=== PATIENT | male | born 1950 | race African-American/Black ===

== ENCOUNTER 2016-03-23 10:03 | Outpatient (RCR) | payer MEDICARE, MEDICAID ==
[~2016-03-23 10:03] MED LIST: /HYDR10T PO; /IPRAINH INH; /SENOSTA PO; /WARF5TA PO; ACET50TA PO; ACET65TA PO; ANTISOL30 AU; ASPI1TAB PO; ASPI325T PO; ATARAX; ATROVENT; BENA25CA PO; CALC1CAP PO; CALC667C2 PO; CART180C PO; COLA100C PO; COMBAER6 INH; COMBIN INH; COUM10TA PO; COUM1TAB14 PO; COUM1TAB17 PO; COUM6TAB PO; COUM7.5T PO; COUMADIN PO; DARB300VL IV; DARB30SYRN IV; DARB60SYR; DILT180C PO; DIPH25CA PO; DOCU100C PO; DOCU10CA PO; DOCU10ELUD PO; DOXY-197 PO; DOXY-278 PO; DOXY100C PO; DOXY75CA3 PO; DRIS50002 PO; ELIQ5TAB PO; EUCECRE3 TOP; FLUT0.003 TOP; FOLI1TAB2 PO; FOLITAB11 PO; FOSR1000 PO; GABA-279 PO; GEOD40CA; HYDR-3363 PO; HYDR-3713 PO; HYDR-3716 PO; HYDR25TA8; HYDR5TAB23 PO; IBUP80TA PO; IMMODIUM PO; IMOD2TAB16 PO; IPRA1SOL47 NEB; IPRASOL4 INH; KAYEPOW PO; LAC-12LO3 TOP; LEVA12INH INH; LEVA31IN; LOPE2CA PO; LOPE2TAB PO; LOPR100T; LOPR1TAB6 PO; LOPR1TAB7 PO; LOPR50TA PO; METO-209 PO; METO100T PO; METO12TA PO; METO50TA2 PO; MIRA3350 PO; NEPH1CAP4 PO; NEPHTAB PO; NEUR300C PO; NICO14DI3 TD; NICO7PA TD; NIFE30TA; NORCOBULK PO; OMEP20CA3 PO; OXYCODONE PO; PANT40TA2 PO; PARO30TA PO; PARO5TAB PO; PAXI10TA2 PO; PERC5TAB8; PERCOCET PO; PHOSLO667 MG; PRIL20CA PO; PROCRIT3000 MG/ML; PROT1TAB2 PO; PROTPAK PO; RENA800T; RENV2TAB PO; SENE8.6T3 PO; SENO8.6T11 PO; SENO8.6T2 PO; SENO8.6T5 PO; SENS60TA PO; SENS90TA PO; SEVE80TAB PO; SIMV10TA2 PO; SODI200S PO; TAMO20TA4 PO; TYLE325T5 PO; TYLENOL #3; VALA500T PO; VANC125C2 PO; VANC1CAP6 PO; VANC25CA; VICODIN PO; WARF-22 PO; WARF-58 PO; WARF5VL PO; XANA0.25 PO; XARELTO PO; ZOCO10TA PO; [UNRECOGNIZED DRUG - CODE] IV; immodium PO; zemplar
--- NOTE | 2016-04-20 09:20 | RADONC ---
RADIATION ONCOLOGY PROGRESS NOTE DATE: 04/19/2016 Mr. Valadez is presently at a dose of 2520 cGy to his left chest wall and is tolerating treatments quite well at this point with no complaints related to his radiation therapy. He is having no skin discomfort. REVIEW OF SYSTEMS: The patient's review of systems is positive for his difficulties secondary to his dialysis, but is otherwise largely noncontributory. He denies nausea, vomiting, fevers, chills, night sweats, diplopia, headaches, anxiety or depression, anorexia, weight loss, visual disturbances, chest pain, urinary or bowel difficulties, bone pain or neurological problems. PHYSICAL EXAMINATION: The patient's skin is in good condition with just some radiation tanning present. There is no evidence of moist or dry desquamation. The remainder of his physical exam remains unchanged. Mr. Valadez is tolerating treatments quite well and radiation will continue as scheduled.
== END 2016-04-20 ==
LOC: M ONCR 10:03
PROVIDERS: ATTEND Radiology Radiation Oncology
DX: C50.422 Malignant neoplasm of upper-outer quadrant of left male breast (principal)

== ENCOUNTER → 2016-04-13 | Outpatient (CLI) | payer MEDICARE, MEDICAID ==
[2016-04-13 13:50] LABS: CREATININE FOR GFR 7.19 MG/DL (0.70-1.30); GLOMERULAR FILTRATION RATE 9.9 (>49)
== END | disposition home or self-care (01) ==
LOC: M LAB 12:25
PROVIDERS: ATTEND Physician Assistant
DX: M19.072 Primary osteoarthritis, left ankle and foot (principal)

== ENCOUNTER 2016-04-19 11:58 | Outpatient (RCR) | payer MEDICARE, MEDICAID | END 2016-04-20 | LOC: M PT 11:58 | PROVIDERS: ATTEND Orthopaedic Surgery | DX: Z51.89 Encounter for other specified aftercare (principal); M17.0 Bilateral primary osteoarthritis of knee | CPT/HCPCS: 97110; 97162; G8978; G8979 ==

== ENCOUNTER 2016-04-21 10:19 | Outpatient (RCR) | payer MEDICARE, MEDICAID ==
--- NOTE | 2016-04-27 13:25 | RADONC ---
RADIATION ONCOLOGY PROGRESS NOTE DATE: 04/26/2016 CHART NUMBER: [id number] Mr. Valadez is presently at a dose of 3420 cGy to his left chest wall and is tolerating treatments quite well at this point with no complaints related to his radiation therapy. He is having no skin pain or other problems. The patient's review of systems is unchanged. He continues to have physical limitations and is in a wheelchair. He also continues to be on dialysis for kidney failure. He denies nausea, vomiting, fevers, chills, night sweats, diplopia, headaches, anxiety or depression, anorexia, weight loss, visual disturbances, chest pain. PHYSICAL EXAMINATION: The patient's skin is in good condition with no evidence of moist or dry desquamation. He remains in a wheelchair. The remainder of his physical exam also remains unchanged. Mr. Valadez is tolerating treatments quite well, and radiation will continue as scheduled.
--- NOTE | 2016-05-04 11:42 | RADONC ---
RADIATION ONCOLOGY PROGRESS NOTE DATE: 05/03/2016 CHART NUMBER: [id number] Mr. Valadez is presently at a dose of 4320 centigrade to his left chest wall and is tolerating treatments quite well at this point with no significant difficulties related to his radiation therapy. He is having no chest wall discomfort or other problems. The patient's review of systems is noncontributory for anything regarding radiation. He is on dialysis and has physical limitations present. He is presenting in a wheelchair. He denies nausea, vomiting, fevers, chills, night sweats, diplopia, headaches, anxiety or depression, anorexia, weight loss, visual disturbances, chest pain, or bowel difficulties. PHYSICAL EXAMINATION: The patient is presenting in a wheelchair. The patient's skin has tanning present but overall is in good condition with no evidence of moist or dry desquamation. The remainder of his physical exam remains unchanged. Mr. Valadez he is tolerating treatments quite well and radiation will continue as scheduled. Edited: 05/05/2016 diann
--- NOTE | 2016-05-05 13:06 | RADONC ---
RADIATION ONCOLOGY SIMULATION NOTE: DATE: 05/04/2016 CHART NUMBER: Mr. Valadez was taken to the linear accelerator today for clinical setup of his electron beam left chest wall scar boost field. Setup was accomplished without difficulty or discomfort. Radiation treatment planning is underway and radiation treatments will begin subsequently. An immobilization device was created and will be used throughout the course of this treatment. I was physically present throughout the course of simulation.
--- NOTE | 2016-05-13 08:00 | RADONC ---
RADIATION ONCOLOGY PROGRESS NOTE DATE: 05/10/2016 CHART NUMBER: [id number] Mr. Valadez is presently at a dose of 5040 cGy to his left chest wall boost and was last treated on 05/07/2016. He did not come in today secondary to conflicting appointments. When seen on Tuesday his skin was in excellent condition with no evidence of moist or dry desquamation and just some radiation tanning present. He had no complaints related to his radiation therapy. The patient is scheduled to resume radiation tomorrow. He had been tolerating treatments quite well and we are approaching completion of treatment.
--- NOTE | 2016-05-14 13:03 | RADONC ---
RADIATION ONCOLOGY TREATMENT SUMMARY DATE: 05/14/2016 CHART NUMBER: [id number] DIAGNOSIS: Left breast cancer. STAGE: IIIA, [id number] ECOG PERFORMANCE STATUS: 4 TREATMENT SUMMARY: Mr. 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 We treated the patient to his left chest wall for a total dose of 4680 cGy delivered in 26 fractions of 180 cGy each over 35 elapsed days from 03/31/2016 through 05/05/2016. The patient's left chest wall was treated on the linear accelerator utilizing and 18 mV photon beam via 3-D conformal therapy with medial and lateral tangential mcgill. 2 cm of tissue equivalent bolus was placed over the chest wall. Following completion of 4680 cGy of the entire left chest wall, the primary scar site was boosted for an additional 1080 cGy delivered in six fractions of 180 cGy each from to 05/06/2016 through 05/14/2016. The scar boost was delivered in a linear accelerator utilizing a 12 MeV electron beam prescribed to the 90% isodose line via non-phos technique. This brought the scar to a total dose of 5760 cGy. The supraclavicular region was also treated via an anterior oblique field utilizing a 15 degree angle and an 18 mV photon beam. Overall the mid axilla dose reached 5040 cGy. Mr. Valadez tolerated his treatments quite well with no significant difficulties related to his radiation therapy other than some skin reaction with some moist and dry desquamation. The patient overall tolerated his treatments and was able to complete therapy as prescribed without interruption. I have scheduled the patient to see him again in 1 month for further followup. He will also continue to be followed by his other physicians as well. cc: MD Gustavo Sims MD Khalid Sindhu, MD
== END 2016-05-18 ==
LOC: M ONCR 10:19
PROVIDERS: ATTEND Radiology Radiation Oncology
DX: C50.422 Malignant neoplasm of upper-outer quadrant of left male breast (principal)

== ENCOUNTER 2016-05-12 12:15 | Outpatient (RCR) | payer MEDICARE, MEDICAID | END 2016-05-18 | LOC: M PT 12:15 | PROVIDERS: ATTEND Orthopaedic Surgery | DX: Z51.89 Encounter for other specified aftercare (principal); M17.0 Bilateral primary osteoarthritis of knee ==

== ENCOUNTER 2016-05-16 18:31 | Emergency (ER) | payer MEDICARE, MEDICAID ==
[2016-05-16] MEDS ORDERED: SILVER SULFADIAZINE 1% CR 50 GM JAR As Ordered ONE (19:55)
[2016-05-16] MEDS ORDERED: NORCO, ANEXSIA 5/325MG TABLET (HYDROcodone/ACETAMINOPHEN) As Ordered ONE (19:55)
[2016-05-16 20:03] LABS: BASO % 0.7 % (0.0-1.0); EOS # 0.8 K/mm3 (0.0-0.50); EOS % 15.9 % (0.0-3.0); LARGE UNSTAINED CELL # 0.2 K/mm3 (0.0-0.4); LARGE UNSTAINED CELL % 3.2 % (0.0-4.0); LYMPH % 15.9 % (24.0-44.0); MEAN CORPUSCULAR HEMOGLOBIN 28.8 pg (27.0-33.0); MEAN CORPUSCULAR HGB CONC 32.5 g/dl (32.0-36.5); MEAN CORPUSCULAR VOLUME 88.6 fl (80.0-96.0); MONO # 0.5 K/mm3 (0.0-0.8); MONO % 8.9 % (0.0-5.0); NEUTROPHILS # 2.8 K/mm3 (1.8-7.7); NEUTROPHILS % 55.4 % (36.0-66.0); PLATELET COUNT, AUTOMATED 127 k/mm3 (150-450); RED CELL DISTRIBUTION WIDTH 16.2 % (11.5-14.5)
--- NOTE | 2016-05-16 21:00 | EDDOCDS ---
Nurse's Notes [facility] Name: Izaiah Valadez Age: 65 yrs Sex: Male : 1950 Arrival Date: 05/16/2016 Time: 18:31 Bed 15 Private MD: Diagnosis: Disorder of the skin and subcutaneous tissue related to radiation, unspecified Presentation: 05/16 18:35 Presenting complaint: EMS states: Patient presents with chest pain, patient reports jmb that chest pain is a result of radiation austin to chest. Last treatment on Tuesday. Burning on left side of chest. Known by provider. Patient had mupirocin at home and tried on area. Adult Sepsis Screening: The patient does not have new or worsening altered mentation. Patient's respiratory rate is less than 22. Systolic blood pressure is greater than 100. Patient has a qSOFA score of 0- Negative Sepsis Screen. Suicide/Homicide risk assessment- the patient denies having any suicidal and/or homicidal ideations and does not present with any other emotional, behavioral or mental health complaints. 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 Transition of care: patient was not received from another setting of care. 18:35 Acuity: CATHI Level 3 b 18:35 Method Of Arrival: Ambulance [facility] Triage Assessment: 18:40 General: Appears in no apparent distress, Behavior is appropriate for age, cooperative. jmb Pain: Location: chest Pain currently is 10 out of 10 on a pain scale. Neurological: Level of Consciousness is awake, alert, obeys commands, Oriented to person, place, time, Speech is normal, Facial symmetry appears normal, Facial symmetry: tongue is midline. Cardiovascular: Capillary refill < 3 seconds Heart tones present Pulses are all present. Rhythm is regular. Respiratory: Airway is patent Respiratory effort is even, unlabored, Respiratory pattern is regular, Breath sounds are diminished bilaterally. GI: Abdomen is obese, Bowel sounds present X 4 quads. Abd is soft and non tender X 4 quads. Derm: Skin is normal, Patient has third degree austin to left upper chest. Musculoskeletal: Range of motion intact in all extremities. Injury Description: No known injury. Historical: - Allergies: Bactrim DS (Rash); IODINEIODINE CONTAINING; IV Dye (Swelling); PENICILLINS (Rash); - Home Meds: 1. aspirin 81 mg Oral grps 1 tab once daily 2. Benadryl 25 mg Oral cap 2 caps before HD 3. calcium acetate 667 mg oral tab 5 cap 3 times per day 4. Colace 100 mg oral cap 1 cap 2 times per day 5. Combivent 18-103 mcg/actuation Inhl aero 2 puffs tid 6. Combivent Respimat 20-100 mcg/actuation inhalation mist 1 puff 4 times per day 7. diltiazem HCl 180 mg Oral cpER 1 cap once daily 8. Drisdol 50,000 unit Oral cap every 2 weeks 9. Eliquis 5 mg oral tab 1 tab 2 times per day 10. folic acid 1 mg Oral tab 1 tab once daily 11. gabapentin 100 mg Oral cap 3 times per day 12. ipratropium-albuterol 0.5 mg-3 mg(2.5 mg base)/3 mL Inhl nebu 3 mL 4 times per day 13. loperamide 2 mg Oral tab every 6 hours 14. metoprolol tartrate 100 mg Oral tab 1 tab once daily 15. Miralax 17 gram Oral pwpk 1 packet once daily 16. nephrovite 0.8 mg daily 17. nicotine 7 mg/24 hr TD pt24 1 patch once daily 18. omeprazole 20 mg Oral cpDR 1 cap once daily 19. Paxil 20 mg Oral tab 1.5 tab once daily 20. renvela 4800mg 3 times per day 800 mg 1 tabs three times a day 21. senna 8.6mg daily 1 cap twice a day 22. Sensipar 60 mg oral tab once daily 23. simvastatin 10 mg Oral tab 1 tab nightly 24. SPS 15 gram/60 mL Oral susp 3 grams DIRECTED 25. Valtrex 500 mg Oral tab 1 tab once daily 26. Vicodin 5/325 Oral tab 1 tab every 6 hours 27. Xanax 0.25 mg Oral tab Q6H - PMHx: Anemia; Bronchitis; Cancer, Breast - Left; CHF; Diabetes - NIDDM: controlled; DVT; hyperlipidemia; Hypertension; pulmonary edema; Renal Failure with Dialysis; - PSHx: fistula in arms and legs for dialysis; - Social history: Smoking status: Patient uses tobacco products, heavy tobacco smoker. No barriers to communication noted, The patient speaks fluent Hungarian, Speaks appropriately for age. - Family history: Not pertinent. - : The pt / caregiver states he / she is on anticoagulants: Eliquis Home medication list is obtained from the patient. - Exposure Risk Screening:: None identified. Screenin:49 Screening information is obtained from the patient. Fall risk: At risk due to jmb immobility. Assistance ADL's: requires no assistance with activities of daily living. Abuse/DV Screen: The patient / caregiver reports he/she is: not in a situation that causes fear, pain or injury. Nutritional screening: No deficits noted. home support is adequate. 20:47 Advance Directives: Currently, there is no health care proxy. There is no active DNR jmb order. There is no living will. There is no Power of Senior Private Client Advisor. Assessment: 19:49 General: Appears uncomfortable, Behavior is appropriate for age, cooperative. Pain: jmb Location: chest Pain currently is 10 out of 10 on a pain scale. Neurological: Level of Consciousness is awake, alert, obeys commands, Oriented to person, place, time, Speech is normal, Facial symmetry appears normal, Facial symmetry: tongue is midline. Respiratory: Airway is patent Respiratory effort is even, unlabored, Breath sounds are diminished bilaterally. GI: Abdomen is obese, Bowel sounds present X 4 quads. Abd is soft X 4 quads. Derm: Skin is normal, radiation austin to left anterior chest. Musculoskeletal: Range of motion intact in all extremities. 20:01 General: Appears in no apparent distress, Behavior is appropriate for age, cooperative, jmb Patient sitting on side of bed, appears comfortable. NO voiced complaints. Silvadene applied per Dr. Oneil's orders. . Neurological: Level of Consciousness is awake, alert, obeys commands, Oriented to person, place, time. Respiratory: Airway is patent Respiratory effort is even, unlabored, Respiratory pattern is regular, symmetrical. 20:47 General: Patient instructed on discharge instructions. Patient asked if there were any [facility] questions regarding discharge, patient stated no. Patient signed discharge instructions. Med necessity and face sheet faxed to [facility] for transportation home and approval obtained by medicaid. [facility] arrival. . Vital Signs: 18:38 BP 150 / 64; Pulse 69; Resp 20; Temp 99.1(O); Pulse Ox 96% on R/A; Weight 145 kg (R); justin Height 6 ft. 0 in. (182.88 cm) (R); Pain 10/10; 20:47 BP 148 / 60; Pulse 78; Resp 20; Temp 98.8(O); Pulse Ox 97% on R/A; Pain 3/10; jmb 18:38 Body Mass Index 43.35 (145.00 kg, 182.88 cm) justin Vitals: 18:40 Log In Time N/A - ambulance arrival. [facility] ED Course: 18:32 Patient visited by Janis Cortes, Superintendent Custodian Janitor. deg 18:32 Patient moved to Waiting deg 18:35 Patient moved to 15 jmb 18:36 Triage Initiated jmb 18:39 Patient visited by Richa Garrett PCA. justin 18:39 Pt greeted and oriented to ED. Patient advised of names of staff involved in care, justin location of call hale, wait times and NPO status. Patient has correct armband on for positive identification. Placed in gown. Bed in low position. Call light in reach. Side rails up X2. Pulse ox on. NIBP on. 18:50 Patient visited by Richa Garrett PCA. justin 18:50 EKG done. (by ED staff). Reviewed by Jerad Balbuena MD. justin 19:09 Hang Oneil DO is Attending Physician. cs11 19:09 Patient visited by Hang Oneil DO. cs11 19:20 CBC with Diff Sent. jmb 19:20 -Blood Culture Sent. jmb 19:49 The patient / caregiver is instructed regarding the plan of care and ED course. jmb 19:49 No IV's were initiated during this patient's visit. No procedures done that require jmb assistance. 19:51 Patient visited by Gallito Murphy RN. jmb 20:02 Patient visited by Gallito Murphy RN. jmb 20:12 [facility] Payment Agreement was scanned into [employer] and attached to record. zo 20:14 Shivam Nielson MD is Referral Physician. cs11 Administered Medications: 20:00 Drug: HYDROcodone-acetaminophen 1 tabs [hydrocodone 5 mg-acetaminophen 325 mg tablet (1 jmb tabs)] Route: PO; 20:01 Drug: Silver sulfADIAZINE 1 applic [silver sulfadiazine 1 % topical cream (1 applic)] [facility] Route: Topical; Site: anterior chest wall; Order Results: Lab Order: CBC with Diff; SPEC'M 05/16/16 19:02 Test: WHITE BLOOD COUNT; Value: 5.0; Range: 4.0-10.0; Units: K/mm3; Status: F Test: RED BLOOD COUNT; Value: 3.90; Range: 4.30-6.10; Abnormal: Below low normal; Units: M/mm3; Status: F Test: HEMOGLOBIN; Value: 11.2; Range: 14.0-18.0; Abnormal: Below low normal; Units: g/dl; Status: F Test: HEMATOCRIT; Value: 34.5; Range: 42.0-52.0; Abnormal: Below low normal; Units: %; Status: F Test: MEAN CORPUSCULAR VOLUME; Value: 88.6; Range: 80.0-96.0; Units: fl; Status: F Test: MEAN CORPUSCULAR HEMOGLOBIN; Value: 28.8; Range: 27.0-33.0; Units: pg; Status: F Test: MEAN CORPUSCULAR HGB CONC; Value: 32.5; Range: 32.0-36.5; Units: g/dl; Status: F Test: RED CELL DISTRIBUTION WIDTH; Value: 16.2; Range: 11.5-14.5; Abnormal: Above high normal; Units: %; Status: F Test: PLATELET COUNT, AUTOMATED; Value: 127; Range: 150-450; Abnormal: Below low normal; Units: k/mm3; Status: F Test: NEUTROPHILS %; Value: 55.4; Range: 36.0-66.0; Units: %; Status: F Test: LYMPH %; Value: 15.9; Range: 24.0-44.0; Abnormal: Below low normal; Units: %; Status: F Test: MONO %; Value: 8.9; Range: 0.0-5.0; Abnormal: Above high normal; Units: %; Status: F Test: EOS %; Value: 15.9; Range: 0.0-3.0; Abnormal: Above high normal; Units: %; Status: F Test: BASO %; Value: 0.7; Range: 0.0-1.0; Units: %; Status: F Test: LARGE UNSTAINED CELL %; Value: 3.2; Range: 0.0-4.0; Units: %; Status: F Test: NEUTROPHILS #; Value: 2.8; Range: 1.8-7.7; Units: K/mm3; Status: F Test: LYMPH #; Value: 1.0; Range: 1.5-4.5; Abnormal: Below low normal; Units: K/mm3; Status: F Test: MONO #; Value: 0.5; Range: 0.0-0.8; Units: K/mm3; Status: F Test: EOS #; Value: 0.8; Range: 0.0-0.50; Abnormal: Above high normal; Units: K/mm3; Status: F Test: BASO #; Value: 0.0; Range: 0.0-0.2; Units: K/mm3; Status: F Test: LARGE UNSTAINED CELL #; Value: 0.2; Range: 0.0-0.4; Units: K/mm3; Status: F Outcome: 20:14 Discharge ordered by Provider. cs11 20:47 Discharge Assessment: Patient awake, alert and oriented x 3. No cognitive and/or jmb functional deficits noted. Patient verbalized understanding of disposition instructions. Patient awake and alert. obeys commands, Oriented to person, place and time. Patient verbalized understanding of disposition instructions. Patient has no functional deficits. patient administered narcotics - yes. Pt provided with safe discharge. The following High Risk Discharge criteria are identified: None. Discharged to home via ambulance. Condition: stable Condition: improved. Discharge instructions given to patient, Instructed on discharge instructions, follow up and referral plans. Demonstrated understanding of instructions, Pt was receptive of discharge instructions/ teaching. No special radiology studies were completed. Property sent home with patient. 20:59 Patient left the ED. cosme Signatures: Janis Cortes, Superintendent Custodian Janitor Unit deg Lily Gaspar Destiny, RON HIGHWAY TRUCK DRIVER Hang Braxton DO DO cs11 Gallito Murphy,RN RN cosme MTDD
--- NOTE | 2016-05-16 21:00 | EDDOCDS ---
Physician Documentation [facility] Name: Izaiah Valadez Age: 65 yrs Sex: Male : 1950 Arrival Date: 05/16/2016 Time: 18:31 Bed 15 Private MD: Disposition: 05/16/16 20:14 Discharged to Home/Self Care. 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 - Condition is Stable. - Medication Reconciliation, Local Pharmacy Hours form. - Follow up: Shivam Nielson MD; When: Call to arrange an appointment; Reason: Recheck today's complaints, To establish care. - Problem is an ongoing problem. - Symptoms have improved. Historical: - Allergies: Bactrim DS (Rash); IODINEIODINE CONTAINING; IV Dye (Swelling); PENICILLINS (Rash); - Home Meds: 1. aspirin 81 mg Oral grps 1 tab once daily 2. Benadryl 25 mg Oral cap 2 caps before HD 3. calcium acetate 667 mg oral tab 5 cap 3 times per day 4. Colace 100 mg oral cap 1 cap 2 times per day 5. Combivent 18-103 mcg/actuation Inhl aero 2 puffs tid 6. Combivent Respimat 20-100 mcg/actuation inhalation mist 1 puff 4 times per day 7. diltiazem HCl 180 mg Oral cpER 1 cap once daily 8. Drisdol 50,000 unit Oral cap every 2 weeks 9. Eliquis 5 mg oral tab 1 tab 2 times per day 10. folic acid 1 mg Oral tab 1 tab once daily 11. gabapentin 100 mg Oral cap 3 times per day 12. ipratropium-albuterol 0.5 mg-3 mg(2.5 mg base)/3 mL Inhl nebu 3 mL 4 times per day 13. loperamide 2 mg Oral tab every 6 hours 14. metoprolol tartrate 100 mg Oral tab 1 tab once daily 15. Miralax 17 gram Oral pwpk 1 packet once daily 16. nephrovite 0.8 mg daily 17. nicotine 7 mg/24 hr TD pt24 1 patch once daily 18. omeprazole 20 mg Oral cpDR 1 cap once daily 19. Paxil 20 mg Oral tab 1.5 tab once daily 20. renvela 4800mg 3 times per day 800 mg 1 tabs three times a day 21. senna 8.6mg daily 1 cap twice a day 22. Sensipar 60 mg oral tab once daily 23. simvastatin 10 mg Oral tab 1 tab nightly 24. SPS 15 gram/60 mL Oral susp 3 grams DIRECTED 25. Valtrex 500 mg Oral tab 1 tab once daily 26. Vicodin 5/325 Oral tab 1 tab every 6 hours 27. Xanax 0.25 mg Oral tab Q6H - PMHx: Anemia; Bronchitis; Cancer, Breast - Left; CHF; Diabetes - NIDDM: controlled; DVT; hyperlipidemia; Hypertension; pulmonary edema; Renal Failure with Dialysis; - PSHx: fistula in arms and legs for dialysis; - Social history: Smoking status: Patient uses tobacco products, heavy tobacco smoker. No barriers to communication noted, The patient speaks fluent Croatian, Speaks appropriately for age. - Family history: Not pertinent. - : The pt / caregiver states he / she is on anticoagulants: [facility] Home medication list is obtained from the patient. - Exposure Risk Screening:: None identified. Vital Signs: 05/16 18:38 BP 150 / 64; Pulse 69; Resp 20; Temp 99.1(O); Pulse Ox 96% on R/A; Weight 145 kg / justin 319.67 lbs (R); Height 6 ft. 0 in. (182.88 cm) (R); Pain 10/10; 20:47 BP 148 / 60; Pulse 78; Resp 20; Temp 98.8(O); Pulse Ox 97% on R/A; Pain 3/10; jmb 18:38 Body Mass Index 43.35 (145.00 kg, 182.88 cm) justin MDM: 18:43 ECG WITH READING ER PHYS+CARDIAG ordered. EDMS 19:18 -Blood Culture Ordered. EDMS 19:18 CBC with Diff Ordered. EDMS 19:25 Financial registration complete. zo 19:25 HYDROcodone-acetaminophen 5 mg-325 mg 1 tabs PO once ordered. cs11 19:25 [facility]. Nursing Order ordered. cs11 20:01 Silver sulfADIAZINE Cream 1 % 1 applic Topical once; apply a thin layer to burn area. jmb ordered. 20:09 CBC with Diff Reviewed. cs11 20:12 [facility] Payment Agreement was scanned into [employer] and attached to record. zo Administered Medications: 20:00 Drug: HYDROcodone-acetaminophen 1 tabs [hydrocodone 5 mg-acetaminophen 325 mg tablet (1 jmb tabs)] Route: PO; 20:01 Drug: Silver sulfADIAZINE 1 applic [silver sulfadiazine 1 % topical cream (1 applic)] cosme Route: Topical; Site: anterior chest wall; Signatures: Dispatcher [employer] Lily Juarez Craig, DO DO cs11 Gallito MurphyRN RN delgadob The chart was reviewed and I authenticate all verbal orders and agree with the evaluation and treatment provided.Attachments: 20:12 [facility] Payment Agreement zo MTDD
--- NOTE | 2016-05-17 07:51 | ECGEPIP ---
Stationary ECG Study [facility] - ED Test Date: 2016-05-16 Pat Name: LASHONDA ROSS Department: Room: - Gender: M Supervisor Warping Department: ArnoldB: 1950 Requested By: AURELIA Shepard Order Number: [id number] Reading MD: Maren Damon Measurements Intervals [place] Rate: 66 P: 38 DC: 169 QRS: -68 QRSD: 162 T: 30 QT: 456 QTc: 481 Interpretive Statements SINUS RHYTHM MARKED LEFT AXIS DEVIATION RIGHT BUNDLE BRANCH BLOCK POSSIBLE SEPTAL MYOCARDIAL INFARCTION, OF INDETERMINATE AGE SIMILAR 02/20/16 Electronically Signed On 05-17-2016 7:51:27 EST by Maren Damon
--- NOTE | 2016-05-18 22:01 | EDDOCDS ---
Physician Documentation [facility] Name: Izaiah Valadez Age: 65 yrs Sex: Male : 1950 Arrival Date: 05/16/2016 Time: 18:31 Bed 15 Private MD: Disposition: 05/16/16 20:14 Discharged to Home/Self Care. 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 - Condition is Stable. - Medication Reconciliation, Local Pharmacy Hours form. - Follow up: Shivam Nielson MD; When: Call to arrange an appointment; Reason: Recheck today's complaints, To establish care. - Problem is an ongoing problem. - Symptoms have improved. Historical: - Allergies: Bactrim DS (Rash); IODINEIODINE CONTAINING; IV Dye (Swelling); PENICILLINS (Rash); - Home Meds: 1. aspirin 81 mg Oral grps 1 tab once daily 2. Benadryl 25 mg Oral cap 2 caps before HD 3. calcium acetate 667 mg oral tab 5 cap 3 times per day 4. Colace 100 mg oral cap 1 cap 2 times per day 5. Combivent 18-103 mcg/actuation Inhl aero 2 puffs tid 6. Combivent Respimat 20-100 mcg/actuation inhalation mist 1 puff 4 times per day 7. diltiazem HCl 180 mg Oral cpER 1 cap once daily 8. Drisdol 50,000 unit Oral cap every 2 weeks 9. Eliquis 5 mg oral tab 1 tab 2 times per day 10. folic acid 1 mg Oral tab 1 tab once daily 11. gabapentin 100 mg Oral cap 3 times per day 12. ipratropium-albuterol 0.5 mg-3 mg(2.5 mg base)/3 mL Inhl nebu 3 mL 4 times per day 13. loperamide 2 mg Oral tab every 6 hours 14. metoprolol tartrate 100 mg Oral tab 1 tab once daily 15. Miralax 17 gram Oral pwpk 1 packet once daily 16. nephrovite 0.8 mg daily 17. nicotine 7 mg/24 hr TD pt24 1 patch once daily 18. omeprazole 20 mg Oral cpDR 1 cap once daily 19. Paxil 20 mg Oral tab 1.5 tab once daily 20. renvela 4800mg 3 times per day 800 mg 1 tabs three times a day 21. senna 8.6mg daily 1 cap twice a day 22. Sensipar 60 mg oral tab once daily 23. simvastatin 10 mg Oral tab 1 tab nightly 24. SPS 15 gram/60 mL Oral susp 3 grams DIRECTED 25. Valtrex 500 mg Oral tab 1 tab once daily 26. Vicodin 5/325 Oral tab 1 tab every 6 hours 27. Xanax 0.25 mg Oral tab Q6H - PMHx: Anemia; Bronchitis; Cancer, Breast - Left; CHF; Diabetes - NIDDM: controlled; DVT; hyperlipidemia; Hypertension; pulmonary edema; Renal Failure with Dialysis; - PSHx: fistula in arms and legs for dialysis; - Social history: Smoking status: Patient uses tobacco products, heavy tobacco smoker. No barriers to communication noted, The patient speaks fluent Romanian, Speaks appropriately for age. - Family history: Not pertinent. - : The pt / caregiver states he / she is on anticoagulants: [facility] medication list is obtained from the patient. - Exposure Risk Screening:: None identified. Vital Signs: 05/16 18:38 BP 150 / 64; Pulse 69; Resp 20; Temp 99.1(O); Pulse Ox 96% on R/A; Weight 145 kg / justin 319.67 lbs (R); Height 6 ft. 0 in. (182.88 cm) (R); Pain 10/10; 20:47 BP 148 / 60; Pulse 78; Resp 20; Temp 98.8(O); Pulse Ox 97% on R/A; Pain 3/10; jmb 18:38 Body Mass Index 43.35 (145.00 kg, 182.88 cm) justin MDM: 18:43 ECG WITH READING ER PHYS+CARDIAG ordered. EDMS 19:18 -Blood Culture Ordered. EDMS 19:18 CBC with Diff Ordered. EDMS 19:25 Financial registration complete. zo 19:25 HYDROcodone-acetaminophen 5 mg-325 mg 1 tabs PO once ordered. cs11 19:25 [facility] [place]. Nursing Order ordered. cs11 20:01 Silver sulfADIAZINE Cream 1 % 1 applic Topical once; apply a thin layer to burn area. jmb ordered. 20:09 CBC with Diff Reviewed. cs11 20:12 [facility] [place] Payment Agreement was scanned into [email or web address] and attached to record. zo 05/17 09:19 T-Sheet-- Draft Copy was scanned into [email or web address] and attached to record. gb Administered Medications: 05/16 20:00 Drug: HYDROcodone-acetaminophen 1 tabs [hydrocodone 5 mg-acetaminophen 325 mg tablet (1 jmb tabs)] Route: PO; 20:01 Drug: Silver sulfADIAZINE 1 applic [silver sulfadiazine 1 % topical cream (1 applic)] jmkeisha Route: Topical; Site: anterior chest wall; Signatures: Dispatcher [employer] EDMS Génesis Wild, Reg Reg gb Hubert, Hang Mccauley DO DO cs11 Glalito Murphy,RN RN delgadob The chart was reviewed and I authenticate all verbal orders and agree with the evaluation and treatment provided.Attachments: 20:12 [facility] [place] Payment Agreement zo 05/17 09:19 T-Sheet-- Draft Copy gb Chart Complete MTDD
--- NOTE | 2016-05-18 22:01 | EDDOCDS ---
Physician Documentation [facility] Name: Izaiah Valadez Age: 65 yrs Sex: Male : 1950 Arrival Date: 05/16/2016 Time: 18:31 Bed 15 Private MD: Disposition: 05/16/16 20:14 Discharged to Home/Self Care. 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 - Condition is Stable. - Medication Reconciliation, Local Pharmacy Hours form. - Follow up: Shivam Nielson MD; When: Call to arrange an appointment; Reason: Recheck today's complaints, To establish care. - Problem is an ongoing problem. - Symptoms have improved. Historical: - Allergies: Bactrim DS (Rash); IODINEIODINE CONTAINING; IV Dye (Swelling); PENICILLINS (Rash); - Home Meds: 1. aspirin 81 mg Oral grps 1 tab once daily 2. Benadryl 25 mg Oral cap 2 caps before HD 3. calcium acetate 667 mg oral tab 5 cap 3 times per day 4. Colace 100 mg oral cap 1 cap 2 times per day 5. Combivent 18-103 mcg/actuation Inhl aero 2 puffs tid 6. Combivent Respimat 20-100 mcg/actuation inhalation mist 1 puff 4 times per day 7. diltiazem HCl 180 mg Oral cpER 1 cap once daily 8. Drisdol 50,000 unit Oral cap every 2 weeks 9. Eliquis 5 mg oral tab 1 tab 2 times per day 10. folic acid 1 mg Oral tab 1 tab once daily 11. gabapentin 100 mg Oral cap 3 times per day 12. ipratropium-albuterol 0.5 mg-3 mg(2.5 mg base)/3 mL Inhl nebu 3 mL 4 times per day 13. loperamide 2 mg Oral tab every 6 hours 14. metoprolol tartrate 100 mg Oral tab 1 tab once daily 15. Miralax 17 gram Oral pwpk 1 packet once daily 16. nephrovite 0.8 mg daily 17. nicotine 7 mg/24 hr TD pt24 1 patch once daily 18. omeprazole 20 mg Oral cpDR 1 cap once daily 19. Paxil 20 mg Oral tab 1.5 tab once daily 20. renvela 4800mg 3 times per day 800 mg 1 tabs three times a day 21. senna 8.6mg daily 1 cap twice a day 22. Sensipar 60 mg oral tab once daily 23. simvastatin 10 mg Oral tab 1 tab nightly 24. SPS 15 gram/60 mL Oral susp 3 grams DIRECTED 25. Valtrex 500 mg Oral tab 1 tab once daily 26. Vicodin 5/325 Oral tab 1 tab every 6 hours 27. Xanax 0.25 mg Oral tab Q6H - PMHx: Anemia; Bronchitis; Cancer, Breast - Left; CHF; Diabetes - NIDDM: controlled; DVT; hyperlipidemia; Hypertension; pulmonary edema; Renal Failure with Dialysis; - PSHx: fistula in arms and legs for dialysis; - Social history: Smoking status: Patient uses tobacco products, heavy tobacco smoker. No barriers to communication noted, The patient speaks fluent Icelandic, Speaks appropriately for age. - Family history: Not pertinent. - : The pt / caregiver states he / she is on anticoagulants: [facility] medication list is obtained from the patient. - Exposure Risk Screening:: None identified. Vital Signs: 05/16 18:38 BP 150 / 64; Pulse 69; Resp 20; Temp 99.1(O); Pulse Ox 96% on R/A; Weight 145 kg / justin 319.67 lbs (R); Height 6 ft. 0 in. (182.88 cm) (R); Pain 10/10; 20:47 BP 148 / 60; Pulse 78; Resp 20; Temp 98.8(O); Pulse Ox 97% on R/A; Pain 3/10; jmb 18:38 Body Mass Index 43.35 (145.00 kg, 182.88 cm) justin MDM: 18:43 ECG WITH READING ER PHYS+CARDIAG ordered. EDMS 19:18 -Blood Culture Ordered. EDMS 19:18 CBC with Diff Ordered. EDMS 19:25 Financial registration complete. zo 19:25 HYDROcodone-acetaminophen 5 mg-325 mg 1 tabs PO once ordered. cs11 19:25 [facility] [place]. Nursing Order ordered. cs11 20:01 Silver sulfADIAZINE Cream 1 % 1 applic Topical once; apply a thin layer to burn area. jmb ordered. 20:09 CBC with Diff Reviewed. cs11 20:12 [facility] [place] Payment Agreement was scanned into [employer] and attached to record. zo 05/17 09:19 T-Sheet-- Draft Copy was scanned into [employer] and attached to record. gb Administered Medications: 05/16 20:00 Drug: HYDROcodone-acetaminophen 1 tabs [hydrocodone 5 mg-acetaminophen 325 mg tablet (1 jmb tabs)] Route: PO; 20:01 Drug: Silver sulfADIAZINE 1 applic [silver sulfadiazine 1 % topical cream (1 applic)] jmkeisha Route: Topical; Site: anterior chest wall; Signatures: Dispatcher [employer] EDMS Génesis Wild, Reg Reg gb Hubert, Hang Mccauley DO DO cs11 Gallito Murphy,RN RN delgadob The chart was reviewed and I authenticate all verbal orders and agree with the evaluation and treatment provided.Attachments: 20:12 [facility] [place] Payment Agreement zo 05/17 09:19 T-Sheet-- Draft Copy gb Chart Complete MTDD
--- NOTE | 2016-05-18 22:02 | EDDOCDS ---
Nurse's Notes 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 Last treatment on Tuesday. Burning on left side of chest. Known by provider. Patient had mupirocin at home and tried on area. Adult Sepsis Screening: The patient does not have new or worsening altered mentation. Patient's respiratory rate is less than 22. Systolic blood pressure is greater than 100. Patient has a qSOFA score of 0- Negative Sepsis Screen. Suicide/Homicide risk assessment- the patient denies having any suicidal and/or homicidal ideations and does not present with any other emotional, behavioral or mental health complaints. Status: Patient is not a student services vice president or dependent. Transition of care: patient was not received from another setting of care. 18:35 Acuity: CATHI Level 3 b 18:35 Method Of Arrival: Ambulance [facility] Triage Assessment: 18:40 General: Appears in no apparent distress, Behavior is appropriate for age, cooperative. jmb Pain: Location: chest Pain currently is 10 out of 10 on a pain scale. Neurological: Level of Consciousness is awake, alert, obeys commands, Oriented to person, place, time, Speech is normal, Facial symmetry appears normal, Facial symmetry: tongue is midline. Cardiovascular: Capillary refill < 3 seconds Heart tones present Pulses are all present. Rhythm is regular. Respiratory: Airway is patent Respiratory effort is even, unlabored, Respiratory pattern is regular, Breath sounds are diminished bilaterally. GI: Abdomen is obese, Bowel sounds present X 4 quads. Abd is soft and non tender X 4 quads. Derm: Skin is normal, Patient has third degree austin to left upper chest. Musculoskeletal: Range of motion intact in all extremities. Injury Description: No known injury. Historical: - Allergies: Bactrim DS (Rash); IODINEIODINE CONTAINING; IV Dye (Swelling); PENICILLINS (Rash); - Home Meds: 1. aspirin 81 mg Oral grps 1 tab once daily 2. Benadryl 25 mg Oral cap 2 caps before HD 3. calcium acetate 667 mg oral tab 5 cap 3 times per day 4. Colace 100 mg oral cap 1 cap 2 times per day 5. Combivent 18-103 mcg/actuation Inhl aero 2 puffs tid 6. Combivent Respimat 20-100 mcg/actuation inhalation mist 1 puff 4 times per day 7. diltiazem HCl 180 mg Oral cpER 1 cap once daily 8. Drisdol 50,000 unit Oral cap every 2 weeks 9. Eliquis 5 mg oral tab 1 tab 2 times per day 10. folic acid 1 mg Oral tab 1 tab once daily 11. gabapentin 100 mg Oral cap 3 times per day 12. ipratropium-albuterol 0.5 mg-3 mg(2.5 mg base)/3 mL Inhl nebu 3 mL 4 times per day 13. loperamide 2 mg Oral tab every 6 hours 14. metoprolol tartrate 100 mg Oral tab 1 tab once daily 15. Miralax 17 gram Oral pwpk 1 packet once daily 16. nephrovite 0.8 mg daily 17. nicotine 7 mg/24 hr TD pt24 1 patch once daily 18. omeprazole 20 mg Oral cpDR 1 cap once daily 19. Paxil 20 mg Oral tab 1.5 tab once daily 20. renvela 4800mg 3 times per day 800 mg 1 tabs three times a day 21. senna 8.6mg daily 1 cap twice a day 22. Sensipar 60 mg oral tab once daily 23. simvastatin 10 mg Oral tab 1 tab nightly 24. SPS 15 gram/60 mL Oral susp 3 grams DIRECTED 25. Valtrex 500 mg Oral tab 1 tab once daily 26. Vicodin 5/325 Oral tab 1 tab every 6 hours 27. Xanax 0.25 mg Oral tab Q6H - PMHx: Anemia; Bronchitis; Cancer, Breast - Left; CHF; Diabetes - NIDDM: controlled; DVT; hyperlipidemia; Hypertension; pulmonary edema; Renal Failure with Dialysis; - PSHx: fistula in arms and legs for dialysis; - Social history: Smoking status: Patient uses tobacco products, heavy tobacco smoker. No barriers to communication noted, The patient speaks fluent Yi, Speaks appropriately for age. - Family history: Not pertinent. - : The pt / caregiver states he / she is on anticoagulants: Eliquis Home medication list is obtained from the patient. - Exposure Risk Screening:: None identified. Screenin:49 Screening information is obtained from the patient. Fall risk: At risk due to jmb immobility. Assistance ADL's: requires no assistance with activities of daily living. Abuse/DV Screen: The patient / caregiver reports he/she is: not in a situation that causes fear, pain or injury. Nutritional screening: No deficits noted. home support is adequate. 20:47 Advance Directives: Currently, there is no health care proxy. There is no active DNR jmb order. There is no living will. There is no Power of Meter Mechanic. Assessment: 19:49 General: Appears uncomfortable, Behavior is appropriate for age, cooperative. Pain: jmb Location: chest Pain currently is 10 out of 10 on a pain scale. Neurological: Level of Consciousness is awake, alert, obeys commands, Oriented to person, place, time, Speech is normal, Facial symmetry appears normal, Facial symmetry: tongue is midline. Respiratory: Airway is patent Respiratory effort is even, unlabored, Breath sounds are diminished bilaterally. GI: Abdomen is obese, Bowel sounds present X 4 quads. Abd is soft X 4 quads. Derm: Skin is normal, radiation austin to left anterior chest. Musculoskeletal: Range of motion intact in all extremities. 20:01 General: Appears in no apparent distress, Behavior is appropriate for age, cooperative, jmb Patient sitting on side of bed, appears comfortable. NO voiced complaints. Silvadene applied per Dr. Oneil's orders. . Neurological: Level of Consciousness is awake, alert, obeys commands, Oriented to person, place, time. Respiratory: Airway is patent Respiratory effort is even, unlabored, Respiratory pattern is regular, symmetrical. 20:47 General: Patient instructed on discharge instructions. Patient asked if there were any [facility] questions regarding discharge, patient stated no. Patient signed discharge instructions. Med necessity and face sheet faxed to [facility] for transportation home and approval obtained by medicaid. Awaiting [facility] arrival. . Vital Signs: 18:38 BP 150 / 64; Pulse 69; Resp 20; Temp 99.1(O); Pulse Ox 96% on R/A; Weight 145 kg (R); justin Height 6 ft. 0 in. (182.88 cm) (R); Pain 10/10; 20:47 BP 148 / 60; Pulse 78; Resp 20; Temp 98.8(O); Pulse Ox 97% on R/A; Pain 3/10; jmb 18:38 Body Mass Index 43.35 (145.00 kg, 182.88 cm) justin Vitals: 18:40 Log In Time N/A - ambulance arrival. b ED Course: 18:32 Patient visited by Janis Cortes, Sustainability Officer. deg 18:32 Patient moved to Waiting deg 18:35 Patient moved to 15 jmb 18:36 Triage Initiated jmb 18:39 Patient visited by Richa Garrett PCA. justin 18:39 Pt greeted and oriented to ED. Patient advised of names of staff involved in care, justin location of call hale, wait times and NPO status. Patient has correct armband on for positive identification. Placed in gown. Bed in low position. Call light in reach. Side rails up X2. Pulse ox on. NIBP on. 18:50 Patient visited by Richa Garrett PCA. justin 18:50 EKG done. (by ED staff). Reviewed by Aurelia Balbuena MD. justin 19:09 Hang Oneil DO is Attending Physician. cs11 19:09 Patient visited by Hang Oneil DO. cs11 19:20 CBC with Diff Sent. jmb 19:20 -Blood Culture Sent. jmb 19:49 The patient / caregiver is instructed regarding the plan of care and ED course. jmb 19:49 No IV's were initiated during this patient's visit. No procedures done that require jmb assistance. 19:51 Patient visited by Gallito Murphy RN. jmb 20:02 Patient visited by Gallito Murphy RN. jmb 20:12 [facility] Payment Agreement was scanned into [employer] and attached to record. zo 20:14 Shivam Nielson MD is Referral Physician. cs11 05/17 08:11 EKG-ADULT Returned. EDMS 09:19 T-Sheet-- Draft Copy was scanned into [employer] and attached to record. gb Administered Medications: 05/16 20:00 Drug: HYDROcodone-acetaminophen 1 tabs [hydrocodone 5 mg-acetaminophen 325 mg tablet (1 jmb tabs)] Route: PO; 20:01 Drug: Silver sulfADIAZINE 1 applic [silver sulfadiazine 1 % topical cream (1 applic)] jmb Route: Topical; Site: anterior chest wall; Order Results: Lab Order: -Blood Culture; SPEC'M 05/16/16 19:02 Test: BLOOD CULTURE; Value: No growth after 24 hours . All specimens observed; Status: F Test: BLOOD CULTURE; Value: for 5 days. Results final at that time.; Status: F Test: BLOOD CULTURE; Value: No Growth after 48 hours. All Specimens observed; Status: F Test: BLOOD CULTURE; Value: for 7 days. Results final at that time.; Status: F Lab Order: CBC with Diff; SPEC'M 05/16/16 19:02 Test: WHITE BLOOD COUNT; Value: 5.0; Range: 4.0-10.0; Units: K/mm3; Status: F Test: RED BLOOD COUNT; Value: 3.90; Range: 4.30-6.10; Abnormal: Below low normal; Units: M/mm3; Status: F Test: HEMOGLOBIN; Value: 11.2; Range: 14.0-18.0; Abnormal: Below low normal; Units: g/dl; Status: F Test: HEMATOCRIT; Value: 34.5; Range: 42.0-52.0; Abnormal: Below low normal; Units: %; Status: F Test: MEAN CORPUSCULAR VOLUME; Value: 88.6; Range: 80.0-96.0; Units: fl; Status: F Test: MEAN CORPUSCULAR HEMOGLOBIN; Value: 28.8; Range: 27.0-33.0; Units: pg; Status: F Test: MEAN CORPUSCULAR HGB CONC; Value: 32.5; Range: 32.0-36.5; Units: g/dl; Status: F Test: RED CELL DISTRIBUTION WIDTH; Value: 16.2; Range: 11.5-14.5; Abnormal: Above high normal; Units: %; Status: F Test: PLATELET COUNT, AUTOMATED; Value: 127; Range: 150-450; Abnormal: Below low normal; Units: k/mm3; Status: F Test: NEUTROPHILS %; Value: 55.4; Range: 36.0-66.0; Units: %; Status: F Test: LYMPH %; Value: 15.9; Range: 24.0-44.0; Abnormal: Below low normal; Units: %; Status: F Test: MONO %; Value: 8.9; Range: 0.0-5.0; Abnormal: Above high normal; Units: %; Status: F Test: EOS %; Value: 15.9; Range: 0.0-3.0; Abnormal: Above high normal; Units: %; Status: F Test: BASO %; Value: 0.7; Range: 0.0-1.0; Units: %; Status: F Test: LARGE UNSTAINED CELL %; Value: 3.2; Range: 0.0-4.0; Units: %; Status: F Test: NEUTROPHILS #; Value: 2.8; Range: 1.8-7.7; Units: K/mm3; Status: F Test: LYMPH #; Value: 1.0; Range: 1.5-4.5; Abnormal: Below low normal; Units: K/mm3; Status: F Test: MONO #; Value: 0.5; Range: 0.0-0.8; Units: K/mm3; Status: F Test: EOS #; Value: 0.8; Range: 0.0-0.50; Abnormal: Above high normal; Units: K/mm3; Status: F Test: BASO #; Value: 0.0; Range: 0.0-0.2; Units: K/mm3; Status: F Test: LARGE UNSTAINED CELL #; Value: 0.2; Range: 0.0-0.4; Units: K/mm3; Status: F Radiology Order: EKG-ADULT Test: EKG-ADULT REASON FOR EXAMINATION: Chest Pain; Stationary ECG Study; [facility] - ED; ; Test Date: 2016-05-16; Pat Name: IZAIAH VALADEZ Department:; Room: -; Gender: M Retail Reset Merchandiser: juan; : 1950 Requested By: AURELIA Shepard; Order Number: [id number] Reading MD: Maren Damon; Measurements; Intervals [place]; Rate: 66 P: 38; NM: 169 QRS: -68; QRSD: 162 T: 30; QT: 456; QTc: 481; Interpretive Statements; SINUS RHYTHM; MARKED LEFT AXIS DEVIATION; RIGHT BUNDLE BRANCH BLOCK; POSSIBLE SEPTAL MYOCARDIAL INFARCTION, OF INDETERMINATE AGE; SIMILAR 02/20/16; Electronically Signed On 05-17-2016 7:51:27 EST by Maren Damon; Outcome: 20:14 Discharge ordered by Provider. cs11 20:47 Discharge Assessment: Patient awake, alert and oriented x 3. No cognitive and/or jmb functional deficits noted. Patient verbalized understanding of disposition instructions. Patient awake and alert. obeys commands, Oriented to person, place and time. Patient verbalized understanding of disposition instructions. Patient has no functional deficits. patient administered narcotics - yes. Pt provided with safe discharge. The following High Risk Discharge criteria are identified: None. Discharged to home via ambulance. Condition: stable Condition: improved. Discharge instructions given to patient, Instructed on discharge instructions, follow up and referral plans. Demonstrated understanding of instructions, Pt was receptive of discharge instructions/ teaching. No special radiology studies were completed. Property sent home with patient. 20:59 Patient left the ED. cosme Signatures: Dispatcher [employer] EDMS Janis Cortes, Sustainability Officer Unit deg Génesis Wild, Reg Reg gb Lily Gaspar zo Richa Garrett, SOLAR SALES REP SOLAR SALES REP Hang Braxton, DO cs11 Gallito Murphy,RN RN cosme Chart Complete MTDD
== END 2016-05-16 20:59 | disposition home or self-care (01) ==
LOC: M ED 18:31
DX: L59.8 Other specified disorders of the skin and subcutaneous tissue related to radiation (principal); C50.922 Malignant neoplasm of unspecified site of left male breast; D64.9 Anemia, unspecified; I50.9 Heart failure, unspecified; E11.22 Type 2 diabetes mellitus with diabetic chronic kidney disease; E78.5 Hyperlipidemia, unspecified; I12.9 Hypertensive chronic kidney disease with stage 1 through stage 4 chronic kidney disease, or unspecified chronic kidney disease; J81.0 Acute pulmonary edema; F17.200 Nicotine dependence, unspecified, uncomplicated; Z99.2 Dependence on renal dialysis; Z86.718 Personal history of other venous thrombosis and embolism; Z79.01 Long term (current) use of anticoagulants; Z79.51 Long term (current) use of inhaled steroids; Z79.82 Long term (current) use of aspirin; Z79.899 Other long term (current) drug therapy; Z88.0 Allergy status to penicillin; Z88.1 Allergy status to other antibiotic agents; Z91.041 Radiographic dye allergy status; Z91.09 Other allergy status, other than to drugs and biological substances

== ENCOUNTER → 2016-07-15 | Outpatient (CLI) | payer MEDICARE, MEDICAID ==
[~2016-07-15] MED LIST changes: -COLA100C PO; +COLA100C3 PO
--- NOTE | 2016-07-20 13:47 | RADONC ---
RADIATION ONCOLOGY FOLLOWUP NOTE: DATE OF SERVICE: 07/15/2016 CHART NO: [id number] - [id number] DIAGNOSIS: Left breast cancer. STAGE: Stage III A, [id number] ECOG PERFORMANCE STATUS: 4 Mr. 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 The patient presents today reporting that he is doing much better at this time. His skin is totally healed up. He still has a feeling of tightness over the left chest wall. The patient's review of systems is positive for his multiple issues including physical limitations. He is in an electronic wheelchair. He also receives dialysis, and as noted above has some tightness in his left chest wall. His review of systems is negative for nausea, vomiting, fevers, chills, night sweats, diplopia, headaches, anxiety or depression, anorexia, chest pain, rectal bleeding, urinary or bowel difficulties or bone pain. PHYSICAL EXAMINATION: The patient is a heavy black male who is presenting in an electronic wheelchair. HEENT: Exam is normocephalic, atraumatic. Extraocular movements are intact. There is no palpable cervical, supraclavicular, infraclavicular or axillary lymphadenopathy present. His lungs are clear to auscultation and percussion. His left chest wall shows radiation tanning present but overall the skin is in good condition with no evidence of moist or dry desquamation. His right chest reveals no masses. Mr. Valadez is clinically doing well at this time. Since he is being followed so closely by Dr. Phelan, I have discharged him from our followup except on a as needed basis. cc: MD Gustavo Sims MD Khalid Sindhu, MD
== END ==
LOC: M ONCR 11:15
PROVIDERS: ATTEND Radiology Radiation Oncology
DX: C50.422 Malignant neoplasm of upper-outer quadrant of left male breast (principal)

== ENCOUNTER 2016-09-09 20:44 | Emergency (ER) | payer MEDICARE, MEDICAID ==
[~2016-09-09] VITALS: Ht 182.9 cm; Wt 149.9 kg
[~2016-09-09 20:44] MED LIST changes: -CART180C PO; +CART180C3 PO; -COLA100C3 PO; +COLA100C5 PO; -FOLI1TAB2 PO; +FOLI1TAB4 PO; +LOPE2CAP PO; -LOPE2TAB PO; -METO-209 PO; +METO100T5 PO; +METO1TAB33 PO; -METO50TA2 PO; +METO50TA7 PO; +PAXI10TA12 PO; -PAXI10TA2 PO; -SENO8.6T2 PO; -VALA500T PO; +VALA500T2 PO
[2016-09-09] MEDS ORDERED: MORPHINE 10 MG/ML 1ML VIAL IM ONE (21:30)
[2016-09-09] MEDS ORDERED: methylPREDNISolone INJ 40 MG/1 ML VIAL (J2920) IM ONE (21:30)
--- NOTE | 2016-09-09 22:40 | REPUSA ---
Clinical history: Pain, swelling. Findings: The study is somewhat limited because of the patient's body habitus. The common femoral, quinn perficial femoral, popliteal, and other deep venous structures compress normally and demonstrate norm al color Doppler flow. Normal venous waveforms with augmentation are seen. Impression: No evidence of deep vein thrombosis in the femoral popliteal venous system.
[2016-09-09] MEDS ORDERED: PRED20TA PO (23:59)
[2016-09-09] MEDS ORDERED: PERC5TAB12 PO (23:59)
[2016-09-10] MEDS ORDERED: OXYCODONE/APAP 5MG/325MG(BULK FOR ED) 1 TABLET PO ONE
[2016-09-10 00:44] VITALS: BP 143/65
--- NOTE | 2016-09-10 00:47 | REP ---
Clinical: Pain. Technique: AP and lateral views of the right knee. Note: Examination is limited by underpenetration and technique. Findings: Age-related osteopenia and age-related degenerative changes are appreciated. No definite effusion. Impression: Limited examination. Age-related changes are suggested. If the patient remains symptomatic consider repeat evaluation. Signed by Kj Dan MD 09/10/2016 12:38 A
--- NOTE | 2016-09-10 00:49 | REP ---
Clinical: Pain. Technique: Frontal view of the pelvis with neutral and frog lateral views of the right hip. Findings: Advanced arthritic degenerative changes include subchondral sclerosis/heterogeneity, marginal osteophytes, joint space obliteration and flattening to the normal contour of the acetabulum and underlying femoral head. No acute fracture dislocation. Impression: Advanced arthritic degenerative changes of the right hip. Moderate to early advanced degenerative changes to the left hip. Signed by Kj Dan MD 09/10/2016 12:40 A
== END 2016-09-10 01:32 | disposition home or self-care (01) ==
LOC: EDBD 20:44 → M ED 22:47
DX: M79.604 Pain in right leg (principal); M79.605 Pain in left leg; M16.0 Bilateral primary osteoarthritis of hip; G89.29 Other chronic pain; N18.9 Chronic kidney disease, unspecified; E11.22 Type 2 diabetes mellitus with diabetic chronic kidney disease; F17.200 Nicotine dependence, unspecified, uncomplicated; Z99.2 Dependence on renal dialysis; Z85.3 Personal history of malignant neoplasm of breast; Z79.01 Long term (current) use of anticoagulants; Z79.899 Other long term (current) drug therapy; Z88.0 Allergy status to penicillin; Z88.2 Allergy status to sulfonamides; Z91.041 Radiographic dye allergy status; Z91.09 Other allergy status, other than to drugs and biological substances
CPT/HCPCS: 73502; 73560; 93970; 96372; 99284; J2920

== ENCOUNTER → 2016-11-29 | Outpatient (CLI) | payer MEDICARE, MEDICAID ==
[~2016-11-29] MED LIST changes: +PERC5TAB12 PO; +PRED20TA PO
--- NOTE | 2016-11-29 14:05 | REP ---
Clinical: Cough. Technique: PA and lateral. Comparison: Mediastinum and cardiac silhouette are stable. Lung mcgill demonstrate chronic changes with superimposed scattered infiltrates. No effusion. No pneumothorax. Impression: Scattered bilateral infiltrates are suggested. Signed by Kj Dan MD 11/29/2016 01:56 P
== END ==
LOC: M RAD 13:03
PROVIDERS: ATTEND Internal Medicine Nephrology
DX: R06.02 Shortness of breath (principal); R05 Cough; J98.4 Other disorders of lung

== ENCOUNTER → 2017-02-09 | Outpatient (CLI) | payer MEDICARE, MEDICAID ==
--- NOTE | 2017-02-09 09:20 | REP ---
Clinical: Cough. Comparison: 10/16/2015. Findings: Prominent pulmonary vasculature and increased interstitial markings are compatible with pulmonary vascular congestion including trace basilar atelectasis and small triangular lingular consolidation measuring 2 cm. No effusion or pneumothorax. Mediastinum demonstrates atherosclerotic changes to the thoracic aorta and coronary arteries without aortic aneurysm or cardiomegaly. Adenopathy cannot be excluded including a precarinal lymph nodes measuring up to 2.1 cm short axis diameter. The osseous structures appear intact although diffuse increased sclerosis to the osseous structures are concerning for osseous metastatic disease and correlation is recommended. The patient appears to be status post left breast surgery with increased, asymmetric subcutaneous edema and infiltration along the left chest wall. Impression: 1. Findings suggesting pulmonary vascular congestion/interstitial edema with trace basilar atelectasis and small lingular consolidation measuring 2 cm and mild possibly reactive mediastinal adenopathy. 3-6 months follow up for reevaluation of the lingular consolidation may be warranted. 2. Diffusely sclerotic appearance to the osseous structures concerning for metastatic disease. 3. Evidence of prior left breast surgery with increased subcutaneous edema and infiltration involving the left chest wall. Signed by Kj Dan MD 02/09/2017 09:11 A
== END ==
LOC: M RAD 06:47
PROVIDERS: ATTEND Internal Medicine Nephrology
DX: J18.9 Pneumonia, unspecified organism (principal)

== ENCOUNTER 2017-04-09 18:33 | Emergency (ER) | payer MEDICARE, MEDICAID ==
[2017-04-09] MEDS: MORPHINE 2 MG/ML 1ML SYRINGE IV ×2 (19:20)
== END 2017-04-09 20:48 | disposition home or self-care (01) ==
LOC: M ED 18:33
DX: G44.309 Post-traumatic headache, unspecified, not intractable (principal); E66.09 Other obesity due to excess calories; R60.0 Localized edema; E11.9 Type 2 diabetes mellitus without complications; N18.9 Chronic kidney disease, unspecified; F17.210 Nicotine dependence, cigarettes, uncomplicated; Z79.52 Long term (current) use of systemic steroids; Z79.82 Long term (current) use of aspirin; Z79.899 Other long term (current) drug therapy; Z91.041 Radiographic dye allergy status; Z88.8 Allergy status to other drugs, medicaments and biological substances; Z88.1 Allergy status to other antibiotic agents; Z88.2 Allergy status to sulfonamides; Z88.0 Allergy status to penicillin; Z99.2 Dependence on renal dialysis; Z86.718 Personal history of other venous thrombosis and embolism; Z98.890 Other specified postprocedural states
CPT/HCPCS: 70450

== ENCOUNTER 2017-04-18 11:55 | Emergency (ER) | payer MEDICARE, MEDICAID | END 2017-04-18 15:31 | disposition left against medical advice (07) | LOC: M ED 11:55 | DX: Z53.21 Procedure and treatment not carried out due to patient leaving prior to being seen by health care provider (principal) ==

== ENCOUNTER 2017-04-18 12:39 | Outpatient (CLI) | payer MEDICARE, MEDICAID ==
[2017-04-18 18:34] LABS: IMMEDIATE SPIN CROSSMATCH 1 3
== END 2017-04-19 01:38 | disposition home or self-care (01) ==
LOC: M OPCLI4PR 04-19 01:38 → M MS4PR 12:41
DX: D50.0 Iron deficiency anemia secondary to blood loss (chronic) (principal); Z79.82 Long term (current) use of aspirin; Z79.899 Other long term (current) drug therapy
CPT/HCPCS: 36430

== ENCOUNTER 2017-04-27 16:20 | Inpatient (IN) | payer MEDICARE, MEDICAID ==
[2017-04-27 17:44] LABS: BASO % 0.3 % (0.0-1.0); EOS % 0.3 % (0.0-3.0); HEMATOCRIT 23.2 % (42.0-52.0); HEMOGLOBIN 7.1 g/dl (14.0-18.0); IMMATURE GRANULOCYTE % 0.5 % (0-3.0); LYMPH % 12.7 % (24.0-44.0); MEAN CORPUSCULAR HEMOGLOBIN 28.5 pg (27.0-33.0); MEAN CORPUSCULAR HGB CONC 30.6 g/dl (32.0-36.5); MEAN CORPUSCULAR VOLUME 93.2 fl (80.0-96.0); MONO # 0.6 10^3/uL (0.0-0.8); MONO % 8.4 % (0.0-5.0); NEUTROPHILS # 5.9 10^3/uL (1.8-7.7); NEUTROPHILS % 77.8 % (36.0-66.0); RED BLOOD COUNT 2.49 10^6/uL (4.30-6.10); RED CELL DISTRIBUTION WIDTH 18.6 % (11.5-14.5); WHITE BLOOD COUNT 7.6 10^3/uL (4.0-10.0)
[2017-04-27 18:03] LABS: IMMATURE PLATELET FRACTION % 13.9 % (0.0-10.9); PLATELET COUNT, AUTOMATED 15 10^3/uL (150-450); POS COUNT POS FLAG
[2017-04-27 18:04] LABS: ANION GAP 7 MEQ/L (8-16); BLOOD UREA NITROGEN 18 MG/DL (7-18); CALCIUM LEVEL 7.3 MG/DL (8.8-10.2); CARBON DIOXIDE LEVEL 34 MEQ/L (21-32); CHLORIDE LEVEL 104 MEQ/L (98-107); CREATININE FOR GFR 4.36 MG/DL (0.70-1.30); GLOMERULAR FILTRATION RATE 17.6 (>49); GLUCOSE, FASTING 98 MG/DL (70-100); POTASSIUM SERUM 3.5 MEQ/L (3.5-5.1); SODIUM LEVEL 145 MEQ/L (136-145)
[2017-04-28] MEDS: PANTOPRAZOLE 40MG TAB (PROTONIX) PO ×3 (02:57→19:55)
[2017-04-28] MEDS: CINACALCET 30 MG TAB (SENSIPAR) PO ×2 (02:57→19:55)
[2017-04-28] MEDS: METOPROLOL SUCC (TopROL XL) 100MG *XL* TAB PO ×2 (02:59→20:03)
[2017-04-28] MEDS: TAMOXIFEN CITRATE 10 MG TAB PO ×2 (03:00→19:56)
[2017-04-28] MEDS: valACYclovir HCL 500 MG TAB PO ×2 (03:00→19:57)
[2017-04-28] MEDS: ACETAMINOPHEN TAB 650MG DOSE (2X325MG) PO (03:02)
[2017-04-28 07:10] LABS: HEMATOCRIT 21.2 % (42.0-52.0); MEAN CORPUSCULAR HEMOGLOBIN 28.5 pg (27.0-33.0); MEAN CORPUSCULAR HGB CONC 30.7 g/dl (32.0-36.5); RED BLOOD COUNT 2.28 10^6/uL (4.30-6.10); RED CELL DISTRIBUTION WIDTH 18.7 % (11.5-14.5)
[2017-04-28 07:24] LABS: HEMOGLOBIN 6.5 g/dl (14.0-18.0); PLATELET COUNT, AUTOMATED 10 10^3/uL (150-450); POS COUNT POS FLAG; POSITIVE MORPH POS FLAG; SUSPECT SAMPLE POS FLAG
[2017-04-28 07:30] LABS: ALBUMIN 2.3 GM/DL (3.2-5.2); ANION GAP 6 MEQ/L (8-16); BLOOD UREA NITROGEN 32 MG/DL (7-18); CALCIUM LEVEL 7.3 MG/DL (8.8-10.2); CARBON DIOXIDE LEVEL 34 MEQ/L (21-32); CHLORIDE LEVEL 105 MEQ/L (98-107); GLOMERULAR FILTRATION RATE 14.1 (>49); GLUCOSE, FASTING 79 MG/DL (70-100); PHOSPHORUS LEVEL 2.8 MG/DL (2.5-4.9); POTASSIUM SERUM 3.2 MEQ/L (3.5-5.1); SODIUM LEVEL 145 MEQ/L (136-145)
[2017-04-28] MEDS: (RENVELA) SEVELAMER **CARBONate** 800 MG TAB PO ×3 (09:19→17:47)
[2017-04-28] MEDS: diltiaZEM **CD** 180 MG CAP PO (09:20)
[2017-04-28] MEDS: PERCOCET 5MG/325MG TAB PO ×2 (09:54→19:56)
[2017-04-28 11:15] LABS: IMMEDIATE SPIN CROSSMATCH 1 1
[2017-04-28 23:08] LABS: IMMEDIATE SPIN CROSSMATCH 1
[2017-04-29] MEDS: PERCOCET 5MG/325MG TAB PO ×3 (01:56→21:04)
[2017-04-29 06:04] LABS: HEMATOCRIT 24.7 % (42.0-52.0); HEMOGLOBIN 7.5 g/dl (14.0-18.0); MEAN CORPUSCULAR HEMOGLOBIN 28.1 pg (27.0-33.0); MEAN CORPUSCULAR HGB CONC 30.4 g/dl (32.0-36.5); MEAN CORPUSCULAR VOLUME 92.5 fl (80.0-96.0); RED BLOOD COUNT 2.67 10^6/uL (4.30-6.10); RED CELL DISTRIBUTION WIDTH 18.6 % (11.5-14.5); WHITE BLOOD COUNT 6.6 10^3/uL (4.0-10.0)
[2017-04-29 06:10] LABS: PLATELET COUNT, AUTOMATED 28 10^3/uL (150-450); POS COUNT POS FLAG
[2017-04-29 06:11] LABS: IMMATURE PLATELET FRACTION % 7.1 % (0.0-10.9)
[2017-04-29 06:19] LABS: ALBUMIN 2.6 GM/DL (3.2-5.2); ANION GAP 6 MEQ/L (8-16); BLOOD UREA NITROGEN 42 MG/DL (7-18); CALCIUM LEVEL 7.5 MG/DL (8.8-10.2); CARBON DIOXIDE LEVEL 32 MEQ/L (21-32); CHLORIDE LEVEL 103 MEQ/L (98-107); CREATININE FOR GFR 6.76 MG/DL (0.70-1.30); GLOMERULAR FILTRATION RATE 10.6 (>49); GLUCOSE, FASTING 81 MG/DL (70-100); PHOSPHORUS LEVEL 3.2 MG/DL (2.5-4.9); POTASSIUM SERUM 3.7 MEQ/L (3.5-5.1); SODIUM LEVEL 141 MEQ/L (136-145)
[2017-04-29] MEDS ORDERED: CALCIUM ACETATE 667 MG GELCAP PO (08:00)
[2017-04-29 08:37] LABS: REASON FOR REVIEW OTHER; SLIDE REVIEW Report; SOURCE PERIPHERAL SMEAR
[2017-04-29] MEDS: PANTOPRAZOLE 40MG TAB (PROTONIX) PO ×2 (08:46→21:04)
[2017-04-29] MEDS: (RENVELA) SEVELAMER **CARBONate** 800 MG TAB PO ×3 (08:46→17:40)
[2017-04-29] MEDS: diltiaZEM **CD** 180 MG CAP PO (08:47)
[2017-04-29] MEDS: CALCIUM ACETATE 667 MG GELCAP PO ×2 (11:16→17:40)
[2017-04-29] MEDS ORDERED: diphenhydrAMINE INJ 50MG/ML VIAL (J1200) IV (12:00)
[2017-04-29 13:36] LABS: INR 1.11; PROTHROMBIN TIME 14.5 SECONDS (12.4-14.5)
[2017-04-29 13:37] LABS: PARTIAL THROMBOPLASTIN TIME 26.7 SECONDS (26.8-37.9)
[2017-04-29 13:54] LABS: IMMEDIATE SPIN CROSSMATCH 1 1
[2017-04-29] MEDS: CHECK TO SEE IF PATIENT IS RECEIVING DIALYSIS TODAY AND REFER TO THE VANCOMYCIN ORDER XX (16:00)
[2017-04-29] MEDS ORDERED: VANCOMYCIN HCL 500 MG in D5W MINI-BAG PLUS 100 ML IV (16:00)
[2017-04-29] MEDS: predniSONE 50 MG TAB PO (17:40)
[2017-04-29] MEDS: VANCOMYCIN HCL 1,000 MG, VIAL MATE ADAPTER 1 EACH in D5W 250 ML IV (17:41)
[2017-04-29] MEDS: VANCOMYCIN HCL 500 MG in D5W MINI-BAG PLUS 100 ML IV (18:55)
[2017-04-29] MEDS: CINACALCET 30 MG TAB (SENSIPAR) PO (21:03)
[2017-04-29] MEDS: TAMOXIFEN CITRATE 10 MG TAB PO (21:04)
[2017-04-29] MEDS: valACYclovir HCL 500 MG TAB PO (21:04)
[2017-04-29] MEDS: METOPROLOL SUCC (TopROL XL) 100MG *XL* TAB PO (21:08)
[2017-04-30 06:20] LABS: PLTBLUE- EDTA FREE CALC 24 K/mm3 (172-450)
[2017-04-30 06:45] LABS: HEMATOCRIT 26.2 % (42.0-52.0); HEMOGLOBIN 8.4 g/dl (14.0-18.0); MEAN CORPUSCULAR HEMOGLOBIN 29.6 pg (27.0-33.0); MEAN CORPUSCULAR HGB CONC 32.1 g/dl (32.0-36.5); MEAN CORPUSCULAR VOLUME 92.3 fl (80.0-96.0); PLATELET COUNT, AUTOMATED 34 10^3/uL (150-450); RED BLOOD COUNT 2.84 10^6/uL (4.30-6.10); RED CELL DISTRIBUTION WIDTH 17.5 % (11.5-14.5); RETIC HEMOGLOBIN EQUIVALENT 28.7 pg (24-36); RETICULOCYTE # 39.8 10^9/L (17-77); RETICULOCYTE % 1.4 % (0.5-1.5)
[2017-04-30 06:46] LABS: IMMATURE PLATELET FRACTION % 14.1 % (0.0-10.9)
[2017-04-30 06:48] LABS: ALBUMIN 2.7 GM/DL (3.2-5.2); ALBUMIN/GLOBULIN RATIO 0.66 (1.00-1.93); ALKALINE PHOSPHATASE 119 U/L (45-117); ALT/SGPT 10 U/L (12-78); ANION GAP 6 MEQ/L (8-16); AST/SGOT 8 U/L (7-37); BILIRUBIN,TOTAL 0.8 MG/DL (0.2-1.0); BLOOD UREA NITROGEN 24 MG/DL (7-18); C REACTIVE PROTEIN QUANTITATIV 4.24 MG/DL (0.00-0.30); CALCIUM LEVEL 7.8 MG/DL (8.8-10.2); CARBON DIOXIDE LEVEL 30 MEQ/L (21-32); CHLORIDE LEVEL 102 MEQ/L (98-107); CREATININE FOR GFR 4.67 MG/DL (0.70-1.30); FERRITIN 705 NG/ML (26-388); FREE T4 1.24 NG/DL (0.76-1.46); GLOMERULAR FILTRATION RATE 16.3 (>49); GLUCOSE, FASTING 134 MG/DL (70-100); IRON (FE) 20 UG/DL (65-175); LDH LACTATE DEHYDROGENASE 151 U/L (87-241); PERCENT SATURATION 12.2 % (19.7-50.0); PHOSPHORUS LEVEL 3.3 MG/DL (2.5-4.9); POTASSIUM SERUM 4.5 MEQ/L (3.5-5.1); SODIUM LEVEL 138 MEQ/L (136-145); TOTAL IRON BINDING CAPACITY 164 UG/DL (250-450); TOTAL PROTEIN 6.8 GM/DL (6.4-8.2)
[2017-04-30 07:11] LABS: PLTBLUE- EDTA FREE MACHINE 22 10^3/uL (172-450)
[2017-04-30] MEDS: CALCIUM ACETATE 667 MG GELCAP PO ×3 (08:00→17:55)
[2017-04-30] MEDS: (RENVELA) SEVELAMER **CARBONate** 800 MG TAB PO ×3 (08:00→17:55)
[2017-04-30] MEDS: PERCOCET 5MG/325MG TAB PO ×3 (09:28→23:27)
[2017-04-30] MEDS: PANTOPRAZOLE 40MG TAB (PROTONIX) PO ×2 (09:55→20:18)
[2017-04-30] MEDS: FERROUS SULFATE 325MG TAB PO ×3 (09:55→20:16)
[2017-04-30] MEDS: predniSONE 50 MG TAB PO (09:56)
[2017-04-30 11:59] LABS: ERYTHROCYTE SEDIMENTATION RATE 67 mm/hr (0-20)
[2017-04-30 12:09] LABS: ALBUMIN 2.6 GM/DL (3.2-5.2); ALBUMIN/GLOBULIN RATIO 0.63 (1.00-1.93); ALKALINE PHOSPHATASE 121 U/L (45-117); ALT/SGPT 9 U/L (12-78); AST/SGOT 5 U/L (7-37); BILIRUBIN,DIRECT 0.2 MG/DL (0.0-0.2); BILIRUBIN,TOTAL 0.7 MG/DL (0.2-1.0); IMMUNOGLOBULIN G 1270 MG/DL (681-1648); IMMUNOGLOBULIN M 117 MG/DL (40-230); TOTAL PROTEIN 6.7 GM/DL (6.4-8.2)
[2017-04-30] MEDS: CHECK TO SEE IF PATIENT IS RECEIVING DIALYSIS TODAY AND REFER TO THE VANCOMYCIN ORDER XX (16:00)
[2017-04-30] MEDS ORDERED: predniSONE 50 MG TAB PO (18:00)
[2017-04-30] MEDS: valACYclovir HCL 500 MG TAB PO (20:17)
[2017-04-30] MEDS: METOPROLOL SUCC (TopROL XL) 100MG *XL* TAB PO (20:18)
[2017-04-30] MEDS: TAMOXIFEN CITRATE 10 MG TAB PO (20:18)
[2017-04-30] MEDS: CINACALCET 30 MG TAB (SENSIPAR) PO (20:18)
[2017-05-01] MEDS ORDERED: predniSONE 50 MG TAB PO ×2 (06:00)
[2017-05-01 08:06] LABS: HAPTOGLOBIN 78 mg/dL (34-200)
[2017-05-01 08:37] LABS: PLTBLUE- EDTA FREE CALC 23 K/mm3 (172-450)
[2017-05-01 08:39] LABS: EOS % 0.2 % (0.0-3.0); HEMATOCRIT 27.6 % (42.0-52.0); HEMOGLOBIN 8.7 g/dl (14.0-18.0); IMMATURE GRANULOCYTE % 0.5 % (0-3.0); LYMPH # 0.6 10^3/uL (1.5-4.5); LYMPH % 9.4 % (24.0-44.0); MEAN CORPUSCULAR HEMOGLOBIN 28.4 pg (27.0-33.0); MEAN CORPUSCULAR HGB CONC 31.5 g/dl (32.0-36.5); MEAN CORPUSCULAR VOLUME 90.2 fl (80.0-96.0); MONO # 0.2 10^3/uL (0.0-0.8); MONO % 3.4 % (0.0-5.0); NEUTROPHILS % 86.5 % (36.0-66.0); RED BLOOD COUNT 3.06 10^6/uL (4.30-6.10); RED CELL DISTRIBUTION WIDTH 17.5 % (11.5-14.5); WHITE BLOOD COUNT 5.8 10^3/uL (4.0-10.0)
[2017-05-01] MEDS: PANTOPRAZOLE 40MG TAB (PROTONIX) PO ×3 (08:46→22:45)
[2017-05-01] MEDS: FERROUS SULFATE 325MG TAB PO ×4 (08:46→22:44)
[2017-05-01] MEDS: (RENVELA) SEVELAMER **CARBONate** 800 MG TAB PO ×3 (08:46→18:00)
[2017-05-01] MEDS: diltiaZEM **CD** 180 MG CAP PO (08:46)
[2017-05-01] MEDS: predniSONE 50 MG TAB PO (08:47)
[2017-05-01] MEDS: CALCIUM ACETATE 667 MG GELCAP PO ×3 (08:47→18:00)
[2017-05-01 08:53] LABS: PLATELET COUNT, AUTOMATED 22 10^3/uL (150-450); POS COUNT POS FLAG
[2017-05-01 08:54] LABS: ADD MANUAL DIFFER NO; DIFF SLIDE NUMBER 86
[2017-05-01 08:55] LABS: IMMATURE PLATELET FRACTION % 12.9 % (0.0-10.9)
[2017-05-01] MEDS: diphenhydrAMINE INJ 50MG/ML VIAL (J1200) IV (09:00)
[2017-05-01 09:04] LABS: ALBUMIN/GLOBULIN RATIO 0.71 (1.00-1.93); ALKALINE PHOSPHATASE 113 U/L (45-117); ALT/SGPT 10 U/L (12-78); ANION GAP 12 MEQ/L (8-16); AST/SGOT 11 U/L (7-37); BILIRUBIN,TOTAL 0.6 MG/DL (0.2-1.0); BLOOD UREA NITROGEN 40 MG/DL (7-18); C REACTIVE PROTEIN QUANTITATIV 2.38 MG/DL (0.00-0.30); CALCIUM LEVEL 7.5 MG/DL (8.8-10.2); CARBON DIOXIDE LEVEL 26 MEQ/L (21-32); CHLORIDE LEVEL 100 MEQ/L (98-107); CREATININE FOR GFR 6.41 MG/DL (0.70-1.30); GLOMERULAR FILTRATION RATE 11.3 (>49); GLUCOSE, FASTING 124 MG/DL (70-100); PHOSPHORUS LEVEL 3.4 MG/DL (2.5-4.9); POTASSIUM SERUM 4.7 MEQ/L (3.5-5.1); SODIUM LEVEL 138 MEQ/L (136-145); TOTAL PROTEIN 7.2 GM/DL (6.4-8.2)
[2017-05-01 10:01] LABS: PLTBLUE- EDTA FREE MACHINE 21 10^3/uL (172-450)
[2017-05-01] MEDS: ACETAMINOPHEN TAB 650MG DOSE (2X325MG) PO (14:03)
[2017-05-01] MEDS: CHECK TO SEE IF PATIENT IS RECEIVING DIALYSIS TODAY AND REFER TO THE VANCOMYCIN ORDER XX (16:00)
[2017-05-01] MEDS: TAMOXIFEN CITRATE 10 MG TAB PO ×2 (19:42→22:44)
[2017-05-01] MEDS: CINACALCET 30 MG TAB (SENSIPAR) PO ×2 (19:44→22:44)
[2017-05-01] MEDS: valACYclovir HCL 500 MG TAB PO ×2 (19:44→22:44)
[2017-05-01] MEDS ORDERED: LORazepam 2 MG/ML VIAL (J2060) As Ordered (20:28)
[2017-05-01] MEDS: LORazepam 2 MG/ML VIAL (J2060) IV (20:43)
[2017-05-01] MEDS: METOPROLOL SUCC (TopROL XL) 100MG *XL* TAB PO (22:45)
[2017-05-02] MEDS: LORazepam 2 MG/ML VIAL (J2060) IV (04:01)
[2017-05-02] MEDS ORDERED: SLF 3 ML SYR IV (04:15)
[2017-05-02] MEDS: SLF 3 ML SYR IV ×3 (05:24→20:53)
[2017-05-02 05:40] LABS: HEMOGLOBIN 8.4 g/dl (14.0-18.0); MEAN CORPUSCULAR HEMOGLOBIN 29.4 pg (27.0-33.0); MEAN CORPUSCULAR HGB CONC 32.3 g/dl (32.0-36.5); MEAN CORPUSCULAR VOLUME 90.9 fl (80.0-96.0); RED BLOOD COUNT 2.86 10^6/uL (4.30-6.10); RED CELL DISTRIBUTION WIDTH 17.3 % (11.5-14.5); WHITE BLOOD COUNT 5.7 10^3/uL (4.0-10.0)
[2017-05-02 05:41] LABS: PLATELET COUNT, AUTOMATED 24 10^3/uL (150-450); POS COUNT POS FLAG
[2017-05-02 06:24] LABS: ALBUMIN 2.9 GM/DL (3.2-5.2); ANION GAP 6 MEQ/L (8-16); BLOOD UREA NITROGEN 55 MG/DL (7-18); C REACTIVE PROTEIN QUANTITATIV 1.48 MG/DL (0.00-0.30); CALCIUM LEVEL 7.5 MG/DL (8.8-10.2); CARBON DIOXIDE LEVEL 27 MEQ/L (21-32); CHLORIDE LEVEL 99 MEQ/L (98-107); CREATININE FOR GFR 7.68 MG/DL (0.70-1.30); GLOMERULAR FILTRATION RATE 9.2 (>49); GLUCOSE, FASTING 111 MG/DL (70-100); SODIUM LEVEL 132 MEQ/L (136-145); VANCOMYCIN RANDOM 10.9 UG/ML
[2017-05-02 06:28] LABS: POTASSIUM SERUM 5.9 MEQ/L (3.5-5.1)
[2017-05-02] MEDS: CALCIUM ACETATE 667 MG GELCAP PO ×3 (08:00→19:08)
[2017-05-02] MEDS: (RENVELA) SEVELAMER **CARBONate** 800 MG TAB PO ×3 (08:00→19:08)
[2017-05-02] MEDS: diphenhydrAMINE INJ 50MG/ML VIAL (J1200) IM (09:00)
[2017-05-02 09:07] LABS: ABG BASE EXCESS 4.6 (-2.0-2.0); ABG HCO3 28.8 MEQ/L (22.0-26.0); ABG O2 SATURATION 96.1 % (95.0-99.0); ABG PARTIAL PRESSURE O2 81.7 mmHg (75.0-100.0); ABG STANDARD HCO3 28.6 MEQ/L (22.0-26.0); ABG pH (ARTERIAL) 7.464 UNITS (7.350-7.450)
[2017-05-02] MEDS ORDERED: DARBEPOETIN 100 MCG/0.5 ML *DIALYSIS* SYRINGE (J0882) IV (09:15)
[2017-05-02 10:39] LABS: VITAMIN B12 LEVEL 765 PG/ML (247-911)
[2017-05-02] MEDS: PERCOCET 5MG/325MG TAB PO (11:19)
[2017-05-02] MEDS: PANTOPRAZOLE 40MG TAB (PROTONIX) PO ×2 (11:19→20:52)
[2017-05-02] MEDS: FERROUS SULFATE 325MG TAB PO ×3 (11:20→20:52)
[2017-05-02] MEDS: diltiaZEM **CD** 180 MG CAP PO (11:20)
[2017-05-02] MEDS: ALPRAZolam 0.25 MG TAB PO ×2 (15:37→23:02)
[2017-05-02] MEDS: VANCOMYCIN HCL 1,000 MG, VIAL MATE ADAPTER 1 EACH in D5W 250 ML IV (19:06)
[2017-05-02] MEDS: VANCOMYCIN HCL 500 MG in D5W MINI-BAG PLUS 100 ML IV (20:29)
[2017-05-02] MEDS: CHECK TO SEE IF PATIENT IS RECEIVING DIALYSIS TODAY AND REFER TO THE VANCOMYCIN ORDER XX (20:45)
[2017-05-02] MEDS: TAMOXIFEN CITRATE 10 MG TAB PO (20:52)
[2017-05-02] MEDS: CINACALCET 30 MG TAB (SENSIPAR) PO (20:52)
[2017-05-02] MEDS: valACYclovir HCL 500 MG TAB PO (20:52)
[2017-05-02] MEDS: METOPROLOL SUCC (TopROL XL) 100MG *XL* TAB PO (20:53)
[2017-05-03] MEDS: SLF 3 ML SYR IV ×3 (04:58→20:49)
[2017-05-03 06:04] LABS: MEAN CORPUSCULAR HEMOGLOBIN 29.2 pg (27.0-33.0); MEAN CORPUSCULAR VOLUME 91.2 fl (80.0-96.0); RED BLOOD COUNT 2.74 10^6/uL (4.30-6.10); RED CELL DISTRIBUTION WIDTH 17.5 % (11.5-14.5)
[2017-05-03 06:09] LABS: PLATELET COUNT, AUTOMATED 22 10^3/uL (150-450); POS COUNT POS FLAG
[2017-05-03 06:15] LABS: IMMATURE PLATELET FRACTION % 14.9 % (0.0-10.9); PLATELET F 22
[2017-05-03 06:23] LABS: ALBUMIN 2.9 GM/DL (3.2-5.2); ANION GAP 7 MEQ/L (8-16); BLOOD UREA NITROGEN 32 MG/DL (7-18); C REACTIVE PROTEIN QUANTITATIV 1.19 MG/DL (0.00-0.30); CALCIUM LEVEL 7.6 MG/DL (8.8-10.2); CARBON DIOXIDE LEVEL 31 MEQ/L (21-32); CHLORIDE LEVEL 99 MEQ/L (98-107); CREATININE FOR GFR 5.22 MG/DL (0.70-1.30); GLOMERULAR FILTRATION RATE 14.3 (>49); GLUCOSE, FASTING 90 MG/DL (70-100); PHOSPHORUS LEVEL 2.6 MG/DL (2.5-4.9); POTASSIUM SERUM 3.6 MEQ/L (3.5-5.1); SODIUM LEVEL 137 MEQ/L (136-145)
[2017-05-03] MEDS: (RENVELA) SEVELAMER **CARBONate** 800 MG TAB PO ×3 (08:36→17:58)
[2017-05-03] MEDS: CALCIUM ACETATE 667 MG GELCAP PO ×3 (08:36→17:58)
[2017-05-03] MEDS: PANTOPRAZOLE 40MG TAB (PROTONIX) PO ×2 (08:36→20:49)
[2017-05-03] MEDS: diltiaZEM **CD** 180 MG CAP PO (08:37)
[2017-05-03] MEDS: FERROUS SULFATE 325MG TAB PO ×3 (08:37→20:49)
[2017-05-03] MEDS: predniSONE 50 MG TAB PO (08:37)
[2017-05-03 10:35] LABS: CA15-3 ANTIGEN 19.3 U/ML (<32.4)
[2017-05-03 11:25] LABS: ALBUMIN % 44.7 % (55.8-66.1); ALPHA-1-GLOBULIN % 7.9 % (2.9-4.9); ALPHA-2-GLOBULINS % 11.4 % (7.1-11.8); BETA-1-GLOBULINS % 5.8 % (4.7-7.2); BETA-2-GLOBULINS % 8.9 % (3.2-6.5); GAMMA GLOBULIN % 21.3 % (11.1-18.8)
[2017-05-03 11:26] LABS: ALBUMIN 2.99 GM/DL (3.29-5.55); ALPHA-1-GLOBULINS 0.53 GM/DL (0.17-0.41); ALPHA-2-GLOBULINS 0.76 GM/DL (0.42-0.99); BETA-1-GLOBULINS 0.39 GM/DL (0.28-0.60); GAMMA GLOBULINS 1.43 GM/DL (0.65-1.58)
[2017-05-03] MEDS: CHECK TO SEE IF PATIENT IS RECEIVING DIALYSIS TODAY AND REFER TO THE VANCOMYCIN ORDER XX (15:49)
[2017-05-03] MEDS: LETROZOLE 2.5 MG TAB PO (17:58)
[2017-05-03] MEDS: PERCOCET 5MG/325MG TAB PO (18:11)
[2017-05-03] MEDS: CINACALCET 30 MG TAB (SENSIPAR) PO (20:48)
[2017-05-03] MEDS: METOPROLOL SUCC (TopROL XL) 100MG *XL* TAB PO (20:49)
[2017-05-04 00:06] LABS: CA 27.29 27.4 U/mL (0.0-38.6); FREE KAPPA LIGHT CHAINS SERUM 228.3 mg/L (3.3-19.4); FREE LAMBDA LIGHT CHAINS SERUM 275.4 mg/L (5.7-26.3); HAPTOGLOBIN 75 mg/dL (34-200); KAPPA/LAMBDA RATIO SERUM 0.83 (0.26-1.65)
[2017-05-04 00:06] LABS: HEPARIN INDUCED PLATELET ABY 0.295 OD (0.000-0.400)
[2017-05-04] MEDS: SLF 3 ML SYR IV ×3 (04:40→20:38)
[2017-05-04] MEDS: predniSONE 50 MG TAB PO (05:22)
[2017-05-04] MEDS: FERROUS SULFATE 325MG TAB PO ×3 (05:22→20:37)
[2017-05-04] MEDS: CALCIUM ACETATE 667 MG GELCAP PO ×3 (05:22→17:38)
[2017-05-04] MEDS: (RENVELA) SEVELAMER **CARBONate** 800 MG TAB PO ×3 (05:22→17:37)
[2017-05-04] MEDS: LETROZOLE 2.5 MG TAB PO (05:22)
[2017-05-04] MEDS: PANTOPRAZOLE 40MG TAB (PROTONIX) PO ×2 (05:23→20:37)
[2017-05-04] MEDS: diltiaZEM **CD** 180 MG CAP PO (05:23)
[2017-05-04 06:10] LABS: HEMATOCRIT 22.8 % (42.0-52.0); HEMOGLOBIN 7.3 g/dl (14.0-18.0); MEAN CORPUSCULAR HEMOGLOBIN 28.7 pg (27.0-33.0); MEAN CORPUSCULAR VOLUME 89.8 fl (80.0-96.0); RED BLOOD COUNT 2.54 10^6/uL (4.30-6.10); RED CELL DISTRIBUTION WIDTH 17.3 % (11.5-14.5); WHITE BLOOD COUNT 5.4 10^3/uL (4.0-10.0)
[2017-05-04 06:13] LABS: PLATELET COUNT, AUTOMATED 24 10^3/uL (150-450); POS COUNT POS FLAG; SUSPECT SAMPLE POS FLAG
[2017-05-04 06:15] LABS: IMMATURE PLATELET FRACTION % 15.9 % (0.0-10.9)
[2017-05-04 06:28] LABS: ALBUMIN 2.8 GM/DL (3.2-5.2); ANION GAP 7 MEQ/L (8-16); BLOOD UREA NITROGEN 57 MG/DL (7-18); C REACTIVE PROTEIN QUANTITATIV 2.26 MG/DL (0.00-0.30); CARBON DIOXIDE LEVEL 29 MEQ/L (21-32); CHLORIDE LEVEL 101 MEQ/L (98-107); CREATININE FOR GFR 6.98 MG/DL (0.70-1.30); GLOMERULAR FILTRATION RATE 10.2 (>49); GLUCOSE, FASTING 120 MG/DL (70-100); PHOSPHORUS LEVEL 2.4 MG/DL (2.5-4.9); POTASSIUM SERUM 4.2 MEQ/L (3.5-5.1); SODIUM LEVEL 137 MEQ/L (136-145); VANCOMYCIN RANDOM 21.5 UG/ML
[2017-05-04 09:37] LABS: IMMEDIATE SPIN CROSSMATCH 1 1
[2017-05-04 11:08] LABS: IMMEDIATE SPIN CROSSMATCH 1 1
[2017-05-04] MEDS: ACETAMINOPHEN TAB 650MG DOSE (2X325MG) PO (15:32)
[2017-05-04] MEDS: diphenhydrAMINE INJ 50MG/ML VIAL (J1200) IV (15:32)
[2017-05-04] MEDS: IMMUNE GLOBULIN 10% 10GM 100ML 10 GM in APPROPRIATE DILUENT 1 EA IV (16:15)
[2017-05-04] MEDS: IMMUNE GLOBULIN IV (17:04)
[2017-05-04] MEDS: DILUENT IV (17:04)
[2017-05-04] MEDS: ONDANSETRON 4MG/2ML VIAL (J2405) IV (18:33)
[2017-05-04] MEDS: METOPROLOL SUCC (TopROL XL) 100MG *XL* TAB PO (20:37)
[2017-05-04] MEDS: CINACALCET 30 MG TAB (SENSIPAR) PO (20:38)
[2017-05-05] MEDS: SLF 3 ML SYR IV ×3 (05:32→20:56)
[2017-05-05 05:41] LABS: HEMATOCRIT 25.4 % (42.0-52.0); HEMOGLOBIN 8.2 g/dl (14.0-18.0); MEAN CORPUSCULAR HEMOGLOBIN 29.2 pg (27.0-33.0); MEAN CORPUSCULAR HGB CONC 32.3 g/dl (32.0-36.5); MEAN CORPUSCULAR VOLUME 90.4 fl (80.0-96.0); RED BLOOD COUNT 2.81 10^6/uL (4.30-6.10); WHITE BLOOD COUNT 4.4 10^3/uL (4.0-10.0)
[2017-05-05 05:43] LABS: PLATELET COUNT, AUTOMATED 56 10^3/uL (150-450)
[2017-05-05 05:54] LABS: ALBUMIN 2.4 GM/DL (3.2-5.2); ANION GAP 3 MEQ/L (8-16); BLOOD UREA NITROGEN 36 MG/DL (7-18); CALCIUM LEVEL 7.2 MG/DL (8.8-10.2); CARBON DIOXIDE LEVEL 31 MEQ/L (21-32); CHLORIDE LEVEL 100 MEQ/L (98-107); CREATININE FOR GFR 4.48 MG/DL (0.70-1.30); GLOMERULAR FILTRATION RATE 17.1 (>49); GLUCOSE, FASTING 101 MG/DL (70-100); POTASSIUM SERUM 4.1 MEQ/L (3.5-5.1); SODIUM LEVEL 134 MEQ/L (136-145)
[2017-05-05] MEDS: (RENVELA) SEVELAMER **CARBONate** 800 MG TAB PO ×3 (10:20→17:23)
[2017-05-05] MEDS: FERROUS SULFATE 325MG TAB PO ×3 (10:20→20:55)
[2017-05-05] MEDS: PANTOPRAZOLE 40MG TAB (PROTONIX) PO ×2 (10:21→20:56)
[2017-05-05] MEDS: diltiaZEM **CD** 180 MG CAP PO (10:21)
[2017-05-05] MEDS: CALCIUM ACETATE 667 MG GELCAP PO ×3 (10:22→17:23)
[2017-05-05] MEDS: predniSONE 50 MG TAB PO (10:23)
[2017-05-05] MEDS: LETROZOLE 2.5 MG TAB PO (10:25)
[2017-05-05] MEDS: CINACALCET 30 MG TAB (SENSIPAR) PO (20:55)
[2017-05-05] MEDS: METOPROLOL SUCC (TopROL XL) 50MG **XL** TAB PO (20:56)
[2017-05-06] MEDS: SLF 3 ML SYR IV ×3 (05:22→20:19)
[2017-05-06 05:56] LABS: HEMATOCRIT 27.7 % (42.0-52.0); HEMOGLOBIN 8.8 g/dl (14.0-18.0); MEAN CORPUSCULAR HEMOGLOBIN 28.6 pg (27.0-33.0); MEAN CORPUSCULAR HGB CONC 31.8 g/dl (32.0-36.5); MEAN CORPUSCULAR VOLUME 89.9 fl (80.0-96.0); RED BLOOD COUNT 3.08 10^6/uL (4.30-6.10); WHITE BLOOD COUNT 6.2 10^3/uL (4.0-10.0)
[2017-05-06 05:59] LABS: PLATELET COUNT, AUTOMATED 96 10^3/uL (150-450)
[2017-05-06 06:00] LABS: IMMATURE PLATELET FRACTION % 11.9 % (0.0-10.9)
[2017-05-06 06:16] LABS: ALBUMIN 2.3 GM/DL (3.2-5.2); ANION GAP 8 MEQ/L (8-16); BLOOD UREA NITROGEN 48 MG/DL (7-18); CARBON DIOXIDE LEVEL 25 MEQ/L (21-32); CHLORIDE LEVEL 99 MEQ/L (98-107); CREATININE FOR GFR 6.21 MG/DL (0.70-1.30); GLOMERULAR FILTRATION RATE 11.7 (>49); GLUCOSE, FASTING 132 MG/DL (70-100); PHOSPHORUS LEVEL 2.4 MG/DL (2.5-4.9); POTASSIUM SERUM 4.7 MEQ/L (3.5-5.1); SODIUM LEVEL 132 MEQ/L (136-145)
[2017-05-06] MEDS: FERROUS SULFATE 325MG TAB PO ×3 (08:17→20:19)
[2017-05-06] MEDS: CALCIUM ACETATE 667 MG GELCAP PO ×3 (08:17→18:35)
[2017-05-06] MEDS: predniSONE 50 MG TAB PO (08:17)
[2017-05-06] MEDS: diltiaZEM **CD** 180 MG CAP PO (08:18)
[2017-05-06] MEDS: LETROZOLE 2.5 MG TAB PO (08:18)
[2017-05-06] MEDS: PANTOPRAZOLE 40MG TAB (PROTONIX) PO ×2 (08:18→20:19)
[2017-05-06] MEDS: CINACALCET 30 MG TAB (SENSIPAR) PO (20:19)
[2017-05-06] MEDS: METOPROLOL SUCC (TopROL XL) 50MG **XL** TAB PO (21:06)
[2017-05-07] MEDS: SLF 3 ML SYR IV ×3 (04:49→20:34)
[2017-05-07 05:40] LABS: HEMATOCRIT 27.1 % (42.0-52.0); HEMOGLOBIN 8.7 g/dl (14.0-18.0); MEAN CORPUSCULAR HEMOGLOBIN 29.1 pg (27.0-33.0); MEAN CORPUSCULAR HGB CONC 32.1 g/dl (32.0-36.5); MEAN CORPUSCULAR VOLUME 90.6 fl (80.0-96.0); RED BLOOD COUNT 2.99 10^6/uL (4.30-6.10); RED CELL DISTRIBUTION WIDTH 17.2 % (11.5-14.5); WHITE BLOOD COUNT 9.5 10^3/uL (4.0-10.0)
[2017-05-07 05:48] LABS: PLATELET COUNT, AUTOMATED 36 10^3/uL (150-450)
[2017-05-07 06:24] LABS: ALBUMIN 2.6 GM/DL (3.2-5.2); ANION GAP 8 MEQ/L (8-16); BLOOD UREA NITROGEN 32 MG/DL (7-18); CARBON DIOXIDE LEVEL 31 MEQ/L (21-32); CHLORIDE LEVEL 99 MEQ/L (98-107); CREATININE FOR GFR 4.87 MG/DL (0.70-1.30); GLOMERULAR FILTRATION RATE 15.5 (>49); GLUCOSE, FASTING 113 MG/DL (70-100); PHOSPHORUS LEVEL 1.8 MG/DL (2.5-4.9); SODIUM LEVEL 138 MEQ/L (136-145)
[2017-05-07] MEDS: predniSONE 50 MG TAB PO (09:22)
[2017-05-07] MEDS: LETROZOLE 2.5 MG TAB PO (09:22)
[2017-05-07] MEDS: PANTOPRAZOLE 40MG TAB (PROTONIX) PO ×2 (09:23→20:34)
[2017-05-07] MEDS: FERROUS SULFATE 325MG TAB PO ×3 (09:23→20:34)
[2017-05-07] MEDS: diltiaZEM **CD** 180 MG CAP PO (09:23)
[2017-05-07] MEDS ORDERED: IMMUNE GLOBULIN IV (11:30)
[2017-05-07] MEDS ORDERED: DILUENT IV (11:30)
[2017-05-07] MEDS: diphenhydrAMINE INJ 50MG/ML VIAL (J1200) IV (13:03)
[2017-05-07] MEDS: MIRALAX *UNIT DOSE* 17GM PACKET PO (13:04)
[2017-05-07] MEDS: ACETAMINOPHEN TAB 650MG DOSE (2X325MG) PO (13:04)
[2017-05-07] MEDS: IMMUNE GLOBULIN 10% 10GM 100ML 10 GM in APPROPRIATE DILUENT 1 EA IV (13:34)
[2017-05-07] MEDS: DILUENT IV (15:26)
[2017-05-07] MEDS: IMMUNE GLOBULIN IV (15:26)
[2017-05-07] MEDS: CINACALCET 30 MG TAB (SENSIPAR) PO (20:34)
[2017-05-08] MEDS: SLF 3 ML SYR IV ×3 (04:23→21:38)
[2017-05-08 05:49] LABS: HEMATOCRIT 24.7 % (42.0-52.0); MEAN CORPUSCULAR HEMOGLOBIN 29.9 pg (27.0-33.0); MEAN CORPUSCULAR HGB CONC 32.4 g/dl (32.0-36.5); MEAN CORPUSCULAR VOLUME 92.2 fl (80.0-96.0); RED BLOOD COUNT 2.68 10^6/uL (4.30-6.10); RED CELL DISTRIBUTION WIDTH 17.4 % (11.5-14.5); WHITE BLOOD COUNT 6.5 10^3/uL (4.0-10.0)
[2017-05-08 05:53] LABS: PLATELET COUNT, AUTOMATED 54 10^3/uL (150-450)
[2017-05-08 05:54] LABS: IMMATURE PLATELET FRACTION % 10.5 % (0.0-10.9)
[2017-05-08 06:06] LABS: ALBUMIN 2.4 GM/DL (3.2-5.2); ANION GAP 9 MEQ/L (8-16); BLOOD UREA NITROGEN 50 MG/DL (7-18); CALCIUM LEVEL 6.9 MG/DL (8.8-10.2); CARBON DIOXIDE LEVEL 27 MEQ/L (21-32); CHLORIDE LEVEL 96 MEQ/L (98-107); CREATININE FOR GFR 6.16 MG/DL (0.70-1.30); GLOMERULAR FILTRATION RATE 11.8 (>49); GLUCOSE, FASTING 103 MG/DL (70-100); PHOSPHORUS LEVEL 2.6 MG/DL (2.5-4.9); POTASSIUM SERUM 4.3 MEQ/L (3.5-5.1); SODIUM LEVEL 132 MEQ/L (136-145)
[2017-05-08] MEDS: PANTOPRAZOLE 40MG TAB (PROTONIX) PO ×2 (10:26→20:34)
[2017-05-08] MEDS: FERROUS SULFATE 325MG TAB PO ×3 (10:26→20:34)
[2017-05-08] MEDS: MIRALAX *UNIT DOSE* 17GM PACKET PO (10:26)
[2017-05-08] MEDS: LETROZOLE 2.5 MG TAB PO (12:21)
[2017-05-08] MEDS: predniSONE 50 MG TAB PO (12:21)
[2017-05-08] MEDS: PERCOCET 5MG/325MG TAB PO (16:40)
[2017-05-08] MEDS: CINACALCET 30 MG TAB (SENSIPAR) PO (20:34)
[2017-05-08] MEDS: METOPROLOL SUCC (TopROL XL) 50MG **XL** TAB PO (21:18)
[2017-05-08] MEDS: hydrALAZINE INJ 20 MG/ML VIAL IV (21:38)
[2017-05-09 04:15] LABS: HEMATOCRIT 26.7 % (42.0-52.0); HEMOGLOBIN 8.6 g/dl (14.0-18.0); MEAN CORPUSCULAR HEMOGLOBIN 29.5 pg (27.0-33.0); MEAN CORPUSCULAR HGB CONC 32.2 g/dl (32.0-36.5); MEAN CORPUSCULAR VOLUME 91.4 fl (80.0-96.0); RED BLOOD COUNT 2.92 10^6/uL (4.30-6.10); RED CELL DISTRIBUTION WIDTH 17.9 % (11.5-14.5); WHITE BLOOD COUNT 8.1 10^3/uL (4.0-10.0)
[2017-05-09 04:17] LABS: PLATELET COUNT, AUTOMATED 95 10^3/uL (150-450)
[2017-05-09 04:36] LABS: ALBUMIN 2.7 GM/DL (3.2-5.2); ANION GAP 7 MEQ/L (8-16); BLOOD UREA NITROGEN 65 MG/DL (7-18); CALCIUM LEVEL 6.8 MG/DL (8.8-10.2); CARBON DIOXIDE LEVEL 29 MEQ/L (21-32); CHLORIDE LEVEL 96 MEQ/L (98-107); CREATININE FOR GFR 7.56 MG/DL (0.70-1.30); GLOMERULAR FILTRATION RATE 9.3 (>49); GLUCOSE, FASTING 133 MG/DL (70-100); PHOSPHORUS LEVEL 2.6 MG/DL (2.5-4.9); POTASSIUM SERUM 4.5 MEQ/L (3.5-5.1); SODIUM LEVEL 132 MEQ/L (136-145)
[2017-05-09] MEDS: SLF 3 ML SYR IV ×3 (06:08→20:29)
[2017-05-09] MEDS: **hydrALAZINE** 10 MG TAB PO (06:22)
[2017-05-09] MEDS: PANTOPRAZOLE 40MG TAB (PROTONIX) PO ×2 (07:51→20:29)
[2017-05-09] MEDS: LETROZOLE 2.5 MG TAB PO (07:52)
[2017-05-09] MEDS: predniSONE 50 MG TAB PO (07:52)
[2017-05-09] MEDS: FERROUS SULFATE 325MG TAB PO ×3 (07:52→20:28)
[2017-05-09] MEDS: ONDANSETRON 4MG/2ML VIAL (J2405) IV (08:15)
[2017-05-09] MEDS: CINACALCET 30 MG TAB (SENSIPAR) PO (20:28)
[2017-05-09] MEDS: METOPROLOL SUCC (TopROL XL) 50MG **XL** TAB PO (20:28)
[2017-05-10] MEDS: SLF 3 ML SYR IV ×2 (05:22→14:00)
[2017-05-10 05:59] LABS: HEMATOCRIT 26.3 % (42.0-52.0); HEMOGLOBIN 8.5 g/dl (14.0-18.0); MEAN CORPUSCULAR HGB CONC 32.3 g/dl (32.0-36.5); MEAN CORPUSCULAR VOLUME 92.9 fl (80.0-96.0); RED BLOOD COUNT 2.83 10^6/uL (4.30-6.10); RED CELL DISTRIBUTION WIDTH 18.3 % (11.5-14.5); WHITE BLOOD COUNT 10.2 10^3/uL (4.0-10.0)
[2017-05-10 06:01] LABS: PLATELET COUNT, AUTOMATED 52 10^3/uL (150-450)
[2017-05-10 06:02] LABS: IMMATURE PLATELET FRACTION % 8.1 % (0.0-10.9)
[2017-05-10 06:20] LABS: ALBUMIN 2.6 GM/DL (3.2-5.2); ANION GAP 6 MEQ/L (8-16); BLOOD UREA NITROGEN 44 MG/DL (7-18); CALCIUM LEVEL 7.1 MG/DL (8.8-10.2); CARBON DIOXIDE LEVEL 30 MEQ/L (21-32); CHLORIDE LEVEL 98 MEQ/L (98-107); CREATININE FOR GFR 5.63 MG/DL (0.70-1.30); GLOMERULAR FILTRATION RATE 13.1 (>49); GLUCOSE, FASTING 104 MG/DL (70-100); PHOSPHORUS LEVEL 2.2 MG/DL (2.5-4.9); POTASSIUM SERUM 4.2 MEQ/L (3.5-5.1); SODIUM LEVEL 134 MEQ/L (136-145)
[2017-05-10] MEDS: LETROZOLE 2.5 MG TAB PO (08:30)
[2017-05-10] MEDS: predniSONE 50 MG TAB PO (08:30)
[2017-05-10] MEDS: FERROUS SULFATE 325MG TAB PO (08:30)
[2017-05-10] MEDS: PANTOPRAZOLE 40MG TAB (PROTONIX) PO (08:30)
== END 2017-05-10 15:21 | disposition home or self-care (01) | DRG 813 ==
LOC: M MS4PR 05-08 21:06 → M MSPAV 05-09 13:02 → M PCU 04-28 15:14 → M ED 16:20 → M PCU 05-08 21:12 → M ED INP 20:10 → M ICU 22:54
PROC: 30253N1 (ICD-10-PCS; 2017-04-28)
PROC: 30253R1 (ICD-10-PCS; 2017-04-28)
PROC: 5A1D70Z Performance of Urinary Filtration, Intermittent, Less than 6 Hours Per Day (ICD-10-PCS; principal; 2017-04-29)
DX: D69.3 Immune thrombocytopenic purpura (principal); N18.6 End stage renal disease; G93.41 Metabolic encephalopathy; I13.2 Hypertensive heart and chronic kidney disease with heart failure and with stage 5 chronic kidney disease, or end stage renal disease; I50.32 Chronic diastolic (congestive) heart failure; N25.81 Secondary hyperparathyroidism of renal origin; Z68.41 Body mass index [BMI] 40.0-44.9, adult; C79.51 Secondary malignant neoplasm of bone; L03.115 Cellulitis of right lower limb; D75.81 Myelofibrosis; D62 Acute posthemorrhagic anemia; E78.5 Hyperlipidemia, unspecified; E66.01 Morbid (severe) obesity due to excess calories; J98.4 Other disorders of lung; N25.0 Renal osteodystrophy; R00.1 Bradycardia, unspecified; D63.1 Anemia in chronic kidney disease; M79.89 Other specified soft tissue disorders; F17.210 Nicotine dependence, cigarettes, uncomplicated; K14.8 Other diseases of tongue; K59.00 Constipation, unspecified; M79.661 Pain in right lower leg; G47.33 Obstructive sleep apnea (adult) (pediatric); Z86.718 Personal history of other venous thrombosis and embolism; Z79.01 Long term (current) use of anticoagulants; Z85.3 Personal history of malignant neoplasm of breast; Z92.21 Personal history of antineoplastic chemotherapy; Z99.2 Dependence on renal dialysis; Z79.82 Long term (current) use of aspirin; Z79.899 Other long term (current) drug therapy; Z91.041 Radiographic dye allergy status; Z88.0 Allergy status to penicillin; Z88.2 Allergy status to sulfonamides; Z88.8 Allergy status to other drugs, medicaments and biological substances; Z90.12 Acquired absence of left breast and nipple; Z92.3 Personal history of irradiation

== ENCOUNTER 2017-05-12 01:02 | Inpatient (IN) | payer MEDICARE, MEDICAID ==
[2017-05-12 02:13] LABS: BASO % 0.1 % (0.0-1.0); EOS % 0.2 % (0.0-3.0); HEMATOCRIT 24.7 % (42.0-52.0); IMMATURE GRANULOCYTE % 1.8 % (0-3.0); LYMPH # 0.6 10^3/uL (1.5-4.5); LYMPH % 3.4 % (24.0-44.0); MEAN CORPUSCULAR HEMOGLOBIN 29.7 pg (27.0-33.0); MEAN CORPUSCULAR HGB CONC 32.4 g/dl (32.0-36.5); MEAN CORPUSCULAR VOLUME 91.8 fl (80.0-96.0); MONO # 1.7 10^3/uL (0.0-0.8); MONO % 9.2 % (0.0-5.0); NEUTROPHILS # 15.6 10^3/uL (1.8-7.7); NEUTROPHILS % 85.3 % (36.0-66.0); RED BLOOD COUNT 2.69 10^6/uL (4.30-6.10); WHITE BLOOD COUNT 18.3 10^3/uL (4.0-10.0)
[2017-05-12] MEDS: HYDROmorphone HCL 1 MG/ML SYRINGE (J1170) IV ×2 (02:15→03:13)
[2017-05-12] MEDS: ONDANSETRON 4MG/2ML VIAL (J2405) IV (02:15)
[2017-05-12 02:33] LABS: ADD MORPHOLOGY? YES; PLATELET COUNT, AUTOMATED 33 10^3/uL (150-450); POS COUNT POS FLAG
[2017-05-12 02:34] LABS: ANISOCYTOSIS 2+; OVALOCYTES 1+; PLATELET ESTIMATE MARKED DECREASE (NORMAL)
[2017-05-12 02:35] LABS: ALBUMIN 2.4 GM/DL (3.2-5.2); ALBUMIN/GLOBULIN RATIO 0.51 (1.00-1.93); ALKALINE PHOSPHATASE 75 U/L (45-117); ALT/SGPT 14 U/L (12-78); ANION GAP 7 MEQ/L (8-16); AST/SGOT 12 U/L (7-37); BILIRUBIN,DIRECT 0.2 MG/DL (0.0-0.2); BILIRUBIN,TOTAL 0.7 MG/DL (0.2-1.0); BLOOD UREA NITROGEN 30 MG/DL (7-18); CALCIUM LEVEL 7.5 MG/DL (8.8-10.2); CARBON DIOXIDE LEVEL 30 MEQ/L (21-32); CHLORIDE LEVEL 101 MEQ/L (98-107); CREATININE FOR GFR 4.71 MG/DL (0.70-1.30); GLOMERULAR FILTRATION RATE 16.1 (>49); GLUCOSE, FASTING 91 MG/DL (70-100); HYPOCHROMASIA 2+; POTASSIUM SERUM 3.5 MEQ/L (3.5-5.1); SODIUM LEVEL 138 MEQ/L (136-145); TOTAL PROTEIN 7.1 GM/DL (6.4-8.2)
[2017-05-12 02:36] LABS: IMMATURE PLATELET FRACTION % 1.8 % (0.0-10.9)
[2017-05-12] MEDS ORDERED: MIRALAX *UNIT DOSE* 17GM PACKET PO (05:15)
[2017-05-12] MEDS ORDERED: PERCOCET 5MG/325MG TAB PO (05:15)
[2017-05-12] MEDS ORDERED: VANCOMYCIN HCL 750 MG, VIAL MATE ADAPTER 1 EACH in D5W 250 ML IV (05:30)
[2017-05-12] MEDS ORDERED: VANCOMYCIN INTERMITTENT/PULSE DOSING BY CLINICAL PHARMACIST PER DOSING PROTOCOL XX (05:30)
[2017-05-12] MEDS: VANCOMYCIN HCL 1,000 MG, VIAL MATE ADAPTER 1 EACH in D5W 250 ML IV (05:40)
[2017-05-12 07:48] LABS: URIC ACID 2.6 MG/DL (3.5-7.2)
[2017-05-12 08:12] LABS: ERYTHROCYTE SEDIMENTATION RATE 50 mm/hr (0-20)
[2017-05-12] MEDS: DOCUSATE SODIUM 100 MG CAP PO ×2 (08:35→20:42)
[2017-05-12] MEDS: CALCIUM ACETATE 667 MG GELCAP PO ×3 (08:35→17:47)
[2017-05-12] MEDS: (RENVELA) SEVELAMER **CARBONate** 800 MG TAB PO ×3 (08:35→17:47)
[2017-05-12] MEDS: LACTIC ACID 12% LOTION 225 GM BTL TOP ×2 (08:36→22:43)
[2017-05-12] MEDS: GABAPENTIN 100 MG CAP PO ×3 (08:36→20:43)
[2017-05-12] MEDS: predniSONE 10 MG TAB PO (08:36)
[2017-05-12] MEDS: PANTOPRAZOLE 40MG TAB (PROTONIX) PO ×2 (08:36→20:42)
[2017-05-12] MEDS: ANEXSIA, NORCO 7.5MG/325MG TABLET(HYDROCODONE/APAP) PO ×2 (09:49→20:44)
[2017-05-12 13:44] LABS: INR 1.24; PROTHROMBIN TIME 15.8 SECONDS (12.4-14.5)
[2017-05-12 13:54] LABS: RETIC HEMOGLOBIN EQUIVALENT 27.1 pg (24-36); RETICULOCYTE # 91.8 10^9/L (17-77); RETICULOCYTE % 3.6 % (0.5-1.5)
[2017-05-12 13:58] LABS: PLTBLUE- EDTA FREE CALC 31 K/mm3 (172-450)
[2017-05-12 14:10] LABS: PLTBLUE- EDTA FREE MACHINE 28 10^3/uL (172-450)
[2017-05-12 14:11] LABS: LDH LACTATE DEHYDROGENASE 159 U/L (87-241)
[2017-05-12] MEDS: MORPHINE 4 MG/ML 1ML VIAL (J2270) IV (18:31)
[2017-05-12] MEDS: HEPARIN SOD (PORCINE) 5000 UNITS/ML VIAL SQ (20:42)
[2017-05-12] MEDS: SIMVASTATIN 10 MG TAB PO (20:42)
[2017-05-12] MEDS: NEPHRO-VIT TAB (NEPHROCAPS) PO (20:43)
[2017-05-12] MEDS: METOPROLOL SUCC (TopROL XL) 50MG **XL** TAB PO (20:43)
[2017-05-12] MEDS: PARoxetine 10MG TABLET PO (20:43)
[2017-05-12] MEDS: FOLIC ACID 1 MG TAB PO (20:43)
[2017-05-12] MEDS: CINACALCET 30 MG TAB (SENSIPAR) PO (20:43)
[2017-05-13] MEDS: DOCUSATE SODIUM 100 MG CAP PO ×2 (05:49→20:08)
[2017-05-13] MEDS: predniSONE 10 MG TAB PO (05:49)
[2017-05-13] MEDS: SENOKOT S TAB PO (05:49)
[2017-05-13] MEDS: PANTOPRAZOLE 40MG TAB (PROTONIX) PO ×2 (05:49→20:08)
[2017-05-13] MEDS: GABAPENTIN 100 MG CAP PO ×3 (05:50→20:08)
[2017-05-13] MEDS ORDERED: IMMUNE GLOBULIN 10% 10GM 100ML 0 GM in APPROPRIATE DILUENT 1 EA IV (06:30)
[2017-05-13 06:54] LABS: EOS # 0.1 10^3/uL (0.0-0.50); HEMATOCRIT 25.4 % (42.0-52.0); IMMATURE GRANULOCYTE % 0.6 % (0-3.0); LYMPH # 0.6 10^3/uL (1.5-4.5); LYMPH % 6.5 % (24.0-44.0); MEAN CORPUSCULAR HEMOGLOBIN 29.3 pg (27.0-33.0); MEAN CORPUSCULAR HGB CONC 31.5 g/dl (32.0-36.5); MONO # 0.9 10^3/uL (0.0-0.8); MONO % 10.9 % (0.0-5.0); RED BLOOD COUNT 2.73 10^6/uL (4.30-6.10); RED CELL DISTRIBUTION WIDTH 19.8 % (11.5-14.5); WHITE BLOOD COUNT 8.7 10^3/uL (4.0-10.0)
[2017-05-13 07:08] LABS: PLATELET COUNT, AUTOMATED 39 10^3/uL (150-450)
[2017-05-13 07:22] LABS: ANION GAP 7 MEQ/L (8-16); BLOOD UREA NITROGEN 43 MG/DL (7-18); CALCIUM LEVEL 7.7 MG/DL (8.8-10.2); CARBON DIOXIDE LEVEL 33 MEQ/L (21-32); CHLORIDE LEVEL 97 MEQ/L (98-107); CREATININE FOR GFR 6.61 MG/DL (0.70-1.30); GLOMERULAR FILTRATION RATE 10.9 (>49); GLUCOSE, FASTING 81 MG/DL (70-100); MAGNESIUM LEVEL 2.3 MG/DL (1.8-2.4); SODIUM LEVEL 137 MEQ/L (136-145); VANCOMYCIN RANDOM 13.2 UG/ML
[2017-05-13 07:26] LABS: IMMATURE PLATELET FRACTION % 8.8 % (0.0-10.9)
[2017-05-13] MEDS: (RENVELA) SEVELAMER **CARBONate** 800 MG TAB PO ×3 (08:00→18:43)
[2017-05-13] MEDS: CALCIUM ACETATE 667 MG GELCAP PO ×3 (08:00→18:43)
[2017-05-13 08:08] LABS: HAPTOGLOBIN 47 mg/dL (34-200)
[2017-05-13] MEDS: ANEXSIA, NORCO 7.5MG/325MG TABLET(HYDROCODONE/APAP) PO ×2 (11:04→18:51)
[2017-05-13] MEDS ORDERED: IMMUNE GLOBULIN IV (12:00)
[2017-05-13] MEDS ORDERED: IMMUNE GLOBULIN 10% 10GM 100ML 10 GM in APPROPRIATE DILUENT 1 EA IV (12:00)
[2017-05-13] MEDS ORDERED: DILUENT IV (12:00)
[2017-05-13] MEDS: LACTIC ACID 12% LOTION 225 GM BTL TOP ×2 (13:40→20:09)
[2017-05-13] MEDS: predniSONE 50 MG TAB PO (13:40)
[2017-05-13] MEDS: VANCOMYCIN HCL 1,000 MG, VIAL MATE ADAPTER 1 EACH in D5W 250 ML IV (15:55)
[2017-05-13] MEDS: CHECK TO SEE IF PATIENT IS RECEIVING DIALYSIS TODAY AND REFER TO THE VANCOMYCIN ORDER XX (16:00)
[2017-05-13] MEDS: LETROZOLE 2.5 MG TAB PO (16:06)
[2017-05-13] MEDS: PARoxetine 10MG TABLET PO (20:08)
[2017-05-13] MEDS: NEPHRO-VIT TAB (NEPHROCAPS) PO (20:08)
[2017-05-13] MEDS: FOLIC ACID 1 MG TAB PO (20:08)
[2017-05-13] MEDS: METOPROLOL SUCC (TopROL XL) 50MG **XL** TAB PO (20:08)
[2017-05-13] MEDS: SIMVASTATIN 10 MG TAB PO (20:09)
[2017-05-13] MEDS: CINACALCET 30 MG TAB (SENSIPAR) PO (20:09)
[2017-05-14 06:23] LABS: BASO % 0.1 % (0.0-1.0); HEMATOCRIT 25.7 % (42.0-52.0); HEMOGLOBIN 8.1 g/dl (14.0-18.0); IMMATURE GRANULOCYTE % 0.6 % (0-3.0); LYMPH # 0.5 10^3/uL (1.5-4.5); LYMPH % 6.5 % (24.0-44.0); MEAN CORPUSCULAR HEMOGLOBIN 29.3 pg (27.0-33.0); MEAN CORPUSCULAR HGB CONC 31.5 g/dl (32.0-36.5); MEAN CORPUSCULAR VOLUME 93.1 fl (80.0-96.0); MONO # 0.5 10^3/uL (0.0-0.8); MONO % 7.5 % (0.0-5.0); NEUTROPHILS # 6.1 10^3/uL (1.8-7.7); NEUTROPHILS % 85.3 % (36.0-66.0); RED BLOOD COUNT 2.76 10^6/uL (4.30-6.10); RED CELL DISTRIBUTION WIDTH 19.4 % (11.5-14.5); WHITE BLOOD COUNT 7.1 10^3/uL (4.0-10.0)
[2017-05-14 06:26] LABS: PLATELET COUNT, AUTOMATED 30 10^3/uL (150-450); POSITIVE MORPH POS FLAG
[2017-05-14 06:49] LABS: ANION GAP 7 MEQ/L (8-16); BLOOD UREA NITROGEN 27 MG/DL (7-18); C REACTIVE PROTEIN QUANTITATIV 8.22 MG/DL (0.00-0.30); CALCIUM LEVEL 7.8 MG/DL (8.8-10.2); CARBON DIOXIDE LEVEL 30 MEQ/L (21-32); CHLORIDE LEVEL 99 MEQ/L (98-107); CREATININE FOR GFR 4.62 MG/DL (0.70-1.30); GLOMERULAR FILTRATION RATE 16.5 (>49); GLUCOSE, FASTING 123 MG/DL (70-100); MAGNESIUM LEVEL 2.3 MG/DL (1.8-2.4); POTASSIUM SERUM 4.6 MEQ/L (3.5-5.1); SODIUM LEVEL 136 MEQ/L (136-145)
[2017-05-14] MEDS: CALCIUM ACETATE 667 MG GELCAP PO ×3 (08:55→17:21)
[2017-05-14] MEDS: (RENVELA) SEVELAMER **CARBONate** 800 MG TAB PO ×3 (09:01→17:21)
[2017-05-14] MEDS: PANTOPRAZOLE 40MG TAB (PROTONIX) PO ×2 (09:01→21:50)
[2017-05-14] MEDS: DOCUSATE SODIUM 100 MG CAP PO (09:03)
[2017-05-14] MEDS: GABAPENTIN 100 MG CAP PO ×3 (09:03→21:49)
[2017-05-14] MEDS: predniSONE 50 MG TAB PO (09:04)
[2017-05-14] MEDS: LACTIC ACID 12% LOTION 225 GM BTL TOP ×2 (09:05→21:50)
[2017-05-14] MEDS: ANEXSIA, NORCO 7.5MG/325MG TABLET(HYDROCODONE/APAP) PO ×2 (09:10→17:24)
[2017-05-14] MEDS: LETROZOLE 2.5 MG TAB PO (10:30)
[2017-05-14] MEDS: SENOKOT S TAB PO ×2 (13:26→21:50)
[2017-05-14] MEDS: CHECK TO SEE IF PATIENT IS RECEIVING DIALYSIS TODAY AND REFER TO THE VANCOMYCIN ORDER XX (16:00)
[2017-05-14] MEDS: VANCOMYCIN HCL 1,000 MG, VIAL MATE ADAPTER 1 EACH in D5W 250 ML IV (16:50)
[2017-05-14] MEDS: CINACALCET 30 MG TAB (SENSIPAR) PO (21:48)
[2017-05-14] MEDS: NEPHRO-VIT TAB (NEPHROCAPS) PO (21:48)
[2017-05-14] MEDS: FOLIC ACID 1 MG TAB PO (21:49)
[2017-05-14] MEDS: METOPROLOL SUCC (TopROL XL) 50MG **XL** TAB PO (21:49)
[2017-05-14] MEDS: SIMVASTATIN 10 MG TAB PO (21:49)
[2017-05-14] MEDS: PARoxetine 10MG TABLET PO (21:50)
[2017-05-15] MEDS: ANEXSIA, NORCO 7.5MG/325MG TABLET(HYDROCODONE/APAP) PO ×2 (00:43→08:55)
[2017-05-15 05:56] LABS: ANION GAP 7 MEQ/L (8-16); BLOOD UREA NITROGEN 43 MG/DL (7-18); CALCIUM LEVEL 7.6 MG/DL (8.8-10.2); CARBON DIOXIDE LEVEL 30 MEQ/L (21-32); CHLORIDE LEVEL 98 MEQ/L (98-107); CREATININE FOR GFR 6.17 MG/DL (0.70-1.30); GLOMERULAR FILTRATION RATE 11.8 (>49); GLUCOSE, FASTING 105 MG/DL (70-100); MAGNESIUM LEVEL 2.5 MG/DL (1.8-2.4); POTASSIUM SERUM 4.7 MEQ/L (3.5-5.1); SODIUM LEVEL 135 MEQ/L (136-145)
[2017-05-15 05:57] LABS: HEMATOCRIT 26.5 % (42.0-52.0); HEMOGLOBIN 8.3 g/dl (14.0-18.0); IMMATURE GRANULOCYTE % 0.5 % (0-3.0); LYMPH # 0.7 10^3/uL (1.5-4.5); LYMPH % 11.8 % (24.0-44.0); MEAN CORPUSCULAR HEMOGLOBIN 29.7 pg (27.0-33.0); MEAN CORPUSCULAR HGB CONC 31.3 g/dl (32.0-36.5); MONO # 0.5 10^3/uL (0.0-0.8); MONO % 9.1 % (0.0-5.0); NEUTROPHILS # 4.3 10^3/uL (1.8-7.7); NEUTROPHILS % 78.6 % (36.0-66.0); RED BLOOD COUNT 2.79 10^6/uL (4.30-6.10); RED CELL DISTRIBUTION WIDTH 19.2 % (11.5-14.5); WHITE BLOOD COUNT 5.5 10^3/uL (4.0-10.0)
[2017-05-15 06:01] LABS: PLATELET COUNT, AUTOMATED 32 10^3/uL (150-450)
[2017-05-15 06:52] LABS: ERYTHROCYTE SEDIMENTATION RATE 56 mm/hr (0-20)
[2017-05-15] MEDS: LETROZOLE 2.5 MG TAB PO (08:55)
[2017-05-15] MEDS: SENOKOT S TAB PO ×2 (08:55→21:04)
[2017-05-15] MEDS: CALCIUM ACETATE 667 MG GELCAP PO ×3 (08:55→17:07)
[2017-05-15] MEDS: (RENVELA) SEVELAMER **CARBONate** 800 MG TAB PO ×3 (08:55→17:07)
[2017-05-15] MEDS: predniSONE 50 MG TAB PO (08:56)
[2017-05-15] MEDS: GABAPENTIN 100 MG CAP PO ×3 (08:56→21:05)
[2017-05-15] MEDS: LACTIC ACID 12% LOTION 225 GM BTL TOP ×2 (08:56→21:06)
[2017-05-15] MEDS: PANTOPRAZOLE 40MG TAB (PROTONIX) PO ×2 (08:56→21:05)
[2017-05-15] MEDS ORDERED: HEPARIN SOD (PORCINE) 5000 UNITS/ML VIAL SQ (09:00)
[2017-05-15] MEDS: MORPHINE 15 MG SA TAB PO ×2 (09:59→21:05)
[2017-05-15] MEDS ORDERED: DARBEPOETIN 100 MCG/0.5 ML *DIALYSIS* SYRINGE (J0882) IV (14:45)
[2017-05-15] MEDS: CHECK TO SEE IF PATIENT IS RECEIVING DIALYSIS TODAY AND REFER TO THE VANCOMYCIN ORDER XX (16:00)
[2017-05-15] MEDS: oxyCODONE 5MG TAB PO (16:28)
[2017-05-15] MEDS: PARoxetine 10MG TABLET PO (21:04)
[2017-05-15] MEDS: METOPROLOL SUCC (TopROL XL) 50MG **XL** TAB PO (21:04)
[2017-05-15] MEDS: FOLIC ACID 1 MG TAB PO (21:05)
[2017-05-15] MEDS: SIMVASTATIN 10 MG TAB PO (21:05)
[2017-05-15] MEDS: CINACALCET 30 MG TAB (SENSIPAR) PO (21:06)
[2017-05-15] MEDS: NEPHRO-VIT TAB (NEPHROCAPS) PO (21:12)
[2017-05-16] MEDS: CALCIUM ACETATE 667 MG GELCAP PO ×3 (05:48→17:32)
[2017-05-16] MEDS: (RENVELA) SEVELAMER **CARBONate** 800 MG TAB PO ×3 (05:48→17:32)
[2017-05-16] MEDS: PANTOPRAZOLE 40MG TAB (PROTONIX) PO ×2 (05:49→22:14)
[2017-05-16] MEDS: GABAPENTIN 100 MG CAP PO ×3 (05:49→22:12)
[2017-05-16] MEDS: LETROZOLE 2.5 MG TAB PO (05:49)
[2017-05-16] MEDS: SENOKOT S TAB PO ×2 (05:49→22:12)
[2017-05-16] MEDS: predniSONE 50 MG TAB PO (05:49)
[2017-05-16] MEDS: MORPHINE 15 MG SA TAB PO ×2 (05:50→22:14)
[2017-05-16 05:59] LABS: BASO % 0.2 % (0.0-1.0); HEMATOCRIT 27.8 % (42.0-52.0); HEMOGLOBIN 8.8 g/dl (14.0-18.0); IMMATURE GRANULOCYTE % 0.8 % (0-3.0); LYMPH # 0.6 10^3/uL (1.5-4.5); LYMPH % 8.8 % (24.0-44.0); MEAN CORPUSCULAR HEMOGLOBIN 29.5 pg (27.0-33.0); MEAN CORPUSCULAR HGB CONC 31.7 g/dl (32.0-36.5); MEAN CORPUSCULAR VOLUME 93.3 fl (80.0-96.0); MONO # 0.6 10^3/uL (0.0-0.8); MONO % 8.3 % (0.0-5.0); NEUTROPHILS # 5.4 10^3/uL (1.8-7.7); NEUTROPHILS % 81.9 % (36.0-66.0); RED BLOOD COUNT 2.98 10^6/uL (4.30-6.10); RED CELL DISTRIBUTION WIDTH 18.6 % (11.5-14.5); WHITE BLOOD COUNT 6.6 10^3/uL (4.0-10.0)
[2017-05-16 06:09] LABS: PLATELET COUNT, AUTOMATED 47 10^3/uL (150-450)
[2017-05-16 06:10] LABS: IMMATURE PLATELET FRACTION % 8.1 % (0.0-10.9); PLATELET F 42
[2017-05-16 06:25] LABS: ANION GAP 6 MEQ/L (8-16); BLOOD UREA NITROGEN 59 MG/DL (7-18); CALCIUM LEVEL 7.7 MG/DL (8.8-10.2); CARBON DIOXIDE LEVEL 29 MEQ/L (21-32); CHLORIDE LEVEL 97 MEQ/L (98-107); CREATININE FOR GFR 7.42 MG/DL (0.70-1.30); GLOMERULAR FILTRATION RATE 9.5 (>49); GLUCOSE, FASTING 84 MG/DL (70-100); MAGNESIUM LEVEL 2.4 MG/DL (1.8-2.4); SODIUM LEVEL 132 MEQ/L (136-145); VANCOMYCIN RANDOM 17.5 UG/ML
[2017-05-16 06:26] LABS: POTASSIUM SERUM 5.2 MEQ/L (3.5-5.1)
[2017-05-16] MEDS: LACTIC ACID 12% LOTION 225 GM BTL TOP ×2 (14:22→22:15)
[2017-05-16] MEDS: VANCOMYCIN HCL 1,000 MG, VIAL MATE ADAPTER 1 EACH in D5W 250 ML IV (14:32)
[2017-05-16] MEDS: CHECK TO SEE IF PATIENT IS RECEIVING DIALYSIS TODAY AND REFER TO THE VANCOMYCIN ORDER XX ×2 (16:00→17:32)
[2017-05-16] MEDS: METOPROLOL SUCC (TopROL XL) 50MG **XL** TAB PO (21:00)
[2017-05-16] MEDS: CINACALCET 30 MG TAB (SENSIPAR) PO (22:11)
[2017-05-16] MEDS: PARoxetine 10MG TABLET PO (22:11)
[2017-05-16] MEDS: DOXYCYCLINE HYCLATE 100 MG TAB PO (22:11)
[2017-05-16] MEDS: FOLIC ACID 1 MG TAB PO (22:12)
[2017-05-16] MEDS: SIMVASTATIN 10 MG TAB PO (22:12)
[2017-05-16] MEDS: NEPHRO-VIT TAB (NEPHROCAPS) PO (22:12)
[2017-05-17 06:46] LABS: BASO % 0.1 % (0.0-1.0); EOS % 0.4 % (0.0-3.0); HEMATOCRIT 25.9 % (42.0-52.0); HEMOGLOBIN 8.1 g/dl (14.0-18.0); IMMATURE GRANULOCYTE % 0.8 % (0-3.0); LYMPH # 0.8 10^3/uL (1.5-4.5); LYMPH % 10.6 % (24.0-44.0); MEAN CORPUSCULAR HEMOGLOBIN 29.1 pg (27.0-33.0); MEAN CORPUSCULAR HGB CONC 31.3 g/dl (32.0-36.5); MEAN CORPUSCULAR VOLUME 93.2 fl (80.0-96.0); MONO # 0.9 10^3/uL (0.0-0.8); MONO % 11.8 % (0.0-5.0); NEUTROPHILS # 5.5 10^3/uL (1.8-7.7); NEUTROPHILS % 76.3 % (36.0-66.0); RED BLOOD COUNT 2.78 10^6/uL (4.30-6.10); RED CELL DISTRIBUTION WIDTH 18.7 % (11.5-14.5); WHITE BLOOD COUNT 7.3 10^3/uL (4.0-10.0)
[2017-05-17 06:49] LABS: PLATELET COUNT, AUTOMATED 30 10^3/uL (150-450)
[2017-05-17 06:50] LABS: IMMATURE PLATELET FRACTION % 8.3 % (0.0-10.9)
[2017-05-17 07:10] LABS: ANION GAP 7 MEQ/L (8-16); BLOOD UREA NITROGEN 38 MG/DL (7-18); C REACTIVE PROTEIN QUANTITATIV 1.33 MG/DL (0.00-0.30); CALCIUM LEVEL 7.5 MG/DL (8.8-10.2); CARBON DIOXIDE LEVEL 30 MEQ/L (21-32); CHLORIDE LEVEL 99 MEQ/L (98-107); CREATININE FOR GFR 5.41 MG/DL (0.70-1.30); GLOMERULAR FILTRATION RATE 13.7 (>49); GLUCOSE, FASTING 92 MG/DL (70-100); MAGNESIUM LEVEL 2.3 MG/DL (1.8-2.4); POTASSIUM SERUM 4.4 MEQ/L (3.5-5.1); SODIUM LEVEL 136 MEQ/L (136-145)
[2017-05-17] MEDS: SENOKOT S TAB PO ×2 (08:40→21:00)
[2017-05-17] MEDS: CALCIUM ACETATE 667 MG GELCAP PO ×3 (08:40→21:11)
[2017-05-17] MEDS: PANTOPRAZOLE 40MG TAB (PROTONIX) PO ×2 (08:41→21:12)
[2017-05-17] MEDS: DOXYCYCLINE HYCLATE 100 MG TAB PO ×2 (08:41→21:13)
[2017-05-17] MEDS: predniSONE 50 MG TAB PO (08:41)
[2017-05-17] MEDS: GABAPENTIN 100 MG CAP PO ×3 (08:41→21:11)
[2017-05-17] MEDS: (RENVELA) SEVELAMER **CARBONate** 800 MG TAB PO ×3 (08:42→18:47)
[2017-05-17] MEDS: LACTIC ACID 12% LOTION 225 GM BTL TOP ×2 (08:42→21:14)
[2017-05-17] MEDS: LETROZOLE 2.5 MG TAB PO (08:42)
[2017-05-17] MEDS: MORPHINE 15 MG SA TAB PO ×2 (08:42→21:13)
[2017-05-17] MEDS: CINACALCET 30 MG TAB (SENSIPAR) PO (21:11)
[2017-05-17] MEDS: FOLIC ACID 1 MG TAB PO (21:11)
[2017-05-17] MEDS: PARoxetine 10MG TABLET PO (21:11)
[2017-05-17] MEDS: NEPHRO-VIT TAB (NEPHROCAPS) PO (21:11)
[2017-05-17] MEDS: METOPROLOL SUCC (TopROL XL) 50MG **XL** TAB PO (21:11)
[2017-05-17] MEDS: SIMVASTATIN 10 MG TAB PO (21:11)
[2017-05-18 08:00] LABS: BASO % 0.1 % (0.0-1.0); EOS % 0.2 % (0.0-3.0); HEMATOCRIT 28.1 % (42.0-52.0); HEMOGLOBIN 8.8 g/dl (14.0-18.0); IMMATURE GRANULOCYTE % 0.7 % (0-3.0); LYMPH # 0.7 10^3/uL (1.5-4.5); LYMPH % 9.1 % (24.0-44.0); MEAN CORPUSCULAR HEMOGLOBIN 29.7 pg (27.0-33.0); MEAN CORPUSCULAR HGB CONC 31.3 g/dl (32.0-36.5); MEAN CORPUSCULAR VOLUME 94.9 fl (80.0-96.0); MONO # 0.9 10^3/uL (0.0-0.8); MONO % 11.2 % (0.0-5.0); NEUTROPHILS # 6.3 10^3/uL (1.8-7.7); NEUTROPHILS % 78.7 % (36.0-66.0); RED BLOOD COUNT 2.96 10^6/uL (4.30-6.10); RED CELL DISTRIBUTION WIDTH 18.8 % (11.5-14.5); WHITE BLOOD COUNT 8.1 10^3/uL (4.0-10.0)
[2017-05-18 08:01] LABS: PLATELET COUNT, AUTOMATED 45 10^3/uL (150-450)
[2017-05-18 08:02] LABS: IMMATURE PLATELET FRACTION % 8.4 % (0.0-10.9)
[2017-05-18 08:15] LABS: ANION GAP 6 MEQ/L (8-16); BLOOD UREA NITROGEN 58 MG/DL (7-18); C REACTIVE PROTEIN QUANTITATIV 0.96 MG/DL (0.00-0.30); CALCIUM LEVEL 7.5 MG/DL (8.8-10.2); CARBON DIOXIDE LEVEL 30 MEQ/L (21-32); CHLORIDE LEVEL 97 MEQ/L (98-107); CREATININE FOR GFR 7.19 MG/DL (0.70-1.30); GLOMERULAR FILTRATION RATE 9.9 (>49); GLUCOSE, FASTING 92 MG/DL (70-100); MAGNESIUM LEVEL 2.4 MG/DL (1.8-2.4); SODIUM LEVEL 133 MEQ/L (136-145)
[2017-05-18] MEDS: CALCIUM ACETATE 667 MG GELCAP PO ×3 (08:17→17:46)
[2017-05-18] MEDS: PANTOPRAZOLE 40MG TAB (PROTONIX) PO ×2 (08:17→21:00)
[2017-05-18] MEDS: (RENVELA) SEVELAMER **CARBONate** 800 MG TAB PO ×3 (08:17→17:46)
[2017-05-18] MEDS: predniSONE 50 MG TAB PO (08:17)
[2017-05-18] MEDS: GABAPENTIN 100 MG CAP PO ×3 (08:17→21:00)
[2017-05-18] MEDS: LETROZOLE 2.5 MG TAB PO (08:17)
[2017-05-18] MEDS: SENOKOT S TAB PO ×2 (08:18→21:00)
[2017-05-18] MEDS: DOXYCYCLINE HYCLATE 100 MG TAB PO ×2 (08:18→21:01)
[2017-05-18] MEDS: MORPHINE 15 MG SA TAB PO ×2 (08:19→21:01)
[2017-05-18] MEDS: LACTIC ACID 12% LOTION 225 GM BTL TOP ×2 (08:20→20:59)
[2017-05-18] MEDS ORDERED: GABAPENTIN 100 MG CAP PO (16:00)
[2017-05-18] MEDS: CINACALCET 30 MG TAB (SENSIPAR) PO (20:59)
[2017-05-18] MEDS: NEPHRO-VIT TAB (NEPHROCAPS) PO (20:59)
[2017-05-18] MEDS: METOPROLOL SUCC (TopROL XL) 50MG **XL** TAB PO (21:00)
[2017-05-18] MEDS: FOLIC ACID 1 MG TAB PO (21:00)
[2017-05-18] MEDS: PARoxetine 10MG TABLET PO (21:00)
[2017-05-18] MEDS: SIMVASTATIN 10 MG TAB PO (21:01)
[2017-05-19 06:56] LABS: BASO % 0.1 % (0.0-1.0); HEMATOCRIT 27.5 % (42.0-52.0); HEMOGLOBIN 8.6 g/dl (14.0-18.0); IMMATURE GRANULOCYTE % 0.7 % (0-3.0); LYMPH # 0.7 10^3/uL (1.5-4.5); MEAN CORPUSCULAR HEMOGLOBIN 29.8 pg (27.0-33.0); MEAN CORPUSCULAR HGB CONC 31.3 g/dl (32.0-36.5); MEAN CORPUSCULAR VOLUME 95.2 fl (80.0-96.0); MONO # 0.5 10^3/uL (0.0-0.8); MONO % 6.3 % (0.0-5.0); NEUTROPHILS # 7.1 10^3/uL (1.8-7.7); NEUTROPHILS % 84.9 % (36.0-66.0); RED BLOOD COUNT 2.89 10^6/uL (4.30-6.10); RED CELL DISTRIBUTION WIDTH 18.7 % (11.5-14.5); WHITE BLOOD COUNT 8.3 10^3/uL (4.0-10.0)
[2017-05-19 07:02] LABS: PLATELET COUNT, AUTOMATED 54 10^3/uL (150-450)
[2017-05-19 07:17] LABS: ANION GAP 6 MEQ/L (8-16); BLOOD UREA NITROGEN 71 MG/DL (7-18); C REACTIVE PROTEIN QUANTITATIV 0.69 MG/DL (0.00-0.30); CALCIUM LEVEL 7.3 MG/DL (8.8-10.2); CARBON DIOXIDE LEVEL 28 MEQ/L (21-32); CHLORIDE LEVEL 98 MEQ/L (98-107); GLOMERULAR FILTRATION RATE 8.5 (>49); GLUCOSE, FASTING 119 MG/DL (70-100); MAGNESIUM LEVEL 2.4 MG/DL (1.8-2.4); SODIUM LEVEL 132 MEQ/L (136-145)
[2017-05-19 07:26] LABS: CREATININE FOR GFR 8.17 MG/DL (0.70-1.30)
[2017-05-19 07:27] LABS: POTASSIUM SERUM 5.8 MEQ/L (3.5-5.1)
[2017-05-19] MEDS: (RENVELA) SEVELAMER **CARBONate** 800 MG TAB PO ×3 (08:43→20:23)
[2017-05-19] MEDS: APIXABAN 5 MG TAB (ELIQUIS) PO ×2 (08:44→20:21)
[2017-05-19] MEDS: PANTOPRAZOLE 40MG TAB (PROTONIX) PO ×2 (08:44→20:21)
[2017-05-19] MEDS: LETROZOLE 2.5 MG TAB PO (08:44)
[2017-05-19] MEDS: MORPHINE 15 MG SA TAB PO ×2 (08:44→20:22)
[2017-05-19] MEDS: SENOKOT S TAB PO ×2 (08:44→20:24)
[2017-05-19] MEDS: LACTIC ACID 12% LOTION 225 GM BTL TOP ×2 (08:45→20:25)
[2017-05-19] MEDS: CALCIUM ACETATE 667 MG GELCAP PO ×3 (08:45→20:21)
[2017-05-19] MEDS: DOXYCYCLINE HYCLATE 100 MG TAB PO ×2 (08:45→20:22)
[2017-05-19] MEDS: GABAPENTIN 100 MG CAP PO ×3 (08:45→20:24)
[2017-05-19] MEDS: predniSONE 50 MG TAB PO (08:45)
[2017-05-19 09:12] LABS: ANION GAP 6 MEQ/L (8-16); BLOOD UREA NITROGEN 75 MG/DL (7-18); CALCIUM LEVEL 7.2 MG/DL (8.8-10.2); CARBON DIOXIDE LEVEL 27 MEQ/L (21-32); CHLORIDE LEVEL 98 MEQ/L (98-107); GLOMERULAR FILTRATION RATE 8.5 (>49); GLUCOSE, FASTING 100 MG/DL (70-100); SODIUM LEVEL 131 MEQ/L (136-145)
[2017-05-19 09:17] LABS: CREATININE FOR GFR 8.21 MG/DL (0.70-1.30)
[2017-05-19 09:18] LABS: POTASSIUM SERUM 6.7 MEQ/L (3.5-5.1)
[2017-05-19] MEDS: DEXTROSE 50% 50 ML SYRINGE IV ×2 (10:34→12:36)
[2017-05-19] MEDS: HumuLIN R (REGULAR) INSULIN (NovoLIN R) **100U/ML** PER UNIT IV (10:38)
[2017-05-19] MEDS: CALCIUM GLUCONATE 1,000 MG in D5W MINI-BAG PLUS 100 ML IV (10:39)
[2017-05-19] MEDS: HYDROCORTISONE 100 MG/2 ML VIAL (J1720) IV (10:42)
[2017-05-19] MEDS: SOD POLYSTYRENE SULFONATE SUSP 15 GM/60 ML UD PO ×2 (10:44→13:00)
[2017-05-19 11:18] LABS: BEDSIDE GLUCOSE 146 MG/DL (80-115)
[2017-05-19] MEDS ORDERED: HEPARIN 1,000 UNITS/ML 10ML VIAL (FOR RADIOLOGY& DIALYSIS ONLY) As Ordered (12:08)
[2017-05-19] MEDS ORDERED: LIDOCAINE 2% MDV 20 ML VIAL As Ordered (12:09)
[2017-05-19 12:23] LABS: BEDSIDE GLUCOSE 83 MG/DL (80-115)
[2017-05-19] MEDS ORDERED: HYDROCORTISONE 100 MG/2 ML VIAL (J1720) IV ×2 (15:00→18:30)
[2017-05-19] MEDS ORDERED: diphenhydrAMINE INJ 50MG/ML VIAL (J1200) IV ×2 (15:00→18:30)
[2017-05-19] MEDS: PARoxetine 10MG TABLET PO (20:21)
[2017-05-19] MEDS: NEPHRO-VIT TAB (NEPHROCAPS) PO (20:22)
[2017-05-19] MEDS: CINACALCET 30 MG TAB (SENSIPAR) PO (20:22)
[2017-05-19] MEDS: FOLIC ACID 1 MG TAB PO (20:23)
[2017-05-19] MEDS: METOPROLOL SUCC (TopROL XL) 50MG **XL** TAB PO (20:23)
[2017-05-19] MEDS: SIMVASTATIN 10 MG TAB PO (20:24)
[2017-05-20 07:37] LABS: HEMATOCRIT 26.7 % (42.0-52.0); HEMOGLOBIN 8.2 g/dl (14.0-18.0); MEAN CORPUSCULAR HEMOGLOBIN 29.1 pg (27.0-33.0); MEAN CORPUSCULAR HGB CONC 30.7 g/dl (32.0-36.5); MEAN CORPUSCULAR VOLUME 94.7 fl (80.0-96.0); RED BLOOD COUNT 2.82 10^6/uL (4.30-6.10); RED CELL DISTRIBUTION WIDTH 18.6 % (11.5-14.5); WHITE BLOOD COUNT 6.9 10^3/uL (4.0-10.0)
[2017-05-20 07:41] LABS: IMMATURE PLATELET FRACTION % 7.1 % (0.0-10.9); PLATELET COUNT, AUTOMATED 38 10^3/uL (150-450)
[2017-05-20 07:45] LABS: IONIZED CALCIUM 3.9 MG/DL (4.5-5.3)
[2017-05-20 07:57] LABS: ALBUMIN 2.9 GM/DL (3.2-5.2); ALBUMIN/GLOBULIN RATIO 0.67 (1.00-1.93); ALKALINE PHOSPHATASE 75 U/L (45-117); ALT/SGPT 14 U/L (12-78); ANION GAP 7 MEQ/L (8-16); AST/SGOT 11 U/L (7-37); BILIRUBIN,TOTAL 0.3 MG/DL (0.2-1.0); BLOOD UREA NITROGEN 52 MG/DL (7-18); CALCIUM LEVEL 7.4 MG/DL (8.8-10.2); CARBON DIOXIDE LEVEL 29 MEQ/L (21-32); CHLORIDE LEVEL 97 MEQ/L (98-107); CREATININE FOR GFR 6.38 MG/DL (0.70-1.30); GLOMERULAR FILTRATION RATE 11.4 (>49); GLUCOSE, FASTING 134 MG/DL (70-100); POTASSIUM SERUM 4.8 MEQ/L (3.5-5.1); SODIUM LEVEL 133 MEQ/L (136-145); TOTAL PROTEIN 7.2 GM/DL (6.4-8.2)
[2017-05-20 08:52] LABS: PHOSPHORUS LEVEL 3.1 MG/DL (2.5-4.9)
[2017-05-20] MEDS: LACTIC ACID 12% LOTION 225 GM BTL TOP ×2 (09:00→20:54)
[2017-05-20] MEDS: SENOKOT S TAB PO ×2 (09:00→20:33)
[2017-05-20] MEDS: LETROZOLE 2.5 MG TAB PO (09:31)
[2017-05-20] MEDS: PANTOPRAZOLE 40MG TAB (PROTONIX) PO ×2 (09:32→20:50)
[2017-05-20] MEDS: predniSONE 50 MG TAB PO (09:32)
[2017-05-20] MEDS: (RENVELA) SEVELAMER **CARBONate** 800 MG TAB PO ×3 (09:32→17:29)
[2017-05-20] MEDS: APIXABAN 5 MG TAB (ELIQUIS) PO ×2 (09:32→20:50)
[2017-05-20] MEDS: GABAPENTIN 100 MG CAP PO ×3 (09:32→20:50)
[2017-05-20] MEDS: CALCIUM ACETATE 667 MG GELCAP PO ×3 (09:32→17:29)
[2017-05-20] MEDS: MORPHINE 15 MG SA TAB PO ×2 (09:33→20:52)
[2017-05-20] MEDS: DOXYCYCLINE HYCLATE 100 MG TAB PO ×2 (09:36→20:50)
[2017-05-20] MEDS: HEPARIN 1,000 UNITS/ML 10ML VIAL (FOR RADIOLOGY& DIALYSIS ONLY) XX (11:00)
[2017-05-20] MEDS: SIMVASTATIN 10 MG TAB PO (20:50)
[2017-05-20] MEDS: NEPHRO-VIT TAB (NEPHROCAPS) PO (20:50)
[2017-05-20] MEDS: METOPROLOL SUCC (TopROL XL) 50MG **XL** TAB PO (20:50)
[2017-05-20] MEDS: FOLIC ACID 1 MG TAB PO (20:50)
[2017-05-20] MEDS: PARoxetine 10MG TABLET PO (20:50)
[2017-05-21 07:12] LABS: HEMATOCRIT 27.4 % (42.0-52.0); HEMOGLOBIN 8.5 g/dl (14.0-18.0); MEAN CORPUSCULAR HEMOGLOBIN 29.4 pg (27.0-33.0); MEAN CORPUSCULAR VOLUME 94.8 fl (80.0-96.0); RED BLOOD COUNT 2.89 10^6/uL (4.30-6.10); RED CELL DISTRIBUTION WIDTH 18.9 % (11.5-14.5); WHITE BLOOD COUNT 6.6 10^3/uL (4.0-10.0)
[2017-05-21 07:15] LABS: PLATELET COUNT, AUTOMATED 31 10^3/uL (150-450); POSITIVE MORPH POS FLAG; SUSPECT SAMPLE POS FLAG
[2017-05-21 07:34] LABS: ALBUMIN/GLOBULIN RATIO 0.68 (1.00-1.93); ALKALINE PHOSPHATASE 85 U/L (45-117); ALT/SGPT 14 U/L (12-78); ANION GAP 5 MEQ/L (8-16); AST/SGOT 9 U/L (7-37); BILIRUBIN,TOTAL 0.3 MG/DL (0.2-1.0); BLOOD UREA NITROGEN 38 MG/DL (7-18); CALCIUM LEVEL 7.7 MG/DL (8.8-10.2); CARBON DIOXIDE LEVEL 30 MEQ/L (21-32); CHLORIDE LEVEL 100 MEQ/L (98-107); CREATININE FOR GFR 5.06 MG/DL (0.70-1.30); GLOMERULAR FILTRATION RATE 14.9 (>49); GLUCOSE, FASTING 125 MG/DL (70-100); POTASSIUM SERUM 4.3 MEQ/L (3.5-5.1); SODIUM LEVEL 135 MEQ/L (136-145); TOTAL PROTEIN 7.4 GM/DL (6.4-8.2)
[2017-05-21] MEDS: CALCIUM ACETATE 667 MG GELCAP PO ×3 (08:56→17:51)
[2017-05-21] MEDS: (RENVELA) SEVELAMER **CARBONate** 800 MG TAB PO ×3 (08:57→17:51)
[2017-05-21] MEDS: GABAPENTIN 100 MG CAP PO ×3 (08:57→20:53)
[2017-05-21] MEDS: APIXABAN 5 MG TAB (ELIQUIS) PO ×2 (08:57→20:52)
[2017-05-21] MEDS: PANTOPRAZOLE 40MG TAB (PROTONIX) PO ×2 (08:57→20:52)
[2017-05-21] MEDS: LETROZOLE 2.5 MG TAB PO (08:59)
[2017-05-21] MEDS: predniSONE 50 MG TAB PO (08:59)
[2017-05-21] MEDS: SENOKOT S TAB PO ×2 (08:59→20:52)
[2017-05-21] MEDS: DOXYCYCLINE HYCLATE 100 MG TAB PO ×2 (08:59→20:53)
[2017-05-21] MEDS: MORPHINE 15 MG SA TAB PO ×2 (08:59→20:52)
[2017-05-21] MEDS: LACTIC ACID 12% LOTION 225 GM BTL TOP ×3 (10:45→20:56)
[2017-05-21] MEDS: NEPHRO-VIT TAB (NEPHROCAPS) PO (20:50)
[2017-05-21] MEDS: SIMVASTATIN 10 MG TAB PO (20:52)
[2017-05-21] MEDS: PARoxetine 10MG TABLET PO (20:52)
[2017-05-21] MEDS: FOLIC ACID 1 MG TAB PO (20:52)
[2017-05-21] MEDS: METOPROLOL SUCC (TopROL XL) 50MG **XL** TAB PO (20:53)
[2017-05-22 08:06] LABS: HEMATOCRIT 28.7 % (42.0-52.0); HEMOGLOBIN 8.9 g/dl (14.0-18.0); IMMATURE PLATELET FRACTION % 9.2 % (0.0-10.9); MEAN CORPUSCULAR HEMOGLOBIN 29.1 pg (27.0-33.0); MEAN CORPUSCULAR VOLUME 93.8 fl (80.0-96.0); RED BLOOD COUNT 3.06 10^6/uL (4.30-6.10); RED CELL DISTRIBUTION WIDTH 18.9 % (11.5-14.5); WHITE BLOOD COUNT 7.7 10^3/uL (4.0-10.0)
[2017-05-22 08:07] LABS: PLATELET COUNT, AUTOMATED 36 10^3/uL (150-450)
[2017-05-22] MEDS: (RENVELA) SEVELAMER **CARBONate** 800 MG TAB PO ×3 (08:50→18:40)
[2017-05-22] MEDS: DOXYCYCLINE HYCLATE 100 MG TAB PO ×2 (08:50→20:08)
[2017-05-22] MEDS: GABAPENTIN 100 MG CAP PO ×3 (08:50→20:07)
[2017-05-22] MEDS: SENOKOT S TAB PO ×2 (08:50→20:07)
[2017-05-22] MEDS: CALCIUM ACETATE 667 MG GELCAP PO ×3 (08:50→18:40)
[2017-05-22] MEDS: APIXABAN 5 MG TAB (ELIQUIS) PO ×2 (08:51→20:08)
[2017-05-22] MEDS: MORPHINE 15 MG SA TAB PO ×2 (08:51→20:09)
[2017-05-22] MEDS: PANTOPRAZOLE 40MG TAB (PROTONIX) PO ×2 (08:51→20:07)
[2017-05-22] MEDS: LETROZOLE 2.5 MG TAB PO (08:51)
[2017-05-22] MEDS: predniSONE 50 MG TAB PO (08:51)
[2017-05-22 08:54] LABS: ALBUMIN 3.1 GM/DL (3.2-5.2); ANION GAP 11 MEQ/L (8-16); BLOOD UREA NITROGEN 59 MG/DL (7-18); C REACTIVE PROTEIN QUANTITATIV < 0.30 MG/DL (0.00-0.30); CALCIUM LEVEL 7.8 MG/DL (8.8-10.2); CARBON DIOXIDE LEVEL 25 MEQ/L (21-32); CHLORIDE LEVEL 98 MEQ/L (98-107); CREATININE FOR GFR 6.51 MG/DL (0.70-1.30); GLOMERULAR FILTRATION RATE 11.1 (>49); GLUCOSE, FASTING 109 MG/DL (70-100); PHOSPHORUS LEVEL 3.9 MG/DL (2.5-4.9); POTASSIUM SERUM 4.7 MEQ/L (3.5-5.1); SODIUM LEVEL 134 MEQ/L (136-145)
[2017-05-22] MEDS: LACTIC ACID 12% LOTION 225 GM BTL TOP ×2 (09:00→20:12)
[2017-05-22] MEDS: FOLIC ACID 1 MG TAB PO (20:07)
[2017-05-22] MEDS: NEPHRO-VIT TAB (NEPHROCAPS) PO (20:07)
[2017-05-22] MEDS: SIMVASTATIN 10 MG TAB PO (20:08)
[2017-05-22] MEDS: METOPROLOL SUCC (TopROL XL) 50MG **XL** TAB PO (20:08)
[2017-05-22] MEDS: PARoxetine 10MG TABLET PO (20:08)
[2017-05-23 06:57] LABS: HEMATOCRIT 28.9 % (42.0-52.0); MEAN CORPUSCULAR HEMOGLOBIN 29.7 pg (27.0-33.0); MEAN CORPUSCULAR HGB CONC 31.1 g/dl (32.0-36.5); MEAN CORPUSCULAR VOLUME 95.4 fl (80.0-96.0); RED BLOOD COUNT 3.03 10^6/uL (4.30-6.10); RED CELL DISTRIBUTION WIDTH 19.3 % (11.5-14.5); WHITE BLOOD COUNT 9.2 10^3/uL (4.0-10.0)
[2017-05-23 06:58] LABS: PLATELET COUNT, AUTOMATED 53 10^3/uL (150-450); POSITIVE MORPH POS FLAG; SUSPECT SAMPLE POS FLAG
[2017-05-23 07:26] LABS: ANION GAP 9 MEQ/L (8-16); BLOOD UREA NITROGEN 74 MG/DL (7-18); CALCIUM LEVEL 7.7 MG/DL (8.8-10.2); CARBON DIOXIDE LEVEL 26 MEQ/L (21-32); CHLORIDE LEVEL 99 MEQ/L (98-107); GLOMERULAR FILTRATION RATE 8.7 (>49); GLUCOSE, FASTING 121 MG/DL (70-100); PHOSPHORUS LEVEL 3.7 MG/DL (2.5-4.9); POTASSIUM SERUM 4.8 MEQ/L (3.5-5.1); SODIUM LEVEL 134 MEQ/L (136-145)
[2017-05-23 07:28] LABS: CREATININE FOR GFR 8.02 MG/DL (0.70-1.30)
[2017-05-23] MEDS: predniSONE 50 MG TAB PO (07:46)
[2017-05-23] MEDS: SENOKOT S TAB PO ×2 (07:46→21:00)
[2017-05-23] MEDS: LETROZOLE 2.5 MG TAB PO (07:46)
[2017-05-23] MEDS: DOXYCYCLINE HYCLATE 100 MG TAB PO ×2 (07:46→21:01)
[2017-05-23] MEDS: PANTOPRAZOLE 40MG TAB (PROTONIX) PO ×2 (07:46→21:00)
[2017-05-23] MEDS: CALCIUM ACETATE 667 MG GELCAP PO ×3 (07:46→17:56)
[2017-05-23] MEDS: LACTIC ACID 12% LOTION 225 GM BTL TOP ×2 (07:47→21:00)
[2017-05-23] MEDS: GABAPENTIN 100 MG CAP PO ×3 (07:47→21:01)
[2017-05-23] MEDS: (RENVELA) SEVELAMER **CARBONate** 800 MG TAB PO ×3 (07:47→17:56)
[2017-05-23] MEDS: APIXABAN 5 MG TAB (ELIQUIS) PO ×2 (07:47→21:01)
[2017-05-23] MEDS: MORPHINE 15 MG SA TAB PO ×2 (07:49→21:00)
[2017-05-23] MEDS: FOLIC ACID 1 MG TAB PO (21:00)
[2017-05-23] MEDS: SIMVASTATIN 10 MG TAB PO (21:00)
[2017-05-23] MEDS: NEPHRO-VIT TAB (NEPHROCAPS) PO (21:00)
[2017-05-23] MEDS: PARoxetine 10MG TABLET PO (21:01)
[2017-05-23] MEDS: METOPROLOL SUCC (TopROL XL) 50MG **XL** TAB PO (21:08)
[2017-05-23] MEDS: CINACALCET 30 MG TAB (SENSIPAR) PO (21:16)
[2017-05-24 06:55] LABS: IMMATURE PLATELET FRACTION % 9.6 % (0.0-10.9); MEAN CORPUSCULAR HEMOGLOBIN 29.5 pg (27.0-33.0); MEAN CORPUSCULAR HGB CONC 30.8 g/dl (32.0-36.5); MEAN CORPUSCULAR VOLUME 95.9 fl (80.0-96.0); RED BLOOD COUNT 2.71 10^6/uL (4.30-6.10); RED CELL DISTRIBUTION WIDTH 19.5 % (11.5-14.5)
[2017-05-24 07:08] LABS: PLATELET COUNT, AUTOMATED 34 10^3/uL (150-450)
[2017-05-24 07:15] LABS: ALBUMIN 2.8 GM/DL (3.2-5.2); ANION GAP 8 MEQ/L (8-16); BLOOD UREA NITROGEN 63 MG/DL (7-18); C REACTIVE PROTEIN QUANTITATIV < 0.30 MG/DL (0.00-0.30); CALCIUM LEVEL 7.9 MG/DL (8.8-10.2); CARBON DIOXIDE LEVEL 28 MEQ/L (21-32); CHLORIDE LEVEL 98 MEQ/L (98-107); CREATININE FOR GFR 6.95 MG/DL (0.70-1.30); GLOMERULAR FILTRATION RATE 10.3 (>49); GLUCOSE, FASTING 112 MG/DL (70-100); SODIUM LEVEL 134 MEQ/L (136-145)
[2017-05-24] MEDS: LETROZOLE 2.5 MG TAB PO (09:28)
[2017-05-24] MEDS: predniSONE 10 MG TAB PO (09:28)
[2017-05-24] MEDS: CALCIUM ACETATE 667 MG GELCAP PO ×3 (09:29→17:10)
[2017-05-24] MEDS: PANTOPRAZOLE 40MG TAB (PROTONIX) PO ×2 (09:29→20:57)
[2017-05-24] MEDS: SENOKOT S TAB PO ×2 (09:29→20:57)
[2017-05-24] MEDS: (RENVELA) SEVELAMER **CARBONate** 800 MG TAB PO ×3 (09:29→17:10)
[2017-05-24] MEDS: GABAPENTIN 100 MG CAP PO ×3 (09:29→20:55)
[2017-05-24] MEDS: MORPHINE 15 MG SA TAB PO ×2 (09:29→20:57)
[2017-05-24] MEDS: DOXYCYCLINE HYCLATE 100 MG TAB PO (09:30)
[2017-05-24] MEDS: LACTIC ACID 12% LOTION 225 GM BTL TOP ×2 (09:31→20:55)
[2017-05-24] MEDS: APIXABAN 2.5 MG TAB (ELIQUIS) PO ×2 (09:36→20:57)
[2017-05-24] MEDS: FOLIC ACID 1 MG TAB PO (20:56)
[2017-05-24] MEDS: SIMVASTATIN 10 MG TAB PO (20:56)
[2017-05-24] MEDS: METOPROLOL SUCC (TopROL XL) 50MG **XL** TAB PO (20:56)
[2017-05-24] MEDS: PARoxetine 10MG TABLET PO (20:57)
[2017-05-24] MEDS: NEPHRO-VIT TAB (NEPHROCAPS) PO (20:57)
[2017-05-24] MEDS: CINACALCET 30 MG TAB (SENSIPAR) PO (20:57)
[2017-05-25 06:35] LABS: HEMATOCRIT 25.4 % (42.0-52.0); HEMOGLOBIN 7.9 g/dl (14.0-18.0); MEAN CORPUSCULAR HEMOGLOBIN 30.3 pg (27.0-33.0); MEAN CORPUSCULAR HGB CONC 31.1 g/dl (32.0-36.5); MEAN CORPUSCULAR VOLUME 97.3 fl (80.0-96.0); RED BLOOD COUNT 2.61 10^6/uL (4.30-6.10); RED CELL DISTRIBUTION WIDTH 20.2 % (11.5-14.5); WHITE BLOOD COUNT 7.5 10^3/uL (4.0-10.0)
[2017-05-25 06:39] LABS: PLATELET COUNT, AUTOMATED 46 10^3/uL (150-450)
[2017-05-25 06:51] LABS: ALBUMIN 2.7 GM/DL (3.2-5.2); ANION GAP 7 MEQ/L (8-16); BLOOD UREA NITROGEN 86 MG/DL (7-18); CALCIUM LEVEL 7.6 MG/DL (8.8-10.2); CARBON DIOXIDE LEVEL 30 MEQ/L (21-32); CHLORIDE LEVEL 98 MEQ/L (98-107); GLOMERULAR FILTRATION RATE 8.7 (>49); GLUCOSE, FASTING 97 MG/DL (70-100); PHOSPHORUS LEVEL 2.9 MG/DL (2.5-4.9); POTASSIUM SERUM 4.6 MEQ/L (3.5-5.1); SODIUM LEVEL 135 MEQ/L (136-145)
[2017-05-25] MEDS: PANTOPRAZOLE 40MG TAB (PROTONIX) PO ×2 (06:55→21:59)
[2017-05-25] MEDS: (RENVELA) SEVELAMER **CARBONate** 800 MG TAB PO ×3 (06:55→18:00)
[2017-05-25] MEDS: predniSONE 10 MG TAB PO (06:55)
[2017-05-25] MEDS: LETROZOLE 2.5 MG TAB PO (06:55)
[2017-05-25] MEDS: GABAPENTIN 100 MG CAP PO ×3 (06:55→21:59)
[2017-05-25] MEDS: SENOKOT S TAB PO ×2 (06:55→21:59)
[2017-05-25] MEDS: CALCIUM ACETATE 667 MG GELCAP PO ×3 (06:55→18:00)
[2017-05-25] MEDS: LACTIC ACID 12% LOTION 225 GM BTL TOP ×2 (06:56→21:59)
[2017-05-25 07:03] LABS: CREATININE FOR GFR 8.03 MG/DL (0.70-1.30)
[2017-05-25] MEDS: APIXABAN 2.5 MG TAB (ELIQUIS) PO ×2 (09:14→21:59)
[2017-05-25] MEDS: MORPHINE 15 MG SA TAB PO ×2 (09:15→21:00)
[2017-05-25] MEDS: ONDANSETRON 4MG/2ML VIAL (J2405) IV (09:15)
[2017-05-25 16:06] LABS: IMMEDIATE SPIN CROSSMATCH 1 1
[2017-05-25] MEDS: METOPROLOL SUCC (TopROL XL) 50MG **XL** TAB PO (21:00)
[2017-05-25] MEDS: NEPHRO-VIT TAB (NEPHROCAPS) PO (21:59)
[2017-05-25] MEDS: PARoxetine 10MG TABLET PO (21:59)
[2017-05-25] MEDS: SIMVASTATIN 10 MG TAB PO (21:59)
[2017-05-25] MEDS: FOLIC ACID 1 MG TAB PO (21:59)
[2017-05-25] MEDS: CINACALCET 30 MG TAB (SENSIPAR) PO (21:59)
[2017-05-25] MEDS: NS 500 ML IV (22:00)
[2017-05-25 22:31] LABS: HEMOGLOBIN 8.7 g/dl (14.0-18.0); POS COUNT POS FLAG
[2017-05-26 06:15] LABS: HEMATOCRIT 26.6 % (42.0-52.0); HEMOGLOBIN 8.4 g/dl (14.0-18.0); IMMATURE PLATELET FRACTION % 8.4 % (0.0-10.9); MEAN CORPUSCULAR HEMOGLOBIN 30.2 pg (27.0-33.0); MEAN CORPUSCULAR HGB CONC 31.6 g/dl (32.0-36.5); MEAN CORPUSCULAR VOLUME 95.7 fl (80.0-96.0); RED BLOOD COUNT 2.78 10^6/uL (4.30-6.10); RED CELL DISTRIBUTION WIDTH 20.6 % (11.5-14.5); WHITE BLOOD COUNT 6.3 10^3/uL (4.0-10.0)
[2017-05-26 06:42] LABS: ALBUMIN 2.5 GM/DL (3.2-5.2); ANION GAP 5 MEQ/L (8-16); BLOOD UREA NITROGEN 71 MG/DL (7-18); C REACTIVE PROTEIN QUANTITATIV 0.65 MG/DL (0.00-0.30); CALCIUM LEVEL 7.3 MG/DL (8.8-10.2); CARBON DIOXIDE LEVEL 29 MEQ/L (21-32); CHLORIDE LEVEL 100 MEQ/L (98-107); CREATININE FOR GFR 5.96 MG/DL (0.70-1.30); GLOMERULAR FILTRATION RATE 12.3 (>49); GLUCOSE, FASTING 91 MG/DL (70-100); PHOSPHORUS LEVEL 2.8 MG/DL (2.5-4.9); POTASSIUM SERUM 4.4 MEQ/L (3.5-5.1); SODIUM LEVEL 134 MEQ/L (136-145)
[2017-05-26 06:46] LABS: PLATELET COUNT, AUTOMATED 18 10^3/uL (150-450); POS COUNT POS FLAG
[2017-05-26] MEDS: LETROZOLE 2.5 MG TAB PO (08:50)
[2017-05-26] MEDS: SENOKOT S TAB PO ×2 (08:51→22:33)
[2017-05-26] MEDS: predniSONE 10 MG TAB PO (08:51)
[2017-05-26] MEDS: CALCIUM ACETATE 667 MG GELCAP PO ×3 (08:51→18:19)
[2017-05-26] MEDS: (RENVELA) SEVELAMER **CARBONate** 800 MG TAB PO ×3 (08:52→18:19)
[2017-05-26] MEDS: PANTOPRAZOLE 40MG TAB (PROTONIX) PO ×2 (08:53→22:32)
[2017-05-26] MEDS: MORPHINE 15 MG SA TAB PO ×2 (08:53→22:30)
[2017-05-26] MEDS: GABAPENTIN 100 MG CAP PO ×3 (08:53→22:30)
[2017-05-26] MEDS: LACTIC ACID 12% LOTION 225 GM BTL TOP ×2 (08:54→21:00)
[2017-05-26] MEDS ORDERED: fentaNYL 100 MCG/2 ML INJECTION (J3010) As Ordered ×2 (08:59→15:23)
[2017-05-26] MEDS ORDERED: MIDAZOLAM INJ 2 MG/2 ML VIAL (J2250) As Ordered ×2 (08:59→15:23)
[2017-05-26] MEDS: HYDROCORTISONE 100 MG/2 ML VIAL (J1720) IV (09:19)
[2017-05-26] MEDS: diphenhydrAMINE INJ 50MG/ML VIAL (J1200) IV ×2 (09:19→13:31)
[2017-05-26 12:03] LABS: IMMEDIATE SPIN CROSSMATCH 1
[2017-05-26] MEDS: HYDROCORTISONE INJection 500 MG in NS 50 ML IV (13:31)
[2017-05-26] MEDS ORDERED: PROPOFOL 200 MG/20 ML VIAL As Ordered ×2 (15:20→15:25)
[2017-05-26] MEDS ORDERED: ONDANSETRON 4MG/2ML VIAL (J2405) As Ordered (15:20)
[2017-05-26] MEDS ORDERED: LIDOCAINE 2% INJ 100 MG/5 ML SDV (FOR ANES.) As Ordered (15:20)
[2017-05-26] MEDS ORDERED: dexameTHASONE 4 MG/ML 1ML VIAL (J1100) As Ordered (15:20)
[2017-05-26] MEDS: ISOVUE-300 61% 50ML VIAL (Q9967) As Ordered (16:46)
[2017-05-26] MEDS: HEPARIN SOD (PORCINE) 5000 UNITS/ML VIAL As Ordered (16:46)
[2017-05-26] MEDS: BUPIVACAINE HCL 0.5% 30 ML VIAL As Ordered (16:46)
[2017-05-26] MEDS: LIDOCAINE W/EPINEPHRINE 1% 20ML VIAL As Ordered (16:46)
[2017-05-26] MEDS: METOPROLOL SUCC (TopROL XL) 50MG **XL** TAB PO (21:00)
[2017-05-26] MEDS: NEPHRO-VIT TAB (NEPHROCAPS) PO (22:30)
[2017-05-26] MEDS: CINACALCET 30 MG TAB (SENSIPAR) PO (22:31)
[2017-05-26] MEDS: FOLIC ACID 1 MG TAB PO (22:31)
[2017-05-26] MEDS: PARoxetine 10MG TABLET PO (22:32)
[2017-05-26] MEDS: SIMVASTATIN 10 MG TAB PO (22:33)
[2017-05-27 07:03] LABS: HEMATOCRIT 26.5 % (42.0-52.0); HEMOGLOBIN 8.3 g/dl (14.0-18.0); MEAN CORPUSCULAR HEMOGLOBIN 29.9 pg (27.0-33.0); MEAN CORPUSCULAR HGB CONC 31.3 g/dl (32.0-36.5); MEAN CORPUSCULAR VOLUME 95.3 fl (80.0-96.0); RED BLOOD COUNT 2.78 10^6/uL (4.30-6.10); RED CELL DISTRIBUTION WIDTH 20.5 % (11.5-14.5); WHITE BLOOD COUNT 8.1 10^3/uL (4.0-10.0)
[2017-05-27 07:07] LABS: PLATELET COUNT, AUTOMATED 45 10^3/uL (150-450)
[2017-05-27 07:08] LABS: IMMATURE PLATELET FRACTION % 6.3 % (0.0-10.9)
[2017-05-27 07:19] LABS: ANION GAP 8 MEQ/L (8-16); BLOOD UREA NITROGEN 98 MG/DL (7-18); CARBON DIOXIDE LEVEL 28 MEQ/L (21-32); CHLORIDE LEVEL 97 MEQ/L (98-107); GLOMERULAR FILTRATION RATE 9.6 (>49); GLUCOSE, FASTING 106 MG/DL (70-100); PHOSPHORUS LEVEL 4.1 MG/DL (2.5-4.9); POTASSIUM SERUM 5.1 MEQ/L (3.5-5.1); SODIUM LEVEL 133 MEQ/L (136-145)
[2017-05-27] MEDS: PANTOPRAZOLE 40MG TAB (PROTONIX) PO ×2 (07:27→23:11)
[2017-05-27] MEDS: LETROZOLE 2.5 MG TAB PO (07:27)
[2017-05-27] MEDS: predniSONE 10 MG TAB PO (07:27)
[2017-05-27] MEDS: (RENVELA) SEVELAMER **CARBONate** 800 MG TAB PO ×3 (07:27→17:19)
[2017-05-27] MEDS: CALCIUM ACETATE 667 MG GELCAP PO ×3 (07:27→17:19)
[2017-05-27] MEDS: GABAPENTIN 100 MG CAP PO ×3 (07:28→23:03)
[2017-05-27] MEDS: LACTIC ACID 12% LOTION 225 GM BTL TOP ×2 (07:28→23:11)
[2017-05-27] MEDS: MORPHINE 15 MG SA TAB PO ×2 (07:28→23:04)
[2017-05-27] MEDS: SENOKOT S TAB PO ×2 (07:54→23:04)
[2017-05-27 12:13] LABS: BEDSIDE GLUCOSE 110 MG/DL (80-115)
[2017-05-27] MEDS ORDERED: DARBEPOETIN 300 MCG/0.6 ML *DIALYSIS* SYRINGE (J0882) IV (13:00)
[2017-05-27] MEDS: FOLIC ACID 1 MG TAB PO (23:04)
[2017-05-27] MEDS: PARoxetine 10MG TABLET PO (23:04)
[2017-05-27] MEDS: CINACALCET 30 MG TAB (SENSIPAR) PO (23:04)
[2017-05-27] MEDS: SIMVASTATIN 10 MG TAB PO (23:04)
[2017-05-27] MEDS: NEPHRO-VIT TAB (NEPHROCAPS) PO (23:04)
[2017-05-27] MEDS: METOPROLOL SUCC (TopROL XL) 50MG **XL** TAB PO (23:11)
[2017-05-28 06:17] LABS: HEMATOCRIT 26.5 % (42.0-52.0); HEMOGLOBIN 7.9 g/dl (14.0-18.0); IMMATURE PLATELET FRACTION % 8.5 % (0.0-10.9); MEAN CORPUSCULAR HEMOGLOBIN 29.8 pg (27.0-33.0); MEAN CORPUSCULAR HGB CONC 29.8 g/dl (32.0-36.5); RED BLOOD COUNT 2.65 10^6/uL (4.30-6.10); RED CELL DISTRIBUTION WIDTH 20.9 % (11.5-14.5); WHITE BLOOD COUNT 5.2 10^3/uL (4.0-10.0)
[2017-05-28 06:23] LABS: PLATELET COUNT, AUTOMATED 40 10^3/uL (150-450)
[2017-05-28 06:43] LABS: ALBUMIN 2.6 GM/DL (3.2-5.2); ANION GAP 9 MEQ/L (8-16); BLOOD UREA NITROGEN 53 MG/DL (7-18); C REACTIVE PROTEIN QUANTITATIV 1.12 MG/DL (0.00-0.30); CALCIUM LEVEL 7.7 MG/DL (8.8-10.2); CARBON DIOXIDE LEVEL 31 MEQ/L (21-32); CHLORIDE LEVEL 102 MEQ/L (98-107); CREATININE FOR GFR 5.26 MG/DL (0.70-1.30); GLOMERULAR FILTRATION RATE 14.2 (>49); GLUCOSE, FASTING 108 MG/DL (70-100); PHOSPHORUS LEVEL 3.8 MG/DL (2.5-4.9); POTASSIUM SERUM 4.7 MEQ/L (3.5-5.1); SODIUM LEVEL 142 MEQ/L (136-145)
[2017-05-28] MEDS: (RENVELA) SEVELAMER **CARBONate** 800 MG TAB PO ×3 (08:31→17:00)
[2017-05-28] MEDS: CALCIUM ACETATE 667 MG GELCAP PO ×3 (08:32→17:00)
[2017-05-28] MEDS: LACTIC ACID 12% LOTION 225 GM BTL TOP ×2 (09:00→21:44)
[2017-05-28] MEDS: MORPHINE 15 MG SA TAB PO ×2 (09:06→21:42)
[2017-05-28] MEDS: GABAPENTIN 100 MG CAP PO ×3 (10:54→21:42)
[2017-05-28] MEDS: SENOKOT S TAB PO ×2 (10:55→21:41)
[2017-05-28] MEDS: predniSONE 10 MG TAB PO (10:55)
[2017-05-28] MEDS: PANTOPRAZOLE 40MG TAB (PROTONIX) PO ×2 (10:55→21:41)
[2017-05-28] MEDS: LETROZOLE 2.5 MG TAB PO (11:07)
[2017-05-28] MEDS ORDERED: IPRATROPIUM 0.5MG/ALBUTEROL 2.5MG INH SOL UD 3ML (DUONEB)(J7620) NEB (12:45)
[2017-05-28] MEDS: CINACALCET 30 MG TAB (SENSIPAR) PO (21:41)
[2017-05-28] MEDS: NEPHRO-VIT TAB (NEPHROCAPS) PO (21:41)
[2017-05-28] MEDS: PARoxetine 10MG TABLET PO (21:43)
[2017-05-28] MEDS: FOLIC ACID 1 MG TAB PO (21:43)
[2017-05-28] MEDS: SIMVASTATIN 10 MG TAB PO (21:43)
[2017-05-28] MEDS: METOPROLOL SUCC (TopROL XL) 50MG **XL** TAB PO (22:45)
[2017-05-29 06:32] LABS: HEMATOCRIT 25.1 % (42.0-52.0); HEMOGLOBIN 7.8 g/dl (14.0-18.0); MEAN CORPUSCULAR HEMOGLOBIN 30.2 pg (27.0-33.0); MEAN CORPUSCULAR HGB CONC 31.1 g/dl (32.0-36.5); MEAN CORPUSCULAR VOLUME 97.3 fl (80.0-96.0); RED BLOOD COUNT 2.58 10^6/uL (4.30-6.10); RED CELL DISTRIBUTION WIDTH 20.6 % (11.5-14.5); WHITE BLOOD COUNT 5.3 10^3/uL (4.0-10.0)
[2017-05-29 06:36] LABS: PLATELET COUNT, AUTOMATED 50 10^3/uL (150-450)
[2017-05-29 06:38] LABS: IMMATURE PLATELET FRACTION % 6.5 % (0.0-10.9)
[2017-05-29 07:02] LABS: ALBUMIN 2.7 GM/DL (3.2-5.2); ANION GAP 7 MEQ/L (8-16); BLOOD UREA NITROGEN 70 MG/DL (7-18); CALCIUM LEVEL 7.5 MG/DL (8.8-10.2); CARBON DIOXIDE LEVEL 27 MEQ/L (21-32); CHLORIDE LEVEL 100 MEQ/L (98-107); CREATININE FOR GFR 6.62 MG/DL (0.70-1.30); GLOMERULAR FILTRATION RATE 10.9 (>49); GLUCOSE, FASTING 112 MG/DL (70-100); PHOSPHORUS LEVEL 3.3 MG/DL (2.5-4.9); POTASSIUM SERUM 4.6 MEQ/L (3.5-5.1); SODIUM LEVEL 134 MEQ/L (136-145)
[2017-05-29] MEDS: (RENVELA) SEVELAMER **CARBONate** 800 MG TAB PO ×3 (09:06→17:36)
[2017-05-29] MEDS: predniSONE 10 MG TAB PO (09:06)
[2017-05-29] MEDS: MORPHINE 15 MG SA TAB PO (09:07)
[2017-05-29] MEDS: SENOKOT S TAB PO ×2 (09:07→21:33)
[2017-05-29] MEDS: GABAPENTIN 100 MG CAP PO ×3 (09:07→21:34)
[2017-05-29] MEDS: PANTOPRAZOLE 40MG TAB (PROTONIX) PO ×2 (09:08→21:34)
[2017-05-29] MEDS: LACTIC ACID 12% LOTION 225 GM BTL TOP ×2 (09:08→21:34)
[2017-05-29] MEDS: CALCIUM ACETATE 667 MG GELCAP PO ×3 (09:08→17:36)
[2017-05-29] MEDS: LETROZOLE 2.5 MG TAB PO (09:08)
[2017-05-29 11:27] LABS: AMMONIA 45 uMOL/L (<32)
[2017-05-29 11:53] LABS: ABG BASE EXCESS -4.9 (-2.0-2.0); ABG PARTIAL PRESSURE O2 135.2 mmHg (75.0-100.0); ABG STANDARD HCO3 20.4 MEQ/L (22.0-26.0); ABG TOTAL CO2 23.5 MEQ/L (23.0-31.0); ABG pH (ARTERIAL) 7.261 UNITS (7.350-7.450)
[2017-05-29] MEDS: oxyCODONE 5MG TAB PO (13:05)
[2017-05-29 18:11] LABS: ABG BASE EXCESS -2.8 (-2.0-2.0); ABG HCO3 24.2 MEQ/L (22.0-26.0); ABG PARTIAL PRESSURE CO2 53.6 mmHg (35.0-45.0); ABG PARTIAL PRESSURE O2 143.8 mmHg (75.0-100.0); ABG STANDARD HCO3 22.2 MEQ/L (22.0-26.0); ABG TOTAL CO2 25.9 MEQ/L (23.0-31.0); ABG pH (ARTERIAL) 7.273 UNITS (7.350-7.450)
[2017-05-29] MEDS: METOPROLOL SUCC (TopROL XL) 50MG **XL** TAB PO (21:33)
[2017-05-29] MEDS: CINACALCET 30 MG TAB (SENSIPAR) PO (21:33)
[2017-05-29] MEDS: NEPHRO-VIT TAB (NEPHROCAPS) PO (21:33)
[2017-05-29] MEDS: SIMVASTATIN 10 MG TAB PO (21:33)
[2017-05-29] MEDS: PARoxetine 10MG TABLET PO (21:33)
[2017-05-29] MEDS: FOLIC ACID 1 MG TAB PO (21:34)
[2017-05-30] MEDS: PANTOPRAZOLE 40MG TAB (PROTONIX) PO ×2 (06:12→21:09)
[2017-05-30] MEDS: GABAPENTIN 100 MG CAP PO ×4 (06:13→21:07)
[2017-05-30] MEDS: SENOKOT S TAB PO ×2 (06:13→21:09)
[2017-05-30] MEDS: predniSONE 10 MG TAB PO (06:13)
[2017-05-30] MEDS: LACTIC ACID 12% LOTION 225 GM BTL TOP ×2 (06:14→21:10)
[2017-05-30] MEDS: oxyCODONE 5MG TAB PO ×2 (06:28→14:57)
[2017-05-30 07:03] LABS: MEAN CORPUSCULAR HEMOGLOBIN 29.9 pg (27.0-33.0); MEAN CORPUSCULAR HGB CONC 30.8 g/dl (32.0-36.5); PLATELET COUNT, AUTOMATED 59 10^3/uL (150-450); RED BLOOD COUNT 2.68 10^6/uL (4.30-6.10); RED CELL DISTRIBUTION WIDTH 20.7 % (11.5-14.5); WHITE BLOOD COUNT 4.8 10^3/uL (4.0-10.0)
[2017-05-30 07:25] LABS: ANION GAP 9 MEQ/L (8-16); BLOOD UREA NITROGEN 83 MG/DL (7-18); CALCIUM LEVEL 7.7 MG/DL (8.8-10.2); CARBON DIOXIDE LEVEL 25 MEQ/L (21-32); CHLORIDE LEVEL 99 MEQ/L (98-107); GLUCOSE, FASTING 118 MG/DL (70-100); PHOSPHORUS LEVEL 3.8 MG/DL (2.5-4.9); SODIUM LEVEL 133 MEQ/L (136-145)
[2017-05-30 07:26] LABS: POTASSIUM SERUM 5.2 MEQ/L (3.5-5.1)
[2017-05-30] MEDS: (RENVELA) SEVELAMER **CARBONate** 800 MG TAB PO ×3 (08:33→18:22)
[2017-05-30] MEDS: CALCIUM ACETATE 667 MG GELCAP PO ×3 (08:33→18:21)
[2017-05-30] MEDS: MORPHINE 15 MG SA TAB PO ×2 (08:34→21:08)
[2017-05-30] MEDS: ALTEPLASE 2 MG/2 ML VIAL (J2997 PER 1MG) XX (10:45)
[2017-05-30] MEDS: LETROZOLE 2.5 MG TAB PO (14:56)
[2017-05-30] MEDS: HEPARIN 1,000 UNITS/ML 10ML VIAL (FOR RADIOLOGY& DIALYSIS ONLY) XX (14:58)
[2017-05-30] MEDS: METOPROLOL SUCC (TopROL XL) 50MG **XL** TAB PO (21:00)
[2017-05-30] MEDS: NEPHRO-VIT TAB (NEPHROCAPS) PO (21:07)
[2017-05-30] MEDS: FOLIC ACID 1 MG TAB PO (21:07)
[2017-05-30] MEDS: SIMVASTATIN 10 MG TAB PO (21:07)
[2017-05-30] MEDS: PARoxetine 10MG TABLET PO (21:08)
[2017-05-30] MEDS: CINACALCET 30 MG TAB (SENSIPAR) PO (21:09)
[2017-05-31 06:10] LABS: HEMATOCRIT 24.1 % (42.0-52.0); HEMOGLOBIN 7.4 g/dl (14.0-18.0); MEAN CORPUSCULAR HEMOGLOBIN 30.3 pg (27.0-33.0); MEAN CORPUSCULAR HGB CONC 30.7 g/dl (32.0-36.5); MEAN CORPUSCULAR VOLUME 98.8 fl (80.0-96.0); RED BLOOD COUNT 2.44 10^6/uL (4.30-6.10); WHITE BLOOD COUNT 5.1 10^3/uL (4.0-10.0)
[2017-05-31 06:12] LABS: PLATELET COUNT, AUTOMATED 45 10^3/uL (150-450)
[2017-05-31 06:25] LABS: ALBUMIN 2.7 GM/DL (3.2-5.2); ANION GAP 7 MEQ/L (8-16); BLOOD UREA NITROGEN 61 MG/DL (7-18); CALCIUM LEVEL 7.8 MG/DL (8.8-10.2); CARBON DIOXIDE LEVEL 29 MEQ/L (21-32); CHLORIDE LEVEL 98 MEQ/L (98-107); CREATININE FOR GFR 6.19 MG/DL (0.70-1.30); GLOMERULAR FILTRATION RATE 11.8 (>49); GLUCOSE, FASTING 106 MG/DL (70-100); PHOSPHORUS LEVEL 2.2 MG/DL (2.5-4.9); POTASSIUM SERUM 4.2 MEQ/L (3.5-5.1); SODIUM LEVEL 134 MEQ/L (136-145)
[2017-05-31] MEDS: HYDROCORTISONE 100 MG/2 ML VIAL (J1720) IV ×2 (08:35→12:34)
[2017-05-31] MEDS: CALCIUM ACETATE 667 MG GELCAP PO ×3 (08:36→17:51)
[2017-05-31] MEDS: PANTOPRAZOLE 40MG TAB (PROTONIX) PO ×2 (08:37→21:44)
[2017-05-31] MEDS: predniSONE 20 MG TAB PO (08:38)
[2017-05-31] MEDS: MORPHINE 15 MG SA TAB PO ×2 (08:38→21:46)
[2017-05-31] MEDS: GABAPENTIN 100 MG CAP PO ×3 (08:38→21:45)
[2017-05-31] MEDS: LETROZOLE 2.5 MG TAB PO (08:38)
[2017-05-31] MEDS: SENOKOT S TAB PO ×2 (08:38→21:45)
[2017-05-31] MEDS: diphenhydrAMINE INJ 50MG/ML VIAL (J1200) IV ×2 (08:39→12:34)
[2017-05-31] MEDS: (RENVELA) SEVELAMER **CARBONate** 800 MG TAB PO ×2 (08:39→12:12)
[2017-05-31] MEDS: LACTIC ACID 12% LOTION 225 GM BTL TOP ×2 (08:40→21:47)
[2017-05-31] MEDS: BUPIVACAINE HCL 0.5% 30 ML VIAL As Ordered (13:40)
[2017-05-31] MEDS: HEPARIN SOD (PORCINE) 5000 UNITS/ML VIAL As Ordered (13:40)
[2017-05-31] MEDS: LIDOCAINE 1% SDV INJ 30 ML VIAL As Ordered (13:40)
[2017-05-31] MEDS: ISOVUE-300 61% 50ML VIAL (Q9967) As Ordered ×2 (13:42→14:40)
[2017-05-31] MEDS ORDERED: PROPOFOL 200 MG/20 ML VIAL As Ordered (13:44)
[2017-05-31] MEDS ORDERED: MIDAZOLAM INJ 2 MG/2 ML VIAL (J2250) As Ordered (13:46)
[2017-05-31] MEDS ORDERED: fentaNYL 100 MCG/2 ML INJECTION (J3010) As Ordered (13:46)
[2017-05-31] MEDS: PARoxetine 10MG TABLET PO (21:44)
[2017-05-31] MEDS: CINACALCET 30 MG TAB (SENSIPAR) PO (21:45)
[2017-05-31] MEDS: NEPHRO-VIT TAB (NEPHROCAPS) PO (21:45)
[2017-05-31] MEDS: FOLIC ACID 1 MG TAB PO (21:45)
[2017-05-31] MEDS: SIMVASTATIN 10 MG TAB PO (21:45)
[2017-05-31] MEDS: METOPROLOL SUCC (TopROL XL) 50MG **XL** TAB PO (21:47)
[2017-06-01] MEDS: PANTOPRAZOLE 40MG TAB (PROTONIX) PO ×2 (05:55→21:11)
[2017-06-01] MEDS: CALCIUM ACETATE 667 MG GELCAP PO ×3 (05:55→17:20)
[2017-06-01] MEDS: GABAPENTIN 100 MG CAP PO ×3 (05:56→21:12)
[2017-06-01] MEDS: predniSONE 20 MG TAB PO (05:56)
[2017-06-01] MEDS: SENOKOT S TAB PO ×2 (05:56→21:12)
[2017-06-01] MEDS: LACTIC ACID 12% LOTION 225 GM BTL TOP ×2 (05:57→21:13)
[2017-06-01 06:56] LABS: HEMOGLOBIN 7.7 g/dl (14.0-18.0); MEAN CORPUSCULAR HEMOGLOBIN 30.4 pg (27.0-33.0); MEAN CORPUSCULAR HGB CONC 30.8 g/dl (32.0-36.5); MEAN CORPUSCULAR VOLUME 98.8 fl (80.0-96.0); RED BLOOD COUNT 2.53 10^6/uL (4.30-6.10); RED CELL DISTRIBUTION WIDTH 21.2 % (11.5-14.5); WHITE BLOOD COUNT 5.8 10^3/uL (4.0-10.0)
[2017-06-01 06:58] LABS: PLATELET COUNT, AUTOMATED 73 10^3/uL (150-450)
[2017-06-01 07:00] LABS: IMMATURE PLATELET FRACTION % 5.6 % (0.0-10.9)
[2017-06-01 07:11] LABS: ALBUMIN 2.9 GM/DL (3.2-5.2); ANION GAP 8 MEQ/L (8-16); BLOOD UREA NITROGEN 77 MG/DL (7-18); CARBON DIOXIDE LEVEL 26 MEQ/L (21-32); CHLORIDE LEVEL 99 MEQ/L (98-107); CREATININE FOR GFR 7.69 MG/DL (0.70-1.30); GLOMERULAR FILTRATION RATE 9.2 (>49); GLUCOSE, FASTING 99 MG/DL (70-100); PHOSPHORUS LEVEL 3.1 MG/DL (2.5-4.9); SODIUM LEVEL 133 MEQ/L (136-145)
[2017-06-01] MEDS: MORPHINE 15 MG SA TAB PO ×2 (08:12→21:13)
[2017-06-01] MEDS ORDERED: ALTEPLASE 2 MG/2 ML VIAL (J2997 PER 1MG) IV (11:30)
[2017-06-01 11:59] LABS: IMMEDIATE SPIN CROSSMATCH 1 2
[2017-06-01] MEDS: oxyCODONE 5MG TAB PO (13:51)
[2017-06-01] MEDS: LETROZOLE 2.5 MG TAB PO (13:54)
[2017-06-01] MEDS: CINACALCET 30 MG TAB (SENSIPAR) PO (21:12)
[2017-06-01] MEDS: FOLIC ACID 1 MG TAB PO (21:12)
[2017-06-01] MEDS: SIMVASTATIN 10 MG TAB PO (21:12)
[2017-06-01] MEDS: METOPROLOL SUCC (TopROL XL) 50MG **XL** TAB PO (21:12)
[2017-06-01] MEDS: NEPHRO-VIT TAB (NEPHROCAPS) PO (21:13)
[2017-06-01] MEDS: PARoxetine 10MG TABLET PO (21:13)
[2017-06-02 01:48] LABS: BEDSIDE GLUCOSE 119 MG/DL (80-115)
[2017-06-02] MEDS: CALCIUM ACETATE 667 MG GELCAP PO (10:15)
[2017-06-02] MEDS: GABAPENTIN 100 MG CAP PO (10:15)
[2017-06-02] MEDS: LETROZOLE 2.5 MG TAB PO (10:15)
[2017-06-02] MEDS: MORPHINE 15 MG SA TAB PO (10:15)
[2017-06-02] MEDS: PANTOPRAZOLE 40MG TAB (PROTONIX) PO (10:15)
[2017-06-02] MEDS: predniSONE 20 MG TAB PO (10:15)
[2017-06-02] MEDS: SENOKOT S TAB PO (10:15)
[2017-06-02] MEDS: LACTIC ACID 12% LOTION 225 GM BTL TOP (10:16)
== END 2017-06-02 12:40 | DRG 981 ==
LOC: M MS5PR 05-24 05:03 → M MS4PR 05-17 11:59 → M MS5PR 05-24 15:05 → M ED 01:02 → M ED INP 05:08 → M MSPAV 12:45
PROC: 05783ZZ Dilation of Left Axillary Vein, Percutaneous Approach (ICD-10-PCS; 2017-05-31 13:00)
PROC: B51WYZZ Fluoroscopy of Dialysis Shunt/Fistula using Other Contrast (ICD-10-PCS; 2017-05-31 13:00)
PROC: 06H033Z Insertion of Infusion Device into Inferior Vena Cava, Percutaneous Approach (ICD-10-PCS; principal; 2017-05-31 14:08)
PROC: B549ZZA Ultrasonography of Inferior Vena Cava, Guidance (ICD-10-PCS; 2017-05-31 14:08)
PROC: B519YZA Fluoroscopy of Inferior Vena Cava using Other Contrast, Guidance (ICD-10-PCS; 2017-05-31 14:08)
PROC: 30233N1 Transfusion of Nonautologous Red Blood Cells into Peripheral Vein, Percutaneous Approach (ICD-10-PCS; 2017-05-31 14:08)
PROC: 30233R1 Transfusion of Nonautologous Platelets into Peripheral Vein, Percutaneous Approach (ICD-10-PCS; 2017-05-31 14:08)
DX: L03.115 Cellulitis of right lower limb (principal); N18.6 End stage renal disease; G93.41 Metabolic encephalopathy; Z68.42 Body mass index [BMI] 45.0-49.9, adult; D69.3 Immune thrombocytopenic purpura; M87.051 Idiopathic aseptic necrosis of right femur; M87.052 Idiopathic aseptic necrosis of left femur; T82.868A Thrombosis due to vascular prosthetic devices, implants and grafts, initial encounter; C79.51 Secondary malignant neoplasm of bone; N25.81 Secondary hyperparathyroidism of renal origin; I12.0 Hypertensive chronic kidney disease with stage 5 chronic kidney disease or end stage renal disease; E66.01 Morbid (severe) obesity due to excess calories; K59.00 Constipation, unspecified; E11.40 Type 2 diabetes mellitus with diabetic neuropathy, unspecified; E78.5 Hyperlipidemia, unspecified; D63.1 Anemia in chronic kidney disease; G47.33 Obstructive sleep apnea (adult) (pediatric); Z99.2 Dependence on renal dialysis; Z95.828 Presence of other vascular implants and grafts; Z99.89 Dependence on other enabling machines and devices; Z86.718 Personal history of other venous thrombosis and embolism; Z90.12 Acquired absence of left breast and nipple; Z79.82 Long term (current) use of aspirin; Z85.3 Personal history of malignant neoplasm of breast; Z79.01 Long term (current) use of anticoagulants; Z79.899 Other long term (current) drug therapy; Z88.0 Allergy status to penicillin; Z91.048 Other nonmedicinal substance allergy status; Z91.041 Radiographic dye allergy status; Z92.21 Personal history of antineoplastic chemotherapy; Z92.3 Personal history of irradiation; Z79.4 Long term (current) use of insulin

== ENCOUNTER → 2017-06-06 | Outpatient (REF) ==
[2017-06-06 15:18] LABS: HEMATOCRIT 29.1 % (42.0-52.0); MEAN CORPUSCULAR HEMOGLOBIN 30.5 pg (27.0-33.0); MEAN CORPUSCULAR HGB CONC 30.9 g/dl (32.0-36.5); MEAN CORPUSCULAR VOLUME 98.6 fl (80.0-96.0); RED BLOOD COUNT 2.95 10^6/uL (4.30-6.10); RED CELL DISTRIBUTION WIDTH 20.4 % (11.5-14.5); WHITE BLOOD COUNT 6.1 10^3/uL (4.0-10.0)
[2017-06-06 15:19] LABS: IMMATURE PLATELET FRACTION % 5.8 % (0.0-10.9); PLATELET COUNT, AUTOMATED 44 10^3/uL (150-450); PLATELET F 2.6
== END ==
LOC: SKLAB4 09:24
DX: D64.9 Anemia, unspecified (principal)

== ENCOUNTER → 2017-06-10 | Outpatient (REF) | payer MEDICAID, MEDICARE ==
[2017-06-10 15:42] LABS: HEMATOCRIT 28.8 % (42.0-52.0); HEMOGLOBIN 8.8 g/dl (14.0-18.0); MEAN CORPUSCULAR HEMOGLOBIN 30.6 pg (27.0-33.0); MEAN CORPUSCULAR HGB CONC 30.6 g/dl (32.0-36.5); RED BLOOD COUNT 2.88 10^6/uL (4.30-6.10); RED CELL DISTRIBUTION WIDTH 19.6 % (11.5-14.5); WHITE BLOOD COUNT 6.5 10^3/uL (4.0-10.0)
[2017-06-10 15:55] LABS: PLATELET COUNT, AUTOMATED 77 10^3/uL (150-450)
[2017-06-10 15:56] LABS: IMMATURE PLATELET FRACTION % 6.7 % (0.0-10.9)
[2017-06-10 21:57] LABS: FERRITIN 841 NG/ML (26-388); IRON (FE) 103 UG/DL (65-175); TOTAL IRON BINDING CAPACITY 166 UG/DL (250-450)
== END ==
LOC: SKLAB4 09:50
DX: K62.5 Hemorrhage of anus and rectum (principal)

== ENCOUNTER → 2017-06-11 | Outpatient (CLI) | payer MEDICARE, MEDICAID | LOC: SKLAB4 10:21 | DX: D64.9 Anemia, unspecified (principal) ==

== ENCOUNTER → 2017-06-13 | Outpatient (REF) ==
[2017-06-13 13:15] LABS: HEMATOCRIT 28.9 % (42.0-52.0); HEMOGLOBIN 8.6 g/dl (14.0-18.0); MEAN CORPUSCULAR HEMOGLOBIN 30.1 pg (27.0-33.0); MEAN CORPUSCULAR HGB CONC 29.8 g/dl (32.0-36.5); RED BLOOD COUNT 2.86 10^6/uL (4.30-6.10); RED CELL DISTRIBUTION WIDTH 20.1 % (11.5-14.5); WHITE BLOOD COUNT 9.2 10^3/uL (4.0-10.0)
[2017-06-13 13:18] LABS: IMMATURE PLATELET FRACTION % 5.2 % (0.0-10.9); PLATELET COUNT, AUTOMATED 70 10^3/uL (150-450); PLATELET F 72
== END ==
LOC: SKLAB4 09:53
DX: D64.9 Anemia, unspecified (principal)

== ENCOUNTER → 2017-06-14 | Outpatient (REF) | payer MEDICARE, MEDICAID | LOC: SKLAB4 11:09 | DX: K62.5 Hemorrhage of anus and rectum (principal) | CPT/HCPCS: 82270 ==

== ENCOUNTER → 2017-06-17 | Outpatient (REF) | LOC: SKLAB4 09:48 | DX: K62.5 Hemorrhage of anus and rectum (principal) ==

== ENCOUNTER → 2017-06-20 | Outpatient (REF) ==
[2017-06-20 13:56] LABS: HEMATOCRIT 30.5 % (42.0-52.0); HEMOGLOBIN 9.1 g/dl (13.5-17.5); MEAN CORPUSCULAR HEMOGLOBIN 31.2 pg (27.0-33.0); MEAN CORPUSCULAR HGB CONC 29.8 g/dl (32.0-36.5); MEAN CORPUSCULAR VOLUME 104.5 fl (80.0-96.0); RED BLOOD COUNT 2.92 10^6/uL (4.30-6.10); RED CELL DISTRIBUTION WIDTH 20.2 % (11.5-14.5); WHITE BLOOD COUNT 6.6 10^3/uL (4.0-10.0)
[2017-06-20 13:58] LABS: PLATELET COUNT, AUTOMATED 96 10^3/uL (150-450)
[2017-06-20 13:59] LABS: IMMATURE PLATELET FRACTION % 5.8 % (0.0-10.9); PLATELET F 6.4
== END ==
LOC: SKLAB4 10:10
DX: D64.9 Anemia, unspecified (principal)

== ENCOUNTER → 2017-06-23 | Outpatient (CLI) | payer MEDICARE, MEDICAID ==
[~2017-06-23] MED LIST changes: -/HYDR10T PO; -/IPRAINH INH; -/SENOSTA PO; -/WARF5TA PO; -ACET50TA PO; -ACET65TA PO; -ANTISOL30 AU; -ASPI1TAB PO; -ASPI325T PO; -ATARAX; -ATROVENT; -BENA25CA PO; -CALC1CAP PO; -CALC667C2 PO; -CART180C3 PO; -COLA100C5 PO; -COMBAER6 INH; -COMBIN INH; -COUM10TA PO; -COUM1TAB14 PO; -COUM1TAB17 PO; -COUM6TAB PO; -COUM7.5T PO; -COUMADIN PO; -DARB300VL IV; -DARB30SYRN IV; -DARB60SYR; -DILT180C PO; -DIPH25CA PO; -DOCU100C PO; -DOCU10CA PO; -DOCU10ELUD PO; -DOXY-197 PO; -DOXY-278 PO; -DOXY100C PO; -DOXY75CA3 PO; -DRIS50002 PO; -ELIQ5TAB PO; -EUCECRE3 TOP; -FLUT0.003 TOP; -FOLI1TAB4 PO; -FOLITAB11 PO; -FOSR1000 PO; -GABA-279 PO; -GEOD40CA; -HYDR-3363 PO; -HYDR-3713 PO; -HYDR-3716 PO; -HYDR25TA8; -HYDR5TAB23 PO; -IBUP80TA PO; -IMMODIUM PO; -IMOD2TAB16 PO; -IPRA1SOL47 NEB; -IPRASOL4 INH; +ISOVUE-300 61% 50ML VIAL (Q9967) As Ordered; -KAYEPOW PO; -LAC-12LO3 TOP; -LEVA12INH INH; -LEVA31IN; -LOPE2CA PO; -LOPE2CAP PO; -LOPR100T; -LOPR1TAB6 PO; -LOPR1TAB7 PO; -LOPR50TA PO; -METO100T PO; -METO100T5 PO; -METO12TA PO; -METO1TAB33 PO; -METO50TA7 PO; -MIRA3350 PO; -NEPH1CAP4 PO; -NEPHTAB PO; -NEUR300C PO; -NICO14DI3 TD; -NICO7PA TD; -NIFE30TA; -NORCOBULK PO; -OMEP20CA3 PO; -OXYCODONE PO; -PANT40TA2 PO; -PARO30TA PO; -PARO5TAB PO; -PAXI10TA12 PO; -PERC5TAB12 PO; -PERC5TAB8; -PERCOCET PO; -PHOSLO667 MG; -PRED20TA PO; -PRIL20CA PO; -PROCRIT3000 MG/ML; -PROT1TAB2 PO; -PROTPAK PO; -RENA800T; -RENV2TAB PO; -SENE8.6T3 PO; -SENO8.6T11 PO; -SENO8.6T5 PO; -SENS60TA PO; -SENS90TA PO; -SEVE80TAB PO; -SIMV10TA2 PO; -SODI200S PO; -TAMO20TA4 PO; -TYLE325T5 PO; -TYLENOL #3; -VALA500T2 PO; -VANC125C2 PO; -VANC1CAP6 PO; -VANC25CA; -VICODIN PO; -WARF-22 PO; -WARF-58 PO; -WARF5VL PO; -XANA0.25 PO; -XARELTO PO; -ZOCO10TA PO; -[UNRECOGNIZED DRUG - CODE] IV; -immodium PO; -zemplar
== END | disposition home or self-care (01) ==
LOC: M IRPRO 09:22
DX: T82.858A Stenosis of other vascular prosthetic devices, implants and grafts, initial encounter (principal); N18.6 End stage renal disease
CPT/HCPCS: 36902

== ENCOUNTER → 2017-06-27 | Outpatient (REF) | LOC: SKLAB4 10:44 | DX: D64.9 Anemia, unspecified (principal) ==

== ENCOUNTER → 2017-07-05 | Outpatient (REF) ==
[2017-07-05 08:39] LABS: HEMATOCRIT 25.9 % (42.0-52.0); HEMOGLOBIN 7.7 g/dl (13.5-17.5); MEAN CORPUSCULAR HGB CONC 29.7 g/dl (32.0-36.5); MEAN CORPUSCULAR VOLUME 104.4 fl (80.0-96.0); RED BLOOD COUNT 2.48 10^6/uL (4.30-6.10); RED CELL DISTRIBUTION WIDTH 18.7 % (11.5-14.5); WHITE BLOOD COUNT 5.8 10^3/uL (4.0-10.0)
[2017-07-05 08:41] LABS: IMMATURE PLATELET FRACTION % 6.8 % (0.0-10.9); PLATELET COUNT, AUTOMATED 77 10^3/uL (150-450)
[2017-07-05 08:42] LABS: PLATELET F 69
== END ==
LOC: SKLAB4 07:43
DX: D64.9 Anemia, unspecified (principal)

== ENCOUNTER 2017-07-11 02:04 | Inpatient (IN) | payer MEDICARE, MEDICAID ==
[2017-07-11 02:48] LABS: BASO % 0.2 % (0.0-1.0); EOS # 0.1 10^3/uL (0.0-0.50); HEMATOCRIT 23.9 % (42.0-52.0); HEMOGLOBIN 7.1 g/dl (13.5-17.5); IMMATURE GRANULOCYTE % 0.2 % (0-3.0); LYMPH # 1.3 10^3/uL (1.5-4.5); LYMPH % 15.5 % (24.0-44.0); MEAN CORPUSCULAR HEMOGLOBIN 31.6 pg (27.0-33.0); MEAN CORPUSCULAR HGB CONC 29.7 g/dl (32.0-36.5); MEAN CORPUSCULAR VOLUME 106.2 fl (80.0-96.0); MONO # 0.9 10^3/uL (0.0-0.8); MONO % 11.3 % (0.0-5.0); NEUTROPHILS % 71.8 % (36.0-66.0); PLATELET COUNT, AUTOMATED 131 10^3/uL (150-450); RED BLOOD COUNT 2.25 10^6/uL (4.30-6.10); RED CELL DISTRIBUTION WIDTH 18.7 % (11.5-14.5); WHITE BLOOD COUNT 8.3 10^3/uL (4.0-10.0)
[2017-07-11] MEDS: PANTOPRAZOLE 40MG INJ (PROTONIX) (C9113) IV (03:01)
[2017-07-11 03:06] LABS: INR 1.06
[2017-07-11 03:13] LABS: ALBUMIN 2.6 GM/DL (3.2-5.2); ALBUMIN/GLOBULIN RATIO 1.04 (1.00-1.93); ALKALINE PHOSPHATASE 55 U/L (45-117); ALT/SGPT 15 U/L (12-78); ANION GAP 7 MEQ/L (8-16); AST/SGOT 11 U/L (7-37); BILIRUBIN,DIRECT < 0.1 MG/DL (0.0-0.2); BILIRUBIN,TOTAL 0.3 MG/DL (0.2-1.0); BLOOD UREA NITROGEN 47 MG/DL (7-18); CALCIUM LEVEL 9.3 MG/DL (8.8-10.2); CARBON DIOXIDE LEVEL 31 MEQ/L (21-32); CHLORIDE LEVEL 106 MEQ/L (98-107); CREATININE FOR GFR 6.61 MG/DL (0.70-1.30); GLOMERULAR FILTRATION RATE 10.9 (>49); GLUCOSE, FASTING 88 MG/DL (70-100); LIPASE 141 U/L (73-393); POTASSIUM SERUM 4.4 MEQ/L (3.5-5.1); SODIUM LEVEL 144 MEQ/L (136-145); TOTAL PROTEIN 5.1 GM/DL (6.4-8.2)
[2017-07-11] MEDS: PANTOPRAZOLE SODIUM 40 MG in D5W 50 ML IV ×5 (04:06→18:30)
[2017-07-11] MEDS: NS 1,000 ML IV (05:43)
[2017-07-11] MEDS ORDERED: FLEET ENEMA PR (05:45)
[2017-07-11] MEDS ORDERED: ANEXSIA, NORCO 7.5MG/325MG TABLET(HYDROCODONE/APAP) PO (05:45)
[2017-07-11] MEDS ORDERED: BISACODYL 10 MG SUPP PR (05:45)
[2017-07-11] MEDS ORDERED: ACETAMINOPHEN 325 MG TAB PO (05:45)
[2017-07-11 06:20] LABS: BASO % 0.4 % (0.0-1.0); EOS # 0.1 10^3/uL (0.0-0.50); EOS % 1.6 % (0.0-3.0); HEMATOCRIT 22.7 % (42.0-52.0); IMMATURE GRANULOCYTE % 0.6 % (0-3.0); LYMPH # 1.5 10^3/uL (1.5-4.5); LYMPH % 17.3 % (24.0-44.0); MEAN CORPUSCULAR HEMOGLOBIN 31.2 pg (27.0-33.0); MEAN CORPUSCULAR VOLUME 104.1 fl (80.0-96.0); MONO # 0.9 10^3/uL (0.0-0.8); MONO % 10.8 % (0.0-5.0); NEUTROPHILS # 5.9 10^3/uL (1.8-7.7); NEUTROPHILS % 69.3 % (36.0-66.0); PLATELET COUNT, AUTOMATED 146 10^3/uL (150-450); RED BLOOD COUNT 2.18 10^6/uL (4.30-6.10); RED CELL DISTRIBUTION WIDTH 18.8 % (11.5-14.5); WHITE BLOOD COUNT 8.5 10^3/uL (4.0-10.0)
[2017-07-11 06:22] LABS: HEMOGLOBIN 6.8 g/dl (13.5-17.5)
[2017-07-11 06:43] LABS: ANION GAP 7 MEQ/L (8-16); BLOOD UREA NITROGEN 51 MG/DL (7-18); CALCIUM LEVEL 9.2 MG/DL (8.8-10.2); CARBON DIOXIDE LEVEL 32 MEQ/L (21-32); CHLORIDE LEVEL 105 MEQ/L (98-107); CPK CREATINE PHOSPHOKINASE 9 U/L (39-308); CREATININE FOR GFR 6.83 MG/DL (0.70-1.30); GLOMERULAR FILTRATION RATE 10.5 (>49); GLUCOSE, FASTING 80 MG/DL (70-100); POTASSIUM SERUM 4.2 MEQ/L (3.5-5.1); SODIUM LEVEL 144 MEQ/L (136-145); TROPONIN I < 0.02 NG/ML (< 0.10)
[2017-07-11 06:44] LABS: CK-MB VALUE MASS 1.2 NG/ML (<3.6); MB/CK RELATIVE INDEX 13.33 (< OR =4)
[2017-07-11] MEDS: LACTIC ACID 12% LOTION 225 GM BTL TOP ×2 (09:00→20:25)
[2017-07-11] MEDS ORDERED: ANUSOL HC 25MG SUPP PR (09:00)
[2017-07-11 09:32] LABS: IMMEDIATE SPIN CROSSMATCH 1 1
[2017-07-11] MEDS: MORPHINE 15 MG SA TAB PO ×2 (09:37→20:25)
[2017-07-11] MEDS: predniSONE 20 MG TAB PO (09:37)
[2017-07-11] MEDS: GABAPENTIN 100 MG CAP PO ×3 (09:37→20:24)
[2017-07-11] MEDS: CALCIUM ACETATE 667 MG GELCAP PO ×3 (09:38→18:00)
[2017-07-11 11:25] LABS: IMMEDIATE SPIN CROSSMATCH 1 1
[2017-07-11 14:24] LABS: HEMATOCRIT 25.9 % (42.0-52.0); HEMOGLOBIN 7.9 g/dl (13.5-17.5); MEAN CORPUSCULAR HEMOGLOBIN 30.5 pg (27.0-33.0); MEAN CORPUSCULAR HGB CONC 30.5 g/dl (32.0-36.5); PLATELET COUNT, AUTOMATED 121 10^3/uL (150-450); RED BLOOD COUNT 2.59 10^6/uL (4.30-6.10); RED CELL DISTRIBUTION WIDTH 19.7 % (11.5-14.5); WHITE BLOOD COUNT 7.3 10^3/uL (4.0-10.0)
[2017-07-11 14:54] LABS: CK-MB VALUE MASS 1.2 NG/ML (<3.6); CPK CREATINE PHOSPHOKINASE 12 U/L (39-308); TROPONIN I < 0.02 NG/ML (< 0.10)
[2017-07-11 19:11] LABS: HEMATOCRIT 31.1 % (42.0-52.0); HEMOGLOBIN 9.6 g/dl (13.5-17.5); POS COUNT POS FLAG
[2017-07-11 19:51] LABS: BEDSIDE GLUCOSE 74 MG/DL (80-115)
[2017-07-11] MEDS: CINACALCET 30 MG TAB (SENSIPAR) PO (20:24)
[2017-07-11] MEDS: PARoxetine 10MG TABLET PO (20:24)
[2017-07-11] MEDS: DOCUSATE SODIUM 100 MG CAP PO (20:25)
[2017-07-11] MEDS: FOLIC ACID 1 MG TAB PO (20:25)
[2017-07-11 20:53] LABS: BEDSIDE GLUCOSE 80 MG/DL (80-115)
[2017-07-11] MEDS ORDERED: METOPROLOL SUCC (TopROL XL) 50MG **XL** TAB PO (21:00)
[2017-07-11 22:37] LABS: CPK CREATINE PHOSPHOKINASE 16 U/L (39-308); MB/CK RELATIVE INDEX 6.25 (< OR =4); TROPONIN I < 0.02 NG/ML (< 0.10)
[2017-07-11 22:59] LABS: BEDSIDE GLUCOSE 95 MG/DL (80-115)
[2017-07-11 23:46] LABS: HEMATOCRIT 27.6 % (42.0-52.0); HEMOGLOBIN 8.6 g/dl (13.5-17.5)
[2017-07-12] MEDS: PANTOPRAZOLE SODIUM 40 MG in D5W 50 ML IV ×5 (00:07→20:31)
[2017-07-12 06:46] LABS: BASO % 0.2 % (0.0-1.0); EOS # 0.1 10^3/uL (0.0-0.50); EOS % 0.8 % (0.0-3.0); HEMATOCRIT 24.7 % (42.0-52.0); HEMOGLOBIN 7.7 g/dl (13.5-17.5); IMMATURE GRANULOCYTE % 0.3 % (0-3.0); LYMPH # 1.2 10^3/uL (1.5-4.5); LYMPH % 18.5 % (24.0-44.0); MEAN CORPUSCULAR HEMOGLOBIN 30.8 pg (27.0-33.0); MEAN CORPUSCULAR HGB CONC 31.2 g/dl (32.0-36.5); MEAN CORPUSCULAR VOLUME 98.8 fl (80.0-96.0); MONO # 0.5 10^3/uL (0.0-0.8); MONO % 7.7 % (0.0-5.0); NEUTROPHILS # 4.6 10^3/uL (1.8-7.7); NEUTROPHILS % 72.5 % (36.0-66.0); PLATELET COUNT, AUTOMATED 128 10^3/uL (150-450); RED CELL DISTRIBUTION WIDTH 19.7 % (11.5-14.5); WHITE BLOOD COUNT 6.4 10^3/uL (4.0-10.0)
[2017-07-12] MEDS: CALCIUM ACETATE 667 MG GELCAP PO ×3 (06:47→18:00)
[2017-07-12] MEDS: GABAPENTIN 100 MG CAP PO ×3 (07:01→20:32)
[2017-07-12] MEDS: predniSONE 20 MG TAB PO (07:01)
[2017-07-12] MEDS: MORPHINE 15 MG SA TAB PO ×2 (07:02→20:32)
[2017-07-12 07:03] LABS: ANION GAP 5 MEQ/L (8-16); BLOOD UREA NITROGEN 64 MG/DL (7-18); CALCIUM LEVEL 8.7 MG/DL (8.8-10.2); CARBON DIOXIDE LEVEL 31 MEQ/L (21-32); CHLORIDE LEVEL 105 MEQ/L (98-107); CREATININE FOR GFR 7.81 MG/DL (0.70-1.30); GLUCOSE, FASTING 81 MG/DL (70-100); POTASSIUM SERUM 5.1 MEQ/L (3.5-5.1); SODIUM LEVEL 141 MEQ/L (136-145)
[2017-07-12] MEDS: LACTIC ACID 12% LOTION 225 GM BTL TOP ×2 (09:00→20:32)
[2017-07-12 10:21] LABS: IMMEDIATE SPIN CROSSMATCH 1 2
[2017-07-12] MEDS: (RENVELA) SEVELAMER **CARBONate** 800 MG TAB PO ×2 (15:21→20:31)
[2017-07-12] MEDS: FOLIC ACID 1 MG TAB PO (20:31)
[2017-07-12] MEDS: CINACALCET 30 MG TAB (SENSIPAR) PO (20:31)
[2017-07-12] MEDS: SENOKOT S TAB PO (20:31)
[2017-07-12] MEDS: PARoxetine 10MG TABLET PO (20:32)
[2017-07-12] MEDS: DOCUSATE SODIUM 100 MG CAP PO (20:32)
[2017-07-12] MEDS: SIMVASTATIN 10 MG TAB PO (20:32)
[2017-07-12] MEDS: NEPHRO-VIT TAB (NEPHROCAPS) PO (20:32)
[2017-07-13] MEDS: PANTOPRAZOLE SODIUM 40 MG in D5W 50 ML IV ×2 (01:43→07:01)
[2017-07-13 07:32] LABS: BASO % 0.5 % (0.0-1.0); EOS # 0.1 10^3/uL (0.0-0.50); EOS % 2.2 % (0.0-3.0); HEMATOCRIT 29.2 % (42.0-52.0); HEMOGLOBIN 9.1 g/dl (13.5-17.5); IMMATURE GRANULOCYTE % 0.5 % (0-3.0); LYMPH # 1.3 10^3/uL (1.5-4.5); LYMPH % 22.1 % (24.0-44.0); MEAN CORPUSCULAR HEMOGLOBIN 30.7 pg (27.0-33.0); MEAN CORPUSCULAR HGB CONC 31.2 g/dl (32.0-36.5); MEAN CORPUSCULAR VOLUME 98.6 fl (80.0-96.0); MONO # 0.8 10^3/uL (0.0-0.8); MONO % 13.5 % (0.0-5.0); NEUTROPHILS # 3.6 10^3/uL (1.8-7.7); NEUTROPHILS % 61.2 % (36.0-66.0); RED BLOOD COUNT 2.96 10^6/uL (4.30-6.10); RED CELL DISTRIBUTION WIDTH 19.8 % (11.5-14.5); WHITE BLOOD COUNT 5.9 10^3/uL (4.0-10.0)
[2017-07-13 07:49] LABS: PLATELET COUNT, AUTOMATED 83 10^3/uL (150-450)
[2017-07-13 07:54] LABS: IMMATURE PLATELET FRACTION % 4.2 % (0.0-10.9)
[2017-07-13 08:02] LABS: ANION GAP 6 MEQ/L (8-16); BLOOD UREA NITROGEN 28 MG/DL (7-18); CALCIUM LEVEL 8.2 MG/DL (8.8-10.2); CARBON DIOXIDE LEVEL 30 MEQ/L (21-32); CHLORIDE LEVEL 103 MEQ/L (98-107); GLOMERULAR FILTRATION RATE 14.4 (>49); GLUCOSE, FASTING 78 MG/DL (70-100); POTASSIUM SERUM 3.6 MEQ/L (3.5-5.1); SODIUM LEVEL 139 MEQ/L (136-145)
[2017-07-13] MEDS: LACTIC ACID 12% LOTION 225 GM BTL TOP ×2 (08:43→22:51)
[2017-07-13] MEDS: GABAPENTIN 100 MG CAP PO ×3 (08:43→22:49)
[2017-07-13] MEDS: CALCIUM ACETATE 667 MG GELCAP PO ×3 (08:43→18:30)
[2017-07-13] MEDS: predniSONE 20 MG TAB PO (08:43)
[2017-07-13] MEDS: (RENVELA) SEVELAMER **CARBONate** 800 MG TAB PO ×3 (08:43→22:51)
[2017-07-13] MEDS: MORPHINE 15 MG SA TAB PO ×2 (08:44→22:49)
[2017-07-13] MEDS: PANTOPRAZOLE 40MG TAB (PROTONIX) PO ×2 (12:10→22:50)
[2017-07-13] MEDS: GOLYTELY SOLN 4000 ML BTL PO (18:30)
[2017-07-13] MEDS: BISACODYL 5 MG TAB PO (18:30)
[2017-07-13] MEDS: PARoxetine 10MG TABLET PO (22:49)
[2017-07-13] MEDS: SENOKOT S TAB PO (22:49)
[2017-07-13] MEDS: NEPHRO-VIT TAB (NEPHROCAPS) PO (22:50)
[2017-07-13] MEDS: FOLIC ACID 1 MG TAB PO (22:50)
[2017-07-13] MEDS: CINACALCET 30 MG TAB (SENSIPAR) PO (22:50)
[2017-07-13] MEDS: DOCUSATE SODIUM 100 MG CAP PO (22:50)
[2017-07-13] MEDS: SIMVASTATIN 10 MG TAB PO (22:50)
[2017-07-14 06:45] LABS: ANION GAP 9 MEQ/L (8-16); BLOOD UREA NITROGEN 13 MG/DL (7-18); CALCIUM LEVEL 8.3 MG/DL (8.8-10.2); CARBON DIOXIDE LEVEL 25 MEQ/L (21-32); CHLORIDE LEVEL 105 MEQ/L (98-107); CREATININE FOR GFR 3.85 MG/DL (0.70-1.30); GLOMERULAR FILTRATION RATE 20.4 (>49); GLUCOSE, FASTING 88 MG/DL (70-100); POTASSIUM SERUM 4.5 MEQ/L (3.5-5.1); SODIUM LEVEL 139 MEQ/L (136-145)
[2017-07-14 07:04] LABS: BASO % 0.3 % (0.0-1.0); EOS # 0.1 10^3/uL (0.0-0.50); EOS % 1.5 % (0.0-3.0); HEMOGLOBIN 10.4 g/dl (13.5-17.5); IMMATURE GRANULOCYTE % 0.3 % (0-3.0); LYMPH # 0.9 10^3/uL (1.5-4.5); LYMPH % 14.9 % (24.0-44.0); MEAN CORPUSCULAR HEMOGLOBIN 31.3 pg (27.0-33.0); MEAN CORPUSCULAR HGB CONC 31.5 g/dl (32.0-36.5); MEAN CORPUSCULAR VOLUME 99.4 fl (80.0-96.0); MONO # 0.8 10^3/uL (0.0-0.8); MONO % 14.1 % (0.0-5.0); NEUTROPHILS # 4.1 10^3/uL (1.8-7.7); NEUTROPHILS % 68.9 % (36.0-66.0); RED BLOOD COUNT 3.32 10^6/uL (4.30-6.10); RED CELL DISTRIBUTION WIDTH 19.1 % (11.5-14.5); WHITE BLOOD COUNT 5.9 10^3/uL (4.0-10.0)
[2017-07-14 07:05] LABS: PLATELET COUNT, AUTOMATED 68 10^3/uL (150-450)
[2017-07-14] MEDS: predniSONE 20 MG TAB PO (08:19)
[2017-07-14] MEDS: CALCIUM ACETATE 667 MG GELCAP PO ×3 (08:19→16:59)
[2017-07-14] MEDS: GABAPENTIN 100 MG CAP PO ×3 (08:19→21:59)
[2017-07-14] MEDS: (RENVELA) SEVELAMER **CARBONate** 800 MG TAB PO ×3 (08:20→21:58)
[2017-07-14] MEDS: PANTOPRAZOLE 40MG TAB (PROTONIX) PO ×2 (08:21→22:00)
[2017-07-14] MEDS: LACTIC ACID 12% LOTION 225 GM BTL TOP ×2 (08:22→21:00)
[2017-07-14] MEDS: MORPHINE 15 MG SA TAB PO ×2 (08:25→22:04)
[2017-07-14] MEDS: SENOKOT S TAB PO ×2 (21:00→21:59)
[2017-07-14] MEDS: DOCUSATE SODIUM 100 MG CAP PO (21:00)
[2017-07-14] MEDS: CINACALCET 30 MG TAB (SENSIPAR) PO ×2 (21:00→21:58)
[2017-07-14] MEDS: PARoxetine 10MG TABLET PO (21:58)
[2017-07-14] MEDS: SIMVASTATIN 10 MG TAB PO (21:59)
[2017-07-14] MEDS: NEPHRO-VIT TAB (NEPHROCAPS) PO (22:00)
[2017-07-14] MEDS: FOLIC ACID 1 MG TAB PO (22:00)
[2017-07-15 06:16] LABS: BASO % 0.2 % (0.0-1.0); EOS # 0.1 10^3/uL (0.0-0.50); EOS % 2.2 % (0.0-3.0); HEMATOCRIT 30.7 % (42.0-52.0); HEMOGLOBIN 9.7 g/dl (13.5-17.5); IMMATURE GRANULOCYTE % 0.5 % (0-3.0); LYMPH # 0.9 10^3/uL (1.5-4.5); LYMPH % 15.6 % (24.0-44.0); MEAN CORPUSCULAR HGB CONC 31.6 g/dl (32.0-36.5); MEAN CORPUSCULAR VOLUME 98.1 fl (80.0-96.0); MONO # 0.7 10^3/uL (0.0-0.8); MONO % 11.4 % (0.0-5.0); NEUTROPHILS # 4.2 10^3/uL (1.8-7.7); NEUTROPHILS % 70.1 % (36.0-66.0); RED BLOOD COUNT 3.13 10^6/uL (4.30-6.10); RED CELL DISTRIBUTION WIDTH 18.6 % (11.5-14.5)
[2017-07-15 06:17] LABS: PLATELET COUNT, AUTOMATED 77 10^3/uL (150-450); POS COUNT POS FLAG
[2017-07-15] MEDS: GABAPENTIN 100 MG CAP PO ×3 (06:17→22:10)
[2017-07-15] MEDS: (RENVELA) SEVELAMER **CARBONate** 800 MG TAB PO ×3 (06:17→22:11)
[2017-07-15] MEDS: predniSONE 20 MG TAB PO (06:17)
[2017-07-15] MEDS: PANTOPRAZOLE 40MG TAB (PROTONIX) PO ×2 (06:17→22:10)
[2017-07-15] MEDS: MORPHINE 15 MG SA TAB PO ×2 (06:18→22:11)
[2017-07-15 06:19] LABS: IMMATURE PLATELET FRACTION % 4.2 % (0.0-10.9); PLATELET F 70
[2017-07-15] MEDS: LACTIC ACID 12% LOTION 225 GM BTL TOP ×2 (06:20→22:12)
[2017-07-15 06:31] LABS: ANION GAP 7 MEQ/L (8-16); BLOOD UREA NITROGEN 21 MG/DL (7-18); CALCIUM LEVEL 8.1 MG/DL (8.8-10.2); CARBON DIOXIDE LEVEL 30 MEQ/L (21-32); CHLORIDE LEVEL 105 MEQ/L (98-107); CREATININE FOR GFR 5.36 MG/DL (0.70-1.30); GLOMERULAR FILTRATION RATE 13.9 (>49); GLUCOSE, FASTING 94 MG/DL (70-100); POTASSIUM SERUM 4.3 MEQ/L (3.5-5.1); SODIUM LEVEL 142 MEQ/L (136-145)
[2017-07-15] MEDS: CALCIUM ACETATE 667 MG GELCAP PO ×3 (06:33→18:00)
[2017-07-15] MEDS ORDERED: E-Z-PAQUE 96% w/w SUSP 176GM BTL As Ordered (13:56)
[2017-07-15] MEDS ORDERED: E-Z-HD 98% w/w 340GM SUSP BTL As Ordered (13:56)
[2017-07-15] MEDS ORDERED: E-Z-GAS II EFFERVESCENT PACKET (SODIUM BICARB./CITRIC ACID/SIMETHICONE) As Ordered (13:56)
[2017-07-15] MEDS: PARoxetine 10MG TABLET PO (22:10)
[2017-07-15] MEDS: FOLIC ACID 1 MG TAB PO (22:10)
[2017-07-15] MEDS: DOCUSATE SODIUM 100 MG CAP PO (22:10)
[2017-07-15] MEDS: CINACALCET 30 MG TAB (SENSIPAR) PO (22:10)
[2017-07-15] MEDS: SIMVASTATIN 10 MG TAB PO (22:11)
[2017-07-15] MEDS: NEPHRO-VIT TAB (NEPHROCAPS) PO (22:11)
[2017-07-15] MEDS: SENOKOT S TAB PO (22:11)
[2017-07-16 05:54] LABS: BASO % 0.3 % (0.0-1.0); EOS # 0.1 10^3/uL (0.0-0.50); EOS % 1.9 % (0.0-3.0); HEMATOCRIT 32.7 % (42.0-52.0); IMMATURE GRANULOCYTE % 0.5 % (0-3.0); LYMPH # 0.9 10^3/uL (1.5-4.5); LYMPH % 14.7 % (24.0-44.0); MEAN CORPUSCULAR HEMOGLOBIN 30.6 pg (27.0-33.0); MEAN CORPUSCULAR HGB CONC 30.6 g/dl (32.0-36.5); MONO # 0.7 10^3/uL (0.0-0.8); NEUTROPHILS # 4.6 10^3/uL (1.8-7.7); NEUTROPHILS % 71.6 % (36.0-66.0); RED BLOOD COUNT 3.27 10^6/uL (4.30-6.10); RED CELL DISTRIBUTION WIDTH 18.3 % (11.5-14.5); WHITE BLOOD COUNT 6.4 10^3/uL (4.0-10.0)
[2017-07-16 05:55] LABS: PLATELET COUNT, AUTOMATED 45 10^3/uL (150-450)
[2017-07-16 06:13] LABS: ANION GAP 5 MEQ/L (8-16); BLOOD UREA NITROGEN 12 MG/DL (7-18); CALCIUM LEVEL 7.9 MG/DL (8.8-10.2); CARBON DIOXIDE LEVEL 30 MEQ/L (21-32); CHLORIDE LEVEL 110 MEQ/L (98-107); CREATININE FOR GFR 4.31 MG/DL (0.70-1.30); GLOMERULAR FILTRATION RATE 17.9 (>49); GLUCOSE, FASTING 78 MG/DL (70-100); POTASSIUM SERUM 3.5 MEQ/L (3.5-5.1); SODIUM LEVEL 145 MEQ/L (136-145)
[2017-07-16] MEDS: GABAPENTIN 100 MG CAP PO ×3 (09:16→20:34)
[2017-07-16] MEDS: CALCIUM ACETATE 667 MG GELCAP PO ×3 (09:17→17:19)
[2017-07-16] MEDS: (RENVELA) SEVELAMER **CARBONate** 800 MG TAB PO ×3 (09:17→17:19)
[2017-07-16] MEDS: MORPHINE 15 MG SA TAB PO ×2 (09:17→20:36)
[2017-07-16] MEDS: predniSONE 20 MG TAB PO (09:18)
[2017-07-16] MEDS: PANTOPRAZOLE 40MG TAB (PROTONIX) PO ×2 (09:18→20:34)
[2017-07-16] MEDS: LACTIC ACID 12% LOTION 225 GM BTL TOP ×2 (09:18→20:37)
[2017-07-16] MEDS: oxyCODONE 5MG TAB PO (17:20)
[2017-07-16] MEDS: SIMVASTATIN 10 MG TAB PO (20:34)
[2017-07-16] MEDS: CINACALCET 30 MG TAB (SENSIPAR) PO (20:34)
[2017-07-16] MEDS: FOLIC ACID 1 MG TAB PO (20:34)
[2017-07-16] MEDS: NEPHRO-VIT TAB (NEPHROCAPS) PO (20:34)
[2017-07-16] MEDS: PARoxetine 10MG TABLET PO (20:34)
[2017-07-16] MEDS: DOCUSATE SODIUM 100 MG CAP PO (20:34)
[2017-07-16] MEDS: SENOKOT S TAB PO (20:34)
[2017-07-17] MEDS: GABAPENTIN 100 MG CAP PO ×3 (08:09→20:41)
[2017-07-17] MEDS: PANTOPRAZOLE 40MG TAB (PROTONIX) PO ×2 (08:09→20:41)
[2017-07-17] MEDS: predniSONE 20 MG TAB PO (08:09)
[2017-07-17] MEDS: CALCIUM ACETATE 667 MG GELCAP PO ×3 (08:09→17:13)
[2017-07-17] MEDS: MORPHINE 15 MG SA TAB PO ×2 (08:09→20:43)
[2017-07-17] MEDS: (RENVELA) SEVELAMER **CARBONate** 800 MG TAB PO ×3 (08:09→17:13)
[2017-07-17] MEDS: LACTIC ACID 12% LOTION 225 GM BTL TOP ×2 (08:10→20:42)
[2017-07-17] MEDS: PARoxetine 10MG TABLET PO (20:41)
[2017-07-17] MEDS: SENOKOT S TAB PO (20:41)
[2017-07-17] MEDS: SIMVASTATIN 10 MG TAB PO (20:41)
[2017-07-17] MEDS: CINACALCET 30 MG TAB (SENSIPAR) PO (20:41)
[2017-07-17] MEDS: FOLIC ACID 1 MG TAB PO (20:41)
[2017-07-17] MEDS: DOCUSATE SODIUM 100 MG CAP PO (20:41)
[2017-07-17] MEDS: NEPHRO-VIT TAB (NEPHROCAPS) PO (20:41)
[2017-07-18] MEDS: GABAPENTIN 100 MG CAP PO ×3 (05:56→20:49)
[2017-07-18] MEDS: (RENVELA) SEVELAMER **CARBONate** 800 MG TAB PO ×3 (05:56→18:14)
[2017-07-18] MEDS: PANTOPRAZOLE 40MG TAB (PROTONIX) PO ×2 (05:56→20:49)
[2017-07-18] MEDS: predniSONE 20 MG TAB PO (05:56)
[2017-07-18] MEDS: MORPHINE 15 MG SA TAB PO ×2 (05:57→20:51)
[2017-07-18] MEDS: CALCIUM ACETATE 667 MG GELCAP PO ×3 (05:57→18:14)
[2017-07-18] MEDS: LACTIC ACID 12% LOTION 225 GM BTL TOP ×2 (05:58→20:52)
[2017-07-18 08:50] LABS: BASO % 0.3 % (0.0-1.0); EOS # 0.2 10^3/uL (0.0-0.50); EOS % 2.1 % (0.0-3.0); HEMATOCRIT 31.5 % (42.0-52.0); HEMOGLOBIN 9.8 g/dl (13.5-17.5); IMMATURE GRANULOCYTE % 0.4 % (0-3.0); LYMPH # 1.1 10^3/uL (1.5-4.5); LYMPH % 14.1 % (24.0-44.0); MEAN CORPUSCULAR HEMOGLOBIN 31.3 pg (27.0-33.0); MEAN CORPUSCULAR HGB CONC 31.1 g/dl (32.0-36.5); MEAN CORPUSCULAR VOLUME 100.6 fl (80.0-96.0); MONO # 0.8 10^3/uL (0.0-0.8); MONO % 10.5 % (0.0-5.0); NEUTROPHILS # 5.5 10^3/uL (1.8-7.7); NEUTROPHILS % 72.6 % (36.0-66.0); PLATELET COUNT, AUTOMATED 73 10^3/uL (150-450); RED BLOOD COUNT 3.13 10^6/uL (4.30-6.10); RED CELL DISTRIBUTION WIDTH 17.7 % (11.5-14.5); WHITE BLOOD COUNT 7.5 10^3/uL (4.0-10.0)
[2017-07-18 08:53] LABS: IMMATURE PLATELET FRACTION % 3.8 % (0.0-10.9)
[2017-07-18 09:08] LABS: ANION GAP 7 MEQ/L (8-16); BLOOD UREA NITROGEN 37 MG/DL (7-18); CALCIUM LEVEL 7.6 MG/DL (8.8-10.2); CARBON DIOXIDE LEVEL 28 MEQ/L (21-32); CHLORIDE LEVEL 109 MEQ/L (98-107); GLOMERULAR FILTRATION RATE 9.3 (>49); GLUCOSE, FASTING 96 MG/DL (70-100); POTASSIUM SERUM 4.3 MEQ/L (3.5-5.1); SODIUM LEVEL 144 MEQ/L (136-145)
[2017-07-18] MEDS: SENOKOT S TAB PO (20:49)
[2017-07-18] MEDS: FOLIC ACID 1 MG TAB PO (20:49)
[2017-07-18] MEDS: DOCUSATE SODIUM 100 MG CAP PO (20:49)
[2017-07-18] MEDS: NEPHRO-VIT TAB (NEPHROCAPS) PO (20:50)
[2017-07-18] MEDS: CINACALCET 30 MG TAB (SENSIPAR) PO (20:50)
[2017-07-18] MEDS: PARoxetine 10MG TABLET PO (20:50)
[2017-07-18] MEDS: SIMVASTATIN 10 MG TAB PO (20:50)
[2017-07-18] MEDS: ONDANSETRON 4MG/2ML VIAL (J2405) IV (20:55)
[2017-07-19 06:08] LABS: IONIZED CALCIUM 4.2 MG/DL (4.5-5.3)
[2017-07-19 06:28] LABS: PHOSPHORUS LEVEL 1.1 MG/DL (2.5-4.9)
[2017-07-19 08:18] LABS: HIVSOURCE0 NEGATIVE (NEGATIVE)
[2017-07-19 08:19] LABS: HIV SOURCE PT 1 NEGATIVE (NEGATIVE)
[2017-07-19 08:20] LABS: CONTROL LINE INT CTR LINE PRESENT
[2017-07-19 08:27] LABS: BEDSIDE GLUCOSE 137 MG/DL (80-115)
[2017-07-19] MEDS: CALCIUM ACETATE 667 MG GELCAP PO (08:49)
[2017-07-19] MEDS: predniSONE 20 MG TAB PO (08:50)
[2017-07-19] MEDS: GABAPENTIN 100 MG CAP PO (08:50)
[2017-07-19] MEDS: LACTIC ACID 12% LOTION 225 GM BTL TOP (08:50)
[2017-07-19] MEDS: PANTOPRAZOLE 40MG TAB (PROTONIX) PO (08:50)
[2017-07-19] MEDS: MORPHINE 15 MG SA TAB PO (08:50)
[2017-07-19 09:45] LABS: PTH INTACT 143.4 PG/ML (18.5-88.0)
[2017-07-20 10:08] LABS: HEPATITIS B SURFACE ANTIGEN NEGATIVE (NEGATIVE)
== END 2017-07-19 10:22 | DRG 377 ==
LOC: M ED 02:04 → M ED INP 05:43 → M ICU 08:42 → M MSPAV 22:11
PROC: 30253N1 (ICD-10-PCS; 2017-07-11)
PROC: 5A1D70Z Performance of Urinary Filtration, Intermittent, Less than 6 Hours Per Day (ICD-10-PCS; principal; 2017-07-12)
PROC: 0CJY8ZZ Inspection of Mouth and Throat, Via Natural or Artificial Opening Endoscopic (ICD-10-PCS; 2017-07-19)
DX: K29.51 Unspecified chronic gastritis with bleeding (principal); N18.6 End stage renal disease; I13.2 Hypertensive heart and chronic kidney disease with heart failure and with stage 5 chronic kidney disease, or end stage renal disease; D62 Acute posthemorrhagic anemia; N25.81 Secondary hyperparathyroidism of renal origin; D69.3 Immune thrombocytopenic purpura; I50.32 Chronic diastolic (congestive) heart failure; K27.4 Chronic or unspecified peptic ulcer, site unspecified, with hemorrhage; I25.10 Atherosclerotic heart disease of native coronary artery without angina pectoris; G47.33 Obstructive sleep apnea (adult) (pediatric); J44.9 Chronic obstructive pulmonary disease, unspecified; E66.9 Obesity, unspecified; G62.9 Polyneuropathy, unspecified; D63.1 Anemia in chronic kidney disease; E78.5 Hyperlipidemia, unspecified; E87.6 Hypokalemia; K20.9 Esophagitis, unspecified; R53.1 Weakness; K52.9 Noninfective gastroenteritis and colitis, unspecified; G89.29 Other chronic pain; Z86.718 Personal history of other venous thrombosis and embolism; Z99.2 Dependence on renal dialysis; Z79.01 Long term (current) use of anticoagulants; Z79.82 Long term (current) use of aspirin; Z79.52 Long term (current) use of systemic steroids; Z79.899 Other long term (current) drug therapy; Z91.040 Latex allergy status; Z88.0 Allergy status to penicillin; Z88.2 Allergy status to sulfonamides; Z88.8 Allergy status to other drugs, medicaments and biological substances; Z90.12 Acquired absence of left breast and nipple; Z85.3 Personal history of malignant neoplasm of breast; Z68.35 Body mass index [BMI] 35.0-35.9, adult; Z92.21 Personal history of antineoplastic chemotherapy; Z92.3 Personal history of irradiation; Z99.3 Dependence on wheelchair

== ENCOUNTER 2017-08-03 15:36 | Outpatient (CLI) | payer MEDICARE, MEDICAID ==
[2017-08-03 18:00] LABS: IMMEDIATE SPIN CROSSMATCH 1 2
== END 2017-08-04 03:45 | disposition home or self-care (01) ==
LOC: M OPCLI4PV 15:36 → M MSPAV 15:39
DX: D64.9 Anemia, unspecified (principal); R91.8 Other nonspecific abnormal finding of lung field; Z91.041 Radiographic dye allergy status; Z88.8 Allergy status to other drugs, medicaments and biological substances; Z88.1 Allergy status to other antibiotic agents; Z88.0 Allergy status to penicillin
CPT/HCPCS: 36430

== ENCOUNTER → 2017-08-03 | Outpatient (REF) | payer MEDICARE, MEDICAID | LOC: SKLAB4 14:47 | DX: R91.8 Other nonspecific abnormal finding of lung field (principal) ==

== ENCOUNTER → 2017-08-04 | Outpatient (REF) ==
[2017-08-04 08:41] LABS: HEMATOCRIT 25.9 % (42.0-52.0); HEMOGLOBIN 8.2 g/dl (13.5-17.5); MEAN CORPUSCULAR HEMOGLOBIN 30.3 pg (27.0-33.0); MEAN CORPUSCULAR HGB CONC 31.7 g/dl (32.0-36.5); MEAN CORPUSCULAR VOLUME 95.6 fl (80.0-96.0); PLATELET COUNT, AUTOMATED 165 10^3/uL (150-450); RED BLOOD COUNT 2.71 10^6/uL (4.30-6.10); RED CELL DISTRIBUTION WIDTH 20.2 % (11.5-14.5); WHITE BLOOD COUNT 7.6 10^3/uL (4.0-10.0)
== END ==
LOC: SKLAB4 11:20
DX: D64.9 Anemia, unspecified (principal)

== ENCOUNTER → 2017-08-05 | Outpatient (REF) ==
[2017-08-05 14:44] LABS: HEMATOCRIT 30.2 % (42.0-52.0); HEMOGLOBIN 9.4 g/dl (13.5-17.5); MEAN CORPUSCULAR HGB CONC 31.1 g/dl (32.0-36.5); MEAN CORPUSCULAR VOLUME 99.7 fl (80.0-96.0); PLATELET COUNT, AUTOMATED 179 10^3/uL (150-450); RED BLOOD COUNT 3.03 10^6/uL (4.30-6.10); RED CELL DISTRIBUTION WIDTH 20.4 % (11.5-14.5); WHITE BLOOD COUNT 14.5 10^3/uL (4.0-10.0)
== END ==
LOC: SKLAB4 09:17
DX: D64.9 Anemia, unspecified (principal)

== ENCOUNTER → 2017-08-08 | Outpatient (REF) ==
[2017-08-08 17:04] LABS: HEMATOCRIT 27.9 % (42.0-52.0); HEMOGLOBIN 8.5 g/dl (13.5-17.5); MEAN CORPUSCULAR HEMOGLOBIN 31.1 pg (27.0-33.0); MEAN CORPUSCULAR HGB CONC 30.5 g/dl (32.0-36.5); MEAN CORPUSCULAR VOLUME 102.2 fl (80.0-96.0); PLATELET COUNT, AUTOMATED 177 10^3/uL (150-450); RED BLOOD COUNT 2.73 10^6/uL (4.30-6.10); WHITE BLOOD COUNT 8.5 10^3/uL (4.0-10.0)
[2017-08-08 17:37] LABS: ALBUMIN 2.7 GM/DL (3.2-5.2); ALBUMIN/GLOBULIN RATIO 0.77 (1.00-1.93); ALKALINE PHOSPHATASE 81 U/L (45-117); ALT/SGPT 18 U/L (12-78); ANION GAP 8 MEQ/L (8-16); AST/SGOT 14 U/L (7-37); BILIRUBIN,TOTAL 0.3 MG/DL (0.2-1.0); BLOOD UREA NITROGEN 20 MG/DL (7-18); CARBON DIOXIDE LEVEL 28 MEQ/L (21-32); CHLORIDE LEVEL 104 MEQ/L (98-107); CREATININE FOR GFR 3.68 MG/DL (0.70-1.30); GLOMERULAR FILTRATION RATE 21.4 (>49); GLUCOSE, FASTING 126 MG/DL (70-100); POTASSIUM SERUM 4.6 MEQ/L (3.5-5.1); SODIUM LEVEL 140 MEQ/L (136-145); TOTAL PROTEIN 6.2 GM/DL (6.4-8.2)
== END ==
LOC: SKLAB4 09:15
DX: D64.9 Anemia, unspecified (principal)

== ENCOUNTER → 2017-08-10 | Outpatient (REF) ==
[2017-08-10 13:55] LABS: HEMOGLOBIN 7.6 g/dl (13.5-17.5)
== END ==
LOC: SKLAB4 08:51
DX: D64.9 Anemia, unspecified (principal)

== ENCOUNTER 2017-08-11 10:29 | Inpatient (IN) | payer MEDICARE, MEDICAID ==
[2017-08-11] MEDS: predniSONE 20 MG TAB PO (09:00)
[2017-08-11 13:15] LABS: BASO % 0.1 % (0.0-1.0); EOS % 0.1 % (0.0-3.0); HEMATOCRIT 20.5 % (42.0-52.0); IMMATURE GRANULOCYTE % 0.4 % (0-3.0); LYMPH # 0.5 10^3/uL (1.5-4.5); LYMPH % 5.9 % (24.0-44.0); MEAN CORPUSCULAR HEMOGLOBIN 30.7 pg (27.0-33.0); MEAN CORPUSCULAR HGB CONC 29.8 g/dl (32.0-36.5); MONO # 0.5 10^3/uL (0.0-0.8); MONO % 6.7 % (0.0-5.0); NEUTROPHILS # 6.9 10^3/uL (1.8-7.7); NEUTROPHILS % 86.8 % (36.0-66.0); PLATELET COUNT, AUTOMATED 118 10^3/uL (150-450); RED BLOOD COUNT 1.99 10^6/uL (4.30-6.10); RED CELL DISTRIBUTION WIDTH 19.5 % (11.5-14.5); WHITE BLOOD COUNT 7.9 10^3/uL (4.0-10.0)
[2017-08-11 13:22] LABS: HEMOGLOBIN 6.1 g/dl (13.5-17.5)
[2017-08-11 13:24] LABS: INR 1.07; PROTHROMBIN TIME 14.1 SECONDS (12.4-14.5)
[2017-08-11 13:25] LABS: PARTIAL THROMBOPLASTIN TIME 31.8 SECONDS (26.8-37.9)
[2017-08-11 13:31] LABS: ANION GAP 4 MEQ/L (8-16); BLOOD UREA NITROGEN 30 MG/DL (7-18); CALCIUM LEVEL 7.9 MG/DL (8.8-10.2); CARBON DIOXIDE LEVEL 33 MEQ/L (21-32); CHLORIDE LEVEL 103 MEQ/L (98-107); CREATININE FOR GFR 4.95 MG/DL (0.70-1.30); GLOMERULAR FILTRATION RATE 15.2 (>49); GLUCOSE, FASTING 122 MG/DL (70-100); POTASSIUM SERUM 4.9 MEQ/L (3.5-5.1); SODIUM LEVEL 140 MEQ/L (136-145)
[2017-08-11] MEDS ORDERED: ANUSOL HC 25MG SUPP PR (16:30)
[2017-08-11] MEDS: PANTOPRAZOLE 40MG INJ (PROTONIX) (C9113) IV (16:46)
[2017-08-11] MEDS: PANTOPRAZOLE SODIUM 40 MG in D5W 50 ML IV ×2 (16:47→21:18)
[2017-08-11 19:15] LABS: IMMEDIATE SPIN CROSSMATCH 1 2
[2017-08-11] MEDS: NS 500 ML IV ×2 (19:15→20:00)
[2017-08-11] MEDS: SIMVASTATIN 10 MG TAB PO (21:00)
[2017-08-11] MEDS: PARoxetine 10MG TABLET PO (21:00)
[2017-08-11] MEDS: NOREPINEPHRINE BITARTRATE 8 MG in D5W 500 ML IV ×3 (21:40→23:03)
[2017-08-11] MEDS: GABAPENTIN 100 MG CAP PO (21:42)
[2017-08-11] MEDS: NEPHRO-VIT TAB (NEPHROCAPS) PO (21:42)
[2017-08-11] MEDS: LETROZOLE 2.5 MG TAB PO (21:42)
[2017-08-11] MEDS: CINACALCET 30 MG TAB (SENSIPAR) PO (21:43)
[2017-08-11 22:18] LABS: HEMATOCRIT 31.3 % (42.0-52.0); MEAN CORPUSCULAR HEMOGLOBIN 30.4 pg (27.0-33.0); MEAN CORPUSCULAR HGB CONC 30.4 g/dl (32.0-36.5); MEAN CORPUSCULAR VOLUME 100.3 fl (80.0-96.0); PLATELET COUNT, AUTOMATED 118 10^3/uL (150-450); RED BLOOD COUNT 3.12 10^6/uL (4.30-6.10); RED CELL DISTRIBUTION WIDTH 18.6 % (11.5-14.5); WHITE BLOOD COUNT 9.5 10^3/uL (4.0-10.0)
[2017-08-11 22:27] LABS: HEMOGLOBIN 9.5 g/dl (13.5-17.5)
[2017-08-11] MEDS: IPRATROPIUM 0.5MG/ALBUTEROL 2.5MG INH SOL UD 3ML (DUONEB)(J7620) INH (23:19)
[2017-08-12] MEDS: PANTOPRAZOLE SODIUM 40 MG in D5W 50 ML IV ×6 (00:52→22:15)
[2017-08-12] MEDS: NS 1,000 ML IV ×2 (00:52→07:40)
[2017-08-12] MEDS: LACTIC ACID 12% LOTION 225 GM BTL TOP ×3 (01:22→21:00)
[2017-08-12] MEDS: SODIUM CHLORIDE 0.9% INJ 10 ML SYR IV ×3 (05:04→20:30)
[2017-08-12 05:39] LABS: ANION GAP 5 MEQ/L (8-16); BLOOD UREA NITROGEN 36 MG/DL (7-18); CALCIUM LEVEL 7.8 MG/DL (8.8-10.2); CARBON DIOXIDE LEVEL 31 MEQ/L (21-32); CHLORIDE LEVEL 103 MEQ/L (98-107); CREATININE FOR GFR 5.64 MG/DL (0.70-1.30); GLOMERULAR FILTRATION RATE 13.1 (>49); GLUCOSE, FASTING 123 MG/DL (70-100); POTASSIUM SERUM 4.7 MEQ/L (3.5-5.1); SODIUM LEVEL 139 MEQ/L (136-145)
[2017-08-12 05:40] LABS: HEMATOCRIT 27.9 % (42.0-52.0); HEMOGLOBIN 8.8 g/dl (13.5-17.5); MEAN CORPUSCULAR HGB CONC 31.5 g/dl (32.0-36.5); MEAN CORPUSCULAR VOLUME 98.2 fl (80.0-96.0); PLATELET COUNT, AUTOMATED 152 10^3/uL (150-450); RED BLOOD COUNT 2.84 10^6/uL (4.30-6.10); RED CELL DISTRIBUTION WIDTH 18.2 % (11.5-14.5)
[2017-08-12] MEDS: IPRATROPIUM 0.5MG/ALBUTEROL 2.5MG INH SOL UD 3ML (DUONEB)(J7620) INH ×3 (07:27→20:44)
[2017-08-12] MEDS: (RENVELA) SEVELAMER **CARBONate** 800 MG TAB PO ×5 (07:40→17:52)
[2017-08-12] MEDS: GABAPENTIN 100 MG CAP PO ×3 (08:35→20:29)
[2017-08-12] MEDS: predniSONE 20 MG TAB PO (08:35)
[2017-08-12] MEDS ORDERED: PROPOFOL 200 MG/20 ML VIAL As Ordered (10:19)
[2017-08-12] MEDS: EPINEPHrine 1MG/10ML SYRINGE 1.5IN As Ordered (10:37)
[2017-08-12] MEDS: ONDANSETRON 4MG/2ML VIAL (J2405) IV (12:44)
[2017-08-12] MEDS ORDERED: NOREPINEPHRINE BITARTRATE 8 MG in D5W 500 ML IV (15:00)
[2017-08-12 18:20] LABS: HEMATOCRIT 26.6 % (42.0-52.0); HEMOGLOBIN 8.1 g/dl (13.5-17.5); MEAN CORPUSCULAR HEMOGLOBIN 30.2 pg (27.0-33.0); MEAN CORPUSCULAR HGB CONC 30.5 g/dl (32.0-36.5); MEAN CORPUSCULAR VOLUME 99.3 fl (80.0-96.0); PLATELET COUNT, AUTOMATED 116 10^3/uL (150-450); RED BLOOD COUNT 2.68 10^6/uL (4.30-6.10); RED CELL DISTRIBUTION WIDTH 18.6 % (11.5-14.5); WHITE BLOOD COUNT 5.2 10^3/uL (4.0-10.0)
[2017-08-12] MEDS: NEPHRO-VIT TAB (NEPHROCAPS) PO (20:29)
[2017-08-12] MEDS: LETROZOLE 2.5 MG TAB PO (20:29)
[2017-08-12] MEDS: CINACALCET 30 MG TAB (SENSIPAR) PO (20:29)
[2017-08-12] MEDS: SIMVASTATIN 10 MG TAB PO (20:29)
[2017-08-12] MEDS: PARoxetine 10MG TABLET PO (20:29)
[2017-08-12] MEDS: ACETAMINOPHEN TAB 650MG DOSE (2X325MG) PO (21:44)
[2017-08-13 00:15] LABS: HEMATOCRIT 24.8 % (42.0-52.0); HEMOGLOBIN 7.7 g/dl (13.5-17.5); MEAN CORPUSCULAR HEMOGLOBIN 30.7 pg (27.0-33.0); MEAN CORPUSCULAR VOLUME 98.8 fl (80.0-96.0); PLATELET COUNT, AUTOMATED 106 10^3/uL (150-450); RED BLOOD COUNT 2.51 10^6/uL (4.30-6.10); RED CELL DISTRIBUTION WIDTH 18.2 % (11.5-14.5); WHITE BLOOD COUNT 4.9 10^3/uL (4.0-10.0)
[2017-08-13 02:21] LABS: IMMEDIATE SPIN CROSSMATCH 1 1
[2017-08-13] MEDS: PANTOPRAZOLE SODIUM 40 MG in D5W 50 ML IV ×2 (02:50→09:59)
[2017-08-13] MEDS: ACETAMINOPHEN TAB 650MG DOSE (2X325MG) PO (02:51)
[2017-08-13] MEDS: SODIUM CHLORIDE 0.9% INJ 10 ML SYR IV ×3 (06:00→20:52)
[2017-08-13] MEDS: predniSONE 20 MG TAB PO (06:08)
[2017-08-13] MEDS: (RENVELA) SEVELAMER **CARBONate** 800 MG TAB PO ×3 (06:08→17:03)
[2017-08-13] MEDS: GABAPENTIN 100 MG CAP PO ×3 (06:08→20:51)
[2017-08-13 06:47] LABS: ANION GAP 8 MEQ/L (8-16); BLOOD UREA NITROGEN 42 MG/DL (7-18); CALCIUM LEVEL 7.6 MG/DL (8.8-10.2); CARBON DIOXIDE LEVEL 28 MEQ/L (21-32); CHLORIDE LEVEL 105 MEQ/L (98-107); CREATININE FOR GFR 6.91 MG/DL (0.70-1.30); GLOMERULAR FILTRATION RATE 10.4 (>49); GLUCOSE, FASTING 119 MG/DL (70-100); POTASSIUM SERUM 4.6 MEQ/L (3.5-5.1); SODIUM LEVEL 141 MEQ/L (136-145)
[2017-08-13 07:51] LABS: HEMOGLOBIN 8.2 g/dl (13.5-17.5); MEAN CORPUSCULAR HEMOGLOBIN 29.9 pg (27.0-33.0); MEAN CORPUSCULAR HGB CONC 30.4 g/dl (32.0-36.5); MEAN CORPUSCULAR VOLUME 98.5 fl (80.0-96.0); PLATELET COUNT, AUTOMATED 102 10^3/uL (150-450); RED BLOOD COUNT 2.74 10^6/uL (4.30-6.10); WHITE BLOOD COUNT 4.7 10^3/uL (4.0-10.0)
[2017-08-13] MEDS: IPRATROPIUM 0.5MG/ALBUTEROL 2.5MG INH SOL UD 3ML (DUONEB)(J7620) INH ×3 (08:00→21:08)
[2017-08-13] MEDS: NS 1,000 ML IV (08:42)
[2017-08-13] MEDS ORDERED: PANTOPRAZOLE 40MG INJ (PROTONIX) (C9113) IV (09:00)
[2017-08-13] MEDS: LACTIC ACID 12% LOTION 225 GM BTL TOP ×2 (09:00→20:52)
[2017-08-13] MEDS: PANTOPRAZOLE 40MG TAB (PROTONIX) PO ×2 (09:00→20:51)
[2017-08-13] MEDS ORDERED: DARBEPOETIN 100 MCG/0.5 ML *DIALYSIS* SYRINGE (J0882) IV (14:30)
[2017-08-13 14:53] LABS: HEMOGLOBIN 9.1 g/dl (13.5-17.5); MEAN CORPUSCULAR HEMOGLOBIN 30.5 pg (27.0-33.0); MEAN CORPUSCULAR HGB CONC 31.4 g/dl (32.0-36.5); MEAN CORPUSCULAR VOLUME 97.3 fl (80.0-96.0); RED BLOOD COUNT 2.98 10^6/uL (4.30-6.10); RED CELL DISTRIBUTION WIDTH 19.2 % (11.5-14.5); WHITE BLOOD COUNT 4.7 10^3/uL (4.0-10.0)
[2017-08-13 15:25] LABS: PLATELET COUNT, AUTOMATED 81 10^3/uL (150-450)
[2017-08-13 15:26] LABS: IMMATURE PLATELET FRACTION % 3.5 % (0.0-10.9)
[2017-08-13 16:59] LABS: BEDSIDE GLUCOSE 133 MG/DL (80-115)
[2017-08-13] MEDS: LETROZOLE 2.5 MG TAB PO (20:51)
[2017-08-13] MEDS: NEPHRO-VIT TAB (NEPHROCAPS) PO (20:51)
[2017-08-13] MEDS: PARoxetine 10MG TABLET PO (20:51)
[2017-08-13] MEDS: CINACALCET 30 MG TAB (SENSIPAR) PO (20:51)
[2017-08-13] MEDS: SIMVASTATIN 10 MG TAB PO (20:51)
[2017-08-13 21:15] LABS: HEMATOCRIT 26.8 % (42.0-52.0); HEMOGLOBIN 8.3 g/dl (13.5-17.5); MEAN CORPUSCULAR HEMOGLOBIN 30.5 pg (27.0-33.0); MEAN CORPUSCULAR VOLUME 98.5 fl (80.0-96.0); RED BLOOD COUNT 2.72 10^6/uL (4.30-6.10); RED CELL DISTRIBUTION WIDTH 19.3 % (11.5-14.5); WHITE BLOOD COUNT 3.4 10^3/uL (4.0-10.0)
[2017-08-13 21:38] LABS: PLATELET COUNT, AUTOMATED 77 10^3/uL (150-450)
[2017-08-14 03:59] LABS: HEMATOCRIT 26.7 % (42.0-52.0); HEMOGLOBIN 8.2 g/dl (13.5-17.5); MEAN CORPUSCULAR HEMOGLOBIN 30.3 pg (27.0-33.0); MEAN CORPUSCULAR HGB CONC 30.7 g/dl (32.0-36.5); MEAN CORPUSCULAR VOLUME 98.5 fl (80.0-96.0); RED BLOOD COUNT 2.71 10^6/uL (4.30-6.10); WHITE BLOOD COUNT 3.9 10^3/uL (4.0-10.0)
[2017-08-14 04:01] LABS: PLATELET COUNT, AUTOMATED 85 10^3/uL (150-450)
[2017-08-14 04:03] LABS: ANION GAP 4 MEQ/L (8-16); BLOOD UREA NITROGEN 18 MG/DL (7-18); CALCIUM LEVEL 7.3 MG/DL (8.8-10.2); CARBON DIOXIDE LEVEL 33 MEQ/L (21-32); CHLORIDE LEVEL 107 MEQ/L (98-107); GLOMERULAR FILTRATION RATE 17.5 (>49); GLUCOSE, FASTING 98 MG/DL (70-100); POTASSIUM SERUM 4.3 MEQ/L (3.5-5.1); SODIUM LEVEL 144 MEQ/L (136-145)
[2017-08-14] MEDS: SODIUM CHLORIDE 0.9% INJ 10 ML SYR IV ×4 (05:49→21:01)
[2017-08-14] MEDS: IPRATROPIUM 0.5MG/ALBUTEROL 2.5MG INH SOL UD 3ML (DUONEB)(J7620) INH ×3 (08:58→20:25)
[2017-08-14] MEDS: ASPIRIN 81 MG ENTERIC TAB PO (09:00)
[2017-08-14] MEDS: (RENVELA) SEVELAMER **CARBONate** 800 MG TAB PO ×3 (09:07→16:57)
[2017-08-14] MEDS: PANTOPRAZOLE 40MG TAB (PROTONIX) PO ×2 (09:08→21:00)
[2017-08-14] MEDS: LACTIC ACID 12% LOTION 225 GM BTL TOP ×2 (09:08→21:01)
[2017-08-14] MEDS: GABAPENTIN 100 MG CAP PO ×3 (09:08→21:00)
[2017-08-14] MEDS: predniSONE 20 MG TAB PO (09:08)
[2017-08-14 09:22] LABS: HEMATOCRIT 29.1 % (42.0-52.0); HEMOGLOBIN 8.7 g/dl (13.5-17.5); MEAN CORPUSCULAR HEMOGLOBIN 29.7 pg (27.0-33.0); MEAN CORPUSCULAR HGB CONC 29.9 g/dl (32.0-36.5); MEAN CORPUSCULAR VOLUME 99.3 fl (80.0-96.0); RED BLOOD COUNT 2.93 10^6/uL (4.30-6.10); RED CELL DISTRIBUTION WIDTH 18.9 % (11.5-14.5); WHITE BLOOD COUNT 4.8 10^3/uL (4.0-10.0)
[2017-08-14 09:57] LABS: PLATELET COUNT, AUTOMATED 86 10^3/uL (150-450)
[2017-08-14 18:18] LABS: HEMATOCRIT 29.9 % (42.0-52.0); HEMOGLOBIN 9.1 g/dl (13.5-17.5)
[2017-08-14] MEDS: NEPHRO-VIT TAB (NEPHROCAPS) PO (21:00)
[2017-08-14] MEDS: PARoxetine 10MG TABLET PO (21:00)
[2017-08-14] MEDS: CINACALCET 30 MG TAB (SENSIPAR) PO (21:00)
[2017-08-14] MEDS: SIMVASTATIN 10 MG TAB PO (21:00)
[2017-08-14] MEDS: LETROZOLE 2.5 MG TAB PO (21:00)
[2017-08-15] MEDS: SODIUM CHLORIDE 0.9% INJ 10 ML SYR IV ×3 (05:04→20:26)
[2017-08-15 05:32] LABS: BASO % 0.5 % (0.0-1.0); EOS # 0.1 10^3/uL (0.0-0.50); EOS % 2.5 % (0.0-3.0); HEMATOCRIT 28.8 % (42.0-52.0); HEMOGLOBIN 8.7 g/dl (13.5-17.5); LYMPH # 0.7 10^3/uL (1.5-4.5); LYMPH % 17.7 % (24.0-44.0); MEAN CORPUSCULAR HGB CONC 30.2 g/dl (32.0-36.5); MEAN CORPUSCULAR VOLUME 99.3 fl (80.0-96.0); MONO # 0.5 10^3/uL (0.0-0.8); MONO % 13.7 % (0.0-5.0); NEUTROPHILS # 2.6 10^3/uL (1.8-7.7); NEUTROPHILS % 65.6 % (36.0-66.0); RED CELL DISTRIBUTION WIDTH 18.4 % (11.5-14.5)
[2017-08-15 05:44] LABS: ALBUMIN 2.3 GM/DL (3.2-5.2); ALBUMIN/GLOBULIN RATIO 0.82 (1.00-1.93); ALKALINE PHOSPHATASE 65 U/L (45-117); ALT/SGPT 12 U/L (12-78); ANION GAP 7 MEQ/L (8-16); AST/SGOT 13 U/L (7-37); BILIRUBIN,TOTAL 0.3 MG/DL (0.2-1.0); BLOOD UREA NITROGEN 25 MG/DL (7-18); CALCIUM LEVEL 7.5 MG/DL (8.8-10.2); CARBON DIOXIDE LEVEL 30 MEQ/L (21-32); CHLORIDE LEVEL 107 MEQ/L (98-107); CREATININE FOR GFR 5.97 MG/DL (0.70-1.30); GLOMERULAR FILTRATION RATE 12.3 (>49); GLUCOSE, FASTING 91 MG/DL (70-100); MAGNESIUM LEVEL 2.3 MG/DL (1.8-2.4); POTASSIUM SERUM 5.2 MEQ/L (3.5-5.1); SODIUM LEVEL 144 MEQ/L (136-145); TOTAL PROTEIN 5.1 GM/DL (6.4-8.2)
[2017-08-15 05:45] LABS: IMMATURE PLATELET FRACTION % 3.9 % (0.0-10.9); PLATELET COUNT, AUTOMATED 86 10^3/uL (150-450)
[2017-08-15] MEDS: predniSONE 20 MG TAB PO (06:04)
[2017-08-15] MEDS: ASPIRIN 81 MG ENTERIC TAB PO (06:04)
[2017-08-15] MEDS: PANTOPRAZOLE 40MG TAB (PROTONIX) PO ×2 (06:04→20:25)
[2017-08-15] MEDS: GABAPENTIN 100 MG CAP PO ×3 (06:04→20:25)
[2017-08-15] MEDS: LACTIC ACID 12% LOTION 225 GM BTL TOP ×2 (06:05→20:25)
[2017-08-15] MEDS: (RENVELA) SEVELAMER **CARBONate** 800 MG TAB PO ×3 (06:05→17:42)
[2017-08-15] MEDS: IPRATROPIUM 0.5MG/ALBUTEROL 2.5MG INH SOL UD 3ML (DUONEB)(J7620) INH ×3 (07:04→19:47)
[2017-08-15] MEDS: CINACALCET 30 MG TAB (SENSIPAR) PO (20:24)
[2017-08-15] MEDS: SIMVASTATIN 10 MG TAB PO (20:25)
[2017-08-15] MEDS: NEPHRO-VIT TAB (NEPHROCAPS) PO (20:25)
[2017-08-15] MEDS: LETROZOLE 2.5 MG TAB PO (20:25)
[2017-08-15] MEDS: PARoxetine 10MG TABLET PO (20:25)
[2017-08-16] MEDS: SODIUM CHLORIDE 0.9% INJ 10 ML SYR IV ×3 (05:13→21:34)
[2017-08-16 05:32] LABS: BASO % 0.9 % (0.0-1.0); EOS # 0.1 10^3/uL (0.0-0.50); EOS % 2.4 % (0.0-3.0); HEMATOCRIT 29.4 % (42.0-52.0); HEMOGLOBIN 8.9 g/dl (13.5-17.5); IMMATURE GRANULOCYTE % 0.2 % (0-3.0); LYMPH # 0.9 10^3/uL (1.5-4.5); LYMPH % 18.8 % (24.0-44.0); MEAN CORPUSCULAR HEMOGLOBIN 30.4 pg (27.0-33.0); MEAN CORPUSCULAR HGB CONC 30.3 g/dl (32.0-36.5); MEAN CORPUSCULAR VOLUME 100.3 fl (80.0-96.0); MONO # 0.7 10^3/uL (0.0-0.8); MONO % 15.5 % (0.0-5.0); NEUTROPHILS # 2.8 10^3/uL (1.8-7.7); NEUTROPHILS % 62.2 % (36.0-66.0); RED BLOOD COUNT 2.93 10^6/uL (4.30-6.10); WHITE BLOOD COUNT 4.5 10^3/uL (4.0-10.0)
[2017-08-16 05:35] LABS: PLATELET COUNT, AUTOMATED 85 10^3/uL (150-450)
[2017-08-16 05:36] LABS: IMMATURE PLATELET FRACTION % 3.6 % (0.0-10.9)
[2017-08-16 05:53] LABS: ALBUMIN 2.4 GM/DL (3.2-5.2); ALBUMIN/GLOBULIN RATIO 0.92 (1.00-1.93); ALKALINE PHOSPHATASE 66 U/L (45-117); ALT/SGPT 13 U/L (12-78); ANION GAP 4 MEQ/L (8-16); AST/SGOT 11 U/L (7-37); BILIRUBIN,TOTAL 0.3 MG/DL (0.2-1.0); BLOOD UREA NITROGEN 10 MG/DL (7-18); CALCIUM LEVEL 7.7 MG/DL (8.8-10.2); CARBON DIOXIDE LEVEL 32 MEQ/L (21-32); CHLORIDE LEVEL 109 MEQ/L (98-107); CREATININE FOR GFR 3.93 MG/DL (0.70-1.30); GLOMERULAR FILTRATION RATE 19.9 (>49); GLUCOSE, FASTING 83 MG/DL (70-100); MAGNESIUM LEVEL 2.2 MG/DL (1.8-2.4); POTASSIUM SERUM 4.6 MEQ/L (3.5-5.1); SODIUM LEVEL 145 MEQ/L (136-145)
[2017-08-16] MEDS: IPRATROPIUM 0.5MG/ALBUTEROL 2.5MG INH SOL UD 3ML (DUONEB)(J7620) INH ×3 (07:13→20:31)
[2017-08-16] MEDS: MORPHINE 15 MG SA TAB PO ×2 (09:00→21:33)
[2017-08-16] MEDS: GABAPENTIN 100 MG CAP PO ×3 (09:31→21:33)
[2017-08-16] MEDS: predniSONE 20 MG TAB PO (09:31)
[2017-08-16] MEDS: PANTOPRAZOLE 40MG TAB (PROTONIX) PO ×2 (09:31→21:33)
[2017-08-16] MEDS: (RENVELA) SEVELAMER **CARBONate** 800 MG TAB PO ×3 (09:31→17:15)
[2017-08-16] MEDS: ASPIRIN 81 MG ENTERIC TAB PO (09:31)
[2017-08-16] MEDS: LACTIC ACID 12% LOTION 225 GM BTL TOP ×2 (09:32→21:34)
[2017-08-16] MEDS: SUCRALFATE 1 GM TAB PO ×3 (12:00→21:31)
[2017-08-16] MEDS ORDERED: BISACODYL 10 MG SUPP PR (12:15)
[2017-08-16] MEDS: oxyCODONE 5MG TAB PO (13:07)
[2017-08-16] MEDS: APIXABAN 2.5 MG TAB (ELIQUIS) PO ×2 (14:26→21:33)
[2017-08-16] MEDS: METOPROLOL SUCC (TopROL XL) 50MG **XL** TAB PO (21:31)
[2017-08-16] MEDS: CINACALCET 30 MG TAB (SENSIPAR) PO (21:31)
[2017-08-16] MEDS: NEPHRO-VIT TAB (NEPHROCAPS) PO (21:31)
[2017-08-16] MEDS: LETROZOLE 2.5 MG TAB PO (21:31)
[2017-08-16] MEDS: FOLIC ACID 1 MG TAB PO (21:33)
[2017-08-16] MEDS: SIMVASTATIN 10 MG TAB PO (21:33)
[2017-08-16] MEDS: PARoxetine 10MG TABLET PO (22:03)
[2017-08-17] MEDS: SODIUM CHLORIDE 0.9% INJ 10 ML SYR IV ×3 (05:34→21:56)
[2017-08-17 05:56] LABS: BASO % 0.6 % (0.0-1.0); EOS # 0.1 10^3/uL (0.0-0.50); EOS % 1.7 % (0.0-3.0); HEMATOCRIT 29.4 % (42.0-52.0); HEMOGLOBIN 8.7 g/dl (13.5-17.5); IMMATURE GRANULOCYTE % 0.4 % (0-3.0); LYMPH # 0.9 10^3/uL (1.5-4.5); LYMPH % 16.4 % (24.0-44.0); MEAN CORPUSCULAR HEMOGLOBIN 29.6 pg (27.0-33.0); MEAN CORPUSCULAR HGB CONC 29.6 g/dl (32.0-36.5); MONO # 0.8 10^3/uL (0.0-0.8); MONO % 14.7 % (0.0-5.0); NEUTROPHILS # 3.4 10^3/uL (1.8-7.7); NEUTROPHILS % 66.2 % (36.0-66.0); PLATELET COUNT, AUTOMATED 102 10^3/uL (150-450); RED BLOOD COUNT 2.94 10^6/uL (4.30-6.10); RED CELL DISTRIBUTION WIDTH 17.2 % (11.5-14.5); WHITE BLOOD COUNT 5.2 10^3/uL (4.0-10.0)
[2017-08-17 06:20] LABS: ALBUMIN 2.2 GM/DL (3.2-5.2); ALBUMIN/GLOBULIN RATIO 0.76 (1.00-1.93); ALKALINE PHOSPHATASE 61 U/L (45-117); ALT/SGPT 11 U/L (12-78); ANION GAP 3 MEQ/L (8-16); AST/SGOT 11 U/L (7-37); BILIRUBIN,TOTAL 0.3 MG/DL (0.2-1.0); BLOOD UREA NITROGEN 21 MG/DL (7-18); CALCIUM LEVEL 7.9 MG/DL (8.8-10.2); CARBON DIOXIDE LEVEL 32 MEQ/L (21-32); CHLORIDE LEVEL 107 MEQ/L (98-107); CREATININE FOR GFR 5.71 MG/DL (0.70-1.30); GLOMERULAR FILTRATION RATE 12.9 (>49); GLUCOSE, FASTING 83 MG/DL (70-100); MAGNESIUM LEVEL 2.2 MG/DL (1.8-2.4); POTASSIUM SERUM 4.9 MEQ/L (3.5-5.1); SODIUM LEVEL 142 MEQ/L (136-145); TOTAL PROTEIN 5.1 GM/DL (6.4-8.2)
[2017-08-17] MEDS: SUCRALFATE 1 GM TAB PO ×4 (06:55→21:53)
[2017-08-17] MEDS: GABAPENTIN 100 MG CAP PO ×3 (06:56→21:54)
[2017-08-17] MEDS: PANTOPRAZOLE 40MG TAB (PROTONIX) PO ×2 (06:56→21:54)
[2017-08-17] MEDS: predniSONE 20 MG TAB PO (06:56)
[2017-08-17] MEDS: APIXABAN 2.5 MG TAB (ELIQUIS) PO ×2 (06:56→21:54)
[2017-08-17] MEDS: LACTIC ACID 12% LOTION 225 GM BTL TOP ×2 (06:56→21:56)
[2017-08-17] MEDS: (RENVELA) SEVELAMER **CARBONate** 800 MG TAB PO ×3 (06:57→18:00)
[2017-08-17] MEDS: IPRATROPIUM 0.5MG/ALBUTEROL 2.5MG INH SOL UD 3ML (DUONEB)(J7620) INH ×3 (07:10→20:41)
[2017-08-17] MEDS: MORPHINE 15 MG SA TAB PO ×2 (09:00→21:53)
[2017-08-17] MEDS: CINACALCET 30 MG TAB (SENSIPAR) PO (21:52)
[2017-08-17] MEDS: NEPHRO-VIT TAB (NEPHROCAPS) PO (21:53)
[2017-08-17] MEDS: PARoxetine 10MG TABLET PO (21:53)
[2017-08-17] MEDS: FOLIC ACID 1 MG TAB PO (21:53)
[2017-08-17] MEDS: SIMVASTATIN 10 MG TAB PO (21:54)
[2017-08-17] MEDS: METOPROLOL SUCC (TopROL XL) 50MG **XL** TAB PO (21:55)
[2017-08-17] MEDS: LETROZOLE 2.5 MG TAB PO (22:04)
[2017-08-17 22:23] LABS: ANION GAP 5 MEQ/L (8-16); BLOOD UREA NITROGEN 8 MG/DL (7-18); CALCIUM LEVEL 7.2 MG/DL (8.8-10.2); CARBON DIOXIDE LEVEL 30 MEQ/L (21-32); CHLORIDE LEVEL 110 MEQ/L (98-107); CREATININE FOR GFR 2.87 MG/DL (0.70-1.30); GLOMERULAR FILTRATION RATE 28.6 (>49); GLUCOSE, FASTING 93 MG/DL (70-100); POTASSIUM SERUM 4.1 MEQ/L (3.5-5.1); SODIUM LEVEL 145 MEQ/L (136-145)
[2017-08-18] MEDS: oxyCODONE 5MG TAB PO (00:09)
[2017-08-18] MEDS: SODIUM CHLORIDE 0.9% INJ 10 ML SYR IV ×3 (05:26→21:46)
[2017-08-18 06:09] LABS: ALBUMIN 2.2 GM/DL (3.2-5.2); ALBUMIN/GLOBULIN RATIO 0.76 (1.00-1.93); ALKALINE PHOSPHATASE 61 U/L (45-117); ALT/SGPT 11 U/L (12-78); ANION GAP 3 MEQ/L (8-16); AST/SGOT 11 U/L (7-37); BILIRUBIN,TOTAL 0.3 MG/DL (0.2-1.0); BLOOD UREA NITROGEN 14 MG/DL (7-18); CALCIUM LEVEL 8.1 MG/DL (8.8-10.2); CARBON DIOXIDE LEVEL 33 MEQ/L (21-32); CHLORIDE LEVEL 109 MEQ/L (98-107); CREATININE FOR GFR 4.47 MG/DL (0.70-1.30); GLOMERULAR FILTRATION RATE 17.1 (>49); GLUCOSE, FASTING 85 MG/DL (70-100); MAGNESIUM LEVEL 2.1 MG/DL (1.8-2.4); POTASSIUM SERUM 4.3 MEQ/L (3.5-5.1); SODIUM LEVEL 145 MEQ/L (136-145); TOTAL PROTEIN 5.1 GM/DL (6.4-8.2)
[2017-08-18 06:32] LABS: BASO % 0.6 % (0.0-1.0); EOS # 0.1 10^3/uL (0.0-0.50); EOS % 2.6 % (0.0-3.0); HEMATOCRIT 29.9 % (42.0-52.0); HEMOGLOBIN 8.9 g/dl (13.5-17.5); IMMATURE GRANULOCYTE % 0.4 % (0-3.0); LYMPH # 0.8 10^3/uL (1.5-4.5); LYMPH % 15.5 % (24.0-44.0); MEAN CORPUSCULAR HGB CONC 29.8 g/dl (32.0-36.5); MEAN CORPUSCULAR VOLUME 100.7 fl (80.0-96.0); MONO # 0.7 10^3/uL (0.0-0.8); MONO % 12.5 % (0.0-5.0); NEUTROPHILS # 3.7 10^3/uL (1.8-7.7); NEUTROPHILS % 68.4 % (36.0-66.0); RED BLOOD COUNT 2.97 10^6/uL (4.30-6.10); RED CELL DISTRIBUTION WIDTH 17.3 % (11.5-14.5); WHITE BLOOD COUNT 5.4 10^3/uL (4.0-10.0)
[2017-08-18 06:33] LABS: PLATELET COUNT, AUTOMATED 87 10^3/uL (150-450)
[2017-08-18 06:34] LABS: IMMATURE PLATELET FRACTION % 6.5 % (0.0-10.9)
[2017-08-18] MEDS: SUCRALFATE 1 GM TAB PO ×4 (07:58→21:17)
[2017-08-18] MEDS: IPRATROPIUM 0.5MG/ALBUTEROL 2.5MG INH SOL UD 3ML (DUONEB)(J7620) INH ×3 (08:10→20:40)
[2017-08-18] MEDS: MORPHINE 15 MG SA TAB PO ×2 (08:53→21:17)
[2017-08-18] MEDS: predniSONE 20 MG TAB PO (08:53)
[2017-08-18] MEDS: APIXABAN 2.5 MG TAB (ELIQUIS) PO ×2 (08:53→21:18)
[2017-08-18] MEDS: (RENVELA) SEVELAMER **CARBONate** 800 MG TAB PO ×3 (08:53→17:15)
[2017-08-18] MEDS: GABAPENTIN 100 MG CAP PO ×3 (08:53→21:15)
[2017-08-18] MEDS: PANTOPRAZOLE 40MG TAB (PROTONIX) PO ×2 (08:53→21:18)
[2017-08-18] MEDS: LACTIC ACID 12% LOTION 225 GM BTL TOP ×2 (08:54→21:00)
[2017-08-18] MEDS ORDERED: LIDOCAINE 2% MDV 20 ML VIAL As Ordered (13:09)
[2017-08-18] MEDS ORDERED: HEPARIN 1,000 UNITS/ML 10ML VIAL (FOR RADIOLOGY& DIALYSIS ONLY) As Ordered (13:09)
[2017-08-18 17:04] LABS: CONTROL LINE INT CTR LINE PRESENT
[2017-08-18 17:10] LABS: HIVSOURCE0 NEGATIVE (NEGATIVE)
[2017-08-18 17:12] LABS: HIV SOURCE PT 1 NEGATIVE (NEGATIVE)
[2017-08-18] MEDS: LETROZOLE 2.5 MG TAB PO (21:00)
[2017-08-18] MEDS: METOPROLOL SUCC (TopROL XL) 50MG **XL** TAB PO (21:00)
[2017-08-18] MEDS: CINACALCET 30 MG TAB (SENSIPAR) PO (21:15)
[2017-08-18] MEDS: FOLIC ACID 1 MG TAB PO (21:16)
[2017-08-18] MEDS: SIMVASTATIN 10 MG TAB PO (21:16)
[2017-08-18] MEDS: PARoxetine 10MG TABLET PO (21:16)
[2017-08-18] MEDS: NEPHRO-VIT TAB (NEPHROCAPS) PO (21:17)
[2017-08-19 04:54] LABS: BASO % 0.2 % (0.0-1.0); EOS # 0.1 10^3/uL (0.0-0.50); EOS % 0.9 % (0.0-3.0); HEMATOCRIT 32.3 % (42.0-52.0); HEMOGLOBIN 9.5 g/dl (13.5-17.5); IMMATURE GRANULOCYTE % 0.3 % (0-3.0); LYMPH # 0.8 10^3/uL (1.5-4.5); LYMPH % 11.5 % (24.0-44.0); MEAN CORPUSCULAR HEMOGLOBIN 30.1 pg (27.0-33.0); MEAN CORPUSCULAR HGB CONC 29.4 g/dl (32.0-36.5); MEAN CORPUSCULAR VOLUME 102.2 fl (80.0-96.0); MONO # 0.8 10^3/uL (0.0-0.8); MONO % 12.3 % (0.0-5.0); NEUTROPHILS # 4.9 10^3/uL (1.8-7.7); NEUTROPHILS % 74.8 % (36.0-66.0); PLATELET COUNT, AUTOMATED 130 10^3/uL (150-450); RED BLOOD COUNT 3.16 10^6/uL (4.30-6.10); RED CELL DISTRIBUTION WIDTH 17.3 % (11.5-14.5); WHITE BLOOD COUNT 6.5 10^3/uL (4.0-10.0)
[2017-08-19] MEDS: SODIUM CHLORIDE 0.9% INJ 10 ML SYR IV (05:09)
[2017-08-19 05:30] LABS: ALBUMIN 2.5 GM/DL (3.2-5.2); ALBUMIN/GLOBULIN RATIO 0.83 (1.00-1.93); ALKALINE PHOSPHATASE 74 U/L (45-117); ALT/SGPT 12 U/L (12-78); ANION GAP 4 MEQ/L (8-16); AST/SGOT 9 U/L (7-37); BILIRUBIN,TOTAL 0.3 MG/DL (0.2-1.0); BLOOD UREA NITROGEN 24 MG/DL (7-18); CALCIUM LEVEL 7.8 MG/DL (8.8-10.2); CARBON DIOXIDE LEVEL 32 MEQ/L (21-32); CHLORIDE LEVEL 108 MEQ/L (98-107); CREATININE FOR GFR 5.91 MG/DL (0.70-1.30); GLOMERULAR FILTRATION RATE 12.4 (>49); GLUCOSE, FASTING 88 MG/DL (70-100); MAGNESIUM LEVEL 2.4 MG/DL (1.8-2.4); POTASSIUM SERUM 5.1 MEQ/L (3.5-5.1); SODIUM LEVEL 144 MEQ/L (136-145); TOTAL PROTEIN 5.5 GM/DL (6.4-8.2)
[2017-08-19] MEDS: IPRATROPIUM 0.5MG/ALBUTEROL 2.5MG INH SOL UD 3ML (DUONEB)(J7620) INH (07:13)
[2017-08-19] MEDS: predniSONE 20 MG TAB PO (07:28)
[2017-08-19] MEDS: PANTOPRAZOLE 40MG TAB (PROTONIX) PO (07:28)
[2017-08-19] MEDS: GABAPENTIN 100 MG CAP PO (07:28)
[2017-08-19] MEDS: (RENVELA) SEVELAMER **CARBONate** 800 MG TAB PO (07:28)
[2017-08-19] MEDS: SUCRALFATE 1 GM TAB PO (07:28)
[2017-08-19] MEDS: APIXABAN 2.5 MG TAB (ELIQUIS) PO (07:28)
[2017-08-19] MEDS: MORPHINE 15 MG SA TAB PO (07:32)
[2017-08-19] MEDS: LACTIC ACID 12% LOTION 225 GM BTL TOP (07:33)
[2017-08-19 11:51] LABS: HEPATITIS B SURFACE ANTIGEN NEGATIVE (NEGATIVE)
[2017-08-19 12:20] LABS: HEP C VIRUS AB INDEX SOURCE PT < 0.0 INDEX (0.0-0.8)
== END 2017-08-19 10:00 | DRG 377 ==
LOC: M ICU 08-12 00:17 → M PCU 08-13 01:06 → M ED 10:29 → M ED INP 19:47
PROC: 5A1D70Z Performance of Urinary Filtration, Intermittent, Less than 6 Hours Per Day (ICD-10-PCS; principal; 2017-08-12 10:19)
PROC: 06H033Z Insertion of Infusion Device into Inferior Vena Cava, Percutaneous Approach (ICD-10-PCS; 2017-08-12 10:19)
PROC: 05H733Z Insertion of Infusion Device into Right Axillary Vein, Percutaneous Approach (ICD-10-PCS; 2017-08-12 10:19)
PROC: 0W3P8ZZ Control Bleeding in Gastrointestinal Tract, Via Natural or Artificial Opening Endoscopic (ICD-10-PCS; 2017-08-12 10:19)
PROC: 30233N1 Transfusion of Nonautologous Red Blood Cells into Peripheral Vein, Percutaneous Approach (ICD-10-PCS; 2017-08-12 10:19)
DX: K31.811 Angiodysplasia of stomach and duodenum with bleeding (principal); N18.6 End stage renal disease; I13.2 Hypertensive heart and chronic kidney disease with heart failure and with stage 5 chronic kidney disease, or end stage renal disease; I50.32 Chronic diastolic (congestive) heart failure; D62 Acute posthemorrhagic anemia; D69.3 Immune thrombocytopenic purpura; N25.81 Secondary hyperparathyroidism of renal origin; I82.B12 Acute embolism and thrombosis of left subclavian vein; T82.868A Thrombosis due to vascular prosthetic devices, implants and grafts, initial encounter; Z68.41 Body mass index [BMI] 40.0-44.9, adult; I25.10 Atherosclerotic heart disease of native coronary artery without angina pectoris; E78.5 Hyperlipidemia, unspecified; J44.9 Chronic obstructive pulmonary disease, unspecified; I95.9 Hypotension, unspecified; G62.9 Polyneuropathy, unspecified; D63.1 Anemia in chronic kidney disease; G47.33 Obstructive sleep apnea (adult) (pediatric); E66.01 Morbid (severe) obesity due to excess calories; K59.00 Constipation, unspecified; G89.29 Other chronic pain; Z79.52 Long term (current) use of systemic steroids; Z79.899 Other long term (current) drug therapy; Z91.040 Latex allergy status; Z91.041 Radiographic dye allergy status; Z88.0 Allergy status to penicillin; Z88.2 Allergy status to sulfonamides; Z88.8 Allergy status to other drugs, medicaments and biological substances; Z86.718 Personal history of other venous thrombosis and embolism; Z90.12 Acquired absence of left breast and nipple; Z92.21 Personal history of antineoplastic chemotherapy; Z87.891 Personal history of nicotine dependence; Z79.01 Long term (current) use of anticoagulants; Z99.2 Dependence on renal dialysis; Y83.1 Surgical operation with implant of artificial internal device as the cause of abnormal reaction of the patient, or of later complication, without mention of misadventure at the time of the procedure

== ENCOUNTER → 2017-08-11 | Outpatient (REF) ==
[2017-08-11 09:10] LABS: HEMOGLOBIN 6.3 g/dl (13.5-17.5)
== END ==
LOC: SKLAB4 07:34
DX: D64.9 Anemia, unspecified (principal)

== ENCOUNTER 2017-08-20 22:09 | Emergency (ER) | payer MEDICARE, MEDICAID | END 2017-08-21 00:31 | disposition home or self-care (01) | LOC: M ED 08-21 00:31 | DX: R60.0 Localized edema (principal); N18.6 End stage renal disease; Z99.2 Dependence on renal dialysis; Z79.899 Other long term (current) drug therapy; Z91.041 Radiographic dye allergy status; Z91.89 Other specified personal risk factors, not elsewhere classified; Z91.040 Latex allergy status; Z88.0 Allergy status to penicillin; Z88.1 Allergy status to other antibiotic agents | CPT/HCPCS: 99284 ==

== ENCOUNTER 2017-08-25 04:25 | Emergency (ER) | payer MEDICARE | END 2017-08-25 07:25 | disposition home or self-care (01) | LOC: M ED 04:25 | DX: S92.511A Displaced fracture of proximal phalanx of right lesser toe(s), initial encounter for closed fracture (principal); W18.11XA Fall from or off toilet without subsequent striking against object, initial encounter; Y92.129 Unspecified place in nursing home as the place of occurrence of the external cause; Y93.89 Activity, other specified; Y99.9 Unspecified external cause status; E11.9 Type 2 diabetes mellitus without complications; I10 Essential (primary) hypertension; N18.6 End stage renal disease; Z99.2 Dependence on renal dialysis; D69.3 Immune thrombocytopenic purpura; G47.30 Sleep apnea, unspecified; Z87.19 Personal history of other diseases of the digestive system; Z86.718 Personal history of other venous thrombosis and embolism; Z85.3 Personal history of malignant neoplasm of breast; Z79.01 Long term (current) use of anticoagulants; Z79.84 Long term (current) use of oral hypoglycemic drugs; Z79.899 Other long term (current) drug therapy; Z91.041 Radiographic dye allergy status; Z91.89 Other specified personal risk factors, not elsewhere classified; Z88.0 Allergy status to penicillin; Z88.1 Allergy status to other antibiotic agents | CPT/HCPCS: 73630 ==

== ENCOUNTER → 2017-08-26 | Outpatient (REF) | payer MEDICARE ==
[2017-08-26 13:25] LABS: HEMOGLOBIN 10.4 g/dl (13.5-17.5); MEAN CORPUSCULAR HEMOGLOBIN 30.1 pg (27.0-33.0); MEAN CORPUSCULAR HGB CONC 29.7 g/dl (32.0-36.5); MEAN CORPUSCULAR VOLUME 101.2 fl (80.0-96.0); RED BLOOD COUNT 3.46 10^6/uL (4.30-6.10); RED CELL DISTRIBUTION WIDTH 17.1 % (11.5-14.5); WHITE BLOOD COUNT 8.5 10^3/uL (4.0-10.0)
[2017-08-26 13:27] LABS: PLATELET COUNT, AUTOMATED 93 10^3/uL (150-450); POS COUNT POS FLAG
[2017-08-26 13:28] LABS: IMMATURE PLATELET FRACTION % 4.9 % (0.0-10.9); PLATELET F 93
== END ==
LOC: SKLAB4 08:05
DX: D64.9 Anemia, unspecified (principal)

== ENCOUNTER → 2017-09-01 | Outpatient (REF) ==
[2017-09-01 08:03] LABS: HEMATOCRIT 33.5 % (42.0-52.0); HEMOGLOBIN 9.9 g/dl (13.5-17.5); MEAN CORPUSCULAR HEMOGLOBIN 29.7 pg (27.0-33.0); MEAN CORPUSCULAR HGB CONC 29.6 g/dl (32.0-36.5); MEAN CORPUSCULAR VOLUME 100.6 fl (80.0-96.0); PLATELET COUNT, AUTOMATED 150 10^3/uL (150-450); RED BLOOD COUNT 3.33 10^6/uL (4.30-6.10); RED CELL DISTRIBUTION WIDTH 16.4 % (11.5-14.5); WHITE BLOOD COUNT 7.3 10^3/uL (4.0-10.0)
== END ==
LOC: SKLAB4 10:55
DX: D64.9 Anemia, unspecified (principal)

== ENCOUNTER → 2017-09-06 | Outpatient (CLI) | payer MEDICARE ==
[~2017-09-06] MED LIST changes: +ALTEPLASE 2 MG/2 ML VIAL (J2997 PER 1MG) As Ordered; +HEPARIN 1,000 UNITS/ML 10ML VIAL (FOR RADIOLOGY& DIALYSIS ONLY) As Ordered; +LIDOCAINE 2% MDV 20 ML VIAL As Ordered; +MIDAZOLAM INJ 2 MG/2 ML VIAL (J2250) As Ordered; +fentaNYL 100 MCG/2 ML INJECTION (J3010) As Ordered
== END | disposition home or self-care (01) ==
LOC: M IRPRO 07:54
DX: T82.868A Thrombosis due to vascular prosthetic devices, implants and grafts, initial encounter (principal); T82.7XXA Infection and inflammatory reaction due to other cardiac and vascular devices, implants and grafts, initial encounter; T82.858A Stenosis of other vascular prosthetic devices, implants and grafts, initial encounter; N18.6 End stage renal disease; Z99.2 Dependence on renal dialysis
CPT/HCPCS: 36906

== ENCOUNTER 2017-09-10 16:51 | Inpatient (IN) | payer MEDICARE ==
[2017-09-10] MEDS: ONDANSETRON 4MG/2ML VIAL (J2405) IV (18:19)
[2017-09-10] MEDS: MORPHINE 4 MG/ML 1ML VIAL/SYRINGE (J2270) IV ×2 (18:19→23:29)
[2017-09-10 18:52] LABS: BASO % 0.3 % (0.0-1.0); EOS # 0.4 10^3/uL (0.0-0.50); EOS % 2.8 % (0.0-3.0); HEMATOCRIT 28.9 % (42.0-52.0); IMMATURE GRANULOCYTE % 0.4 % (0-3.0); LYMPH # 0.9 10^3/uL (1.5-4.5); LYMPH % 6.3 % (24.0-44.0); MEAN CORPUSCULAR HEMOGLOBIN 29.6 pg (27.0-33.0); MEAN CORPUSCULAR HGB CONC 31.1 g/dl (32.0-36.5); MEAN CORPUSCULAR VOLUME 95.1 fl (80.0-96.0); MONO % 16.7 % (0.0-5.0); NEUTROPHILS % 73.5 % (36.0-66.0); RED BLOOD COUNT 3.04 10^6/uL (4.30-6.10); WHITE BLOOD COUNT 13.6 10^3/uL (4.0-10.0)
[2017-09-10 19:12] LABS: ANION GAP 9 MEQ/L (8-16); BLOOD UREA NITROGEN 30 MG/DL (7-18); CALCIUM LEVEL 7.9 MG/DL (8.8-10.2); CARBON DIOXIDE LEVEL 31 MEQ/L (21-32); CHLORIDE LEVEL 102 MEQ/L (98-107); CREATININE FOR GFR 5.42 MG/DL (0.70-1.30); GLOMERULAR FILTRATION RATE 13.7 (>49); GLUCOSE, FASTING 80 MG/DL (70-100); POTASSIUM SERUM 4.8 MEQ/L (3.5-5.1); SODIUM LEVEL 142 MEQ/L (136-145)
[2017-09-10 19:13] LABS: MONO # 2.3 10^3/uL (0.0-0.8); PLATELET COUNT, AUTOMATED 87 10^3/uL (150-450)
[2017-09-10 19:14] LABS: IMMATURE PLATELET FRACTION % 3.2 % (0.0-10.9); POSITIVE DIFF POS FLAG
[2017-09-10] MEDS ORDERED: IPRATROPIUM 0.5MG/ALBUTEROL 2.5MG INH SOL UD 3ML (DUONEB)(J7620) NEB (21:15)
[2017-09-10] MEDS ORDERED: ONDANSETRON 4 MG TAB (S0181) PO (21:15)
[2017-09-10] MEDS: CEFEPIME HCL 2 GM in D5W MINI-BAG PLUS 50 ML IV (21:24)
[2017-09-10] MEDS: VANCOMYCIN HCL 1,000 MG, VIAL MATE ADAPTER 1 EACH in D5W 250 ML IV (22:15)
[2017-09-10] MEDS: SENOKOT S TAB PO (23:32)
[2017-09-10] MEDS: SUCRALFATE 1 GM TAB PO (23:32)
[2017-09-10] MEDS: DOCUSATE SODIUM 100 MG CAP PO (23:32)
[2017-09-11] MEDS: VANCOMYCIN HCL 1,000 MG, VIAL MATE ADAPTER 1 EACH in D5W 250 ML IV
[2017-09-11] MEDS: ACETAMINOPHEN TAB 650MG DOSE (2X325MG) PO (00:30)
[2017-09-11] MEDS: MORPHINE 4 MG/ML 1ML VIAL/SYRINGE (J2270) IV ×4 (03:46→20:00)
[2017-09-11 05:31] LABS: HEMATOCRIT 26.2 % (42.0-52.0); HEMOGLOBIN 8.2 g/dl (13.5-17.5); MEAN CORPUSCULAR HEMOGLOBIN 29.6 pg (27.0-33.0); MEAN CORPUSCULAR HGB CONC 31.3 g/dl (32.0-36.5); MEAN CORPUSCULAR VOLUME 94.6 fl (80.0-96.0); RED BLOOD COUNT 2.77 10^6/uL (4.30-6.10); RED CELL DISTRIBUTION WIDTH 17.9 % (11.5-14.5); WHITE BLOOD COUNT 15.6 10^3/uL (4.0-10.0)
[2017-09-11 05:32] LABS: PLATELET COUNT, AUTOMATED 88 10^3/uL (150-450)
[2017-09-11 05:46] LABS: ANION GAP 7 MEQ/L (8-16); BLOOD UREA NITROGEN 39 MG/DL (7-18); CARBON DIOXIDE LEVEL 30 MEQ/L (21-32); CHLORIDE LEVEL 103 MEQ/L (98-107); GLOMERULAR FILTRATION RATE 11.7 (>49); GLUCOSE, FASTING 85 MG/DL (70-100); SODIUM LEVEL 140 MEQ/L (136-145)
[2017-09-11 05:47] LABS: VANCOMYCIN RANDOM 21.5 UG/ML
[2017-09-11 05:51] LABS: POTASSIUM SERUM 5.2 MEQ/L (3.5-5.1)
[2017-09-11] MEDS: SLF 3 ML SYR IV ×3 (06:00→21:03)
[2017-09-11] MEDS: GABAPENTIN 100 MG CAP PO ×3 (08:12→21:01)
[2017-09-11] MEDS: predniSONE 20 MG TAB PO (08:12)
[2017-09-11] MEDS: SIMVASTATIN 10 MG TAB PO (08:12)
[2017-09-11] MEDS: APIXABAN 2.5 MG TAB (ELIQUIS) PO ×2 (08:13→21:01)
[2017-09-11] MEDS: PANTOPRAZOLE 40MG TAB (PROTONIX) PO ×2 (08:13→21:00)
[2017-09-11] MEDS: MORPHINE 15 MG SA TAB PO ×2 (08:14→21:01)
[2017-09-11] MEDS: SUCRALFATE 1 GM TAB PO ×4 (08:15→21:02)
[2017-09-11] MEDS: PATIROMER SORBITEX CALCIUM 8.4 GM POWDER PACKET (VELTASSA) PO (11:59)
[2017-09-11] MEDS: **VANCO AFTER HD** MISC XX (15:34)
[2017-09-11] MEDS: FOLIC ACID 1 MG TAB PO (21:00)
[2017-09-11] MEDS: METOPROLOL SUCC (TopROL XL) 50MG **XL** TAB PO (21:01)
[2017-09-11] MEDS: PARoxetine 10MG TABLET PO (21:02)
[2017-09-11] MEDS: LETROZOLE 2.5 MG TAB PO (21:02)
[2017-09-11] MEDS: SENOKOT S TAB PO (21:02)
[2017-09-11] MEDS: NEPHRO-VIT TAB (NEPHROCAPS) PO (21:02)
[2017-09-11] MEDS: DOCUSATE SODIUM 100 MG CAP PO (21:02)
[2017-09-12] MEDS: MORPHINE 4 MG/ML 1ML VIAL/SYRINGE (J2270) IV ×2 (05:22→09:51)
[2017-09-12] MEDS: SLF 3 ML SYR IV ×3 (05:22→20:56)
[2017-09-12 05:38] LABS: HEMOGLOBIN 8.2 g/dl (13.5-17.5); MEAN CORPUSCULAR HEMOGLOBIN 29.5 pg (27.0-33.0); MEAN CORPUSCULAR HGB CONC 31.5 g/dl (32.0-36.5); MEAN CORPUSCULAR VOLUME 93.5 fl (80.0-96.0); PLATELET COUNT, AUTOMATED 119 10^3/uL (150-450); RED BLOOD COUNT 2.78 10^6/uL (4.30-6.10)
[2017-09-12 06:02] LABS: ALBUMIN 2.1 GM/DL (3.2-5.2); ANION GAP 6 MEQ/L (8-16); BLOOD UREA NITROGEN 55 MG/DL (7-18); CALCIUM LEVEL 8.6 MG/DL (8.8-10.2); CARBON DIOXIDE LEVEL 30 MEQ/L (21-32); CHLORIDE LEVEL 101 MEQ/L (98-107); GLOMERULAR FILTRATION RATE 9.3 (>49); GLUCOSE, FASTING 92 MG/DL (70-100); SODIUM LEVEL 137 MEQ/L (136-145); VANCOMYCIN RANDOM 19.9 UG/ML
[2017-09-12] MEDS: predniSONE 20 MG TAB PO (08:20)
[2017-09-12] MEDS: MORPHINE 15 MG SA TAB PO ×2 (08:20→20:54)
[2017-09-12] MEDS: APIXABAN 2.5 MG TAB (ELIQUIS) PO ×2 (08:20→20:54)
[2017-09-12] MEDS: SUCRALFATE 1 GM TAB PO ×4 (08:20→20:53)
[2017-09-12] MEDS: GABAPENTIN 100 MG CAP PO ×3 (08:30→20:53)
[2017-09-12] MEDS: PANTOPRAZOLE 40MG TAB (PROTONIX) PO ×2 (08:30→20:54)
[2017-09-12] MEDS: SIMVASTATIN 10 MG TAB PO (08:30)
[2017-09-12] MEDS: VANCOMYCIN HCL 1,000 MG, VIAL MATE ADAPTER 1 EACH in D5W 250 ML IV (17:19)
[2017-09-12] MEDS: **VANCO AFTER HD** MISC XX (17:20)
[2017-09-12] MEDS: PARoxetine 10MG TABLET PO (20:53)
[2017-09-12] MEDS: SENOKOT S TAB PO (20:53)
[2017-09-12] MEDS: LETROZOLE 2.5 MG TAB PO (20:53)
[2017-09-12] MEDS: FOLIC ACID 1 MG TAB PO (20:54)
[2017-09-12] MEDS: NEPHRO-VIT TAB (NEPHROCAPS) PO (20:54)
[2017-09-12] MEDS: DOCUSATE SODIUM 100 MG CAP PO (20:55)
[2017-09-12] MEDS: METOPROLOL SUCC (TopROL XL) 50MG **XL** TAB PO (20:55)
[2017-09-13 02:55] LABS: HEMATOCRIT 25.2 % (42.0-52.0); HEMOGLOBIN 7.8 g/dl (13.5-17.5); MEAN CORPUSCULAR HEMOGLOBIN 29.3 pg (27.0-33.0); MEAN CORPUSCULAR VOLUME 94.7 fl (80.0-96.0); PLATELET COUNT, AUTOMATED 126 10^3/uL (150-450); RED BLOOD COUNT 2.66 10^6/uL (4.30-6.10); RED CELL DISTRIBUTION WIDTH 18.1 % (11.5-14.5); WHITE BLOOD COUNT 10.8 10^3/uL (4.0-10.0)
[2017-09-13 03:10] LABS: ALBUMIN 2.1 GM/DL (3.2-5.2); ANION GAP 8 MEQ/L (8-16); BLOOD UREA NITROGEN 20 MG/DL (7-18); CALCIUM LEVEL 8.5 MG/DL (8.8-10.2); CARBON DIOXIDE LEVEL 32 MEQ/L (21-32); CHLORIDE LEVEL 101 MEQ/L (98-107); CREATININE FOR GFR 4.46 MG/DL (0.70-1.30); GLOMERULAR FILTRATION RATE 17.1 (>49); GLUCOSE, FASTING 114 MG/DL (70-100); POTASSIUM SERUM 4.1 MEQ/L (3.5-5.1); SODIUM LEVEL 141 MEQ/L (136-145)
[2017-09-13] MEDS: SLF 3 ML SYR IV ×4 (03:46→20:53)
[2017-09-13] MEDS: MORPHINE 4 MG/ML 1ML VIAL/SYRINGE (J2270) IV ×4 (03:46→13:35)
[2017-09-13] MEDS: GABAPENTIN 100 MG CAP PO ×3 (07:34→20:49)
[2017-09-13] MEDS: SIMVASTATIN 10 MG TAB PO (07:34)
[2017-09-13] MEDS: SUCRALFATE 1 GM TAB PO ×4 (07:34→20:52)
[2017-09-13] MEDS: PANTOPRAZOLE 40MG TAB (PROTONIX) PO ×2 (07:34→20:49)
[2017-09-13] MEDS: APIXABAN 2.5 MG TAB (ELIQUIS) PO ×2 (07:34→20:49)
[2017-09-13] MEDS: predniSONE 20 MG TAB PO (07:34)
[2017-09-13] MEDS: MORPHINE 15 MG SA TAB PO ×2 (07:35→20:49)
[2017-09-13] MEDS: **VANCO AFTER HD** MISC XX (15:04)
[2017-09-13] MEDS: PARoxetine 10MG TABLET PO (20:47)
[2017-09-13] MEDS: SENOKOT S TAB PO (20:48)
[2017-09-13] MEDS: DOCUSATE SODIUM 100 MG CAP PO (20:49)
[2017-09-13] MEDS: FOLIC ACID 1 MG TAB PO (20:49)
[2017-09-13] MEDS: LETROZOLE 2.5 MG TAB PO (20:49)
[2017-09-13] MEDS: METOPROLOL SUCC (TopROL XL) 50MG **XL** TAB PO (20:50)
[2017-09-13] MEDS: NEPHRO-VIT TAB (NEPHROCAPS) PO (20:52)
[2017-09-14 06:15] LABS: HEMATOCRIT 25.6 % (42.0-52.0); HEMOGLOBIN 8.1 g/dl (13.5-17.5); MEAN CORPUSCULAR HEMOGLOBIN 29.8 pg (27.0-33.0); MEAN CORPUSCULAR HGB CONC 31.6 g/dl (32.0-36.5); MEAN CORPUSCULAR VOLUME 94.1 fl (80.0-96.0); PLATELET COUNT, AUTOMATED 146 10^3/uL (150-450); RED BLOOD COUNT 2.72 10^6/uL (4.30-6.10); RED CELL DISTRIBUTION WIDTH 18.2 % (11.5-14.5); WHITE BLOOD COUNT 8.1 10^3/uL (4.0-10.0)
[2017-09-14] MEDS: GABAPENTIN 100 MG CAP PO ×3 (06:20→21:54)
[2017-09-14] MEDS: APIXABAN 2.5 MG TAB (ELIQUIS) PO ×2 (06:20→21:56)
[2017-09-14] MEDS: PANTOPRAZOLE 40MG TAB (PROTONIX) PO ×2 (06:21→21:55)
[2017-09-14] MEDS: SIMVASTATIN 10 MG TAB PO (06:21)
[2017-09-14] MEDS: predniSONE 20 MG TAB PO (06:21)
[2017-09-14] MEDS: SLF 3 ML SYR IV ×3 (06:28→21:59)
[2017-09-14 06:46] LABS: ALBUMIN 2.2 GM/DL (3.2-5.2); ANION GAP 9 MEQ/L (8-16); BLOOD UREA NITROGEN 33 MG/DL (7-18); CALCIUM LEVEL 9.1 MG/DL (8.8-10.2); CARBON DIOXIDE LEVEL 31 MEQ/L (21-32); CHLORIDE LEVEL 100 MEQ/L (98-107); CREATININE FOR GFR 6.36 MG/DL (0.70-1.30); GLOMERULAR FILTRATION RATE 11.4 (>49); GLUCOSE, FASTING 93 MG/DL (70-100); PHOSPHORUS LEVEL 3.4 MG/DL (2.5-4.9); POTASSIUM SERUM 4.2 MEQ/L (3.5-5.1); SODIUM LEVEL 140 MEQ/L (136-145); VANCOMYCIN RANDOM 20.3 UG/ML
[2017-09-14] MEDS: SUCRALFATE 1 GM TAB PO ×4 (08:03→21:55)
[2017-09-14] MEDS: MORPHINE 15 MG SA TAB PO ×2 (08:04→21:59)
[2017-09-14] MEDS: **VANCO AFTER HD** MISC XX (15:45)
[2017-09-14] MEDS: VANCOMYCIN HCL 1,000 MG, VIAL MATE ADAPTER 1 EACH in D5W 250 ML IV (15:45)
[2017-09-14] MEDS: FOLIC ACID 1 MG TAB PO (21:54)
[2017-09-14] MEDS: PARoxetine 10MG TABLET PO (21:54)
[2017-09-14] MEDS: SENOKOT S TAB PO (21:55)
[2017-09-14] MEDS: LETROZOLE 2.5 MG TAB PO (21:55)
[2017-09-14] MEDS: DOCUSATE SODIUM 100 MG CAP PO (21:55)
[2017-09-14] MEDS: NEPHRO-VIT TAB (NEPHROCAPS) PO (21:56)
[2017-09-14] MEDS: METOPROLOL SUCC (TopROL XL) 50MG **XL** TAB PO (22:01)
[2017-09-15] MEDS: MORPHINE 4 MG/ML 1ML VIAL/SYRINGE (J2270) IV (03:23)
[2017-09-15] MEDS: SLF 3 ML SYR IV ×3 (05:56→21:24)
[2017-09-15 06:18] LABS: HEMATOCRIT 26.2 % (42.0-52.0); HEMOGLOBIN 8.1 g/dl (13.5-17.5); MEAN CORPUSCULAR HEMOGLOBIN 29.1 pg (27.0-33.0); MEAN CORPUSCULAR HGB CONC 30.9 g/dl (32.0-36.5); MEAN CORPUSCULAR VOLUME 94.2 fl (80.0-96.0); PLATELET COUNT, AUTOMATED 152 10^3/uL (150-450); RED BLOOD COUNT 2.78 10^6/uL (4.30-6.10); RED CELL DISTRIBUTION WIDTH 18.1 % (11.5-14.5); WHITE BLOOD COUNT 7.2 10^3/uL (4.0-10.0)
[2017-09-15 06:37] LABS: ALBUMIN 2.1 GM/DL (3.2-5.2); ANION GAP 8 MEQ/L (8-16); BLOOD UREA NITROGEN 22 MG/DL (7-18); CALCIUM LEVEL 8.9 MG/DL (8.8-10.2); CARBON DIOXIDE LEVEL 30 MEQ/L (21-32); CHLORIDE LEVEL 103 MEQ/L (98-107); CREATININE FOR GFR 4.27 MG/DL (0.70-1.30); GLUCOSE, FASTING 105 MG/DL (70-100); POTASSIUM SERUM 3.5 MEQ/L (3.5-5.1); SODIUM LEVEL 141 MEQ/L (136-145)
[2017-09-15] MEDS: APIXABAN 2.5 MG TAB (ELIQUIS) PO ×2 (09:43→21:23)
[2017-09-15] MEDS: SIMVASTATIN 10 MG TAB PO (09:45)
[2017-09-15] MEDS: MORPHINE 15 MG SA TAB PO ×2 (09:45→21:23)
[2017-09-15] MEDS: PANTOPRAZOLE 40MG TAB (PROTONIX) PO ×2 (09:45→21:22)
[2017-09-15] MEDS: SUCRALFATE 1 GM TAB PO ×4 (09:45→21:24)
[2017-09-15] MEDS: GABAPENTIN 100 MG CAP PO ×3 (09:45→21:22)
[2017-09-15] MEDS: predniSONE 20 MG TAB PO (09:46)
[2017-09-15] MEDS: **VANCO AFTER HD** MISC XX (17:01)
[2017-09-15] MEDS: DOCUSATE SODIUM 100 MG CAP PO (21:22)
[2017-09-15] MEDS: LETROZOLE 2.5 MG TAB PO (21:22)
[2017-09-15] MEDS: NEPHRO-VIT TAB (NEPHROCAPS) PO (21:22)
[2017-09-15] MEDS: SENOKOT S TAB PO (21:22)
[2017-09-15] MEDS: PARoxetine 10MG TABLET PO (21:23)
[2017-09-15] MEDS: METOPROLOL SUCC (TopROL XL) 50MG **XL** TAB PO (21:23)
[2017-09-15] MEDS: FOLIC ACID 1 MG TAB PO (21:23)
[2017-09-16] MEDS: GABAPENTIN 100 MG CAP PO ×3 (05:37→20:32)
[2017-09-16] MEDS: predniSONE 20 MG TAB PO (05:37)
[2017-09-16] MEDS: PANTOPRAZOLE 40MG TAB (PROTONIX) PO ×2 (05:37→20:33)
[2017-09-16] MEDS: SIMVASTATIN 10 MG TAB PO (05:37)
[2017-09-16] MEDS: ACETAMINOPHEN TAB 650MG DOSE (2X325MG) PO ×2 (05:37→18:13)
[2017-09-16] MEDS: APIXABAN 2.5 MG TAB (ELIQUIS) PO ×2 (05:37→20:33)
[2017-09-16] MEDS: SLF 3 ML SYR IV ×3 (05:39→20:35)
[2017-09-16] MEDS: SUCRALFATE 1 GM TAB PO ×4 (07:54→20:32)
[2017-09-16] MEDS: MORPHINE 15 MG SA TAB PO ×2 (07:55→20:34)
[2017-09-16 09:25] LABS: HEMATOCRIT 25.9 % (42.0-52.0); HEMOGLOBIN 7.9 g/dl (13.5-17.5); MEAN CORPUSCULAR HEMOGLOBIN 29.3 pg (27.0-33.0); MEAN CORPUSCULAR HGB CONC 30.5 g/dl (32.0-36.5); MEAN CORPUSCULAR VOLUME 95.9 fl (80.0-96.0); PLATELET COUNT, AUTOMATED 199 10^3/uL (150-450); RED CELL DISTRIBUTION WIDTH 18.2 % (11.5-14.5); WHITE BLOOD COUNT 9.7 10^3/uL (4.0-10.0)
[2017-09-16 09:50] LABS: ALBUMIN 2.1 GM/DL (3.2-5.2); ANION GAP 10 MEQ/L (8-16); BLOOD UREA NITROGEN 35 MG/DL (7-18); CALCIUM LEVEL 8.6 MG/DL (8.8-10.2); CARBON DIOXIDE LEVEL 28 MEQ/L (21-32); CHLORIDE LEVEL 103 MEQ/L (98-107); CREATININE FOR GFR 5.98 MG/DL (0.70-1.30); GLOMERULAR FILTRATION RATE 12.2 (>49); GLUCOSE, FASTING 182 MG/DL (70-100); PHOSPHORUS LEVEL 2.5 MG/DL (2.5-4.9); SODIUM LEVEL 141 MEQ/L (136-145); VANCOMYCIN RANDOM 19.6 UG/ML
[2017-09-16] MEDS ORDERED: DARBEPOETIN 100 MCG/0.5 ML *DIALYSIS* SYRINGE (J0882) IV (12:30)
[2017-09-16] MEDS: VANCOMYCIN HCL 1,000 MG, VIAL MATE ADAPTER 1 EACH in D5W 250 ML IV (16:15)
[2017-09-16] MEDS: **VANCO AFTER HD** MISC XX (16:16)
[2017-09-16] MEDS: SENOKOT S TAB PO (20:31)
[2017-09-16] MEDS: DOCUSATE SODIUM 100 MG CAP PO (20:31)
[2017-09-16] MEDS: FOLIC ACID 1 MG TAB PO (20:32)
[2017-09-16] MEDS: NEPHRO-VIT TAB (NEPHROCAPS) PO (20:33)
[2017-09-16] MEDS: LETROZOLE 2.5 MG TAB PO (20:33)
[2017-09-16] MEDS: PARoxetine 10MG TABLET PO (20:33)
[2017-09-16] MEDS: METOPROLOL SUCC (TopROL XL) 50MG **XL** TAB PO (20:35)
[2017-09-17] MEDS: MORPHINE 4 MG/ML 1ML VIAL/SYRINGE (J2270) IV ×4 (02:02→17:28)
[2017-09-17] MEDS: ACETAMINOPHEN TAB 650MG DOSE (2X325MG) PO (04:15)
[2017-09-17] MEDS: SLF 3 ML SYR IV ×3 (05:07→21:25)
[2017-09-17 05:52] LABS: HEMATOCRIT 27.8 % (42.0-52.0); HEMOGLOBIN 8.6 g/dl (13.5-17.5); MEAN CORPUSCULAR HEMOGLOBIN 29.1 pg (27.0-33.0); MEAN CORPUSCULAR HGB CONC 30.9 g/dl (32.0-36.5); MEAN CORPUSCULAR VOLUME 93.9 fl (80.0-96.0); PLATELET COUNT, AUTOMATED 195 10^3/uL (150-450); RED BLOOD COUNT 2.96 10^6/uL (4.30-6.10); RED CELL DISTRIBUTION WIDTH 17.8 % (11.5-14.5); WHITE BLOOD COUNT 11.2 10^3/uL (4.0-10.0)
[2017-09-17 06:16] LABS: ALBUMIN 2.4 GM/DL (3.2-5.2); ANION GAP 8 MEQ/L (8-16); BLOOD UREA NITROGEN 24 MG/DL (7-18); CALCIUM LEVEL 8.9 MG/DL (8.8-10.2); CARBON DIOXIDE LEVEL 31 MEQ/L (21-32); CHLORIDE LEVEL 102 MEQ/L (98-107); CREATININE FOR GFR 4.22 MG/DL (0.70-1.30); FERRITIN 747 NG/ML (26-388); GLOMERULAR FILTRATION RATE 18.3 (>49); GLUCOSE, FASTING 79 MG/DL (70-100); IRON (FE) 25 UG/DL (65-175); PERCENT SATURATION 15.9 % (19.7-50.0); SODIUM LEVEL 141 MEQ/L (136-145); TOTAL IRON BINDING CAPACITY 157 UG/DL (250-450)
[2017-09-17] MEDS: SUCRALFATE 1 GM TAB PO ×4 (07:56→21:24)
[2017-09-17] MEDS: APIXABAN 2.5 MG TAB (ELIQUIS) PO ×2 (07:57→21:24)
[2017-09-17] MEDS: PANTOPRAZOLE 40MG TAB (PROTONIX) PO ×2 (07:57→21:23)
[2017-09-17] MEDS: MORPHINE 15 MG SA TAB PO ×2 (07:57→21:25)
[2017-09-17] MEDS: SIMVASTATIN 10 MG TAB PO (07:57)
[2017-09-17] MEDS: GABAPENTIN 100 MG CAP PO ×3 (07:57→21:24)
[2017-09-17] MEDS: predniSONE 20 MG TAB PO (07:57)
[2017-09-17] MEDS ORDERED: IRON SUCROSE 100MG 5ML VIAL (J1756 PER 1MG) IV (10:45)
[2017-09-17] MEDS ORDERED: BISACODYL 10 MG SUPP PR (11:00)
[2017-09-17] MEDS: SENOKOT S TAB PO ×2 (11:24→21:24)
[2017-09-17] MEDS: **VANCO AFTER HD** MISC XX (15:43)
[2017-09-17] MEDS: NEPHRO-VIT TAB (NEPHROCAPS) PO (21:23)
[2017-09-17] MEDS: METOPROLOL SUCC (TopROL XL) 50MG **XL** TAB PO (21:23)
[2017-09-17] MEDS: PARoxetine 10MG TABLET PO (21:23)
[2017-09-17] MEDS: LETROZOLE 2.5 MG TAB PO (21:24)
[2017-09-17] MEDS: DOCUSATE SODIUM 100 MG CAP PO (21:24)
[2017-09-17] MEDS: FOLIC ACID 1 MG TAB PO (21:24)
[2017-09-18] MEDS: SLF 3 ML SYR IV ×3 (05:23→20:51)
[2017-09-18 05:40] LABS: HEMATOCRIT 25.8 % (42.0-52.0); HEMOGLOBIN 7.9 g/dl (13.5-17.5); MEAN CORPUSCULAR HEMOGLOBIN 28.7 pg (27.0-33.0); MEAN CORPUSCULAR HGB CONC 30.6 g/dl (32.0-36.5); MEAN CORPUSCULAR VOLUME 93.8 fl (80.0-96.0); PLATELET COUNT, AUTOMATED 202 10^3/uL (150-450); RED BLOOD COUNT 2.75 10^6/uL (4.30-6.10); RED CELL DISTRIBUTION WIDTH 17.7 % (11.5-14.5); WHITE BLOOD COUNT 9.4 10^3/uL (4.0-10.0)
[2017-09-18 05:53] LABS: ALBUMIN 2.1 GM/DL (3.2-5.2); ANION GAP 9 MEQ/L (8-16); BLOOD UREA NITROGEN 41 MG/DL (7-18); CALCIUM LEVEL 8.8 MG/DL (8.8-10.2); CARBON DIOXIDE LEVEL 29 MEQ/L (21-32); CHLORIDE LEVEL 102 MEQ/L (98-107); CREATININE FOR GFR 5.94 MG/DL (0.70-1.30); GLOMERULAR FILTRATION RATE 12.3 (>49); GLUCOSE, FASTING 103 MG/DL (70-100); PHOSPHORUS LEVEL 2.9 MG/DL (2.5-4.9); POTASSIUM SERUM 4.6 MEQ/L (3.5-5.1); SODIUM LEVEL 140 MEQ/L (136-145)
[2017-09-18] MEDS: SIMVASTATIN 10 MG TAB PO (08:02)
[2017-09-18] MEDS: GABAPENTIN 100 MG CAP PO ×3 (08:02→20:50)
[2017-09-18] MEDS: PANTOPRAZOLE 40MG TAB (PROTONIX) PO ×2 (08:02→20:50)
[2017-09-18] MEDS: SUCRALFATE 1 GM TAB PO ×4 (08:02→20:49)
[2017-09-18] MEDS: APIXABAN 2.5 MG TAB (ELIQUIS) PO ×2 (08:02→20:49)
[2017-09-18] MEDS: predniSONE 20 MG TAB PO (08:02)
[2017-09-18] MEDS: MORPHINE 15 MG SA TAB PO ×2 (08:03→20:49)
[2017-09-18] MEDS: SENOKOT S TAB PO ×2 (08:03→20:49)
[2017-09-18] MEDS: MORPHINE 4 MG/ML 1ML VIAL/SYRINGE (J2270) IV (14:12)
[2017-09-18] MEDS: **VANCO AFTER HD** MISC XX (16:00)
[2017-09-18] MEDS: NEPHRO-VIT TAB (NEPHROCAPS) PO (20:48)
[2017-09-18] MEDS: PARoxetine 10MG TABLET PO (20:48)
[2017-09-18] MEDS: LETROZOLE 2.5 MG TAB PO (20:49)
[2017-09-18] MEDS: FOLIC ACID 1 MG TAB PO (20:49)
[2017-09-18] MEDS: METOPROLOL SUCC (TopROL XL) 50MG **XL** TAB PO (20:50)
[2017-09-18] MEDS: DOCUSATE SODIUM 100 MG CAP PO (20:50)
[2017-09-19] MEDS: SENOKOT S TAB PO ×2 (06:12→20:16)
[2017-09-19] MEDS: PANTOPRAZOLE 40MG TAB (PROTONIX) PO ×2 (06:14→20:16)
[2017-09-19] MEDS: MORPHINE 15 MG SA TAB PO ×2 (06:14→20:17)
[2017-09-19] MEDS: predniSONE 20 MG TAB PO (06:14)
[2017-09-19] MEDS: GABAPENTIN 100 MG CAP PO ×3 (06:14→20:16)
[2017-09-19] MEDS: SUCRALFATE 1 GM TAB PO ×4 (06:14→20:15)
[2017-09-19] MEDS: APIXABAN 2.5 MG TAB (ELIQUIS) PO ×2 (06:14→20:15)
[2017-09-19] MEDS: SIMVASTATIN 10 MG TAB PO (06:14)
[2017-09-19] MEDS: SLF 3 ML SYR IV ×3 (06:15→20:17)
[2017-09-19 09:08] LABS: IMMEDIATE SPIN CROSSMATCH 1 1
[2017-09-19 09:13] LABS: HEMATOCRIT 25.2 % (42.0-52.0); HEMOGLOBIN 7.9 g/dl (13.5-17.5); MEAN CORPUSCULAR HEMOGLOBIN 29.8 pg (27.0-33.0); MEAN CORPUSCULAR HGB CONC 31.3 g/dl (32.0-36.5); MEAN CORPUSCULAR VOLUME 95.1 fl (80.0-96.0); PLATELET COUNT, AUTOMATED 219 10^3/uL (150-450); RED BLOOD COUNT 2.65 10^6/uL (4.30-6.10); RED CELL DISTRIBUTION WIDTH 17.9 % (11.5-14.5); WHITE BLOOD COUNT 6.1 10^3/uL (4.0-10.0)
[2017-09-19 09:34] LABS: ANION GAP 9 MEQ/L (8-16); BLOOD UREA NITROGEN 62 MG/DL (7-18); CALCIUM LEVEL 8.7 MG/DL (8.8-10.2); CARBON DIOXIDE LEVEL 29 MEQ/L (21-32); CHLORIDE LEVEL 104 MEQ/L (98-107); CREATININE FOR GFR 7.41 MG/DL (0.70-1.30); GLOMERULAR FILTRATION RATE 9.5 (>49); GLUCOSE, FASTING 107 MG/DL (70-100); POTASSIUM SERUM 4.8 MEQ/L (3.5-5.1); SODIUM LEVEL 142 MEQ/L (136-145)
[2017-09-19] MEDS: MORPHINE 4 MG/ML 1ML VIAL/SYRINGE (J2270) IV ×2 (11:39→18:38)
[2017-09-19] MEDS: VANCOMYCIN HCL 1,000 MG, VIAL MATE ADAPTER 1 EACH in D5W 250 ML IV (16:25)
[2017-09-19] MEDS: **VANCO AFTER HD** MISC XX (16:25)
[2017-09-19] MEDS: LETROZOLE 2.5 MG TAB PO (20:15)
[2017-09-19] MEDS: PARoxetine 10MG TABLET PO (20:16)
[2017-09-19] MEDS: FOLIC ACID 1 MG TAB PO (20:16)
[2017-09-19] MEDS: NEPHRO-VIT TAB (NEPHROCAPS) PO (20:16)
[2017-09-19] MEDS: METOPROLOL SUCC (TopROL XL) 50MG **XL** TAB PO (20:16)
[2017-09-19] MEDS: DOCUSATE SODIUM 100 MG CAP PO (20:16)
[2017-09-20] MEDS: SLF 3 ML SYR IV ×3 (05:23→20:26)
[2017-09-20 06:01] LABS: HEMATOCRIT 30.3 % (42.0-52.0); HEMOGLOBIN 9.4 g/dl (13.5-17.5); MEAN CORPUSCULAR HEMOGLOBIN 29.1 pg (27.0-33.0); MEAN CORPUSCULAR VOLUME 93.8 fl (80.0-96.0); PLATELET COUNT, AUTOMATED 187 10^3/uL (150-450); RED BLOOD COUNT 3.23 10^6/uL (4.30-6.10); RED CELL DISTRIBUTION WIDTH 17.6 % (11.5-14.5); WHITE BLOOD COUNT 6.3 10^3/uL (4.0-10.0)
[2017-09-20 06:19] LABS: ANION GAP 8 MEQ/L (8-16); BLOOD UREA NITROGEN 36 MG/DL (7-18); CALCIUM LEVEL 9.3 MG/DL (8.8-10.2); CARBON DIOXIDE LEVEL 29 MEQ/L (21-32); CHLORIDE LEVEL 102 MEQ/L (98-107); CREATININE FOR GFR 4.65 MG/DL (0.70-1.30); GLOMERULAR FILTRATION RATE 16.3 (>49); GLUCOSE, FASTING 83 MG/DL (70-100); POTASSIUM SERUM 4.3 MEQ/L (3.5-5.1); SODIUM LEVEL 139 MEQ/L (136-145)
[2017-09-20] MEDS: predniSONE 20 MG TAB PO (08:08)
[2017-09-20] MEDS: SUCRALFATE 1 GM TAB PO ×4 (08:08→20:24)
[2017-09-20] MEDS: PANTOPRAZOLE 40MG TAB (PROTONIX) PO ×2 (08:08→20:24)
[2017-09-20] MEDS: GABAPENTIN 100 MG CAP PO ×3 (08:08→20:26)
[2017-09-20] MEDS: SENOKOT S TAB PO ×2 (08:08→20:26)
[2017-09-20] MEDS: APIXABAN 2.5 MG TAB (ELIQUIS) PO ×2 (08:08→20:24)
[2017-09-20] MEDS: MORPHINE 15 MG SA TAB PO ×2 (08:09→20:25)
[2017-09-20] MEDS: SIMVASTATIN 10 MG TAB PO (08:09)
[2017-09-20] MEDS: DOXYCYCLINE HYCLATE 100 MG TAB PO ×2 (10:26→20:25)
[2017-09-20] MEDS: ACETAMINOPHEN TAB 650MG DOSE (2X325MG) PO (11:06)
[2017-09-20] MEDS ORDERED: PROPOFOL 200 MG/20 ML VIAL As Ordered (17:58)
[2017-09-20] MEDS ORDERED: MIDAZOLAM INJ 2 MG/2 ML VIAL (J2250) As Ordered (17:58)
[2017-09-20] MEDS ORDERED: fentaNYL 100 MCG/2 ML INJECTION (J3010) As Ordered (17:59)
[2017-09-20] MEDS ORDERED: LIDOCAINE 2% INJ 100 MG/5 ML SDV (FOR ANES.) As Ordered (18:02)
[2017-09-20] MEDS: BUPIVACAINE HCL 0.5% 10 ML VIAL As Ordered (18:31)
[2017-09-20] MEDS: LIDOCAINE 1% MDV 20ML VIAL As Ordered (18:31)
[2017-09-20] MEDS ORDERED: KETAMINE HCL 200 MG/20 ML VIAL As Ordered (18:33)
[2017-09-20] MEDS ORDERED: ONDANSETRON 4MG/2ML VIAL (J2405) IV (19:30)
[2017-09-20] MEDS ORDERED: fentaNYL 100 MCG/2 ML INJECTION (J3010) IV (19:30)
[2017-09-20] MEDS: DOCUSATE SODIUM 100 MG CAP PO (20:24)
[2017-09-20] MEDS: LETROZOLE 2.5 MG TAB PO (20:24)
[2017-09-20] MEDS: FOLIC ACID 1 MG TAB PO (20:24)
[2017-09-20] MEDS: NEPHRO-VIT TAB (NEPHROCAPS) PO (20:24)
[2017-09-20] MEDS: METOPROLOL SUCC (TopROL XL) 50MG **XL** TAB PO (20:25)
[2017-09-20] MEDS: PARoxetine 10MG TABLET PO (20:26)
[2017-09-21] MEDS: PERCOCET 5MG/325MG TAB PO ×3 (02:23→18:57)
[2017-09-21] MEDS: APIXABAN 2.5 MG TAB (ELIQUIS) PO ×2 (06:05→20:24)
[2017-09-21] MEDS: SLF 3 ML SYR IV ×3 (06:05→20:25)
[2017-09-21] MEDS: SUCRALFATE 1 GM TAB PO ×4 (06:05→20:24)
[2017-09-21] MEDS: PANTOPRAZOLE 40MG TAB (PROTONIX) PO ×2 (06:06→20:24)
[2017-09-21] MEDS: GABAPENTIN 100 MG CAP PO ×3 (06:06→20:24)
[2017-09-21] MEDS: SIMVASTATIN 10 MG TAB PO (06:06)
[2017-09-21] MEDS: SENOKOT S TAB PO ×2 (06:06→20:23)
[2017-09-21] MEDS: DOXYCYCLINE HYCLATE 100 MG TAB PO ×2 (06:06→20:24)
[2017-09-21] MEDS: predniSONE 20 MG TAB PO (06:07)
[2017-09-21] MEDS: MORPHINE 4 MG/ML 1ML VIAL/SYRINGE (J2270) IV ×3 (06:07→22:42)
[2017-09-21 06:10] LABS: HEMATOCRIT 28.7 % (42.0-52.0); HEMOGLOBIN 9.1 g/dl (13.5-17.5); MEAN CORPUSCULAR HEMOGLOBIN 28.9 pg (27.0-33.0); MEAN CORPUSCULAR HGB CONC 31.7 g/dl (32.0-36.5); MEAN CORPUSCULAR VOLUME 91.1 fl (80.0-96.0); PLATELET COUNT, AUTOMATED 218 10^3/uL (150-450); RED BLOOD COUNT 3.15 10^6/uL (4.30-6.10); RED CELL DISTRIBUTION WIDTH 17.5 % (11.5-14.5); WHITE BLOOD COUNT 6.1 10^3/uL (4.0-10.0)
[2017-09-21 06:24] LABS: ANION GAP 8 MEQ/L (8-16); BLOOD UREA NITROGEN 58 MG/DL (7-18); CALCIUM LEVEL 8.7 MG/DL (8.8-10.2); CARBON DIOXIDE LEVEL 28 MEQ/L (21-32); CHLORIDE LEVEL 103 MEQ/L (98-107); CREATININE FOR GFR 6.55 MG/DL (0.70-1.30); GLUCOSE, FASTING 107 MG/DL (70-100); POTASSIUM SERUM 4.4 MEQ/L (3.5-5.1); SODIUM LEVEL 139 MEQ/L (136-145)
[2017-09-21] MEDS: LR 1,000 ML IV (07:12)
[2017-09-21] MEDS: MORPHINE 15 MG SA TAB PO ×2 (10:24→20:24)
[2017-09-21] MEDS: FOLIC ACID 1 MG TAB PO (20:23)
[2017-09-21] MEDS: METOPROLOL SUCC (TopROL XL) 50MG **XL** TAB PO (20:23)
[2017-09-21] MEDS: PARoxetine 10MG TABLET PO (20:24)
[2017-09-21] MEDS: LETROZOLE 2.5 MG TAB PO (20:24)
[2017-09-21] MEDS: DOCUSATE SODIUM 100 MG CAP PO (20:24)
[2017-09-21] MEDS: NEPHRO-VIT TAB (NEPHROCAPS) PO (20:24)
[2017-09-21] MEDS: ACETAMINOPHEN TAB 650MG DOSE (2X325MG) PO (23:16)
[2017-09-22] MEDS: SLF 3 ML SYR IV ×3 (05:12→22:03)
[2017-09-22] MEDS: PERCOCET 5MG/325MG TAB PO ×2 (06:11→15:27)
[2017-09-22 06:28] LABS: HEMATOCRIT 26.2 % (42.0-52.0); HEMOGLOBIN 8.1 g/dl (13.5-17.5); MEAN CORPUSCULAR HEMOGLOBIN 28.6 pg (27.0-33.0); MEAN CORPUSCULAR HGB CONC 30.9 g/dl (32.0-36.5); MEAN CORPUSCULAR VOLUME 92.6 fl (80.0-96.0); PLATELET COUNT, AUTOMATED 160 10^3/uL (150-450); RED BLOOD COUNT 2.83 10^6/uL (4.30-6.10); RED CELL DISTRIBUTION WIDTH 17.6 % (11.5-14.5); WHITE BLOOD COUNT 6.3 10^3/uL (4.0-10.0)
[2017-09-22] MEDS: ACETAMINOPHEN TAB 650MG DOSE (2X325MG) PO ×3 (06:44→22:02)
[2017-09-22 06:57] LABS: ANION GAP 8 MEQ/L (8-16); BLOOD UREA NITROGEN 49 MG/DL (7-18); CALCIUM LEVEL 8.9 MG/DL (8.8-10.2); CARBON DIOXIDE LEVEL 30 MEQ/L (21-32); CHLORIDE LEVEL 104 MEQ/L (98-107); CREATININE FOR GFR 5.84 MG/DL (0.70-1.30); GLOMERULAR FILTRATION RATE 12.5 (>49); GLUCOSE, FASTING 95 MG/DL (70-100); POTASSIUM SERUM 4.4 MEQ/L (3.5-5.1); SODIUM LEVEL 142 MEQ/L (136-145)
[2017-09-22] MEDS: SUCRALFATE 1 GM TAB PO ×4 (09:40→20:18)
[2017-09-22] MEDS: SIMVASTATIN 10 MG TAB PO (09:40)
[2017-09-22] MEDS: APIXABAN 2.5 MG TAB (ELIQUIS) PO ×2 (09:40→20:17)
[2017-09-22] MEDS: DOXYCYCLINE HYCLATE 100 MG TAB PO ×2 (09:41→20:17)
[2017-09-22] MEDS: SENOKOT S TAB PO ×2 (09:41→20:18)
[2017-09-22] MEDS: predniSONE 20 MG TAB PO (09:41)
[2017-09-22] MEDS: GABAPENTIN 100 MG CAP PO ×3 (09:41→20:18)
[2017-09-22] MEDS: PANTOPRAZOLE 40MG TAB (PROTONIX) PO ×2 (09:41→20:17)
[2017-09-22] MEDS: MORPHINE 15 MG SA TAB PO ×2 (09:42→20:19)
[2017-09-22 15:39] LABS: IMMEDIATE SPIN CROSSMATCH 1 1
[2017-09-22] MEDS: NEPHRO-VIT TAB (NEPHROCAPS) PO (20:17)
[2017-09-22] MEDS: METOPROLOL SUCC (TopROL XL) 50MG **XL** TAB PO (20:17)
[2017-09-22] MEDS: PARoxetine 10MG TABLET PO (20:17)
[2017-09-22] MEDS: FOLIC ACID 1 MG TAB PO (20:18)
[2017-09-22] MEDS: LETROZOLE 2.5 MG TAB PO (20:18)
[2017-09-22] MEDS: DOCUSATE SODIUM 100 MG CAP PO (20:18)
[2017-09-23] MEDS: ACETAMINOPHEN TAB 650MG DOSE (2X325MG) PO ×2 (04:30→15:43)
[2017-09-23] MEDS: SLF 3 ML SYR IV ×3 (05:22→22:26)
[2017-09-23] MEDS: DOXYCYCLINE HYCLATE 100 MG TAB PO ×2 (06:19→22:43)
[2017-09-23] MEDS: APIXABAN 2.5 MG TAB (ELIQUIS) PO ×2 (06:19→22:40)
[2017-09-23] MEDS: GABAPENTIN 100 MG CAP PO ×3 (06:19→22:42)
[2017-09-23] MEDS: predniSONE 20 MG TAB PO (06:19)
[2017-09-23] MEDS: SIMVASTATIN 10 MG TAB PO (06:19)
[2017-09-23] MEDS: SENOKOT S TAB PO ×2 (06:20→22:42)
[2017-09-23] MEDS: PANTOPRAZOLE 40MG TAB (PROTONIX) PO ×2 (06:20→22:42)
[2017-09-23] MEDS: SUCRALFATE 1 GM TAB PO ×4 (06:20→22:40)
[2017-09-23] MEDS: MORPHINE 15 MG SA TAB PO ×2 (06:22→22:42)
[2017-09-23 07:34] LABS: HEMATOCRIT 29.4 % (42.0-52.0); HEMOGLOBIN 9.1 g/dl (13.5-17.5); MEAN CORPUSCULAR HEMOGLOBIN 28.5 pg (27.0-33.0); MEAN CORPUSCULAR VOLUME 92.2 fl (80.0-96.0); PLATELET COUNT, AUTOMATED 180 10^3/uL (150-450); RED BLOOD COUNT 3.19 10^6/uL (4.30-6.10); RED CELL DISTRIBUTION WIDTH 18.1 % (11.5-14.5)
[2017-09-23 07:50] LABS: ANION GAP 9 MEQ/L (8-16); BLOOD UREA NITROGEN 66 MG/DL (7-18); CALCIUM LEVEL 9.2 MG/DL (8.8-10.2); CARBON DIOXIDE LEVEL 25 MEQ/L (21-32); CHLORIDE LEVEL 104 MEQ/L (98-107); CREATININE FOR GFR 7.29 MG/DL (0.70-1.30); GLOMERULAR FILTRATION RATE 9.7 (>49); GLUCOSE, FASTING 95 MG/DL (70-100); SODIUM LEVEL 138 MEQ/L (136-145)
[2017-09-23 07:52] LABS: POTASSIUM SERUM 5.4 MEQ/L (3.5-5.1)
[2017-09-23] MEDS: LETROZOLE 2.5 MG TAB PO (22:40)
[2017-09-23] MEDS: DOCUSATE SODIUM 100 MG CAP PO (22:40)
[2017-09-23] MEDS: FOLIC ACID 1 MG TAB PO (22:41)
[2017-09-23] MEDS: PARoxetine 10MG TABLET PO (22:42)
[2017-09-23] MEDS: NEPHRO-VIT TAB (NEPHROCAPS) PO (22:42)
[2017-09-23] MEDS: METOPROLOL SUCC (TopROL XL) 50MG **XL** TAB PO (22:43)
[2017-09-24] MEDS: SLF 3 ML SYR IV (05:02)
[2017-09-24 06:37] LABS: MEAN CORPUSCULAR HEMOGLOBIN 28.7 pg (27.0-33.0); MEAN CORPUSCULAR VOLUME 95.5 fl (80.0-96.0); PLATELET COUNT, AUTOMATED 164 10^3/uL (150-450); RED BLOOD COUNT 3.14 10^6/uL (4.30-6.10); RED CELL DISTRIBUTION WIDTH 18.3 % (11.5-14.5); WHITE BLOOD COUNT 6.9 10^3/uL (4.0-10.0)
[2017-09-24 06:58] LABS: ANION GAP 8 MEQ/L (8-16); BLOOD UREA NITROGEN 43 MG/DL (7-18); CALCIUM LEVEL 8.9 MG/DL (8.8-10.2); CARBON DIOXIDE LEVEL 31 MEQ/L (21-32); CHLORIDE LEVEL 104 MEQ/L (98-107); CREATININE FOR GFR 5.19 MG/DL (0.70-1.30); GLOMERULAR FILTRATION RATE 14.4 (>49); GLUCOSE, FASTING 111 MG/DL (70-100); POTASSIUM SERUM 4.4 MEQ/L (3.5-5.1); SODIUM LEVEL 143 MEQ/L (136-145)
[2017-09-24] MEDS: SUCRALFATE 1 GM TAB PO ×4 (07:33→21:50)
[2017-09-24] MEDS: APIXABAN 2.5 MG TAB (ELIQUIS) PO ×2 (09:04→21:51)
[2017-09-24] MEDS: SENOKOT S TAB PO ×2 (09:04→21:51)
[2017-09-24] MEDS: PANTOPRAZOLE 40MG TAB (PROTONIX) PO ×2 (09:04→21:51)
[2017-09-24] MEDS: DOXYCYCLINE HYCLATE 100 MG TAB PO ×2 (09:04→21:52)
[2017-09-24] MEDS: GABAPENTIN 100 MG CAP PO ×3 (09:04→21:51)
[2017-09-24] MEDS: SIMVASTATIN 10 MG TAB PO (09:04)
[2017-09-24] MEDS: MORPHINE 15 MG SA TAB PO ×2 (09:05→21:45)
[2017-09-24] MEDS: predniSONE 20 MG TAB PO (09:05)
[2017-09-24] MEDS: ACETAMINOPHEN TAB 650MG DOSE (2X325MG) PO (13:30)
[2017-09-24] MEDS: DOCUSATE SODIUM 100 MG CAP PO (21:50)
[2017-09-24] MEDS: NEPHRO-VIT TAB (NEPHROCAPS) PO (21:51)
[2017-09-24] MEDS: FOLIC ACID 1 MG TAB PO (21:51)
[2017-09-24] MEDS: PARoxetine 10MG TABLET PO (21:51)
[2017-09-24] MEDS: LETROZOLE 2.5 MG TAB PO (21:51)
[2017-09-24] MEDS: METOPROLOL SUCC (TopROL XL) 50MG **XL** TAB PO (21:52)
[2017-09-25 06:03] LABS: HEMATOCRIT 29.4 % (42.0-52.0); MEAN CORPUSCULAR HEMOGLOBIN 28.9 pg (27.0-33.0); MEAN CORPUSCULAR HGB CONC 30.6 g/dl (32.0-36.5); MEAN CORPUSCULAR VOLUME 94.5 fl (80.0-96.0); PLATELET COUNT, AUTOMATED 158 10^3/uL (150-450); RED BLOOD COUNT 3.11 10^6/uL (4.30-6.10); RED CELL DISTRIBUTION WIDTH 18.4 % (11.5-14.5); WHITE BLOOD COUNT 7.2 10^3/uL (4.0-10.0)
[2017-09-25 06:16] LABS: ANION GAP 8 MEQ/L (8-16); BLOOD UREA NITROGEN 65 MG/DL (7-18); CALCIUM LEVEL 8.9 MG/DL (8.8-10.2); CARBON DIOXIDE LEVEL 30 MEQ/L (21-32); CHLORIDE LEVEL 104 MEQ/L (98-107); CREATININE FOR GFR 6.73 MG/DL (0.70-1.30); GLOMERULAR FILTRATION RATE 10.7 (>49); GLUCOSE, FASTING 103 MG/DL (70-100); SODIUM LEVEL 142 MEQ/L (136-145)
[2017-09-25] MEDS: SUCRALFATE 1 GM TAB PO ×4 (10:12→22:23)
[2017-09-25] MEDS: predniSONE 20 MG TAB PO (10:14)
[2017-09-25] MEDS: SIMVASTATIN 10 MG TAB PO (10:15)
[2017-09-25] MEDS: DOXYCYCLINE HYCLATE 100 MG TAB PO ×2 (10:15→22:26)
[2017-09-25] MEDS: MORPHINE 15 MG SA TAB PO ×3 (10:15→22:25)
[2017-09-25] MEDS: APIXABAN 2.5 MG TAB (ELIQUIS) PO ×2 (10:15→22:24)
[2017-09-25] MEDS: GABAPENTIN 100 MG CAP PO ×3 (10:16→22:25)
[2017-09-25] MEDS: PANTOPRAZOLE 40MG TAB (PROTONIX) PO ×2 (10:16→22:25)
[2017-09-25] MEDS: SENOKOT S TAB PO ×2 (10:16→22:26)
[2017-09-25] MEDS: ACETAMINOPHEN TAB 650MG DOSE (2X325MG) PO (12:35)
[2017-09-25] MEDS: PERCOCET 5MG/325MG TAB PO (15:00)
[2017-09-25] MEDS: DOCUSATE SODIUM 100 MG CAP PO (22:23)
[2017-09-25] MEDS: LETROZOLE 2.5 MG TAB PO (22:24)
[2017-09-25] MEDS: FOLIC ACID 1 MG TAB PO (22:24)
[2017-09-25] MEDS: NEPHRO-VIT TAB (NEPHROCAPS) PO (22:25)
[2017-09-25] MEDS: PARoxetine 10MG TABLET PO (22:25)
[2017-09-25] MEDS: METOPROLOL SUCC (TopROL XL) 50MG **XL** TAB PO (22:26)
[2017-09-26] MEDS: predniSONE 20 MG TAB PO (06:30)
[2017-09-26] MEDS: SUCRALFATE 1 GM TAB PO ×4 (06:30→21:59)
[2017-09-26] MEDS: APIXABAN 2.5 MG TAB (ELIQUIS) PO ×2 (06:32→21:59)
[2017-09-26] MEDS: DOXYCYCLINE HYCLATE 100 MG TAB PO ×2 (06:33→22:00)
[2017-09-26] MEDS: GABAPENTIN 100 MG CAP PO ×3 (06:33→21:58)
[2017-09-26] MEDS: SENOKOT S TAB PO ×2 (06:33→21:59)
[2017-09-26] MEDS: PANTOPRAZOLE 40MG TAB (PROTONIX) PO ×2 (06:33→22:00)
[2017-09-26] MEDS: SIMVASTATIN 10 MG TAB PO (06:33)
[2017-09-26] MEDS: MORPHINE 15 MG SA TAB PO ×2 (06:33→21:59)
[2017-09-26 06:58] LABS: HEMATOCRIT 31.1 % (42.0-52.0); HEMOGLOBIN 9.4 g/dl (13.5-17.5); MEAN CORPUSCULAR HEMOGLOBIN 29.1 pg (27.0-33.0); MEAN CORPUSCULAR HGB CONC 30.2 g/dl (32.0-36.5); MEAN CORPUSCULAR VOLUME 96.3 fl (80.0-96.0); PLATELET COUNT, AUTOMATED 186 10^3/uL (150-450); RED BLOOD COUNT 3.23 10^6/uL (4.30-6.10); RED CELL DISTRIBUTION WIDTH 18.6 % (11.5-14.5); WHITE BLOOD COUNT 7.6 10^3/uL (4.0-10.0)
[2017-09-26 07:17] LABS: ANION GAP 8 MEQ/L (8-16); BLOOD UREA NITROGEN 80 MG/DL (7-18); CALCIUM LEVEL 8.9 MG/DL (8.8-10.2); CARBON DIOXIDE LEVEL 30 MEQ/L (21-32); CHLORIDE LEVEL 104 MEQ/L (98-107); CREATININE FOR GFR 7.91 MG/DL (0.70-1.30); GLOMERULAR FILTRATION RATE 8.8 (>49); GLUCOSE, FASTING 94 MG/DL (70-100); POTASSIUM SERUM 4.9 MEQ/L (3.5-5.1); SODIUM LEVEL 142 MEQ/L (136-145)
[2017-09-26] MEDS ORDERED: LIDOCAINE 2% MDV 20 ML VIAL As Ordered (11:12)
[2017-09-26] MEDS ORDERED: HEPARIN 1,000 UNITS/ML 10ML VIAL (FOR RADIOLOGY& DIALYSIS ONLY) As Ordered (11:54)
[2017-09-26] MEDS: HEPARIN 1,000 UNITS/ML 10ML VIAL (FOR RADIOLOGY& DIALYSIS ONLY) XX (12:45)
[2017-09-26] MEDS: PERCOCET 5MG/325MG TAB PO (13:21)
[2017-09-26] MEDS: NEPHRO-VIT TAB (NEPHROCAPS) PO (21:58)
[2017-09-26] MEDS: PARoxetine 10MG TABLET PO (21:59)
[2017-09-26] MEDS: METOPROLOL SUCC (TopROL XL) 50MG **XL** TAB PO (21:59)
[2017-09-26] MEDS: LETROZOLE 2.5 MG TAB PO (22:00)
[2017-09-26] MEDS: DOCUSATE SODIUM 100 MG CAP PO (22:00)
[2017-09-26] MEDS: FOLIC ACID 1 MG TAB PO (22:00)
[2017-09-27] MEDS: PERCOCET 5MG/325MG TAB PO (02:49)
[2017-09-27] MEDS: GABAPENTIN 100 MG CAP PO ×3 (09:07→20:31)
[2017-09-27] MEDS: predniSONE 20 MG TAB PO (09:07)
[2017-09-27] MEDS: MORPHINE 15 MG SA TAB PO ×2 (09:07→20:31)
[2017-09-27] MEDS: SUCRALFATE 1 GM TAB PO ×4 (09:07→20:31)
[2017-09-27] MEDS: SIMVASTATIN 10 MG TAB PO (09:08)
[2017-09-27] MEDS: DOXYCYCLINE HYCLATE 100 MG TAB PO ×2 (09:08→20:32)
[2017-09-27] MEDS: PANTOPRAZOLE 40MG TAB (PROTONIX) PO ×2 (09:08→20:31)
[2017-09-27] MEDS: SENOKOT S TAB PO ×2 (09:08→20:31)
[2017-09-27] MEDS: APIXABAN 2.5 MG TAB (ELIQUIS) PO ×2 (09:08→20:31)
[2017-09-27] MEDS: LETROZOLE 2.5 MG TAB PO (20:31)
[2017-09-27] MEDS: FOLIC ACID 1 MG TAB PO (20:31)
[2017-09-27] MEDS: NEPHRO-VIT TAB (NEPHROCAPS) PO (20:31)
[2017-09-27] MEDS: DOCUSATE SODIUM 100 MG CAP PO (20:31)
[2017-09-27] MEDS: METOPROLOL SUCC (TopROL XL) 50MG **XL** TAB PO (20:32)
[2017-09-27] MEDS: PARoxetine 10MG TABLET PO (20:32)
[2017-09-28] MEDS: PERCOCET 5MG/325MG TAB PO (02:44)
[2017-09-28] MEDS: SIMVASTATIN 10 MG TAB PO (06:31)
[2017-09-28] MEDS: SUCRALFATE 1 GM TAB PO ×4 (06:31→21:03)
[2017-09-28] MEDS: SENOKOT S TAB PO ×2 (06:31→21:03)
[2017-09-28] MEDS: PANTOPRAZOLE 40MG TAB (PROTONIX) PO ×2 (06:31→21:03)
[2017-09-28] MEDS: DOXYCYCLINE HYCLATE 100 MG TAB PO ×2 (06:31→21:03)
[2017-09-28] MEDS: APIXABAN 2.5 MG TAB (ELIQUIS) PO ×2 (06:31→21:04)
[2017-09-28] MEDS: MORPHINE 15 MG SA TAB PO ×2 (06:31→21:04)
[2017-09-28] MEDS: GABAPENTIN 100 MG CAP PO ×3 (06:31→21:02)
[2017-09-28] MEDS: predniSONE 20 MG TAB PO (06:31)
[2017-09-28 06:39] LABS: ALBUMIN 2.4 GM/DL (3.2-5.2); ANION GAP 9 MEQ/L (8-16); BLOOD UREA NITROGEN 71 MG/DL (7-18); CALCIUM LEVEL 8.7 MG/DL (8.8-10.2); CARBON DIOXIDE LEVEL 26 MEQ/L (21-32); CHLORIDE LEVEL 104 MEQ/L (98-107); CREATININE FOR GFR 7.39 MG/DL (0.70-1.30); GLOMERULAR FILTRATION RATE 9.6 (>49); GLUCOSE, FASTING 111 MG/DL (70-100); PHOSPHORUS LEVEL 5.5 MG/DL (2.5-4.9); SODIUM LEVEL 139 MEQ/L (136-145)
[2017-09-28] MEDS: HEPARIN 1,000 UNITS/ML 10ML VIAL (FOR RADIOLOGY& DIALYSIS ONLY) XX (11:15)
[2017-09-28] MEDS: DOCUSATE SODIUM 100 MG CAP PO (21:02)
[2017-09-28] MEDS: METOPROLOL SUCC (TopROL XL) 50MG **XL** TAB PO (21:03)
[2017-09-28] MEDS: NEPHRO-VIT TAB (NEPHROCAPS) PO (21:03)
[2017-09-28] MEDS: LETROZOLE 2.5 MG TAB PO (21:03)
[2017-09-28] MEDS: FOLIC ACID 1 MG TAB PO (21:03)
[2017-09-28] MEDS: PARoxetine 10MG TABLET PO (21:03)
[2017-09-29 06:50] LABS: HEMATOCRIT 29.4 % (42.0-52.0); MEAN CORPUSCULAR HEMOGLOBIN 28.8 pg (27.0-33.0); MEAN CORPUSCULAR HGB CONC 30.6 g/dl (32.0-36.5); MEAN CORPUSCULAR VOLUME 93.9 fl (80.0-96.0); RED BLOOD COUNT 3.13 10^6/uL (4.30-6.10); RED CELL DISTRIBUTION WIDTH 19.4 % (11.5-14.5); WHITE BLOOD COUNT 7.2 10^3/uL (4.0-10.0)
[2017-09-29 07:07] LABS: PLATELET COUNT, AUTOMATED 93 10^3/uL (150-450)
[2017-09-29 07:08] LABS: IMMATURE PLATELET FRACTION % 3.3 % (0.0-10.9)
[2017-09-29 07:09] LABS: ALBUMIN 2.4 GM/DL (3.2-5.2); ANION GAP 8 MEQ/L (8-16); BLOOD UREA NITROGEN 52 MG/DL (7-18); CALCIUM LEVEL 8.8 MG/DL (8.8-10.2); CARBON DIOXIDE LEVEL 29 MEQ/L (21-32); CHLORIDE LEVEL 103 MEQ/L (98-107); CREATININE FOR GFR 5.63 MG/DL (0.70-1.30); GLOMERULAR FILTRATION RATE 13.1 (>49); GLUCOSE, FASTING 88 MG/DL (70-100); PHOSPHORUS LEVEL 4.8 MG/DL (2.5-4.9); SODIUM LEVEL 140 MEQ/L (136-145)
[2017-09-29] MEDS: SUCRALFATE 1 GM TAB PO ×4 (07:59→20:52)
[2017-09-29] MEDS: MORPHINE 15 MG SA TAB PO ×2 (08:38→20:54)
[2017-09-29] MEDS: DOXYCYCLINE HYCLATE 100 MG TAB PO ×2 (08:40→20:52)
[2017-09-29] MEDS: SENOKOT S TAB PO ×2 (08:40→20:53)
[2017-09-29] MEDS: APIXABAN 2.5 MG TAB (ELIQUIS) PO ×2 (08:40→20:52)
[2017-09-29] MEDS: predniSONE 20 MG TAB PO (08:40)
[2017-09-29] MEDS: PANTOPRAZOLE 40MG TAB (PROTONIX) PO ×2 (08:40→20:52)
[2017-09-29] MEDS: SIMVASTATIN 10 MG TAB PO (08:40)
[2017-09-29] MEDS: GABAPENTIN 100 MG CAP PO ×3 (08:40→20:52)
[2017-09-29] MEDS: PERCOCET 5MG/325MG TAB PO (11:55)
[2017-09-29] MEDS: DOCUSATE SODIUM 100 MG CAP PO (20:52)
[2017-09-29] MEDS: NEPHRO-VIT TAB (NEPHROCAPS) PO (20:52)
[2017-09-29] MEDS: FOLIC ACID 1 MG TAB PO (20:52)
[2017-09-29] MEDS: PARoxetine 10MG TABLET PO (20:52)
[2017-09-29] MEDS: METOPROLOL SUCC (TopROL XL) 50MG **XL** TAB PO (20:53)
[2017-09-29] MEDS: LETROZOLE 2.5 MG TAB PO (20:53)
[2017-09-30] MEDS: SUCRALFATE 1 GM TAB PO ×4 (07:50→21:04)
[2017-09-30] MEDS: DOXYCYCLINE HYCLATE 100 MG TAB PO (07:50)
[2017-09-30] MEDS: SIMVASTATIN 10 MG TAB PO (07:50)
[2017-09-30] MEDS: PANTOPRAZOLE 40MG TAB (PROTONIX) PO ×2 (07:50→21:06)
[2017-09-30] MEDS: SENOKOT S TAB PO ×2 (07:51→21:04)
[2017-09-30] MEDS: GABAPENTIN 100 MG CAP PO ×3 (07:51→21:04)
[2017-09-30] MEDS: APIXABAN 2.5 MG TAB (ELIQUIS) PO ×2 (07:51→21:05)
[2017-09-30] MEDS: predniSONE 20 MG TAB PO (07:51)
[2017-09-30] MEDS: MORPHINE 15 MG SA TAB PO ×2 (07:51→21:05)
[2017-09-30 10:27] LABS: HEMATOCRIT 30.5 % (42.0-52.0); HEMOGLOBIN 9.4 g/dl (13.5-17.5); MEAN CORPUSCULAR HEMOGLOBIN 29.3 pg (27.0-33.0); MEAN CORPUSCULAR HGB CONC 30.8 g/dl (32.0-36.5); RED BLOOD COUNT 3.21 10^6/uL (4.30-6.10); RED CELL DISTRIBUTION WIDTH 19.8 % (11.5-14.5); WHITE BLOOD COUNT 6.8 10^3/uL (4.0-10.0)
[2017-09-30] MEDS: HEPARIN 1,000 UNITS/ML 10ML VIAL (FOR RADIOLOGY& DIALYSIS ONLY) XX (10:45)
[2017-09-30 10:48] LABS: IMMATURE PLATELET FRACTION % 4.9 % (0.0-10.9); PLATELET COUNT, AUTOMATED 72 10^3/uL (150-450)
[2017-09-30 11:26] LABS: ALBUMIN 2.8 GM/DL (3.2-5.2); ANION GAP 9 MEQ/L (8-16); BLOOD UREA NITROGEN 45 MG/DL (7-18); CALCIUM LEVEL 8.8 MG/DL (8.8-10.2); CARBON DIOXIDE LEVEL 29 MEQ/L (21-32); CHLORIDE LEVEL 101 MEQ/L (98-107); CREATININE FOR GFR 5.34 MG/DL (0.70-1.30); GLOMERULAR FILTRATION RATE 13.9 (>49); GLUCOSE, FASTING 116 MG/DL (70-100); PHOSPHORUS LEVEL 4.1 MG/DL (2.5-4.9); POTASSIUM SERUM 4.1 MEQ/L (3.5-5.1); SODIUM LEVEL 139 MEQ/L (136-145)
[2017-09-30] MEDS: DOCUSATE SODIUM 100 MG CAP PO (21:04)
[2017-09-30] MEDS: NEPHRO-VIT TAB (NEPHROCAPS) PO (21:04)
[2017-09-30] MEDS: LETROZOLE 2.5 MG TAB PO (21:04)
[2017-09-30] MEDS: FOLIC ACID 1 MG TAB PO (21:04)
[2017-09-30] MEDS: PARoxetine 10MG TABLET PO (21:04)
[2017-09-30] MEDS: METOPROLOL SUCC (TopROL XL) 50MG **XL** TAB PO (21:06)
[2017-10-01 06:15] LABS: HEMATOCRIT 28.1 % (42.0-52.0); HEMOGLOBIN 8.6 g/dl (13.5-17.5); MEAN CORPUSCULAR HEMOGLOBIN 29.5 pg (27.0-33.0); MEAN CORPUSCULAR HGB CONC 30.6 g/dl (32.0-36.5); MEAN CORPUSCULAR VOLUME 96.2 fl (80.0-96.0); RED BLOOD COUNT 2.92 10^6/uL (4.30-6.10); RED CELL DISTRIBUTION WIDTH 19.6 % (11.5-14.5); WHITE BLOOD COUNT 6.7 10^3/uL (4.0-10.0)
[2017-10-01 06:17] LABS: PLATELET COUNT, AUTOMATED 84 10^3/uL (150-450)
[2017-10-01 06:33] LABS: ALBUMIN 2.4 GM/DL (3.2-5.2); ANION GAP 8 MEQ/L (8-16); BLOOD UREA NITROGEN 50 MG/DL (7-18); CALCIUM LEVEL 8.3 MG/DL (8.8-10.2); CARBON DIOXIDE LEVEL 28 MEQ/L (21-32); CHLORIDE LEVEL 104 MEQ/L (98-107); CREATININE FOR GFR 5.65 MG/DL (0.70-1.30); GLUCOSE, FASTING 96 MG/DL (70-100); PHOSPHORUS LEVEL 4.7 MG/DL (2.5-4.9); POTASSIUM SERUM 4.3 MEQ/L (3.5-5.1); SODIUM LEVEL 140 MEQ/L (136-145)
[2017-10-01] MEDS: GABAPENTIN 100 MG CAP PO ×3 (08:13→20:19)
[2017-10-01] MEDS: PANTOPRAZOLE 40MG TAB (PROTONIX) PO ×2 (08:13→20:19)
[2017-10-01] MEDS: MORPHINE 15 MG SA TAB PO ×2 (08:13→20:19)
[2017-10-01] MEDS: APIXABAN 2.5 MG TAB (ELIQUIS) PO ×3 (08:13→21:00)
[2017-10-01] MEDS: predniSONE 20 MG TAB PO (08:14)
[2017-10-01] MEDS: SENOKOT S TAB PO ×2 (08:14→20:18)
[2017-10-01] MEDS: SUCRALFATE 1 GM TAB PO ×4 (08:14→20:17)
[2017-10-01] MEDS: SIMVASTATIN 10 MG TAB PO (08:14)
[2017-10-01] MEDS: LETROZOLE 2.5 MG TAB PO (20:17)
[2017-10-01] MEDS: FOLIC ACID 1 MG TAB PO (20:18)
[2017-10-01] MEDS: DOCUSATE SODIUM 100 MG CAP PO (20:18)
[2017-10-01] MEDS: NEPHRO-VIT TAB (NEPHROCAPS) PO (20:18)
[2017-10-01] MEDS: PARoxetine 10MG TABLET PO (20:18)
[2017-10-01] MEDS: METOPROLOL SUCC (TopROL XL) 50MG **XL** TAB PO (20:26)
[2017-10-02 06:28] LABS: HEMATOCRIT 28.7 % (42.0-52.0); HEMOGLOBIN 8.8 g/dl (13.5-17.5); MEAN CORPUSCULAR HEMOGLOBIN 29.6 pg (27.0-33.0); MEAN CORPUSCULAR HGB CONC 30.7 g/dl (32.0-36.5); MEAN CORPUSCULAR VOLUME 96.6 fl (80.0-96.0); RED BLOOD COUNT 2.97 10^6/uL (4.30-6.10); RED CELL DISTRIBUTION WIDTH 19.9 % (11.5-14.5); WHITE BLOOD COUNT 5.8 10^3/uL (4.0-10.0)
[2017-10-02 06:46] LABS: ALBUMIN 2.3 GM/DL (3.2-5.2); ANION GAP 11 MEQ/L (8-16); BLOOD UREA NITROGEN 67 MG/DL (7-18); CALCIUM LEVEL 8.2 MG/DL (8.8-10.2); CARBON DIOXIDE LEVEL 23 MEQ/L (21-32); CHLORIDE LEVEL 106 MEQ/L (98-107); CREATININE FOR GFR 7.21 MG/DL (0.70-1.30); GLOMERULAR FILTRATION RATE 9.8 (>49); GLUCOSE, FASTING 120 MG/DL (70-100); PHOSPHORUS LEVEL 5.4 MG/DL (2.5-4.9); POTASSIUM SERUM 4.9 MEQ/L (3.5-5.1); SODIUM LEVEL 140 MEQ/L (136-145)
[2017-10-02 06:58] LABS: PLATELET COUNT, AUTOMATED 94 10^3/uL (150-450)
[2017-10-02 06:59] LABS: IMMATURE PLATELET FRACTION % 3.3 % (0.0-10.9)
[2017-10-02] MEDS: GABAPENTIN 100 MG CAP PO ×3 (08:22→21:35)
[2017-10-02] MEDS: SIMVASTATIN 10 MG TAB PO (08:22)
[2017-10-02] MEDS: SENOKOT S TAB PO ×2 (08:22→21:36)
[2017-10-02] MEDS: APIXABAN 2.5 MG TAB (ELIQUIS) PO ×2 (08:22→21:34)
[2017-10-02] MEDS: predniSONE 20 MG TAB PO (08:23)
[2017-10-02] MEDS: MORPHINE 15 MG SA TAB PO ×2 (08:23→21:35)
[2017-10-02] MEDS: SUCRALFATE 1 GM TAB PO ×4 (08:23→21:34)
[2017-10-02] MEDS: PANTOPRAZOLE 40MG TAB (PROTONIX) PO ×2 (08:23→21:36)
[2017-10-02] MEDS: ACETAMINOPHEN TAB 650MG DOSE (2X325MG) PO (08:24)
[2017-10-02] MEDS: LETROZOLE 2.5 MG TAB PO (21:34)
[2017-10-02] MEDS: DOCUSATE SODIUM 100 MG CAP PO (21:34)
[2017-10-02] MEDS: FOLIC ACID 1 MG TAB PO (21:35)
[2017-10-02] MEDS: NEPHRO-VIT TAB (NEPHROCAPS) PO (21:35)
[2017-10-02] MEDS: METOPROLOL SUCC (TopROL XL) 50MG **XL** TAB PO (21:36)
[2017-10-02] MEDS: PARoxetine 10MG TABLET PO (21:36)
[2017-10-03] MEDS: MORPHINE 15 MG SA TAB PO ×2 (06:11→21:56)
[2017-10-03] MEDS: SUCRALFATE 1 GM TAB PO ×5 (06:17→21:55)
[2017-10-03] MEDS: predniSONE 20 MG TAB PO (06:18)
[2017-10-03] MEDS: APIXABAN 2.5 MG TAB (ELIQUIS) PO ×2 (06:18→21:55)
[2017-10-03] MEDS: SIMVASTATIN 10 MG TAB PO (06:19)
[2017-10-03] MEDS: GABAPENTIN 100 MG CAP PO ×3 (06:19→21:55)
[2017-10-03] MEDS: PANTOPRAZOLE 40MG TAB (PROTONIX) PO ×2 (06:19→21:54)
[2017-10-03] MEDS: SENOKOT S TAB PO ×2 (06:19→21:54)
[2017-10-03 08:59] LABS: HEMATOCRIT 30.7 % (42.0-52.0); HEMOGLOBIN 9.3 g/dl (13.5-17.5); MEAN CORPUSCULAR HEMOGLOBIN 29.2 pg (27.0-33.0); MEAN CORPUSCULAR HGB CONC 30.3 g/dl (32.0-36.5); MEAN CORPUSCULAR VOLUME 96.5 fl (80.0-96.0); PLATELET COUNT, AUTOMATED 131 10^3/uL (150-450); RED BLOOD COUNT 3.18 10^6/uL (4.30-6.10); RED CELL DISTRIBUTION WIDTH 19.6 % (11.5-14.5); WHITE BLOOD COUNT 6.1 10^3/uL (4.0-10.0)
[2017-10-03 09:44] LABS: ALBUMIN 2.7 GM/DL (3.2-5.2); ANION GAP 9 MEQ/L (8-16); BLOOD UREA NITROGEN 83 MG/DL (7-18); CALCIUM LEVEL 8.8 MG/DL (8.8-10.2); CARBON DIOXIDE LEVEL 29 MEQ/L (21-32); CHLORIDE LEVEL 103 MEQ/L (98-107); GLOMERULAR FILTRATION RATE 8.2 (>49); GLUCOSE, FASTING 118 MG/DL (70-100); PHOSPHORUS LEVEL 6.5 MG/DL (2.5-4.9); SODIUM LEVEL 141 MEQ/L (136-145)
[2017-10-03 09:47] LABS: CREATININE FOR GFR 8.44 MG/DL (0.70-1.30)
[2017-10-03] MEDS: HEPARIN 1,000 UNITS/ML 10ML VIAL (FOR RADIOLOGY& DIALYSIS ONLY) XX (11:15)
[2017-10-03] MEDS: ACETAMINOPHEN TAB 650MG DOSE (2X325MG) PO (15:20)
[2017-10-03] MEDS: DOCUSATE SODIUM 100 MG CAP PO (21:54)
[2017-10-03] MEDS: LETROZOLE 2.5 MG TAB PO (21:54)
[2017-10-03] MEDS: NEPHRO-VIT TAB (NEPHROCAPS) PO (21:54)
[2017-10-03] MEDS: METOPROLOL SUCC (TopROL XL) 50MG **XL** TAB PO (21:55)
[2017-10-03] MEDS: PARoxetine 10MG TABLET PO (21:55)
[2017-10-03] MEDS: FOLIC ACID 1 MG TAB PO (21:55)
[2017-10-04] MEDS: ACETAMINOPHEN TAB 650MG DOSE (2X325MG) PO ×3 (06:46→23:27)
[2017-10-04] MEDS: SENOKOT S TAB PO ×2 (08:40→20:54)
[2017-10-04] MEDS: PANTOPRAZOLE 40MG TAB (PROTONIX) PO ×2 (08:40→20:54)
[2017-10-04] MEDS: MORPHINE 15 MG SA TAB PO ×2 (08:42→20:53)
[2017-10-04] MEDS: SIMVASTATIN 10 MG TAB PO (08:43)
[2017-10-04] MEDS: GABAPENTIN 100 MG CAP PO ×3 (08:43→20:54)
[2017-10-04] MEDS: predniSONE 20 MG TAB PO (08:43)
[2017-10-04] MEDS: SUCRALFATE 1 GM TAB PO ×4 (08:43→20:53)
[2017-10-04] MEDS: APIXABAN 2.5 MG TAB (ELIQUIS) PO ×2 (08:44→20:53)
[2017-10-04 09:08] LABS: BASO # 0.1 10^3/uL (0.0-0.2); BASO % 0.9 % (0.0-1.0); EOS # 0.2 10^3/uL (0.0-0.50); EOS % 3.5 % (0.0-3.0); HEMATOCRIT 32.3 % (42.0-52.0); HEMOGLOBIN 9.9 g/dl (13.5-17.5); IMMATURE GRANULOCYTE % 0.4 % (0-3.0); LYMPH # 1.1 10^3/uL (1.5-4.5); LYMPH % 20.7 % (24.0-44.0); MEAN CORPUSCULAR HEMOGLOBIN 28.9 pg (27.0-33.0); MEAN CORPUSCULAR HGB CONC 30.7 g/dl (32.0-36.5); MEAN CORPUSCULAR VOLUME 94.4 fl (80.0-96.0); MONO # 0.8 10^3/uL (0.0-0.8); MONO % 14.5 % (0.0-5.0); NEUTROPHILS # 3.3 10^3/uL (1.8-7.7); RED BLOOD COUNT 3.42 10^6/uL (4.30-6.10); RED CELL DISTRIBUTION WIDTH 19.7 % (11.5-14.5); WHITE BLOOD COUNT 5.5 10^3/uL (4.0-10.0)
[2017-10-04 09:09] LABS: PLATELET COUNT, AUTOMATED 87 10^3/uL (150-450)
[2017-10-04 09:11] LABS: IMMATURE PLATELET FRACTION % 4.1 % (0.0-10.9)
[2017-10-04 09:33] LABS: ALBUMIN 2.9 GM/DL (3.2-5.2); ALBUMIN/GLOBULIN RATIO 0.74 (1.00-1.93); ALKALINE PHOSPHATASE 78 U/L (45-117); ALT/SGPT 18 U/L (12-78); ANION GAP 10 MEQ/L (8-16); AST/SGOT 12 U/L (7-37); BILIRUBIN,TOTAL 0.3 MG/DL (0.2-1.0); BLOOD UREA NITROGEN 58 MG/DL (7-18); CALCIUM LEVEL 9.1 MG/DL (8.8-10.2); CARBON DIOXIDE LEVEL 27 MEQ/L (21-32); CHLORIDE LEVEL 104 MEQ/L (98-107); CREATININE FOR GFR 6.42 MG/DL (0.70-1.30); GLOMERULAR FILTRATION RATE 11.2 (>49); GLUCOSE, FASTING 97 MG/DL (70-100); MAGNESIUM LEVEL 2.3 MG/DL (1.8-2.4); PHOSPHORUS LEVEL 5.2 MG/DL (2.5-4.9); POTASSIUM SERUM 4.7 MEQ/L (3.5-5.1); SODIUM LEVEL 141 MEQ/L (136-145); TOTAL PROTEIN 6.8 GM/DL (6.4-8.2)
[2017-10-04] MEDS: FOLIC ACID 1 MG TAB PO (20:53)
[2017-10-04] MEDS: LETROZOLE 2.5 MG TAB PO (20:53)
[2017-10-04] MEDS: DOCUSATE SODIUM 100 MG CAP PO (20:53)
[2017-10-04] MEDS: NEPHRO-VIT TAB (NEPHROCAPS) PO (20:54)
[2017-10-04] MEDS: PARoxetine 10MG TABLET PO (20:54)
[2017-10-04] MEDS: METOPROLOL SUCC (TopROL XL) 50MG **XL** TAB PO (20:56)
[2017-10-05] MEDS: SUCRALFATE 1 GM TAB PO ×4 (06:22→21:50)
[2017-10-05] MEDS: predniSONE 20 MG TAB PO (06:23)
[2017-10-05] MEDS: APIXABAN 2.5 MG TAB (ELIQUIS) PO ×2 (06:23→21:50)
[2017-10-05] MEDS: PANTOPRAZOLE 40MG TAB (PROTONIX) PO ×2 (06:24→21:50)
[2017-10-05] MEDS: GABAPENTIN 100 MG CAP PO ×3 (06:24→21:50)
[2017-10-05] MEDS: MORPHINE 15 MG SA TAB PO ×2 (06:24→21:49)
[2017-10-05] MEDS: SIMVASTATIN 10 MG TAB PO (06:25)
[2017-10-05] MEDS: SENOKOT S TAB PO ×2 (06:25→21:50)
[2017-10-05] MEDS: HEPARIN 1,000 UNITS/ML 10ML VIAL (FOR RADIOLOGY& DIALYSIS ONLY) XX (09:15)
[2017-10-05 15:29] LABS: BASO % 0.3 % (0.0-1.0); EOS % 0.5 % (0.0-3.0); HEMATOCRIT 36.5 % (42.0-52.0); IMMATURE GRANULOCYTE % 0.8 % (0-3.0); LYMPH # 0.7 10^3/uL (1.5-4.5); LYMPH % 8.9 % (24.0-44.0); MEAN CORPUSCULAR HEMOGLOBIN 29.3 pg (27.0-33.0); MEAN CORPUSCULAR HGB CONC 30.1 g/dl (32.0-36.5); MEAN CORPUSCULAR VOLUME 97.3 fl (80.0-96.0); MONO # 0.5 10^3/uL (0.0-0.8); MONO % 5.7 % (0.0-5.0); NEUTROPHILS # 6.6 10^3/uL (1.8-7.7); NEUTROPHILS % 83.8 % (36.0-66.0); RED BLOOD COUNT 3.75 10^6/uL (4.30-6.10); RED CELL DISTRIBUTION WIDTH 19.9 % (11.5-14.5); WHITE BLOOD COUNT 7.9 10^3/uL (4.0-10.0)
[2017-10-05 15:30] LABS: ADD MANUAL DIFFER NO; DIFF SLIDE NUMBER 60; PLATELET COUNT, AUTOMATED 62 10^3/uL (150-450)
[2017-10-05 15:34] LABS: IMMATURE PLATELET FRACTION % 6.3 % (0.0-10.9)
[2017-10-05 15:56] LABS: ANION GAP 11 MEQ/L (8-16); BLOOD UREA NITROGEN 37 MG/DL (7-18); CALCIUM LEVEL 8.8 MG/DL (8.8-10.2); CARBON DIOXIDE LEVEL 26 MEQ/L (21-32); CHLORIDE LEVEL 102 MEQ/L (98-107); CREATININE FOR GFR 4.81 MG/DL (0.70-1.30); GLOMERULAR FILTRATION RATE 15.7 (>49); GLUCOSE, FASTING 137 MG/DL (70-100); MAGNESIUM LEVEL 1.9 MG/DL (1.8-2.4); POTASSIUM SERUM 4.1 MEQ/L (3.5-5.1); SODIUM LEVEL 139 MEQ/L (136-145)
[2017-10-05] MEDS: METOPROLOL SUCC (TopROL XL) 50MG **XL** TAB PO (21:48)
[2017-10-05] MEDS: NEPHRO-VIT TAB (NEPHROCAPS) PO (21:50)
[2017-10-05] MEDS: PARoxetine 10MG TABLET PO (21:50)
[2017-10-05] MEDS: LETROZOLE 2.5 MG TAB PO (21:50)
[2017-10-05] MEDS: FOLIC ACID 1 MG TAB PO (21:50)
[2017-10-05] MEDS: DOCUSATE SODIUM 100 MG CAP PO (21:50)
[2017-10-06] MEDS: PERCOCET 5MG/325MG TAB PO (00:35)
[2017-10-06 06:10] LABS: BASO % 0.5 % (0.0-1.0); EOS # 0.2 10^3/uL (0.0-0.50); EOS % 3.2 % (0.0-3.0); HEMATOCRIT 29.4 % (42.0-52.0); HEMOGLOBIN 9.2 g/dl (13.5-17.5); IMMATURE GRANULOCYTE % 0.3 % (0-3.0); LYMPH # 1.2 10^3/uL (1.5-4.5); MEAN CORPUSCULAR HEMOGLOBIN 29.1 pg (27.0-33.0); MEAN CORPUSCULAR HGB CONC 31.3 g/dl (32.0-36.5); MONO # 0.8 10^3/uL (0.0-0.8); NEUTROPHILS # 3.8 10^3/uL (1.8-7.7); RED BLOOD COUNT 3.16 10^6/uL (4.30-6.10); RED CELL DISTRIBUTION WIDTH 19.5 % (11.5-14.5)
[2017-10-06 06:12] LABS: PLATELET COUNT, AUTOMATED 69 10^3/uL (150-450)
[2017-10-06 06:27] LABS: ANION GAP 8 MEQ/L (8-16); BLOOD UREA NITROGEN 51 MG/DL (7-18); CALCIUM LEVEL 8.8 MG/DL (8.8-10.2); CARBON DIOXIDE LEVEL 30 MEQ/L (21-32); CHLORIDE LEVEL 103 MEQ/L (98-107); CREATININE FOR GFR 5.81 MG/DL (0.70-1.30); GLOMERULAR FILTRATION RATE 12.6 (>49); GLUCOSE, FASTING 85 MG/DL (70-100); MAGNESIUM LEVEL 1.9 MG/DL (1.8-2.4); SODIUM LEVEL 141 MEQ/L (136-145)
[2017-10-06] MEDS: SUCRALFATE 1 GM TAB PO ×4 (08:24→20:49)
[2017-10-06] MEDS: predniSONE 20 MG TAB PO (08:24)
[2017-10-06] MEDS: SIMVASTATIN 10 MG TAB PO (08:24)
[2017-10-06] MEDS: GABAPENTIN 100 MG CAP PO ×3 (08:24→20:49)
[2017-10-06] MEDS: PANTOPRAZOLE 40MG TAB (PROTONIX) PO ×2 (08:24→20:48)
[2017-10-06] MEDS: SENOKOT S TAB PO ×2 (08:24→20:50)
[2017-10-06] MEDS: APIXABAN 2.5 MG TAB (ELIQUIS) PO ×2 (08:24→20:48)
[2017-10-06] MEDS: MORPHINE 15 MG SA TAB PO ×2 (08:24→20:49)
[2017-10-06] MEDS: METOPROLOL SUCC (TopROL XL) 50MG **XL** TAB PO (20:48)
[2017-10-06] MEDS: LETROZOLE 2.5 MG TAB PO (20:48)
[2017-10-06] MEDS: FOLIC ACID 1 MG TAB PO (20:49)
[2017-10-06] MEDS: NEPHRO-VIT TAB (NEPHROCAPS) PO (20:49)
[2017-10-06] MEDS: DOCUSATE SODIUM 100 MG CAP PO (20:49)
[2017-10-06] MEDS: PARoxetine 10MG TABLET PO (20:49)
[2017-10-07] MEDS: SUCRALFATE 1 GM TAB PO ×4 (06:14→21:57)
[2017-10-07] MEDS: predniSONE 20 MG TAB PO (06:14)
[2017-10-07] MEDS: PANTOPRAZOLE 40MG TAB (PROTONIX) PO ×2 (06:14→21:58)
[2017-10-07] MEDS: GABAPENTIN 100 MG CAP PO ×3 (06:14→21:58)
[2017-10-07] MEDS: SIMVASTATIN 10 MG TAB PO (06:14)
[2017-10-07] MEDS: APIXABAN 2.5 MG TAB (ELIQUIS) PO ×2 (06:14→21:57)
[2017-10-07] MEDS: MORPHINE 15 MG SA TAB PO ×2 (06:15→21:58)
[2017-10-07] MEDS: SENOKOT S TAB PO ×2 (06:15→21:58)
[2017-10-07 07:03] LABS: BASO % 0.6 % (0.0-1.0); EOS # 0.2 10^3/uL (0.0-0.50); EOS % 3.9 % (0.0-3.0); HEMATOCRIT 31.2 % (42.0-52.0); HEMOGLOBIN 9.7 g/dl (13.5-17.5); IMMATURE GRANULOCYTE % 0.4 % (0-3.0); LYMPH # 0.9 10^3/uL (1.5-4.5); LYMPH % 16.1 % (24.0-44.0); MEAN CORPUSCULAR HEMOGLOBIN 29.4 pg (27.0-33.0); MEAN CORPUSCULAR HGB CONC 31.1 g/dl (32.0-36.5); MEAN CORPUSCULAR VOLUME 94.5 fl (80.0-96.0); MONO # 0.8 10^3/uL (0.0-0.8); MONO % 13.8 % (0.0-5.0); NEUTROPHILS # 3.6 10^3/uL (1.8-7.7); NEUTROPHILS % 65.2 % (36.0-66.0); RED CELL DISTRIBUTION WIDTH 19.9 % (11.5-14.5); WHITE BLOOD COUNT 5.5 10^3/uL (4.0-10.0)
[2017-10-07 07:05] LABS: PLATELET COUNT, AUTOMATED 93 10^3/uL (150-450)
[2017-10-07 07:06] LABS: IMMATURE PLATELET FRACTION % 4.8 % (0.0-10.9); PLATELET F 4.3
[2017-10-07 07:52] LABS: ANION GAP 10 MEQ/L (8-16); BLOOD UREA NITROGEN 65 MG/DL (7-18); CALCIUM LEVEL 8.5 MG/DL (8.8-10.2); CARBON DIOXIDE LEVEL 29 MEQ/L (21-32); CHLORIDE LEVEL 102 MEQ/L (98-107); CREATININE FOR GFR 7.06 MG/DL (0.70-1.30); GLOMERULAR FILTRATION RATE 10.1 (>49); GLUCOSE, FASTING 109 MG/DL (70-100); POTASSIUM SERUM 4.2 MEQ/L (3.5-5.1); SODIUM LEVEL 141 MEQ/L (136-145)
[2017-10-07] MEDS: HEPARIN 1,000 UNITS/ML 10ML VIAL (FOR RADIOLOGY& DIALYSIS ONLY) XX (10:00)
[2017-10-07] MEDS: ACETAMINOPHEN TAB 650MG DOSE (2X325MG) PO (12:26)
[2017-10-07] MEDS: PERCOCET 5MG/325MG TAB PO (14:32)
[2017-10-07] MEDS: LETROZOLE 2.5 MG TAB PO (21:57)
[2017-10-07] MEDS: DOCUSATE SODIUM 100 MG CAP PO (21:57)
[2017-10-07] MEDS: FOLIC ACID 1 MG TAB PO (21:57)
[2017-10-07] MEDS: PARoxetine 10MG TABLET PO (21:58)
[2017-10-07] MEDS: NEPHRO-VIT TAB (NEPHROCAPS) PO (21:58)
[2017-10-07] MEDS: METOPROLOL SUCC (TopROL XL) 50MG **XL** TAB PO (21:59)
[2017-10-08 06:09] LABS: BASO % 0.4 % (0.0-1.0); EOS # 0.2 10^3/uL (0.0-0.50); EOS % 4.2 % (0.0-3.0); HEMATOCRIT 31.8 % (42.0-52.0); HEMOGLOBIN 9.6 g/dl (13.5-17.5); IMMATURE GRANULOCYTE % 0.4 % (0-3.0); LYMPH % 20.1 % (24.0-44.0); MEAN CORPUSCULAR HEMOGLOBIN 29.4 pg (27.0-33.0); MEAN CORPUSCULAR HGB CONC 30.2 g/dl (32.0-36.5); MEAN CORPUSCULAR VOLUME 97.2 fl (80.0-96.0); MONO # 0.7 10^3/uL (0.0-0.8); MONO % 12.5 % (0.0-5.0); NEUTROPHILS # 3.2 10^3/uL (1.8-7.7); NEUTROPHILS % 62.4 % (36.0-66.0); RED BLOOD COUNT 3.27 10^6/uL (4.30-6.10); RED CELL DISTRIBUTION WIDTH 19.9 % (11.5-14.5); WHITE BLOOD COUNT 5.2 10^3/uL (4.0-10.0)
[2017-10-08 06:18] LABS: ANION GAP 10 MEQ/L (8-16); BLOOD UREA NITROGEN 44 MG/DL (7-18); CALCIUM LEVEL 8.3 MG/DL (8.8-10.2); CARBON DIOXIDE LEVEL 28 MEQ/L (21-32); CHLORIDE LEVEL 104 MEQ/L (98-107); CREATININE FOR GFR 5.67 MG/DL (0.70-1.30); GLUCOSE, FASTING 99 MG/DL (70-100); MAGNESIUM LEVEL 2.1 MG/DL (1.8-2.4); POTASSIUM SERUM 4.1 MEQ/L (3.5-5.1); SODIUM LEVEL 142 MEQ/L (136-145)
[2017-10-08 06:33] LABS: PLATELET COUNT, AUTOMATED 63 10^3/uL (150-450)
[2017-10-08] MEDS: SUCRALFATE 1 GM TAB PO ×2 (07:52→12:46)
[2017-10-08] MEDS: MORPHINE 15 MG SA TAB PO (08:36)
[2017-10-08] MEDS: SENOKOT S TAB PO (08:36)
[2017-10-08] MEDS: predniSONE 20 MG TAB PO (08:36)
[2017-10-08] MEDS: PANTOPRAZOLE 40MG TAB (PROTONIX) PO (08:36)
[2017-10-08] MEDS: GABAPENTIN 100 MG CAP PO (08:36)
[2017-10-08] MEDS: APIXABAN 2.5 MG TAB (ELIQUIS) PO (08:37)
[2017-10-08] MEDS: SIMVASTATIN 10 MG TAB PO (08:37)
== END 2017-10-08 13:25 | disposition home health service (06) | DRG 853 ==
LOC: M MSPAV 09-12 19:41 → M ED 16:51 → M ED INP 20:51 → M PCU 23:50
PROC: 0JBR0ZZ Excision of Left Foot Subcutaneous Tissue and Fascia, Open Approach (ICD-10-PCS; principal; 2017-09-20 12:33)
PROC: 5A1D70Z Performance of Urinary Filtration, Intermittent, Less than 6 Hours Per Day (ICD-10-PCS; 2017-09-20 18:07)
PROC: 02HV33Z Insertion of Infusion Device into Superior Vena Cava, Percutaneous Approach (ICD-10-PCS; 2017-09-20 18:07)
PROC: 30233N1 Transfusion of Nonautologous Red Blood Cells into Peripheral Vein, Percutaneous Approach (ICD-10-PCS; 2017-09-20 18:07)
DX: A41.9 Sepsis, unspecified organism (principal); N18.6 End stage renal disease; L03.116 Cellulitis of left lower limb; I13.2 Hypertensive heart and chronic kidney disease with heart failure and with stage 5 chronic kidney disease, or end stage renal disease; I50.32 Chronic diastolic (congestive) heart failure; F11.20 Opioid dependence, uncomplicated; C79.51 Secondary malignant neoplasm of bone; D69.3 Immune thrombocytopenic purpura; N25.81 Secondary hyperparathyroidism of renal origin; Z68.41 Body mass index [BMI] 40.0-44.9, adult; I87.1 Compression of vein; T81.72XA Complication of vein following a procedure, not elsewhere classified, initial encounter; J44.9 Chronic obstructive pulmonary disease, unspecified; G47.33 Obstructive sleep apnea (adult) (pediatric); G62.9 Polyneuropathy, unspecified; D63.1 Anemia in chronic kidney disease; E87.5 Hyperkalemia; D50.0 Iron deficiency anemia secondary to blood loss (chronic); K59.00 Constipation, unspecified; E66.01 Morbid (severe) obesity due to excess calories; I25.10 Atherosclerotic heart disease of native coronary artery without angina pectoris; M19.90 Unspecified osteoarthritis, unspecified site; K21.9 Gastro-esophageal reflux disease without esophagitis; N25.0 Renal osteodystrophy; G89.29 Other chronic pain; I73.9 Peripheral vascular disease, unspecified; R05 Cough; E83.39 Other disorders of phosphorus metabolism; Z86.718 Personal history of other venous thrombosis and embolism; Z79.01 Long term (current) use of anticoagulants; Z85.3 Personal history of malignant neoplasm of breast; Z99.2 Dependence on renal dialysis; Z79.52 Long term (current) use of systemic steroids; Z79.899 Other long term (current) drug therapy; Z88.0 Allergy status to penicillin; Z88.2 Allergy status to sulfonamides; Z88.8 Allergy status to other drugs, medicaments and biological substances; Z91.040 Latex allergy status; Z91.041 Radiographic dye allergy status; Y83.1 Surgical operation with implant of artificial internal device as the cause of abnormal reaction of the patient, or of later complication, without mention of misadventure at the time of the procedure

== ENCOUNTER 2017-10-11 21:03 | Inpatient (IN) | payer MEDICARE ==
[2017-10-11 21:47] LABS: BASO % 0.4 % (0.0-1.0); EOS # 0.3 10^3/uL (0.0-0.50); EOS % 3.7 % (0.0-3.0); HEMATOCRIT 32.2 % (42.0-52.0); HEMOGLOBIN 9.9 g/dl (13.5-17.5); IMMATURE GRANULOCYTE % 0.6 % (0-3.0); LYMPH # 0.8 10^3/uL (1.5-4.5); LYMPH % 9.1 % (24.0-44.0); MEAN CORPUSCULAR HEMOGLOBIN 28.9 pg (27.0-33.0); MEAN CORPUSCULAR HGB CONC 30.7 g/dl (32.0-36.5); MEAN CORPUSCULAR VOLUME 93.9 fl (80.0-96.0); MONO # 1.6 10^3/uL (0.0-0.8); MONO % 18.7 % (0.0-5.0); NEUTROPHILS # 5.7 10^3/uL (1.8-7.7); NEUTROPHILS % 67.5 % (36.0-66.0); PLATELET COUNT, AUTOMATED 125 10^3/uL (150-450); RED BLOOD COUNT 3.43 10^6/uL (4.30-6.10); RED CELL DISTRIBUTION WIDTH 19.2 % (11.5-14.5); WHITE BLOOD COUNT 8.5 10^3/uL (4.0-10.0)
[2017-10-11 21:55] LABS: ABG BASE EXCESS -2.8 (-2.0-2.0); ABG HCO3 24.3 MEQ/L (22.0-26.0); ABG O2 SATURATION 99.5 % (95.0-99.0); ABG PARTIAL PRESSURE CO2 53.5 mmHg (35.0-45.0); ABG PARTIAL PRESSURE O2 284.8 mmHg (75.0-100.0); ABG STANDARD HCO3 22.1 MEQ/L (22.0-26.0); ABG pH (ARTERIAL) 7.276 UNITS (7.350-7.450)
[2017-10-11 22:10] LABS: INR 1.24; PROTHROMBIN TIME 15.8 SECONDS (12.1-14.4)
[2017-10-11 22:11] LABS: PARTIAL THROMBOPLASTIN TIME 43.4 SECONDS (25.4-37.6)
[2017-10-11 22:12] LABS: LACTIC ACID SEPSIS PROTOCOL 0.8 MMOL/L (0.4-2.0)
[2017-10-11 22:15] LABS: ALBUMIN 2.6 GM/DL (3.2-5.2); ALBUMIN/GLOBULIN RATIO 0.87 (1.00-1.93); ALKALINE PHOSPHATASE 63 U/L (45-117); ALT/SGPT 22 U/L (12-78); AMYLASE 55 U/L (25-115); ANION GAP 11 MEQ/L (8-16); AST/SGOT 32 U/L (7-37); BILIRUBIN,DIRECT 0.2 MG/DL (0.0-0.2); BILIRUBIN,TOTAL 0.6 MG/DL (0.2-1.0); BLOOD UREA NITROGEN 88 MG/DL (7-18); CALCIUM LEVEL 8.6 MG/DL (8.8-10.2); CARBON DIOXIDE LEVEL 26 MEQ/L (21-32); CHLORIDE LEVEL 107 MEQ/L (98-107); CPK CREATINE PHOSPHOKINASE 803 U/L (39-308); GLOMERULAR FILTRATION RATE 5.5 (>49); GLUCOSE, FASTING 91 MG/DL (70-100); SODIUM LEVEL 144 MEQ/L (136-145); TOTAL PROTEIN 5.6 GM/DL (6.4-8.2); TROPONIN I 0.04 NG/ML (< 0.10)
[2017-10-11 22:16] LABS: CK-MB VALUE MASS 3.5 NG/ML (<3.6); MB/CK RELATIVE INDEX 0.43 (< OR =4)
[2017-10-11 22:19] LABS: POTASSIUM SERUM 5.9 MEQ/L (3.5-5.1)
[2017-10-11] MEDS: SODIUM CHLORIDE 0.9% INJ 10 ML SYR IV (22:55)
[2017-10-12] MEDS ORDERED: MIRALAX *UNIT DOSE* 17GM PACKET PO (00:15)
[2017-10-12] MEDS ORDERED: ANEXSIA, NORCO 7.5MG/325MG TABLET(HYDROCODONE/APAP) PO (00:15)
[2017-10-12 05:54] LABS: HEMATOCRIT 31.5 % (42.0-52.0); HEMOGLOBIN 9.5 g/dl (13.5-17.5); MEAN CORPUSCULAR HEMOGLOBIN 28.5 pg (27.0-33.0); MEAN CORPUSCULAR HGB CONC 30.2 g/dl (32.0-36.5); MEAN CORPUSCULAR VOLUME 94.6 fl (80.0-96.0); PLATELET COUNT, AUTOMATED 129 10^3/uL (150-450); RED BLOOD COUNT 3.33 10^6/uL (4.30-6.10); RED CELL DISTRIBUTION WIDTH 19.3 % (11.5-14.5); WHITE BLOOD COUNT 6.9 10^3/uL (4.0-10.0)
[2017-10-12 06:14] LABS: ANION GAP 12 MEQ/L (8-16); BLOOD UREA NITROGEN 93 MG/DL (7-18); CALCIUM LEVEL 8.6 MG/DL (8.8-10.2); CARBON DIOXIDE LEVEL 24 MEQ/L (21-32); CHLORIDE LEVEL 107 MEQ/L (98-107); GLOMERULAR FILTRATION RATE 5.3 (>49); GLUCOSE, FASTING 93 MG/DL (70-100); SODIUM LEVEL 143 MEQ/L (136-145)
[2017-10-12 06:19] LABS: POTASSIUM SERUM 6.3 MEQ/L (3.5-5.1)
[2017-10-12] MEDS: SODIUM CHLORIDE 0.9% INJ 10 ML SYR IV ×2 (06:20→14:00)
[2017-10-12] MEDS: IPRATROPIUM 0.5MG/ALBUTEROL 2.5MG INH SOL UD 3ML (DUONEB)(J7620) INH ×3 (07:22→19:47)
[2017-10-12] MEDS: MORPHINE 15 MG SA TAB PO ×2 (09:57→21:17)
[2017-10-12] MEDS: (RENVELA) SEVELAMER **CARBONate** 800 MG TAB PO ×3 (10:45→17:24)
[2017-10-12] MEDS: SUCRALFATE 1 GM TAB PO ×4 (10:45→21:16)
[2017-10-12] MEDS: HEPARIN 1,000 UNITS/ML 10ML VIAL (FOR RADIOLOGY& DIALYSIS ONLY) XX (13:00)
[2017-10-12] MEDS: GABAPENTIN 100 MG CAP PO ×3 (13:52→21:16)
[2017-10-12] MEDS: predniSONE 20 MG TAB PO (14:04)
[2017-10-12] MEDS: PANTOPRAZOLE 40MG TAB (PROTONIX) PO (14:04)
[2017-10-12] MEDS: APIXABAN 2.5 MG TAB (ELIQUIS) PO ×2 (14:04→21:16)
[2017-10-12] MEDS: LACTIC ACID 12% LOTION 225 GM BTL TOP ×2 (14:04→21:00)
[2017-10-12] MEDS: SIMVASTATIN 10 MG TAB PO (14:04)
[2017-10-12] MEDS: SENOKOT S TAB PO (21:16)
[2017-10-12] MEDS: NEPHRO-VIT TAB (NEPHROCAPS) PO (21:16)
[2017-10-12] MEDS: DOCUSATE SODIUM 100 MG CAP PO (21:16)
[2017-10-12] MEDS: PARoxetine 10MG TABLET PO (21:16)
[2017-10-12] MEDS: LETROZOLE 2.5 MG TAB PO (21:16)
[2017-10-12] MEDS: FOLIC ACID 1 MG TAB PO (21:17)
[2017-10-12] MEDS: METOPROLOL SUCC (TopROL XL) 50MG **XL** TAB PO (21:17)
[2017-10-13 06:28] LABS: HEMATOCRIT 30.2 % (42.0-52.0); HEMOGLOBIN 9.2 g/dl (13.5-17.5); MEAN CORPUSCULAR HEMOGLOBIN 28.8 pg (27.0-33.0); MEAN CORPUSCULAR HGB CONC 30.5 g/dl (32.0-36.5); MEAN CORPUSCULAR VOLUME 94.4 fl (80.0-96.0); PLATELET COUNT, AUTOMATED 117 10^3/uL (150-450); RED CELL DISTRIBUTION WIDTH 18.6 % (11.5-14.5); WHITE BLOOD COUNT 5.4 10^3/uL (4.0-10.0)
[2017-10-13 06:48] LABS: ANION GAP 9 MEQ/L (8-16); BLOOD UREA NITROGEN 52 MG/DL (7-18); CALCIUM LEVEL 8.6 MG/DL (8.8-10.2); CARBON DIOXIDE LEVEL 28 MEQ/L (21-32); CHLORIDE LEVEL 103 MEQ/L (98-107); CPK CREATINE PHOSPHOKINASE 264 U/L (39-308); GLOMERULAR FILTRATION RATE 8.3 (>49); GLUCOSE, FASTING 131 MG/DL (70-100); POTASSIUM SERUM 5.1 MEQ/L (3.5-5.1); SODIUM LEVEL 140 MEQ/L (136-145)
[2017-10-13 06:50] LABS: CREATININE FOR GFR 8.33 MG/DL (0.70-1.30)
[2017-10-13] MEDS: IPRATROPIUM 0.5MG/ALBUTEROL 2.5MG INH SOL UD 3ML (DUONEB)(J7620) INH ×3 (07:02→20:00)
[2017-10-13] MEDS: SIMVASTATIN 10 MG TAB PO (08:51)
[2017-10-13] MEDS: SUCRALFATE 1 GM TAB PO ×4 (08:51→21:15)
[2017-10-13] MEDS: predniSONE 20 MG TAB PO (08:51)
[2017-10-13] MEDS: GABAPENTIN 100 MG CAP PO ×3 (08:51→21:15)
[2017-10-13] MEDS: (RENVELA) SEVELAMER **CARBONate** 800 MG TAB PO ×3 (08:51→17:54)
[2017-10-13] MEDS: APIXABAN 2.5 MG TAB (ELIQUIS) PO ×2 (08:51→21:16)
[2017-10-13] MEDS: PANTOPRAZOLE 40MG TAB (PROTONIX) PO (08:51)
[2017-10-13] MEDS: MORPHINE 15 MG SA TAB PO ×2 (08:52→21:19)
[2017-10-13] MEDS: LACTIC ACID 12% LOTION 225 GM BTL TOP ×2 (08:52→21:26)
[2017-10-13] MEDS ORDERED: DARBEPOETIN 100 MCG/0.5 ML *DIALYSIS* SYRINGE (J0882) IV (09:00)
[2017-10-13] MEDS: HEPARIN 1,000 UNITS/ML 10ML VIAL (FOR RADIOLOGY& DIALYSIS ONLY) XX (12:00)
[2017-10-13] MEDS: LETROZOLE 2.5 MG TAB PO (21:14)
[2017-10-13] MEDS: NEPHRO-VIT TAB (NEPHROCAPS) PO (21:14)
[2017-10-13] MEDS: FOLIC ACID 1 MG TAB PO (21:15)
[2017-10-13] MEDS: METOPROLOL SUCC (TopROL XL) 50MG **XL** TAB PO (21:15)
[2017-10-13] MEDS: PARoxetine 10MG TABLET PO (21:15)
[2017-10-13] MEDS: DOCUSATE SODIUM 100 MG CAP PO (21:20)
[2017-10-13] MEDS: SENOKOT S TAB PO (21:20)
[2017-10-14] MEDS: (RENVELA) SEVELAMER **CARBONate** 800 MG TAB PO ×3 (06:21→16:42)
[2017-10-14] MEDS: APIXABAN 2.5 MG TAB (ELIQUIS) PO ×2 (06:21→21:14)
[2017-10-14] MEDS: LACTIC ACID 12% LOTION 225 GM BTL TOP ×2 (06:22→21:14)
[2017-10-14] MEDS: GABAPENTIN 100 MG CAP PO ×3 (06:22→21:14)
[2017-10-14] MEDS: PANTOPRAZOLE 40MG TAB (PROTONIX) PO (06:22)
[2017-10-14] MEDS: predniSONE 20 MG TAB PO (06:22)
[2017-10-14] MEDS: SIMVASTATIN 10 MG TAB PO (06:22)
[2017-10-14] MEDS: SUCRALFATE 1 GM TAB PO ×4 (06:22→21:12)
[2017-10-14] MEDS: MORPHINE 15 MG SA TAB PO ×2 (06:23→21:15)
[2017-10-14 06:29] LABS: HEMOGLOBIN 9.3 g/dl (13.5-17.5); MEAN CORPUSCULAR HEMOGLOBIN 28.4 pg (27.0-33.0); MEAN CORPUSCULAR VOLUME 94.8 fl (80.0-96.0); PLATELET COUNT, AUTOMATED 119 10^3/uL (150-450); RED BLOOD COUNT 3.27 10^6/uL (4.30-6.10); RED CELL DISTRIBUTION WIDTH 18.8 % (11.5-14.5); WHITE BLOOD COUNT 4.2 10^3/uL (4.0-10.0)
[2017-10-14 06:43] LABS: ANION GAP 9 MEQ/L (8-16); BLOOD UREA NITROGEN 28 MG/DL (7-18); CALCIUM LEVEL 8.8 MG/DL (8.8-10.2); CARBON DIOXIDE LEVEL 29 MEQ/L (21-32); CHLORIDE LEVEL 102 MEQ/L (98-107); GLOMERULAR FILTRATION RATE 13.4 (>49); GLUCOSE, FASTING 105 MG/DL (70-100); POTASSIUM SERUM 3.8 MEQ/L (3.5-5.1); SODIUM LEVEL 140 MEQ/L (136-145)
[2017-10-14] MEDS: IPRATROPIUM 0.5MG/ALBUTEROL 2.5MG INH SOL UD 3ML (DUONEB)(J7620) INH ×3 (07:04→20:59)
[2017-10-14] MEDS: HEPARIN 1,000 UNITS/ML 10ML VIAL (FOR RADIOLOGY& DIALYSIS ONLY) XX (10:00)
[2017-10-14] MEDS: ANEXSIA, NORCO 7.5MG/325MG TABLET(HYDROCODONE/APAP) PO ×2 (13:40→18:51)
[2017-10-14] MEDS: ACETAMINOPHEN TAB 650MG DOSE (2X325MG) PO (18:05)
[2017-10-14] MEDS: MORPHINE 4 MG/ML 1ML VIAL/SYRINGE (J2270) IV (18:52)
[2017-10-14 19:27] LABS: ALBUMIN 2.5 GM/DL (3.2-5.2); ALBUMIN/GLOBULIN RATIO 0.63 (1.00-1.93); ALKALINE PHOSPHATASE 65 U/L (45-117); ALT/SGPT 22 U/L (12-78); AST/SGOT 13 U/L (7-37); BILIRUBIN,DIRECT 0.1 MG/DL (0.0-0.2); BILIRUBIN,TOTAL 0.3 MG/DL (0.2-1.0); TOTAL PROTEIN 6.5 GM/DL (6.4-8.2)
[2017-10-14 19:43] LABS: LACTIC ACID SEPSIS PROTOCOL 2.2 MMOL/L (0.4-2.0)
[2017-10-14 20:19] LABS: ERYTHROCYTE SEDIMENTATION RATE 52 mm/hr (0-20)
[2017-10-14] MEDS: SENOKOT S TAB PO (21:00)
[2017-10-14] MEDS: READI-CAT 2 PO ×2 (21:06→21:58)
[2017-10-14] MEDS: LETROZOLE 2.5 MG TAB PO (21:10)
[2017-10-14] MEDS: NEPHRO-VIT TAB (NEPHROCAPS) PO (21:10)
[2017-10-14] MEDS: DOCUSATE SODIUM 100 MG CAP PO (21:10)
[2017-10-14] MEDS: METOPROLOL SUCC (TopROL XL) 50MG **XL** TAB PO (21:12)
[2017-10-14] MEDS: PARoxetine 10MG TABLET PO (21:12)
[2017-10-14] MEDS: FOLIC ACID 1 MG TAB PO (21:14)
[2017-10-15] MEDS: IPRATROPIUM 0.5MG/ALBUTEROL 2.5MG INH SOL UD 3ML (DUONEB)(J7620) INH ×3 (07:18→20:04)
[2017-10-15] MEDS: PANTOPRAZOLE 40MG TAB (PROTONIX) PO (07:44)
[2017-10-15] MEDS: APIXABAN 2.5 MG TAB (ELIQUIS) PO ×2 (07:44→20:25)
[2017-10-15] MEDS: predniSONE 20 MG TAB PO (07:44)
[2017-10-15] MEDS: GABAPENTIN 100 MG CAP PO ×3 (07:44→20:29)
[2017-10-15] MEDS: SUCRALFATE 1 GM TAB PO ×4 (07:44→20:24)
[2017-10-15] MEDS: (RENVELA) SEVELAMER **CARBONate** 800 MG TAB PO ×3 (07:44→17:00)
[2017-10-15] MEDS: VITAMIN D 50,000 UNITS CAPSULE (ERGOCALCIFEROL 1.25MG) PO (07:44)
[2017-10-15] MEDS: MORPHINE 15 MG SA TAB PO ×2 (07:45→20:26)
[2017-10-15] MEDS: SIMVASTATIN 10 MG TAB PO (07:45)
[2017-10-15] MEDS: LACTIC ACID 12% LOTION 225 GM BTL TOP ×2 (07:46→20:23)
[2017-10-15] MEDS: metroNIDAZOLE 500 MG in APPROPRIATE DILUENT 1 EA IV ×2 (10:20→17:00)
[2017-10-15] MEDS: CIPROFLOXACIN 200 MG in APPROPRIATE DILUENT 1 EA IV ×2 (11:59→23:16)
[2017-10-15] MEDS: DOCUSATE SODIUM 100 MG CAP PO (20:24)
[2017-10-15] MEDS: LETROZOLE 2.5 MG TAB PO (20:25)
[2017-10-15] MEDS: SENOKOT S TAB PO (20:25)
[2017-10-15] MEDS: PARoxetine 10MG TABLET PO (20:25)
[2017-10-15] MEDS: FOLIC ACID 1 MG TAB PO (20:25)
[2017-10-15] MEDS: NEPHRO-VIT TAB (NEPHROCAPS) PO (20:26)
[2017-10-15] MEDS: METOPROLOL SUCC (TopROL XL) 50MG **XL** TAB PO (20:29)
[2017-10-16] MEDS: metroNIDAZOLE 500 MG in APPROPRIATE DILUENT 1 EA IV ×3 (02:07→17:35)
[2017-10-16] MEDS: IPRATROPIUM 0.5MG/ALBUTEROL 2.5MG INH SOL UD 3ML (DUONEB)(J7620) INH ×3 (07:32→20:23)
[2017-10-16] MEDS: SUCRALFATE 1 GM TAB PO ×4 (07:35→21:59)
[2017-10-16] MEDS: (RENVELA) SEVELAMER **CARBONate** 800 MG TAB PO ×3 (07:35→17:35)
[2017-10-16 08:20] LABS: HEMATOCRIT 30.3 % (42.0-52.0); MEAN CORPUSCULAR HEMOGLOBIN 28.5 pg (27.0-33.0); MEAN CORPUSCULAR HGB CONC 29.7 g/dl (32.0-36.5); MEAN CORPUSCULAR VOLUME 95.9 fl (80.0-96.0); PLATELET COUNT, AUTOMATED 113 10^3/uL (150-450); RED BLOOD COUNT 3.16 10^6/uL (4.30-6.10); RED CELL DISTRIBUTION WIDTH 18.6 % (11.5-14.5)
[2017-10-16 08:40] LABS: ANION GAP 9 MEQ/L (8-16); BLOOD UREA NITROGEN 40 MG/DL (7-18); CALCIUM LEVEL 8.3 MG/DL (8.8-10.2); CARBON DIOXIDE LEVEL 28 MEQ/L (21-32); CHLORIDE LEVEL 104 MEQ/L (98-107); CREATININE FOR GFR 5.89 MG/DL (0.70-1.30); GLOMERULAR FILTRATION RATE 12.4 (>49); GLUCOSE, FASTING 126 MG/DL (70-100); SODIUM LEVEL 141 MEQ/L (136-145)
[2017-10-16] MEDS: SIMVASTATIN 10 MG TAB PO (09:02)
[2017-10-16] MEDS: APIXABAN 2.5 MG TAB (ELIQUIS) PO (09:02)
[2017-10-16] MEDS: PANTOPRAZOLE 40MG TAB (PROTONIX) PO (09:02)
[2017-10-16] MEDS: predniSONE 20 MG TAB PO (09:04)
[2017-10-16] MEDS: MORPHINE 15 MG SA TAB PO ×2 (09:04→22:01)
[2017-10-16] MEDS: GABAPENTIN 100 MG CAP PO ×3 (09:04→22:00)
[2017-10-16] MEDS: LACTIC ACID 12% LOTION 225 GM BTL TOP ×2 (09:05→22:03)
[2017-10-16] MEDS: CIPROFLOXACIN 200 MG in APPROPRIATE DILUENT 1 EA IV ×2 (11:10→22:52)
[2017-10-16] MEDS: FOLIC ACID 1 MG TAB PO (22:00)
[2017-10-16] MEDS: APIXABAN 5 MG TAB (ELIQUIS) PO (22:00)
[2017-10-16] MEDS: DOCUSATE SODIUM 100 MG CAP PO (22:00)
[2017-10-16] MEDS: LETROZOLE 2.5 MG TAB PO (22:00)
[2017-10-16] MEDS: PARoxetine 10MG TABLET PO (22:01)
[2017-10-16] MEDS: SENOKOT S TAB PO (22:02)
[2017-10-16] MEDS: NEPHRO-VIT TAB (NEPHROCAPS) PO (22:02)
[2017-10-16] MEDS: METOPROLOL SUCC (TopROL XL) 50MG **XL** TAB PO (22:02)
[2017-10-17] MEDS: metroNIDAZOLE 500 MG in APPROPRIATE DILUENT 1 EA IV (02:19)
[2017-10-17] MEDS: (RENVELA) SEVELAMER **CARBONate** 800 MG TAB PO ×3 (05:58→17:57)
[2017-10-17] MEDS: GABAPENTIN 100 MG CAP PO ×3 (05:59→21:57)
[2017-10-17] MEDS: SUCRALFATE 1 GM TAB PO ×4 (05:59→21:56)
[2017-10-17] MEDS: SIMVASTATIN 10 MG TAB PO (05:59)
[2017-10-17] MEDS: APIXABAN 5 MG TAB (ELIQUIS) PO (05:59)
[2017-10-17] MEDS: PANTOPRAZOLE 40MG TAB (PROTONIX) PO (05:59)
[2017-10-17] MEDS: predniSONE 20 MG TAB PO (05:59)
[2017-10-17] MEDS: MORPHINE 15 MG SA TAB PO ×2 (06:00→21:57)
[2017-10-17] MEDS: LACTIC ACID 12% LOTION 225 GM BTL TOP ×2 (06:01→21:58)
[2017-10-17] MEDS: IPRATROPIUM 0.5MG/ALBUTEROL 2.5MG INH SOL UD 3ML (DUONEB)(J7620) INH ×3 (07:28→19:55)
[2017-10-17 08:18] LABS: BASO % 0.4 % (0.0-1.0); EOS # 0.2 10^3/uL (0.0-0.50); EOS % 4.2 % (0.0-3.0); HEMATOCRIT 32.6 % (42.0-52.0); HEMOGLOBIN 9.7 g/dl (13.5-17.5); IMMATURE GRANULOCYTE % 0.4 % (0-3.0); LYMPH # 0.7 10^3/uL (1.5-4.5); MEAN CORPUSCULAR HEMOGLOBIN 28.6 pg (27.0-33.0); MEAN CORPUSCULAR HGB CONC 29.8 g/dl (32.0-36.5); MEAN CORPUSCULAR VOLUME 96.2 fl (80.0-96.0); MONO # 0.5 10^3/uL (0.0-0.8); NEUTROPHILS # 3.1 10^3/uL (1.8-7.7); PLATELET COUNT, AUTOMATED 126 10^3/uL (150-450); RED BLOOD COUNT 3.39 10^6/uL (4.30-6.10); RED CELL DISTRIBUTION WIDTH 18.6 % (11.5-14.5); WHITE BLOOD COUNT 4.5 10^3/uL (4.0-10.0)
[2017-10-17 08:43] LABS: ERYTHROCYTE SEDIMENTATION RATE 26 mm/hr (0-20)
[2017-10-17 08:56] LABS: ANION GAP 10 MEQ/L (8-16); BLOOD UREA NITROGEN 57 MG/DL (7-18); C REACTIVE PROTEIN QUANTITATIV 2.12 MG/DL (0.00-0.30); CALCIUM LEVEL 8.5 MG/DL (8.8-10.2); CARBON DIOXIDE LEVEL 26 MEQ/L (21-32); CHLORIDE LEVEL 104 MEQ/L (98-107); CREATININE FOR GFR 7.52 MG/DL (0.70-1.30); GLOMERULAR FILTRATION RATE 9.4 (>49); GLUCOSE, FASTING 160 MG/DL (70-100); POTASSIUM SERUM 4.7 MEQ/L (3.5-5.1); SODIUM LEVEL 140 MEQ/L (136-145)
[2017-10-17 10:06] LABS: INR 1.17; PROTHROMBIN TIME 15.1 SECONDS (12.1-14.4)
[2017-10-17] MEDS: CIPROFLOXACIN 250 MG TAB PO ×2 (10:08→17:56)
[2017-10-17] MEDS: WARFARIN SOD 5 MG TAB PO (17:56)
[2017-10-17] MEDS: metroNIDAZOLE (FLAGYL) 500 MG TAB PO ×2 (17:57→21:57)
[2017-10-17] MEDS: FOLIC ACID 1 MG TAB PO (21:56)
[2017-10-17] MEDS: LETROZOLE 2.5 MG TAB PO (21:57)
[2017-10-17] MEDS: METOPROLOL SUCC (TopROL XL) 50MG **XL** TAB PO (21:57)
[2017-10-17] MEDS: SENOKOT S TAB PO (21:57)
[2017-10-17] MEDS: PARoxetine 10MG TABLET PO (21:57)
[2017-10-17] MEDS: DOCUSATE SODIUM 100 MG CAP PO (21:57)
[2017-10-17] MEDS: NEPHRO-VIT TAB (NEPHROCAPS) PO (21:57)
[2017-10-18] MEDS: CIPROFLOXACIN 250 MG TAB PO (05:17)
[2017-10-18] MEDS: metroNIDAZOLE (FLAGYL) 500 MG TAB PO (05:17)
[2017-10-18 05:52] LABS: BASO % 0.4 % (0.0-1.0); EOS # 0.3 10^3/uL (0.0-0.50); EOS % 5.7 % (0.0-3.0); HEMATOCRIT 31.8 % (42.0-52.0); HEMOGLOBIN 9.5 g/dl (13.5-17.5); IMMATURE GRANULOCYTE % 0.4 % (0-3.0); LYMPH # 0.7 10^3/uL (1.5-4.5); LYMPH % 14.2 % (24.0-44.0); MEAN CORPUSCULAR HEMOGLOBIN 28.7 pg (27.0-33.0); MEAN CORPUSCULAR HGB CONC 29.9 g/dl (32.0-36.5); MEAN CORPUSCULAR VOLUME 96.1 fl (80.0-96.0); MONO # 0.7 10^3/uL (0.0-0.8); MONO % 14.8 % (0.0-5.0); NEUTROPHILS % 64.5 % (36.0-66.0); PLATELET COUNT, AUTOMATED 100 10^3/uL (150-450); RED BLOOD COUNT 3.31 10^6/uL (4.30-6.10); RED CELL DISTRIBUTION WIDTH 18.8 % (11.5-14.5); WHITE BLOOD COUNT 4.6 10^3/uL (4.0-10.0)
[2017-10-18 06:17] LABS: ANION GAP 7 MEQ/L (8-16); BLOOD UREA NITROGEN 38 MG/DL (7-18); CALCIUM LEVEL 8.5 MG/DL (8.8-10.2); CARBON DIOXIDE LEVEL 32 MEQ/L (21-32); CHLORIDE LEVEL 102 MEQ/L (98-107); CREATININE FOR GFR 5.23 MG/DL (0.70-1.30); GLOMERULAR FILTRATION RATE 14.3 (>49); GLUCOSE, FASTING 83 MG/DL (70-100); POTASSIUM SERUM 4.1 MEQ/L (3.5-5.1); SODIUM LEVEL 141 MEQ/L (136-145)
[2017-10-18] MEDS: SUCRALFATE 1 GM TAB PO (08:10)
[2017-10-18] MEDS: PANTOPRAZOLE 40MG TAB (PROTONIX) PO (08:12)
[2017-10-18] MEDS: predniSONE 20 MG TAB PO (08:12)
[2017-10-18] MEDS: GABAPENTIN 100 MG CAP PO (08:12)
[2017-10-18] MEDS: SIMVASTATIN 10 MG TAB PO (08:12)
[2017-10-18] MEDS: (RENVELA) SEVELAMER **CARBONate** 800 MG TAB PO (08:12)
[2017-10-18] MEDS: LACTIC ACID 12% LOTION 225 GM BTL TOP (08:13)
[2017-10-18] MEDS: IPRATROPIUM 0.5MG/ALBUTEROL 2.5MG INH SOL UD 3ML (DUONEB)(J7620) INH (08:27)
[2017-10-18] MEDS: MORPHINE 15 MG SA TAB PO (09:00)
[2017-10-18] MEDS ORDERED: WARFARIN SOD 7.5 MG TAB PO (17:00)
[2017-10-18] MEDS ORDERED: SUCRALFATE 1 GM TAB PO (17:30)
== END 2017-10-18 12:11 | disposition home health service (06) | DRG 189 ==
LOC: M ED INP 23:35 → M PCU 10-12 01:42 → M MSPAV 10-12 15:43 → M ED 21:03
PROC: 5A1D70Z Performance of Urinary Filtration, Intermittent, Less than 6 Hours Per Day (ICD-10-PCS; principal; 2017-10-13)
DX: J96.01 Acute respiratory failure with hypoxia (principal); N18.6 End stage renal disease; I50.33 Acute on chronic diastolic (congestive) heart failure; D69.3 Immune thrombocytopenic purpura; N25.81 Secondary hyperparathyroidism of renal origin; L97.528 Non-pressure chronic ulcer of other part of left foot with other specified severity; Z68.43 Body mass index [BMI] 50.0-59.9, adult; T82.868A Thrombosis due to vascular prosthetic devices, implants and grafts, initial encounter; I82.411 Acute embolism and thrombosis of right femoral vein; E87.70 Fluid overload, unspecified; E66.01 Morbid (severe) obesity due to excess calories; J44.9 Chronic obstructive pulmonary disease, unspecified; G47.33 Obstructive sleep apnea (adult) (pediatric); D63.1 Anemia in chronic kidney disease; D50.0 Iron deficiency anemia secondary to blood loss (chronic); N25.0 Renal osteodystrophy; K52.9 Noninfective gastroenteritis and colitis, unspecified; G62.9 Polyneuropathy, unspecified; E87.5 Hyperkalemia; Z99.2 Dependence on renal dialysis; Z85.3 Personal history of malignant neoplasm of breast; Z90.12 Acquired absence of left breast and nipple; Z79.891 Long term (current) use of opiate analgesic; Z87.891 Personal history of nicotine dependence; Z88.0 Allergy status to penicillin; Z88.2 Allergy status to sulfonamides; Z91.040 Latex allergy status; Z91.041 Radiographic dye allergy status; Z79.01 Long term (current) use of anticoagulants; Z79.52 Long term (current) use of systemic steroids; Z79.899 Other long term (current) drug therapy; Z86.718 Personal history of other venous thrombosis and embolism; Z99.3 Dependence on wheelchair; Y83.1 Surgical operation with implant of artificial internal device as the cause of abnormal reaction of the patient, or of later complication, without mention of misadventure at the time of the procedure

== ENCOUNTER 2017-10-19 13:14 | Emergency (ER) | payer MEDICARE | END 2017-10-19 16:22 | disposition home or self-care (01) | LOC: M ED 13:14 | DX: I95.9 Hypotension, unspecified (principal); N18.6 End stage renal disease; Z99.2 Dependence on renal dialysis; Z79.891 Long term (current) use of opiate analgesic; Z79.01 Long term (current) use of anticoagulants; Z79.899 Other long term (current) drug therapy; Z91.040 Latex allergy status; Z91.041 Radiographic dye allergy status; Z91.89 Other specified personal risk factors, not elsewhere classified; Z88.0 Allergy status to penicillin; Z88.1 Allergy status to other antibiotic agents | CPT/HCPCS: 99284 ==

== ENCOUNTER 2017-10-26 16:47 | Emergency (ER) | payer MEDICARE, MEDICAID ==
[2017-10-26 16:05] LABS: BASO # 0.1 10^3/uL (0.0-0.2); BASO % 0.8 % (0.0-1.0); EOS # 0.3 10^3/uL (0.0-0.50); EOS % 4.9 % (0.0-3.0); HEMATOCRIT 34.2 % (42.0-52.0); HEMOGLOBIN 10.3 g/dl (13.5-17.5); IMMATURE GRANULOCYTE % 0.3 % (0-3.0); LYMPH # 0.8 10^3/uL (1.5-4.5); LYMPH % 12.6 % (24.0-44.0); MEAN CORPUSCULAR HEMOGLOBIN 28.2 pg (27.0-33.0); MEAN CORPUSCULAR HGB CONC 30.1 g/dl (32.0-36.5); MEAN CORPUSCULAR VOLUME 93.7 fl (80.0-96.0); MONO # 1.4 10^3/uL (0.0-0.8); MONO % 21.4 % (0.0-5.0); NEUTROPHILS # 3.9 10^3/uL (1.8-7.7); PLATELET COUNT, AUTOMATED 103 10^3/uL (150-450); RED BLOOD COUNT 3.65 10^6/uL (4.30-6.10); RED CELL DISTRIBUTION WIDTH 18.6 % (11.5-14.5); WHITE BLOOD COUNT 6.5 10^3/uL (4.0-10.0)
[2017-10-26 16:22] LABS: LACTIC ACID SEPSIS PROTOCOL 1.3 MMOL/L (0.4-2.0)
[2017-10-26 16:24] LABS: ALBUMIN 2.6 GM/DL (3.2-5.2); ALBUMIN/GLOBULIN RATIO 0.63 (1.00-1.93); ALKALINE PHOSPHATASE 100 U/L (45-117); ALT/SGPT 12 U/L (12-78); ANION GAP 8 MEQ/L (8-16); AST/SGOT 9 U/L (7-37); BILIRUBIN,DIRECT 0.1 MG/DL (0.0-0.2); BILIRUBIN,TOTAL 0.5 MG/DL (0.2-1.0); BLOOD UREA NITROGEN 10 MG/DL (7-18); CALCIUM LEVEL 8.8 MG/DL (8.8-10.2); CARBON DIOXIDE LEVEL 31 MEQ/L (21-32); CHLORIDE LEVEL 102 MEQ/L (98-107); CK-MB VALUE MASS < 1.0 NG/ML (<3.6); CPK CREATINE PHOSPHOKINASE 22 U/L (39-308); CREATININE FOR GFR 5.23 MG/DL (0.70-1.30); GLOMERULAR FILTRATION RATE 14.3 (>49); GLUCOSE, FASTING 88 MG/DL (70-100); LIPASE 82 U/L (73-393); MB/CK RELATIVE INDEX 4.54 (< OR =4); POTASSIUM SERUM 3.8 MEQ/L (3.5-5.1); SODIUM LEVEL 141 MEQ/L (136-145); TOTAL PROTEIN 6.7 GM/DL (6.4-8.2); TROPONIN I < 0.02 NG/ML (< 0.10)
[2017-10-26 16:33] LABS: INR 1.51; PROTHROMBIN TIME 18.5 SECONDS (12.1-14.4)
== END 2017-10-26 18:59 | disposition home or self-care (01) ==
LOC: M ED 16:47
DX: I95.3 Hypotension of hemodialysis (principal); I50.9 Heart failure, unspecified; J44.9 Chronic obstructive pulmonary disease, unspecified; N18.9 Chronic kidney disease, unspecified; G47.33 Obstructive sleep apnea (adult) (pediatric); Z88.8 Allergy status to other drugs, medicaments and biological substances; Z88.1 Allergy status to other antibiotic agents; Z88.2 Allergy status to sulfonamides; Z88.0 Allergy status to penicillin; Z79.01 Long term (current) use of anticoagulants; Z79.899 Other long term (current) drug therapy

== ENCOUNTER 2017-10-28 12:58 | Inpatient (IN) | payer MEDICARE ==
[2017-10-28 15:34] LABS: BASO # 0.1 10^3/uL (0.0-0.2); BASO % 0.8 % (0.0-1.0); EOS # 0.3 10^3/uL (0.0-0.50); EOS % 5.2 % (0.0-3.0); HEMATOCRIT 34.6 % (42.0-52.0); HEMOGLOBIN 10.3 g/dl (13.5-17.5); IMMATURE GRANULOCYTE % 0.3 % (0-3.0); LYMPH % 15.7 % (24.0-44.0); MEAN CORPUSCULAR HEMOGLOBIN 27.8 pg (27.0-33.0); MEAN CORPUSCULAR HGB CONC 29.8 g/dl (32.0-36.5); MEAN CORPUSCULAR VOLUME 93.3 fl (80.0-96.0); MONO % 14.9 % (0.0-5.0); NEUTROPHILS # 4.1 10^3/uL (1.8-7.7); NEUTROPHILS % 63.1 % (36.0-66.0); PLATELET COUNT, AUTOMATED 155 10^3/uL (150-450); RED BLOOD COUNT 3.71 10^6/uL (4.30-6.10); RED CELL DISTRIBUTION WIDTH 18.8 % (11.5-14.5); WHITE BLOOD COUNT 6.5 10^3/uL (4.0-10.0)
[2017-10-28 15:52] LABS: ANION GAP 6 MEQ/L (8-16); BLOOD UREA NITROGEN 12 MG/DL (7-18); CALCIUM LEVEL 8.8 MG/DL (8.8-10.2); CARBON DIOXIDE LEVEL 32 MEQ/L (21-32); CHLORIDE LEVEL 104 MEQ/L (98-107); CREATININE FOR GFR 6.25 MG/DL (0.70-1.30); GLOMERULAR FILTRATION RATE 11.6 (>49); GLUCOSE, FASTING 91 MG/DL (70-100); POTASSIUM SERUM 3.5 MEQ/L (3.5-5.1); SODIUM LEVEL 142 MEQ/L (136-145)
[2017-10-28] MEDS: NS 500 ML IV (16:14)
[2017-10-28] MEDS ORDERED: ONDANSETRON 4 MG TAB (S0181) PO (18:00)
[2017-10-28] MEDS ORDERED: MIRALAX *UNIT DOSE* 17GM PACKET PO (18:00)
[2017-10-28] MEDS ORDERED: IPRATROPIUM 0.5MG/ALBUTEROL 2.5MG INH SOL UD 3ML (DUONEB)(J7620) INH (18:00)
[2017-10-28] MEDS: SODIUM CHLORIDE 0.9% 1000ML IV (18:00)
[2017-10-28 18:09] LABS: MAGNESIUM LEVEL 2.1 MG/DL (1.8-2.4)
[2017-10-28 18:09] LABS: C REACTIVE PROTEIN QUANTITATIV 5.69 MG/DL (0.00-0.30)
[2017-10-28 18:37] LABS: ERYTHROCYTE SEDIMENTATION RATE 57 mm/hr (0-20)
[2017-10-28 18:46] LABS: INR 2.28; PROTHROMBIN TIME 25.6 SECONDS (12.1-14.4)
[2017-10-28] MEDS: GABAPENTIN 100 MG CAP PO (21:59)
[2017-10-28] MEDS: WARFARIN SOD 7.5 MG TAB PO (21:59)
[2017-10-28] MEDS: MORPHINE 15 MG SA TAB PO (22:00)
[2017-10-28] MEDS: PANTOPRAZOLE 40MG TAB (PROTONIX) PO (22:01)
[2017-10-28] MEDS: SUCRALFATE 1 GM TAB PO (22:02)
[2017-10-28] MEDS: PARoxetine 10MG TABLET PO (22:02)
[2017-10-28] MEDS: METOPROLOL SUCC (TopROL XL) 50MG **XL** TAB PO (22:02)
[2017-10-28] MEDS: SENOKOT S TAB PO (22:02)
[2017-10-28] MEDS: FOLIC ACID 1 MG TAB PO (22:03)
[2017-10-28] MEDS: DOCUSATE SODIUM 100 MG CAP PO (22:03)
[2017-10-28] MEDS: BRIMONIDINE 0.1% OPHTH SOLN 5 ML OU (22:36)
[2017-10-28] MEDS: LETROZOLE 2.5 MG TAB PO (22:36)
[2017-10-28] MEDS: NEPHRO-VIT TAB (NEPHROCAPS) PO (22:36)
[2017-10-29 06:36] LABS: HEMATOCRIT 29.9 % (42.0-52.0); HEMOGLOBIN 8.9 g/dl (13.5-17.5); MEAN CORPUSCULAR HEMOGLOBIN 27.3 pg (27.0-33.0); MEAN CORPUSCULAR HGB CONC 29.8 g/dl (32.0-36.5); MEAN CORPUSCULAR VOLUME 91.7 fl (80.0-96.0); PLATELET COUNT, AUTOMATED 174 10^3/uL (150-450); RED BLOOD COUNT 3.26 10^6/uL (4.30-6.10); RED CELL DISTRIBUTION WIDTH 18.8 % (11.5-14.5); WHITE BLOOD COUNT 4.7 10^3/uL (4.0-10.0)
[2017-10-29 06:46] LABS: PROTHROMBIN TIME 28.4 SECONDS (12.1-14.4)
[2017-10-29 07:07] LABS: ANION GAP 9 MEQ/L (8-16); BLOOD UREA NITROGEN 15 MG/DL (7-18); CALCIUM LEVEL 8.1 MG/DL (8.8-10.2); CARBON DIOXIDE LEVEL 30 MEQ/L (21-32); CHLORIDE LEVEL 106 MEQ/L (98-107); CREATININE FOR GFR 7.03 MG/DL (0.70-1.30); GLOMERULAR FILTRATION RATE 10.1 (>49); GLUCOSE, FASTING 97 MG/DL (70-100); POTASSIUM SERUM 3.4 MEQ/L (3.5-5.1); SODIUM LEVEL 145 MEQ/L (136-145)
[2017-10-29] MEDS ORDERED: NEPHRO-VIT TAB (NEPHROCAPS) PO (09:00)
[2017-10-29] MEDS: GABAPENTIN 100 MG CAP PO ×3 (09:47→20:45)
[2017-10-29] MEDS: SIMVASTATIN 10 MG TAB PO (09:47)
[2017-10-29] MEDS: predniSONE 20 MG TAB PO (09:47)
[2017-10-29] MEDS: PANTOPRAZOLE 40MG TAB (PROTONIX) PO ×2 (09:47→20:45)
[2017-10-29] MEDS: SUCRALFATE 1 GM TAB PO ×4 (09:47→20:44)
[2017-10-29] MEDS: (RENVELA) SEVELAMER **CARBONate** 800 MG TAB PO ×3 (09:47→17:59)
[2017-10-29] MEDS: MORPHINE 15 MG SA TAB PO ×2 (09:48→20:43)
[2017-10-29] MEDS: BRIMONIDINE 0.1% OPHTH SOLN 5 ML OU ×3 (09:49→20:45)
[2017-10-29 11:34] LABS: BEDSIDE GLUCOSE 109 MG/DL (80-115)
[2017-10-29 16:30] LABS: BEDSIDE GLUCOSE 162 MG/DL (80-115)
[2017-10-29] MEDS: WARFARIN SOD 7.5 MG TAB PO (17:58)
[2017-10-29 20:13] LABS: BEDSIDE GLUCOSE 176 MG/DL (80-115)
[2017-10-29] MEDS: PARoxetine 10MG TABLET PO (20:43)
[2017-10-29] MEDS: DOCUSATE SODIUM 100 MG CAP PO (20:44)
[2017-10-29] MEDS: LETROZOLE 2.5 MG TAB PO (20:44)
[2017-10-29] MEDS: METOPROLOL SUCC *XL* 25MG TAB (TopROL *XL*) PO (20:44)
[2017-10-29] MEDS: NEPHRO-VIT TAB (NEPHROCAPS) PO (20:44)
[2017-10-29] MEDS: FOLIC ACID 1 MG TAB PO (20:45)
[2017-10-29] MEDS: SENOKOT S TAB PO (20:45)
[2017-10-30 06:31] LABS: HEMATOCRIT 30.9 % (42.0-52.0); HEMOGLOBIN 9.2 g/dl (13.5-17.5); MEAN CORPUSCULAR HEMOGLOBIN 27.5 pg (27.0-33.0); MEAN CORPUSCULAR HGB CONC 29.8 g/dl (32.0-36.5); MEAN CORPUSCULAR VOLUME 92.2 fl (80.0-96.0); PLATELET COUNT, AUTOMATED 195 10^3/uL (150-450); RED BLOOD COUNT 3.35 10^6/uL (4.30-6.10); RED CELL DISTRIBUTION WIDTH 18.7 % (11.5-14.5); WHITE BLOOD COUNT 5.3 10^3/uL (4.0-10.0)
[2017-10-30 06:47] LABS: INR 3.25; PROTHROMBIN TIME 33.9 SECONDS (12.1-14.4)
[2017-10-30 07:05] LABS: ANION GAP 9 MEQ/L (8-16); BLOOD UREA NITROGEN 24 MG/DL (7-18); CALCIUM LEVEL 8.3 MG/DL (8.8-10.2); CARBON DIOXIDE LEVEL 26 MEQ/L (21-32); CHLORIDE LEVEL 106 MEQ/L (98-107); GLUCOSE, FASTING 111 MG/DL (70-100); POTASSIUM SERUM 4.2 MEQ/L (3.5-5.1); SODIUM LEVEL 141 MEQ/L (136-145); VANCOMYCIN RANDOM 12.9 UG/ML
[2017-10-30 07:12] LABS: CREATININE FOR GFR 8.64 MG/DL (0.70-1.30)
[2017-10-30] MEDS: (RENVELA) SEVELAMER **CARBONate** 800 MG TAB PO ×3 (08:37→18:06)
[2017-10-30] MEDS: SUCRALFATE 1 GM TAB PO ×4 (08:37→21:20)
[2017-10-30] MEDS: predniSONE 20 MG TAB PO (08:37)
[2017-10-30] MEDS: MORPHINE 15 MG SA TAB PO ×2 (08:38→21:21)
[2017-10-30] MEDS: PANTOPRAZOLE 40MG TAB (PROTONIX) PO ×2 (08:39→21:20)
[2017-10-30] MEDS: GABAPENTIN 100 MG CAP PO ×3 (08:39→21:20)
[2017-10-30] MEDS: SIMVASTATIN 10 MG TAB PO (08:39)
[2017-10-30] MEDS: BRIMONIDINE 0.1% OPHTH SOLN 5 ML OU ×3 (08:42→21:22)
[2017-10-30] MEDS: VANCOMYCIN HCL 1,000 MG, VIAL MATE ADAPTER 1 EACH in D5W 250 ML IV ×2 (10:00→11:54)
[2017-10-30] MEDS ORDERED: VANCOMYCIN HCL 1,000 MG, VIAL MATE ADAPTER 1 EACH in D5W 250 ML IV (10:00)
[2017-10-30] MEDS: **VANCO AFTER HD** MISC XX (16:00)
[2017-10-30] MEDS: WARFARIN SOD 4 MG TAB PO (17:00)
[2017-10-30] MEDS: SENOKOT S TAB PO (21:20)
[2017-10-30] MEDS: PARoxetine 10MG TABLET PO (21:20)
[2017-10-30] MEDS: FOLIC ACID 1 MG TAB PO (21:20)
[2017-10-30] MEDS: NEPHRO-VIT TAB (NEPHROCAPS) PO (21:20)
[2017-10-30] MEDS: DOCUSATE SODIUM 100 MG CAP PO (21:20)
[2017-10-30] MEDS: LETROZOLE 2.5 MG TAB PO (21:20)
[2017-10-30] MEDS: METOPROLOL SUCC *XL* 25MG TAB (TopROL *XL*) PO (21:22)
[2017-10-30] MEDS: EUCERIN 120GM CREAM TOP (21:27)
[2017-10-31] MEDS: EUCERIN 120GM CREAM TOP ×2 (05:29→20:52)
[2017-10-31] MEDS: predniSONE 20 MG TAB PO (05:29)
[2017-10-31] MEDS: SIMVASTATIN 10 MG TAB PO (05:29)
[2017-10-31] MEDS: PANTOPRAZOLE 40MG TAB (PROTONIX) PO ×2 (05:29→20:50)
[2017-10-31] MEDS: GABAPENTIN 100 MG CAP PO ×3 (05:29→20:50)
[2017-10-31] MEDS: SUCRALFATE 1 GM TAB PO ×4 (05:29→20:50)
[2017-10-31] MEDS: BRIMONIDINE 0.1% OPHTH SOLN 5 ML OU ×3 (05:29→20:52)
[2017-10-31] MEDS: MORPHINE 15 MG SA TAB PO ×2 (05:30→20:52)
[2017-10-31] MEDS: (RENVELA) SEVELAMER **CARBONate** 800 MG TAB PO ×3 (07:59→18:06)
[2017-10-31] MEDS: HEPARIN 1,000 UNITS/ML 10ML VIAL (FOR RADIOLOGY& DIALYSIS ONLY) XX (10:00)
[2017-10-31] MEDS: ANEXSIA, NORCO 7.5MG/325MG TABLET(HYDROCODONE/APAP) PO (11:27)
[2017-10-31] MEDS: **VANCO AFTER HD** MISC XX (16:00)
[2017-10-31] MEDS: WARFARIN SOD 4 MG TAB PO (18:06)
[2017-10-31] MEDS: NEPHRO-VIT TAB (NEPHROCAPS) PO (20:50)
[2017-10-31] MEDS: FOLIC ACID 1 MG TAB PO (20:50)
[2017-10-31] MEDS: DOCUSATE SODIUM 100 MG CAP PO (20:50)
[2017-10-31] MEDS: LETROZOLE 2.5 MG TAB PO (20:50)
[2017-10-31] MEDS: PARoxetine 10MG TABLET PO (20:51)
[2017-10-31] MEDS: SENOKOT S TAB PO (20:51)
[2017-10-31] MEDS: METOPROLOL SUCC *XL* 25MG TAB (TopROL *XL*) PO (20:52)
[2017-11-01 06:40] LABS: HEMATOCRIT 30.9 % (42.0-52.0); HEMOGLOBIN 9.4 g/dl (13.5-17.5); MEAN CORPUSCULAR HEMOGLOBIN 27.8 pg (27.0-33.0); MEAN CORPUSCULAR HGB CONC 30.4 g/dl (32.0-36.5); MEAN CORPUSCULAR VOLUME 91.4 fl (80.0-96.0); PLATELET COUNT, AUTOMATED 116 10^3/uL (150-450); RED BLOOD COUNT 3.38 10^6/uL (4.30-6.10); RED CELL DISTRIBUTION WIDTH 18.8 % (11.5-14.5); WHITE BLOOD COUNT 4.9 10^3/uL (4.0-10.0)
[2017-11-01 06:50] LABS: INR 2.79
[2017-11-01 07:00] LABS: ANION GAP 9 MEQ/L (8-16); BLOOD UREA NITROGEN 25 MG/DL (7-18); CALCIUM LEVEL 8.2 MG/DL (8.8-10.2); CARBON DIOXIDE LEVEL 28 MEQ/L (21-32); CHLORIDE LEVEL 105 MEQ/L (98-107); CREATININE FOR GFR 6.14 MG/DL (0.70-1.30); GLOMERULAR FILTRATION RATE 11.8 (>49); GLUCOSE, FASTING 83 MG/DL (70-100); POTASSIUM SERUM 3.9 MEQ/L (3.5-5.1); SODIUM LEVEL 142 MEQ/L (136-145)
[2017-11-01] MEDS: SUCRALFATE 1 GM TAB PO ×4 (08:13→20:21)
[2017-11-01] MEDS: PANTOPRAZOLE 40MG TAB (PROTONIX) PO ×2 (08:13→20:21)
[2017-11-01] MEDS: (RENVELA) SEVELAMER **CARBONate** 800 MG TAB PO ×3 (08:13→17:02)
[2017-11-01] MEDS: MORPHINE 15 MG SA TAB PO ×2 (08:14→20:22)
[2017-11-01] MEDS: predniSONE 20 MG TAB PO (08:14)
[2017-11-01] MEDS: BRIMONIDINE 0.1% OPHTH SOLN 5 ML OU ×3 (08:14→20:24)
[2017-11-01] MEDS: SIMVASTATIN 10 MG TAB PO (08:14)
[2017-11-01] MEDS: GABAPENTIN 100 MG CAP PO ×3 (08:14→20:21)
[2017-11-01] MEDS: EUCERIN 120GM CREAM TOP ×2 (08:15→20:24)
[2017-11-01] MEDS: **VANCO AFTER HD** MISC XX (16:00)
[2017-11-01] MEDS: WARFARIN SOD 4 MG TAB PO (17:02)
[2017-11-01] MEDS: LETROZOLE 2.5 MG TAB PO (20:20)
[2017-11-01] MEDS: NEPHRO-VIT TAB (NEPHROCAPS) PO (20:21)
[2017-11-01] MEDS: FOLIC ACID 1 MG TAB PO (20:21)
[2017-11-01] MEDS: DOCUSATE SODIUM 100 MG CAP PO (20:21)
[2017-11-01] MEDS: SENOKOT S TAB PO (20:21)
[2017-11-01] MEDS: METOPROLOL SUCC *XL* 25MG TAB (TopROL *XL*) PO (20:23)
[2017-11-01] MEDS: PARoxetine 10MG TABLET PO (20:23)
[2017-11-02 06:30] LABS: HEMOGLOBIN 9.3 g/dl (13.5-17.5); MEAN CORPUSCULAR HEMOGLOBIN 27.4 pg (27.0-33.0); MEAN CORPUSCULAR VOLUME 91.4 fl (80.0-96.0); PLATELET COUNT, AUTOMATED 149 10^3/uL (150-450); RED BLOOD COUNT 3.39 10^6/uL (4.30-6.10)
[2017-11-02] MEDS: predniSONE 20 MG TAB PO (06:35)
[2017-11-02] MEDS: SIMVASTATIN 10 MG TAB PO (06:36)
[2017-11-02] MEDS: MORPHINE 15 MG SA TAB PO ×2 (06:36→20:24)
[2017-11-02] MEDS: PANTOPRAZOLE 40MG TAB (PROTONIX) PO ×2 (06:36→20:23)
[2017-11-02] MEDS: (RENVELA) SEVELAMER **CARBONate** 800 MG TAB PO ×3 (06:37→17:36)
[2017-11-02] MEDS: SUCRALFATE 1 GM TAB PO ×4 (06:37→20:23)
[2017-11-02] MEDS: GABAPENTIN 100 MG CAP PO ×3 (06:37→20:23)
[2017-11-02] MEDS: BRIMONIDINE 0.1% OPHTH SOLN 5 ML OU ×3 (06:38→20:28)
[2017-11-02] MEDS: EUCERIN 120GM CREAM TOP ×2 (06:39→20:28)
[2017-11-02 06:43] LABS: INR 2.35; PROTHROMBIN TIME 26.2 SECONDS (12.1-14.4)
[2017-11-02 06:48] LABS: ANION GAP 8 MEQ/L (8-16); BLOOD UREA NITROGEN 40 MG/DL (7-18); CALCIUM LEVEL 8.1 MG/DL (8.8-10.2); CARBON DIOXIDE LEVEL 31 MEQ/L (21-32); CHLORIDE LEVEL 103 MEQ/L (98-107); CREATININE FOR GFR 7.56 MG/DL (0.70-1.30); GLOMERULAR FILTRATION RATE 9.3 (>49); GLUCOSE, FASTING 132 MG/DL (70-100); PHOSPHORUS LEVEL 3.2 MG/DL (2.5-4.9); POTASSIUM SERUM 4.1 MEQ/L (3.5-5.1); SODIUM LEVEL 142 MEQ/L (136-145); VANCOMYCIN RANDOM 17.1 UG/ML
[2017-11-02] MEDS: HEPARIN 1,000 UNITS/ML 10ML VIAL (FOR RADIOLOGY& DIALYSIS ONLY) XX (13:00)
[2017-11-02] MEDS: WARFARIN SOD 4 MG TAB PO (17:36)
[2017-11-02] MEDS: ANEXSIA, NORCO 7.5MG/325MG TABLET(HYDROCODONE/APAP) PO (17:37)
[2017-11-02] MEDS: **VANCO AFTER HD** MISC XX (17:38)
[2017-11-02] MEDS: NEPHRO-VIT TAB (NEPHROCAPS) PO (20:23)
[2017-11-02] MEDS: DOCUSATE SODIUM 100 MG CAP PO (20:23)
[2017-11-02] MEDS: LETROZOLE 2.5 MG TAB PO (20:23)
[2017-11-02] MEDS: FOLIC ACID 1 MG TAB PO (20:23)
[2017-11-02] MEDS: PARoxetine 10MG TABLET PO (20:24)
[2017-11-02] MEDS: SENOKOT S TAB PO (20:24)
[2017-11-02] MEDS: METOPROLOL SUCC *XL* 25MG TAB (TopROL *XL*) PO (20:27)
[2017-11-03] MEDS: ACETAMINOPHEN TAB 650MG DOSE (2X325MG) PO (06:07)
[2017-11-03 06:53] LABS: HEMATOCRIT 33.5 % (42.0-52.0); HEMOGLOBIN 10.1 g/dl (13.5-17.5); MEAN CORPUSCULAR HEMOGLOBIN 27.7 pg (27.0-33.0); MEAN CORPUSCULAR HGB CONC 30.1 g/dl (32.0-36.5); PLATELET COUNT, AUTOMATED 108 10^3/uL (150-450); RED BLOOD COUNT 3.64 10^6/uL (4.30-6.10); RED CELL DISTRIBUTION WIDTH 19.2 % (11.5-14.5); WHITE BLOOD COUNT 4.9 10^3/uL (4.0-10.0)
[2017-11-03 06:59] LABS: INR 2.04; PROTHROMBIN TIME 23.4 SECONDS (12.1-14.4)
[2017-11-03 07:11] LABS: ANION GAP 6 MEQ/L (8-16); BLOOD UREA NITROGEN 28 MG/DL (7-18); CALCIUM LEVEL 8.7 MG/DL (8.8-10.2); CARBON DIOXIDE LEVEL 32 MEQ/L (21-32); CHLORIDE LEVEL 104 MEQ/L (98-107); CREATININE FOR GFR 5.64 MG/DL (0.70-1.30); GLOMERULAR FILTRATION RATE 13.1 (>49); GLUCOSE, FASTING 85 MG/DL (70-100); POTASSIUM SERUM 3.8 MEQ/L (3.5-5.1); SODIUM LEVEL 142 MEQ/L (136-145)
[2017-11-03] MEDS: GABAPENTIN 100 MG CAP PO ×3 (09:17→21:57)
[2017-11-03] MEDS: (RENVELA) SEVELAMER **CARBONate** 800 MG TAB PO ×3 (09:17→17:17)
[2017-11-03] MEDS: SUCRALFATE 1 GM TAB PO ×4 (09:17→21:58)
[2017-11-03] MEDS: PANTOPRAZOLE 40MG TAB (PROTONIX) PO ×2 (09:17→21:57)
[2017-11-03] MEDS: SIMVASTATIN 10 MG TAB PO (09:17)
[2017-11-03] MEDS: predniSONE 20 MG TAB PO (09:17)
[2017-11-03] MEDS: MORPHINE 15 MG SA TAB PO ×2 (09:18→21:59)
[2017-11-03] MEDS: EUCERIN 120GM CREAM TOP ×2 (09:18→21:59)
[2017-11-03] MEDS: BRIMONIDINE 0.1% OPHTH SOLN 5 ML OU ×3 (09:18→21:57)
[2017-11-03] MEDS: ANEXSIA, NORCO 7.5MG/325MG TABLET(HYDROCODONE/APAP) PO (11:39)
[2017-11-03] MEDS: **VANCO AFTER HD** MISC XX (16:00)
[2017-11-03] MEDS: WARFARIN SOD 4 MG TAB PO (16:31)
[2017-11-03] MEDS: DOCUSATE SODIUM 100 MG CAP PO (21:57)
[2017-11-03] MEDS: LETROZOLE 2.5 MG TAB PO (21:57)
[2017-11-03] MEDS: SENOKOT S TAB PO (21:57)
[2017-11-03] MEDS: NEPHRO-VIT TAB (NEPHROCAPS) PO (21:57)
[2017-11-03] MEDS: PARoxetine 10MG TABLET PO (21:58)
[2017-11-03] MEDS: FOLIC ACID 1 MG TAB PO (21:58)
[2017-11-03] MEDS: METOPROLOL SUCC *XL* 25MG TAB (TopROL *XL*) PO (21:58)
[2017-11-04 07:00] LABS: HEMATOCRIT 34.1 % (42.0-52.0); HEMOGLOBIN 10.2 g/dl (13.5-17.5); MEAN CORPUSCULAR HEMOGLOBIN 27.2 pg (27.0-33.0); MEAN CORPUSCULAR HGB CONC 29.9 g/dl (32.0-36.5); MEAN CORPUSCULAR VOLUME 90.9 fl (80.0-96.0); PLATELET COUNT, AUTOMATED 139 10^3/uL (150-450); RED BLOOD COUNT 3.75 10^6/uL (4.30-6.10); RED CELL DISTRIBUTION WIDTH 19.3 % (11.5-14.5); WHITE BLOOD COUNT 4.8 10^3/uL (4.0-10.0)
[2017-11-04 07:08] LABS: ANION GAP 10 MEQ/L (8-16); BLOOD UREA NITROGEN 50 MG/DL (7-18); CALCIUM LEVEL 8.8 MG/DL (8.8-10.2); CARBON DIOXIDE LEVEL 26 MEQ/L (21-32); CHLORIDE LEVEL 106 MEQ/L (98-107); CREATININE FOR GFR 7.25 MG/DL (0.70-1.30); GLOMERULAR FILTRATION RATE 9.8 (>49); GLUCOSE, FASTING 83 MG/DL (70-100); POTASSIUM SERUM 4.6 MEQ/L (3.5-5.1); SODIUM LEVEL 142 MEQ/L (136-145); VANCOMYCIN RANDOM 13.3 UG/ML
[2017-11-04 07:12] LABS: PROTHROMBIN TIME 21.2 SECONDS (12.1-14.4)
[2017-11-04] MEDS ORDERED: VANCOMYCIN HCL 500 MG in D5W MINI-BAG PLUS 100 ML IV (07:30)
[2017-11-04] MEDS: (RENVELA) SEVELAMER **CARBONate** 800 MG TAB PO ×3 (07:34→17:15)
[2017-11-04] MEDS: PANTOPRAZOLE 40MG TAB (PROTONIX) PO ×2 (07:35→21:15)
[2017-11-04] MEDS: SUCRALFATE 1 GM TAB PO ×4 (07:35→21:15)
[2017-11-04] MEDS: SIMVASTATIN 10 MG TAB PO (07:36)
[2017-11-04] MEDS: MORPHINE 15 MG SA TAB PO ×2 (07:36→21:16)
[2017-11-04] MEDS: predniSONE 20 MG TAB PO (07:36)
[2017-11-04] MEDS: GABAPENTIN 100 MG CAP PO ×3 (07:36→21:15)
[2017-11-04] MEDS: BRIMONIDINE 0.1% OPHTH SOLN 5 ML OU ×3 (07:36→21:17)
[2017-11-04] MEDS: EUCERIN 120GM CREAM TOP ×2 (07:37→21:17)
[2017-11-04] MEDS: **VANCO AFTER HD** MISC XX (16:00)
[2017-11-04] MEDS: WARFARIN SOD 4 MG TAB PO (17:15)
[2017-11-04] MEDS: SENOKOT S TAB PO (21:14)
[2017-11-04] MEDS: PARoxetine 10MG TABLET PO (21:14)
[2017-11-04] MEDS: DOCUSATE SODIUM 100 MG CAP PO (21:15)
[2017-11-04] MEDS: NEPHRO-VIT TAB (NEPHROCAPS) PO (21:15)
[2017-11-04] MEDS: LETROZOLE 2.5 MG TAB PO (21:15)
[2017-11-04] MEDS: FOLIC ACID 1 MG TAB PO (21:15)
[2017-11-04] MEDS: METOPROLOL SUCC *XL* 25MG TAB (TopROL *XL*) PO (21:17)
[2017-11-05 08:40] LABS: BASO % 0.6 % (0.0-1.0); EOS # 0.1 10^3/uL (0.0-0.50); EOS % 2.8 % (0.0-3.0); HEMATOCRIT 33.6 % (42.0-52.0); IMMATURE GRANULOCYTE % 0.4 % (0-3.0); LYMPH # 1.3 10^3/uL (1.5-4.5); LYMPH % 27.2 % (24.0-44.0); MEAN CORPUSCULAR HEMOGLOBIN 27.2 pg (27.0-33.0); MEAN CORPUSCULAR HGB CONC 29.8 g/dl (32.0-36.5); MEAN CORPUSCULAR VOLUME 91.6 fl (80.0-96.0); MONO # 0.6 10^3/uL (0.0-0.8); MONO % 12.8 % (0.0-5.0); NEUTROPHILS # 2.6 10^3/uL (1.8-7.7); NEUTROPHILS % 56.2 % (36.0-66.0); PLATELET COUNT, AUTOMATED 102 10^3/uL (150-450); RED BLOOD COUNT 3.67 10^6/uL (4.30-6.10); RED CELL DISTRIBUTION WIDTH 19.3 % (11.5-14.5); WHITE BLOOD COUNT 4.7 10^3/uL (4.0-10.0)
[2017-11-05 08:49] LABS: INR 1.86; PROTHROMBIN TIME 21.8 SECONDS (12.1-14.4)
[2017-11-05] MEDS ORDERED: DIAPER RELIEF PASTE (DESITIN) 60GM TOP (09:00)
[2017-11-05 09:02] LABS: ANION GAP 10 MEQ/L (8-16); BLOOD UREA NITROGEN 36 MG/DL (7-18); CALCIUM LEVEL 8.9 MG/DL (8.8-10.2); CARBON DIOXIDE LEVEL 28 MEQ/L (21-32); CHLORIDE LEVEL 102 MEQ/L (98-107); CREATININE FOR GFR 5.58 MG/DL (0.70-1.30); GLOMERULAR FILTRATION RATE 13.2 (>49); GLUCOSE, FASTING 96 MG/DL (70-100); MAGNESIUM LEVEL 2.2 MG/DL (1.8-2.4); POTASSIUM SERUM 4.1 MEQ/L (3.5-5.1); SODIUM LEVEL 140 MEQ/L (136-145)
[2017-11-05] MEDS: SIMVASTATIN 10 MG TAB PO (09:23)
[2017-11-05] MEDS: predniSONE 20 MG TAB PO (09:23)
[2017-11-05] MEDS: SUCRALFATE 1 GM TAB PO ×4 (09:23→21:02)
[2017-11-05] MEDS: GABAPENTIN 100 MG CAP PO ×3 (09:23→21:01)
[2017-11-05] MEDS: (RENVELA) SEVELAMER **CARBONate** 800 MG TAB PO ×3 (09:23→18:00)
[2017-11-05] MEDS: PANTOPRAZOLE 40MG TAB (PROTONIX) PO ×2 (09:23→21:01)
[2017-11-05] MEDS: MORPHINE 15 MG SA TAB PO ×2 (09:24→21:03)
[2017-11-05] MEDS: BRIMONIDINE 0.1% OPHTH SOLN 5 ML OU ×3 (09:26→21:03)
[2017-11-05] MEDS: EUCERIN 120GM CREAM TOP ×2 (09:26→21:03)
[2017-11-05] MEDS: WARFARIN SOD 4 MG TAB PO (18:00)
[2017-11-05] MEDS: METOPROLOL SUCC *XL* 25MG TAB (TopROL *XL*) PO (21:00)
[2017-11-05] MEDS: LETROZOLE 2.5 MG TAB PO (21:01)
[2017-11-05] MEDS: DOCUSATE SODIUM 100 MG CAP PO (21:01)
[2017-11-05] MEDS: FOLIC ACID 1 MG TAB PO (21:01)
[2017-11-05] MEDS: NEPHRO-VIT TAB (NEPHROCAPS) PO (21:02)
[2017-11-05] MEDS: SENOKOT S TAB PO (21:02)
[2017-11-05] MEDS: PARoxetine 10MG TABLET PO (21:02)
[2017-11-06 06:53] LABS: HEMATOCRIT 33.9 % (42.0-52.0); HEMOGLOBIN 10.2 g/dl (13.5-17.5); MEAN CORPUSCULAR HEMOGLOBIN 27.5 pg (27.0-33.0); MEAN CORPUSCULAR HGB CONC 30.1 g/dl (32.0-36.5); MEAN CORPUSCULAR VOLUME 91.4 fl (80.0-96.0); PLATELET COUNT, AUTOMATED 128 10^3/uL (150-450); RED BLOOD COUNT 3.71 10^6/uL (4.30-6.10); RED CELL DISTRIBUTION WIDTH 19.5 % (11.5-14.5); WHITE BLOOD COUNT 5.2 10^3/uL (4.0-10.0)
[2017-11-06 07:03] LABS: INR 1.88; PROTHROMBIN TIME 21.9 SECONDS (12.1-14.4)
[2017-11-06 07:18] LABS: ANION GAP 10 MEQ/L (8-16); BLOOD UREA NITROGEN 56 MG/DL (7-18); CALCIUM LEVEL 8.6 MG/DL (8.8-10.2); CARBON DIOXIDE LEVEL 28 MEQ/L (21-32); CHLORIDE LEVEL 102 MEQ/L (98-107); GLOMERULAR FILTRATION RATE 10.2 (>49); GLUCOSE, FASTING 93 MG/DL (70-100); MAGNESIUM LEVEL 2.2 MG/DL (1.8-2.4); POTASSIUM SERUM 4.8 MEQ/L (3.5-5.1); SODIUM LEVEL 140 MEQ/L (136-145)
[2017-11-06] MEDS ORDERED: DARBEPOETIN 100 MCG/0.5 ML *DIALYSIS* SYRINGE (J0882) IV (08:00)
[2017-11-06] MEDS: GABAPENTIN 100 MG CAP PO ×3 (09:20→20:02)
[2017-11-06] MEDS: predniSONE 20 MG TAB PO (09:20)
[2017-11-06] MEDS: MORPHINE 15 MG SA TAB PO ×2 (09:22→20:03)
[2017-11-06] MEDS: (RENVELA) SEVELAMER **CARBONate** 800 MG TAB PO ×3 (09:23→17:30)
[2017-11-06] MEDS: PANTOPRAZOLE 40MG TAB (PROTONIX) PO ×2 (09:23→20:02)
[2017-11-06] MEDS: SIMVASTATIN 10 MG TAB PO (09:23)
[2017-11-06] MEDS: SUCRALFATE 1 GM TAB PO ×4 (09:23→20:02)
[2017-11-06] MEDS: BRIMONIDINE 0.1% OPHTH SOLN 5 ML OU ×3 (09:24→20:08)
[2017-11-06] MEDS: EUCERIN 120GM CREAM TOP ×2 (09:24→20:03)
[2017-11-06] MEDS: WARFARIN SOD 4 MG TAB PO (17:29)
[2017-11-06] MEDS: NEPHRO-VIT TAB (NEPHROCAPS) PO (20:01)
[2017-11-06] MEDS: PARoxetine 10MG TABLET PO (20:02)
[2017-11-06] MEDS: SENOKOT S TAB PO (20:02)
[2017-11-06] MEDS: DOCUSATE SODIUM 100 MG CAP PO (20:02)
[2017-11-06] MEDS: FOLIC ACID 1 MG TAB PO (20:02)
[2017-11-06] MEDS: ANEXSIA, NORCO 7.5MG/325MG TABLET(HYDROCODONE/APAP) PO (20:03)
[2017-11-06] MEDS: LETROZOLE 2.5 MG TAB PO (20:04)
[2017-11-06] MEDS: METOPROLOL SUCC *XL* 25MG TAB (TopROL *XL*) PO (20:07)
[2017-11-07] MEDS: SUCRALFATE 1 GM TAB PO ×2 (06:27→22:18)
[2017-11-07] MEDS: PANTOPRAZOLE 40MG TAB (PROTONIX) PO ×2 (06:27→22:18)
[2017-11-07] MEDS: predniSONE 20 MG TAB PO (06:27)
[2017-11-07] MEDS: GABAPENTIN 100 MG CAP PO ×3 (06:27→22:18)
[2017-11-07] MEDS: SIMVASTATIN 10 MG TAB PO (06:28)
[2017-11-07] MEDS: BRIMONIDINE 0.1% OPHTH SOLN 5 ML OU ×3 (06:28→22:14)
[2017-11-07] MEDS: MORPHINE 15 MG SA TAB PO ×2 (06:28→22:16)
[2017-11-07] MEDS: (RENVELA) SEVELAMER **CARBONate** 800 MG TAB PO ×3 (06:28→18:33)
[2017-11-07] MEDS: EUCERIN 120GM CREAM TOP ×2 (06:29→22:14)
[2017-11-07 07:28] LABS: HEMOGLOBIN 10.2 g/dl (13.5-17.5); MEAN CORPUSCULAR HEMOGLOBIN 27.5 pg (27.0-33.0); MEAN CORPUSCULAR VOLUME 91.6 fl (80.0-96.0); PLATELET COUNT, AUTOMATED 150 10^3/uL (150-450); RED BLOOD COUNT 3.71 10^6/uL (4.30-6.10); RED CELL DISTRIBUTION WIDTH 19.5 % (11.5-14.5)
[2017-11-07 07:32] LABS: INR 1.44; PROTHROMBIN TIME 17.7 SECONDS (12.1-14.4)
[2017-11-07 07:40] LABS: ANION GAP 8 MEQ/L (8-16); BLOOD UREA NITROGEN 72 MG/DL (7-18); CARBON DIOXIDE LEVEL 28 MEQ/L (21-32); CHLORIDE LEVEL 102 MEQ/L (98-107); GLOMERULAR FILTRATION RATE 8.3 (>49); GLUCOSE, FASTING 86 MG/DL (70-100); MAGNESIUM LEVEL 2.3 MG/DL (1.8-2.4); SODIUM LEVEL 138 MEQ/L (136-145)
[2017-11-07 07:47] LABS: CREATININE FOR GFR 8.33 MG/DL (0.70-1.30); POTASSIUM SERUM 5.3 MEQ/L (3.5-5.1)
[2017-11-07] MEDS: HEPARIN 1,000 UNITS/ML 10ML VIAL (FOR RADIOLOGY& DIALYSIS ONLY) XX (10:30)
[2017-11-07] MEDS: ANEXSIA, NORCO 7.5MG/325MG TABLET(HYDROCODONE/APAP) PO (14:15)
[2017-11-07] MEDS: WARFARIN SOD 4 MG TAB PO (18:32)
[2017-11-07] MEDS: FOLIC ACID 1 MG TAB PO (22:15)
[2017-11-07] MEDS: LETROZOLE 2.5 MG TAB PO (22:17)
[2017-11-07] MEDS: SENOKOT S TAB PO (22:17)
[2017-11-07] MEDS: DOCUSATE SODIUM 100 MG CAP PO (22:17)
[2017-11-07] MEDS: PARoxetine 10MG TABLET PO (22:18)
[2017-11-07] MEDS: NEPHRO-VIT TAB (NEPHROCAPS) PO (22:18)
[2017-11-07] MEDS: METOPROLOL SUCC *XL* 25MG TAB (TopROL *XL*) PO (22:20)
[2017-11-08 07:07] LABS: HEMATOCRIT 34.8 % (42.0-52.0); HEMOGLOBIN 10.4 g/dl (13.5-17.5); MEAN CORPUSCULAR HEMOGLOBIN 27.7 pg (27.0-33.0); MEAN CORPUSCULAR HGB CONC 29.9 g/dl (32.0-36.5); MEAN CORPUSCULAR VOLUME 92.6 fl (80.0-96.0); PLATELET COUNT, AUTOMATED 117 10^3/uL (150-450); RED BLOOD COUNT 3.76 10^6/uL (4.30-6.10); RED CELL DISTRIBUTION WIDTH 19.7 % (11.5-14.5); WHITE BLOOD COUNT 5.4 10^3/uL (4.0-10.0)
[2017-11-08 07:09] LABS: ANION GAP 9 MEQ/L (8-16); BLOOD UREA NITROGEN 51 MG/DL (7-18); CALCIUM LEVEL 8.7 MG/DL (8.8-10.2); CARBON DIOXIDE LEVEL 29 MEQ/L (21-32); CHLORIDE LEVEL 103 MEQ/L (98-107); CREATININE FOR GFR 6.22 MG/DL (0.70-1.30); GLOMERULAR FILTRATION RATE 11.7 (>49); GLUCOSE, FASTING 73 MG/DL (70-100); MAGNESIUM LEVEL 2.3 MG/DL (1.8-2.4); POTASSIUM SERUM 4.3 MEQ/L (3.5-5.1); SODIUM LEVEL 141 MEQ/L (136-145)
[2017-11-08 07:11] LABS: INR 1.33; PROTHROMBIN TIME 16.7 SECONDS (12.1-14.4)
[2017-11-08] MEDS: (RENVELA) SEVELAMER **CARBONate** 800 MG TAB PO ×3 (08:09→16:50)
[2017-11-08] MEDS: PANTOPRAZOLE 40MG TAB (PROTONIX) PO ×2 (08:10→21:03)
[2017-11-08] MEDS: GABAPENTIN 100 MG CAP PO ×3 (08:10→21:03)
[2017-11-08] MEDS: SIMVASTATIN 10 MG TAB PO (08:10)
[2017-11-08] MEDS: predniSONE 20 MG TAB PO (08:10)
[2017-11-08] MEDS: SUCRALFATE 1 GM TAB PO ×2 (08:10→21:02)
[2017-11-08] MEDS: MORPHINE 15 MG SA TAB PO ×2 (08:11→21:08)
[2017-11-08] MEDS: BRIMONIDINE 0.1% OPHTH SOLN 5 ML OU ×3 (08:12→21:08)
[2017-11-08] MEDS: EUCERIN 120GM CREAM TOP ×2 (08:12→21:02)
[2017-11-08] MEDS: WARFARIN SOD 7.5 MG TAB PO (16:50)
[2017-11-08] MEDS: DOCUSATE SODIUM 100 MG CAP PO (21:02)
[2017-11-08] MEDS: FOLIC ACID 1 MG TAB PO (21:02)
[2017-11-08] MEDS: LETROZOLE 2.5 MG TAB PO (21:03)
[2017-11-08] MEDS: NEPHRO-VIT TAB (NEPHROCAPS) PO (21:03)
[2017-11-08] MEDS: SENOKOT S TAB PO (21:03)
[2017-11-08] MEDS: METOPROLOL SUCC *XL* 25MG TAB (TopROL *XL*) PO (21:06)
[2017-11-08] MEDS: PARoxetine 10MG TABLET PO (21:08)
[2017-11-09] MEDS: SIMVASTATIN 10 MG TAB PO (05:55)
[2017-11-09] MEDS: PANTOPRAZOLE 40MG TAB (PROTONIX) PO ×2 (05:55→20:50)
[2017-11-09] MEDS: SUCRALFATE 1 GM TAB PO ×2 (05:55→20:50)
[2017-11-09] MEDS: (RENVELA) SEVELAMER **CARBONate** 800 MG TAB PO ×3 (05:55→17:04)
[2017-11-09] MEDS: predniSONE 20 MG TAB PO (05:57)
[2017-11-09] MEDS: MORPHINE 15 MG SA TAB PO ×2 (05:57→20:50)
[2017-11-09] MEDS: GABAPENTIN 100 MG CAP PO ×3 (05:57→20:50)
[2017-11-09] MEDS: EUCERIN 120GM CREAM TOP ×2 (05:58→20:51)
[2017-11-09] MEDS: BRIMONIDINE 0.1% OPHTH SOLN 5 ML OU ×3 (05:58→20:50)
[2017-11-09 08:24] LABS: HEMATOCRIT 34.8 % (42.0-52.0); HEMOGLOBIN 10.4 g/dl (13.5-17.5); MEAN CORPUSCULAR HEMOGLOBIN 27.6 pg (27.0-33.0); MEAN CORPUSCULAR HGB CONC 29.9 g/dl (32.0-36.5); MEAN CORPUSCULAR VOLUME 92.3 fl (80.0-96.0); PLATELET COUNT, AUTOMATED 134 10^3/uL (150-450); RED BLOOD COUNT 3.77 10^6/uL (4.30-6.10); RED CELL DISTRIBUTION WIDTH 19.9 % (11.5-14.5); WHITE BLOOD COUNT 5.1 10^3/uL (4.0-10.0)
[2017-11-09 08:33] LABS: PROTHROMBIN TIME 16.4 SECONDS (12.1-14.4)
[2017-11-09 08:40] LABS: ANION GAP 10 MEQ/L (8-16); BLOOD UREA NITROGEN 73 MG/DL (7-18); CALCIUM LEVEL 8.6 MG/DL (8.8-10.2); CARBON DIOXIDE LEVEL 29 MEQ/L (21-32); CHLORIDE LEVEL 103 MEQ/L (98-107); GLOMERULAR FILTRATION RATE 9.1 (>49); GLUCOSE, FASTING 103 MG/DL (70-100); MAGNESIUM LEVEL 2.4 MG/DL (1.8-2.4); POTASSIUM SERUM 4.6 MEQ/L (3.5-5.1); SODIUM LEVEL 142 MEQ/L (136-145)
[2017-11-09] MEDS: HEPARIN 1,000 UNITS/ML 10ML VIAL (FOR RADIOLOGY& DIALYSIS ONLY) XX (10:45)
[2017-11-09] MEDS: ACETAMINOPHEN TAB 650MG DOSE (2X325MG) PO (15:21)
[2017-11-09] MEDS: WARFARIN SOD 7.5 MG TAB PO (17:04)
[2017-11-09] MEDS: METOPROLOL SUCC *XL* 25MG TAB (TopROL *XL*) PO (20:49)
[2017-11-09] MEDS: LETROZOLE 2.5 MG TAB PO (20:49)
[2017-11-09] MEDS: SENOKOT S TAB PO (20:50)
[2017-11-09] MEDS: PARoxetine 10MG TABLET PO (20:50)
[2017-11-09] MEDS: NEPHRO-VIT TAB (NEPHROCAPS) PO (20:50)
[2017-11-09] MEDS: DOCUSATE SODIUM 100 MG CAP PO (20:50)
[2017-11-09] MEDS: FOLIC ACID 1 MG TAB PO (20:50)
[2017-11-09] MEDS: predniSONE 50 MG TAB PO (22:53)
[2017-11-10] MEDS: diphenhydrAMINE 50 MG CAP PO (05:58)
[2017-11-10] MEDS: predniSONE 50 MG TAB PO (05:58)
[2017-11-10 06:27] LABS: HEMATOCRIT 33.8 % (42.0-52.0); HEMOGLOBIN 10.1 g/dl (13.5-17.5); MEAN CORPUSCULAR HEMOGLOBIN 27.4 pg (27.0-33.0); MEAN CORPUSCULAR HGB CONC 29.9 g/dl (32.0-36.5); MEAN CORPUSCULAR VOLUME 91.8 fl (80.0-96.0); PLATELET COUNT, AUTOMATED 109 10^3/uL (150-450); RED BLOOD COUNT 3.68 10^6/uL (4.30-6.10); RED CELL DISTRIBUTION WIDTH 19.9 % (11.5-14.5); WHITE BLOOD COUNT 4.7 10^3/uL (4.0-10.0)
[2017-11-10 06:38] LABS: INR 1.48; PROTHROMBIN TIME 18.2 SECONDS (12.1-14.4)
[2017-11-10] MEDS ORDERED: LIDOCAINE 2% MDV 20 ML VIAL As Ordered (06:45)
[2017-11-10] MEDS ORDERED: fentaNYL 100 MCG/2 ML INJECTION (J3010) As Ordered (06:46)
[2017-11-10] MEDS ORDERED: MIDAZOLAM INJ 2 MG/2 ML VIAL (J2250) As Ordered (06:46)
[2017-11-10] MEDS ORDERED: ISOVUE-300 61% 50ML VIAL (Q9967) As Ordered (06:46)
[2017-11-10 06:47] LABS: ANION GAP 8 MEQ/L (8-16); BLOOD UREA NITROGEN 53 MG/DL (7-18); CALCIUM LEVEL 8.8 MG/DL (8.8-10.2); CARBON DIOXIDE LEVEL 30 MEQ/L (21-32); CHLORIDE LEVEL 103 MEQ/L (98-107); CREATININE FOR GFR 5.69 MG/DL (0.70-1.30); GLOMERULAR FILTRATION RATE 12.9 (>49); GLUCOSE, FASTING 147 MG/DL (70-100); MAGNESIUM LEVEL 2.2 MG/DL (1.8-2.4); POTASSIUM SERUM 4.7 MEQ/L (3.5-5.1); SODIUM LEVEL 141 MEQ/L (136-145)
[2017-11-10] MEDS: MORPHINE 15 MG SA TAB PO (09:34)
[2017-11-10] MEDS: (RENVELA) SEVELAMER **CARBONate** 800 MG TAB PO ×2 (09:35→12:30)
[2017-11-10] MEDS: PANTOPRAZOLE 40MG TAB (PROTONIX) PO (09:35)
[2017-11-10] MEDS: SUCRALFATE 1 GM TAB PO (09:35)
[2017-11-10] MEDS: GABAPENTIN 100 MG CAP PO (09:36)
[2017-11-10] MEDS: SIMVASTATIN 10 MG TAB PO (09:36)
[2017-11-10] MEDS: EUCERIN 120GM CREAM TOP (09:37)
[2017-11-10] MEDS: predniSONE 20 MG TAB PO (09:37)
[2017-11-10] MEDS: BRIMONIDINE 0.1% OPHTH SOLN 5 ML OU (09:37)
[2017-11-10] MEDS ORDERED: WARFARIN SOD 4 MG TAB PO (17:00)
== END 2017-11-10 13:10 | disposition home health service (06) | DRG 592 ==
LOC: M ED 12:58 → M ED INP 17:53 → M MS5PR 20:20
PROC: 5A1D70Z Performance of Urinary Filtration, Intermittent, Less than 6 Hours Per Day (ICD-10-PCS; principal; 2017-10-31)
PROC: B54CZZ3 Ultrasonography of Left Lower Extremity Veins, Intravascular (ICD-10-PCS; 2017-11-10)
PROC: B544ZZ3 Ultrasonography of Left Jugular Veins, Intravascular (ICD-10-PCS; 2017-11-10)
PROC: B54 Imaging, Veins, Ultrasonography (ICD-10-PCS; 2017-11-10)
PROC: B54 Imaging, Veins, Ultrasonography (ICD-10-PCS; 2017-11-10)
DX: L97.529 Non-pressure chronic ulcer of other part of left foot with unspecified severity (principal); N18.6 End stage renal disease; I50.32 Chronic diastolic (congestive) heart failure; D69.3 Immune thrombocytopenic purpura; Z68.41 Body mass index [BMI] 40.0-44.9, adult; I13.2 Hypertensive heart and chronic kidney disease with heart failure and with stage 5 chronic kidney disease, or end stage renal disease; R78.81 Bacteremia; R53.1 Weakness; E66.01 Morbid (severe) obesity due to excess calories; G47.33 Obstructive sleep apnea (adult) (pediatric); E55.9 Vitamin D deficiency, unspecified; G89.4 Chronic pain syndrome; D63.1 Anemia in chronic kidney disease; J44.9 Chronic obstructive pulmonary disease, unspecified; N25.0 Renal osteodystrophy; Z87.891 Personal history of nicotine dependence; G62.9 Polyneuropathy, unspecified; I95.3 Hypotension of hemodialysis; K59.00 Constipation, unspecified; K21.9 Gastro-esophageal reflux disease without esophagitis; Z86.718 Personal history of other venous thrombosis and embolism; Z99.2 Dependence on renal dialysis; Z79.52 Long term (current) use of systemic steroids; Z85.3 Personal history of malignant neoplasm of breast; Z90.12 Acquired absence of left breast and nipple; Z79.891 Long term (current) use of opiate analgesic; Z79.01 Long term (current) use of anticoagulants; Z79.899 Other long term (current) drug therapy; Z88.0 Allergy status to penicillin; Z88.2 Allergy status to sulfonamides; Z88.8 Allergy status to other drugs, medicaments and biological substances; Z91.041 Radiographic dye allergy status

== ENCOUNTER 2017-11-22 14:29 | Inpatient (IN) | payer MEDICARE ==
[2017-11-22] MEDS: NS 1,000 ML IV (15:18)
[2017-11-22 15:27] LABS: BASO # 0.1 10^3/uL (0.0-0.2); BASO % 0.9 % (0.0-1.0); EOS # 0.6 10^3/uL (0.0-0.50); EOS % 11.1 % (0.0-3.0); HEMATOCRIT 32.8 % (42.0-52.0); HEMOGLOBIN 10.1 g/dl (13.5-17.5); IMMATURE GRANULOCYTE % 0.2 % (0-3.0); LYMPH # 0.9 10^3/uL (1.5-4.5); LYMPH % 15.7 % (24.0-44.0); MEAN CORPUSCULAR HEMOGLOBIN 27.6 pg (27.0-33.0); MEAN CORPUSCULAR HGB CONC 30.8 g/dl (32.0-36.5); MEAN CORPUSCULAR VOLUME 89.6 fl (80.0-96.0); MONO # 0.8 10^3/uL (0.0-0.8); MONO % 13.6 % (0.0-5.0); NEUTROPHILS # 3.4 10^3/uL (1.8-7.7); NEUTROPHILS % 58.5 % (36.0-66.0); PLATELET COUNT, AUTOMATED 202 10^3/uL (150-450); RED BLOOD COUNT 3.66 10^6/uL (4.30-6.10); RED CELL DISTRIBUTION WIDTH 19.7 % (11.5-14.5); WHITE BLOOD COUNT 5.8 10^3/uL (4.0-10.0)
[2017-11-22] MEDS: ACETAMINOPHEN TAB 650MG DOSE (2X325MG) PO (15:28)
[2017-11-22 15:41] LABS: ALBUMIN 2.6 GM/DL (3.2-5.2); ALBUMIN/GLOBULIN RATIO 0.72 (1.00-1.93); ALKALINE PHOSPHATASE 136 U/L (45-117); ANION GAP 12 MEQ/L (8-16); AST/SGOT 8 U/L (7-37); BILIRUBIN,DIRECT 0.2 MG/DL (0.0-0.2); BILIRUBIN,TOTAL 0.4 MG/DL (0.2-1.0); BLOOD UREA NITROGEN 17 MG/DL (7-18); CALCIUM LEVEL 9.1 MG/DL (8.8-10.2); CARBON DIOXIDE LEVEL 29 MEQ/L (21-32); CHLORIDE LEVEL 101 MEQ/L (98-107); CPK CREATINE PHOSPHOKINASE 26 U/L (39-308); CREATININE FOR GFR 7.24 MG/DL (0.70-1.30); GLOMERULAR FILTRATION RATE 9.8 (>49); GLUCOSE, FASTING 122 MG/DL (70-100); LIPASE 134 U/L (73-393); POTASSIUM SERUM 3.2 MEQ/L (3.5-5.1); SODIUM LEVEL 142 MEQ/L (136-145); TOTAL PROTEIN 6.2 GM/DL (6.4-8.2); TROPONIN I < 0.02 NG/ML (< 0.10)
[2017-11-22 15:45] LABS: ALT/SGPT 11 U/L (12-78); CK-MB VALUE MASS < 1.0 NG/ML (<3.6); MB/CK RELATIVE INDEX 3.84 (< OR =4)
[2017-11-22 15:45] LABS: LACTIC ACID SEPSIS PROTOCOL 3.5 MMOL/L (0.4-2.0)
[2017-11-22] MEDS: POTASSIUM CHLORIDE 10 MEQ SR TABLET PO (16:00)
[2017-11-22] MEDS ORDERED: ONDANSETRON 4 MG TAB (S0181) PO (18:00)
[2017-11-22] MEDS ORDERED: MIRALAX *UNIT DOSE* 17GM PACKET PO (18:00)
[2017-11-22] MEDS: IPRATROPIUM 0.5MG/ALBUTEROL 2.5MG INH SOL UD 3ML (DUONEB)(J7620) INH (20:12)
[2017-11-22] MEDS ORDERED: METOPROLOL SUCC *XL* 25MG TAB (TopROL *XL*) PO (21:00)
[2017-11-22] MEDS: LETROZOLE 2.5 MG TAB PO (21:00)
[2017-11-22] MEDS: NEPHRO-VIT TAB (NEPHROCAPS) PO (21:00)
[2017-11-22] MEDS: GABAPENTIN 100 MG CAP PO (22:28)
[2017-11-22] MEDS: PANTOPRAZOLE 40MG TAB (PROTONIX) PO (22:28)
[2017-11-22] MEDS: FOLIC ACID 1 MG TAB PO (22:28)
[2017-11-22] MEDS: MORPHINE 15 MG SA TAB PO (22:28)
[2017-11-22] MEDS: SENOKOT S TAB PO (22:28)
[2017-11-22] MEDS: SUCRALFATE 1 GM TAB PO (22:28)
[2017-11-22] MEDS: DOCUSATE SODIUM 100 MG CAP PO (22:28)
[2017-11-22] MEDS: PARoxetine 10MG TABLET PO (22:28)
[2017-11-23] MEDS: NS 1,000 ML IV (01:18)
[2017-11-23 06:40] LABS: BASO % 0.6 % (0.0-1.0); EOS # 0.9 10^3/uL (0.0-0.50); HEMATOCRIT 30.8 % (42.0-52.0); HEMOGLOBIN 9.2 g/dl (13.5-17.5); IMMATURE GRANULOCYTE % 0.4 % (0-3.0); LYMPH # 1.1 10^3/uL (1.5-4.5); LYMPH % 23.6 % (24.0-44.0); MEAN CORPUSCULAR HEMOGLOBIN 26.7 pg (27.0-33.0); MEAN CORPUSCULAR HGB CONC 29.9 g/dl (32.0-36.5); MEAN CORPUSCULAR VOLUME 89.5 fl (80.0-96.0); MONO # 0.5 10^3/uL (0.0-0.8); MONO % 11.1 % (0.0-5.0); NEUTROPHILS # 2.2 10^3/uL (1.8-7.7); NEUTROPHILS % 45.3 % (36.0-66.0); PLATELET COUNT, AUTOMATED 165 10^3/uL (150-450); RED BLOOD COUNT 3.44 10^6/uL (4.30-6.10); RED CELL DISTRIBUTION WIDTH 19.9 % (11.5-14.5); WHITE BLOOD COUNT 4.8 10^3/uL (4.0-10.0)
[2017-11-23 06:52] LABS: INR 2.02; PROTHROMBIN TIME 23.2 SECONDS (12.1-14.4)
[2017-11-23 06:58] LABS: ALBUMIN 2.3 GM/DL (3.2-5.2); ALBUMIN/GLOBULIN RATIO 0.74 (1.00-1.93); ALKALINE PHOSPHATASE 118 U/L (45-117); ALT/SGPT 8 U/L (12-78); ANION GAP 9 MEQ/L (8-16); AST/SGOT 7 U/L (7-37); BILIRUBIN,TOTAL 0.4 MG/DL (0.2-1.0); BLOOD UREA NITROGEN 19 MG/DL (7-18); CALCIUM LEVEL 8.4 MG/DL (8.8-10.2); CARBON DIOXIDE LEVEL 28 MEQ/L (21-32); CHLORIDE LEVEL 107 MEQ/L (98-107); CREATININE FOR GFR 7.85 MG/DL (0.70-1.30); GLOMERULAR FILTRATION RATE 8.9 (>49); GLUCOSE, FASTING 82 MG/DL (70-100); POTASSIUM SERUM 4.1 MEQ/L (3.5-5.1); SODIUM LEVEL 144 MEQ/L (136-145); TOTAL PROTEIN 5.4 GM/DL (6.4-8.2)
[2017-11-23] MEDS: IPRATROPIUM 0.5MG/ALBUTEROL 2.5MG INH SOL UD 3ML (DUONEB)(J7620) INH ×3 (07:28→19:31)
[2017-11-23] MEDS: predniSONE 20 MG TAB PO (08:28)
[2017-11-23] MEDS: PANTOPRAZOLE 40MG TAB (PROTONIX) PO ×2 (08:28→21:12)
[2017-11-23] MEDS: SIMVASTATIN 10 MG TAB PO (08:28)
[2017-11-23] MEDS: MORPHINE 15 MG SA TAB PO ×2 (08:28→21:16)
[2017-11-23] MEDS: GABAPENTIN 100 MG CAP PO ×3 (08:28→21:12)
[2017-11-23] MEDS: SUCRALFATE 1 GM TAB PO ×4 (08:28→21:12)
[2017-11-23 08:39] LABS: CK-MB VALUE MASS < 1.0 NG/ML (<3.6); CPK CREATINE PHOSPHOKINASE 18 U/L (39-308); MAGNESIUM LEVEL 2.3 MG/DL (1.8-2.4); MB/CK RELATIVE INDEX 5.55 (< OR =4); TROPONIN I < 0.02 NG/ML (< 0.10)
[2017-11-23] MEDS: ACETAMINOPHEN 325 MG TAB PO ×2 (10:53→16:54)
[2017-11-23] MEDS: HEPARIN 1,000 UNITS/ML 10ML VIAL (FOR RADIOLOGY& DIALYSIS ONLY) XX (13:00)
[2017-11-23 14:54] LABS: CK-MB VALUE MASS < 1.0 NG/ML (<3.6); CPK CREATINE PHOSPHOKINASE 23 U/L (39-308); MB/CK RELATIVE INDEX 4.34 (< OR =4); TROPONIN I < 0.02 NG/ML (< 0.10)
[2017-11-23] MEDS: WARFARIN SOD 7.5 MG TAB PO (16:52)
[2017-11-23 20:29] LABS: CK-MB VALUE MASS < 1.0 NG/ML (<3.6); CPK CREATINE PHOSPHOKINASE 22 U/L (39-308); MB/CK RELATIVE INDEX 4.54 (< OR =4); TROPONIN I < 0.02 NG/ML (< 0.10)
[2017-11-23] MEDS: FOLIC ACID 1 MG TAB PO (21:12)
[2017-11-23] MEDS: PARoxetine 10MG TABLET PO (21:12)
[2017-11-23] MEDS: DOCUSATE SODIUM 100 MG CAP PO (21:12)
[2017-11-23] MEDS: LETROZOLE 2.5 MG TAB PO (21:12)
[2017-11-23] MEDS: SENOKOT S TAB PO (21:12)
[2017-11-23] MEDS: NEPHRO-VIT TAB (NEPHROCAPS) PO (21:16)
[2017-11-24 06:27] LABS: BASO % 0.4 % (0.0-1.0); EOS # 0.4 10^3/uL (0.0-0.50); EOS % 8.2 % (0.0-3.0); HEMATOCRIT 30.2 % (42.0-52.0); IMMATURE GRANULOCYTE % 0.4 % (0-3.0); LYMPH % 21.3 % (24.0-44.0); MEAN CORPUSCULAR HEMOGLOBIN 26.9 pg (27.0-33.0); MEAN CORPUSCULAR HGB CONC 29.8 g/dl (32.0-36.5); MEAN CORPUSCULAR VOLUME 90.1 fl (80.0-96.0); MONO # 0.4 10^3/uL (0.0-0.8); MONO % 9.3 % (0.0-5.0); NEUTROPHILS # 2.7 10^3/uL (1.8-7.7); NEUTROPHILS % 60.4 % (36.0-66.0); PLATELET COUNT, AUTOMATED 161 10^3/uL (150-450); RED BLOOD COUNT 3.35 10^6/uL (4.30-6.10); RED CELL DISTRIBUTION WIDTH 19.8 % (11.5-14.5); WHITE BLOOD COUNT 4.5 10^3/uL (4.0-10.0)
[2017-11-24 06:38] LABS: ALBUMIN 2.4 GM/DL (3.2-5.2); ALBUMIN/GLOBULIN RATIO 0.71 (1.00-1.93); ALKALINE PHOSPHATASE 120 U/L (45-117); ALT/SGPT 7 U/L (12-78); ANION GAP 7 MEQ/L (8-16); AST/SGOT 7 U/L (7-37); BILIRUBIN,TOTAL 0.3 MG/DL (0.2-1.0); BLOOD UREA NITROGEN 16 MG/DL (7-18); CALCIUM LEVEL 8.9 MG/DL (8.8-10.2); CARBON DIOXIDE LEVEL 32 MEQ/L (21-32); CHLORIDE LEVEL 104 MEQ/L (98-107); CREATININE FOR GFR 5.39 MG/DL (0.70-1.30); GLOMERULAR FILTRATION RATE 13.8 (>49); GLUCOSE, FASTING 86 MG/DL (70-100); MAGNESIUM LEVEL 2.3 MG/DL (1.8-2.4); SODIUM LEVEL 143 MEQ/L (136-145); TOTAL PROTEIN 5.8 GM/DL (6.4-8.2)
[2017-11-24 06:39] LABS: INR 1.81; PROTHROMBIN TIME 21.3 SECONDS (12.1-14.4)
[2017-11-24] MEDS: SUCRALFATE 1 GM TAB PO ×2 (08:35→12:26)
[2017-11-24] MEDS: VITAMIN D 50,000 UNITS CAPSULE (ERGOCALCIFEROL 1.25MG) PO (08:35)
[2017-11-24] MEDS: GABAPENTIN 100 MG CAP PO (08:35)
[2017-11-24] MEDS: PANTOPRAZOLE 40MG TAB (PROTONIX) PO (08:35)
[2017-11-24] MEDS: MORPHINE 15 MG SA TAB PO (08:35)
[2017-11-24] MEDS: predniSONE 20 MG TAB PO (08:35)
[2017-11-24] MEDS: SIMVASTATIN 10 MG TAB PO (08:35)
[2017-11-24] MEDS: IPRATROPIUM 0.5MG/ALBUTEROL 2.5MG INH SOL UD 3ML (DUONEB)(J7620) INH (08:50)
[2017-11-24] MEDS ORDERED: VITAMIN D 50,000 UNITS CAPSULE (ERGOCALCIFEROL 1.25MG) PO (09:00)
[2017-11-24] MEDS ORDERED: WARFARIN SOD 5 MG TAB PO (17:00)
== END 2017-11-24 14:05 | disposition home health service (06) | DRG 640 ==
LOC: M MSPAV 11-24 01:08 → M ED 14:29 → M ED INP 16:40
PROC: 5A1D70Z Performance of Urinary Filtration, Intermittent, Less than 6 Hours Per Day (ICD-10-PCS; principal; 2017-11-23)
DX: E87.6 Hypokalemia (principal); N18.6 End stage renal disease; I50.32 Chronic diastolic (congestive) heart failure; C79.51 Secondary malignant neoplasm of bone; D69.3 Immune thrombocytopenic purpura; Z68.41 Body mass index [BMI] 40.0-44.9, adult; E87.2 Acidosis; G47.33 Obstructive sleep apnea (adult) (pediatric); G89.4 Chronic pain syndrome; K21.9 Gastro-esophageal reflux disease without esophagitis; E66.01 Morbid (severe) obesity due to excess calories; G62.9 Polyneuropathy, unspecified; D63.1 Anemia in chronic kidney disease; I95.9 Hypotension, unspecified; K52.9 Noninfective gastroenteritis and colitis, unspecified; N25.0 Renal osteodystrophy; J45.909 Unspecified asthma, uncomplicated; E55.9 Vitamin D deficiency, unspecified; Z85.3 Personal history of malignant neoplasm of breast; Z90.12 Acquired absence of left breast and nipple; Z99.2 Dependence on renal dialysis; Z79.52 Long term (current) use of systemic steroids; Z79.899 Other long term (current) drug therapy; Z79.01 Long term (current) use of anticoagulants; Z86.718 Personal history of other venous thrombosis and embolism; Z79.891 Long term (current) use of opiate analgesic; Z91.041 Radiographic dye allergy status; Z91.040 Latex allergy status; Z88.0 Allergy status to penicillin; Z88.2 Allergy status to sulfonamides; Z87.891 Personal history of nicotine dependence

== ENCOUNTER 2017-12-07 09:58 | Emergency (ER) | payer MEDICARE ==
[2017-12-07 11:08] LABS: BASO # 0.1 10^3/uL (0.0-0.2); EOS # 0.6 10^3/uL (0.0-0.50); EOS % 10.2 % (0.0-3.0); HEMATOCRIT 35.2 % (42.0-52.0); HEMOGLOBIN 10.7 g/dl (13.5-17.5); IMMATURE GRANULOCYTE % 0.3 % (0-3.0); LYMPH % 16.6 % (24.0-44.0); MEAN CORPUSCULAR HEMOGLOBIN 26.6 pg (27.0-33.0); MEAN CORPUSCULAR HGB CONC 30.4 g/dl (32.0-36.5); MEAN CORPUSCULAR VOLUME 87.3 fl (80.0-96.0); MONO # 0.8 10^3/uL (0.0-0.8); MONO % 13.3 % (0.0-5.0); NEUTROPHILS # 3.6 10^3/uL (1.8-7.7); NEUTROPHILS % 58.6 % (36.0-66.0); PLATELET COUNT, AUTOMATED 181 10^3/uL (150-450); RED BLOOD COUNT 4.03 10^6/uL (4.30-6.10); RED CELL DISTRIBUTION WIDTH 19.5 % (11.5-14.5); WHITE BLOOD COUNT 6.1 10^3/uL (4.0-10.0)
[2017-12-07] MEDS: METOPROLOL 5 MG/5 ML VIAL IV ×3 (11:16→11:26)
[2017-12-07 11:17] LABS: INR 1.62; PROTHROMBIN TIME 19.5 SECONDS (12.1-14.4)
[2017-12-07 13:20] LABS: ALBUMIN 2.5 GM/DL (3.2-5.2); ALBUMIN/GLOBULIN RATIO 0.78 (1.00-1.93); ALKALINE PHOSPHATASE 120 U/L (45-117); ALT/SGPT 6 U/L (12-78); ANION GAP 10 MEQ/L (8-16); AST/SGOT 9 U/L (7-37); BILIRUBIN,DIRECT 0.1 MG/DL (0.0-0.2); BILIRUBIN,TOTAL 0.4 MG/DL (0.2-1.0); BLOOD UREA NITROGEN 15 MG/DL (7-18); CALCIUM LEVEL 8.6 MG/DL (8.8-10.2); CARBON DIOXIDE LEVEL 28 MEQ/L (21-32); CHLORIDE LEVEL 104 MEQ/L (98-107); CK-MB VALUE MASS < 1.0 NG/ML (<3.6); CPK CREATINE PHOSPHOKINASE 24 U/L (39-308); CREATININE FOR GFR 7.04 MG/DL (0.70-1.30); FREE T4 1.09 NG/DL (0.76-1.46); GLOMERULAR FILTRATION RATE 10.1 (>49); GLUCOSE, FASTING 74 MG/DL (70-100); LIPASE 170 U/L (73-393); MAGNESIUM LEVEL 2.1 MG/DL (1.8-2.4); MB/CK RELATIVE INDEX 4.17 (< OR =4); NT-PRO BNP 4624 PG/ML (<125); PHOSPHORUS LEVEL 2.8 MG/DL (2.5-4.9); POTASSIUM SERUM 3.6 MEQ/L (3.5-5.1); SODIUM LEVEL 142 MEQ/L (136-145); THYROID STIMULATING HORMONE 0.713 uIU/ML (0.358-3.740); TOTAL PROTEIN 5.7 GM/DL (6.4-8.2); TROPONIN I < 0.02 NG/ML (< 0.10)
== END 2017-12-07 15:40 | disposition home or self-care (01) ==
LOC: M ED 09:58
DX: I48.92 Unspecified atrial flutter (principal); I45.10 Unspecified right bundle-branch block; R94.31 Abnormal electrocardiogram [ECG] [EKG]; I50.9 Heart failure, unspecified; G47.33 Obstructive sleep apnea (adult) (pediatric); Z98.890 Other specified postprocedural states; Z91.041 Radiographic dye allergy status; Z88.8 Allergy status to other drugs, medicaments and biological substances; Z91.040 Latex allergy status; Z88.0 Allergy status to penicillin; Z79.899 Other long term (current) drug therapy
CPT/HCPCS: 71045

== ENCOUNTER 2018-02-19 01:47 | Emergency (ER) | payer MEDICARE ==
[2018-02-19] MEDS ORDERED: DOPamine 400 MG/500 ML BAG IN D5W (800MCG/ML) (J1265) (01:48)
[2018-02-19] MEDS: NS 1,000 ML IV (02:23)
[2018-02-19] MEDS: NS 500 ML IV (02:30)
[2018-02-19] MEDS ORDERED: ATROPINE SULF 1MG/10ML SYRINGE (J0461) IV ×2 (02:49→04:35)
[2018-02-19] MEDS ORDERED: EPINEPHrine 1MG/10ML SYRINGE 1.5IN IV ×14 (02:49→03:24)
[2018-02-19] MEDS ORDERED: CALCIUM CHLORIDE 10% 1 GM in D5W 100 ML IV ×2 (02:49→03:04)
[2018-02-19 02:50] LABS: BASO # 0.1 10^3/uL (0.0-0.2); EOS # 0.7 10^3/uL (0.0-0.50); EOS % 9.7 % (0.0-3.0); HEMATOCRIT 36.5 % (42.0-52.0); HEMOGLOBIN 10.4 g/dl (13.5-17.5); IMMATURE GRANULOCYTE % 0.3 % (0-3.0); LYMPH # 3.7 10^3/uL (1.5-4.5); LYMPH % 50.8 % (24.0-44.0); MEAN CORPUSCULAR HEMOGLOBIN 26.5 pg (27.0-33.0); MEAN CORPUSCULAR HGB CONC 28.5 g/dl (32.0-36.5); MEAN CORPUSCULAR VOLUME 93.1 fl (80.0-96.0); MONO # 0.5 10^3/uL (0.0-0.8); NEUTROPHILS # 2.3 10^3/uL (1.8-7.7); NEUTROPHILS % 31.2 % (36.0-66.0); PLATELET COUNT, AUTOMATED 203 10^3/uL (150-450); RED BLOOD COUNT 3.92 10^6/uL (4.30-6.10); RED CELL DISTRIBUTION WIDTH 19.8 % (11.5-14.5); WHITE BLOOD COUNT 7.3 10^3/uL (4.0-10.0)
[2018-02-19 02:51] LABS: ABG BASE EXCESS -14.3 (-2.0-2.0); ABG HCO3 10.9 MEQ/L (22.0-26.0); ABG O2 SATURATION 98.1 % (95.0-99.0); ABG PARTIAL PRESSURE CO2 24.3 mmHg (35.0-45.0); ABG PARTIAL PRESSURE O2 118.9 mmHg (75.0-100.0); ABG STANDARD HCO3 13.4 MEQ/L (22.0-26.0); ABG TOTAL CO2 11.7 MEQ/L (23.0-31.0)
[2018-02-19] MEDS ORDERED: SODIUM BICARBONATE 8.4% INJ 50 ML SYRINGE IV ×5 (02:51→03:22)
[2018-02-19] MEDS ORDERED: AMIODARONE 150MG/3ML INJ (J0282) IVP ×2 (02:54→02:59)
[2018-02-19 02:56] LABS: INR 4.69; PARTIAL THROMBOPLASTIN TIME 86.5 SECONDS (25.4-37.6); PROTHROMBIN TIME 45.3 SECONDS (12.1-14.4)
[2018-02-19] MEDS ORDERED: CALCIUM CHLORIDE 10% 1 GM/10 ML SYR As Ordered (03:04)
[2018-02-19] MEDS ORDERED: SODIUM BICARBONATE 8.4% INJ 50 ML SYRINGE As Ordered ×2 (03:05→03:22)
[2018-02-19] MEDS ORDERED: EPINEPHrine 1MG/10ML SYRINGE 1.5IN As Ordered ×2 (03:08→03:20)
[2018-02-19 03:13] LABS: ALBUMIN/GLOBULIN RATIO 0.86 (1.00-1.93); ALKALINE PHOSPHATASE 138 U/L (45-117); ALT/SGPT 9 U/L (12-78); ANION GAP 23 MEQ/L (8-16); AST/SGOT 18 U/L (7-37); BILIRUBIN,DIRECT 0.1 MG/DL (0.0-0.2); BILIRUBIN,TOTAL 0.3 MG/DL (0.2-1.0); BLOOD UREA NITROGEN 21 MG/DL (7-18); CALCIUM LEVEL 8.4 MG/DL (8.8-10.2); CARBON DIOXIDE LEVEL 19 MEQ/L (21-32); CHLORIDE LEVEL 98 MEQ/L (98-107); CREATININE FOR GFR 7.88 MG/DL (0.70-1.30); GLOMERULAR FILTRATION RATE 8.9 (>49); GLUCOSE, FASTING 295 MG/DL (70-100); LIPASE 485 U/L (73-393); POTASSIUM SERUM 3.9 MEQ/L (3.5-5.1); SODIUM LEVEL 140 MEQ/L (136-145); TOTAL PROTEIN 6.5 GM/DL (6.4-8.2)
[2018-02-19 03:41] LABS: CK-MB VALUE MASS < 1.0 NG/ML (<3.6); CPK CREATINE PHOSPHOKINASE 46 U/L (39-308); MAGNESIUM LEVEL 2.5 MG/DL (1.8-2.4); MB/CK RELATIVE INDEX 2.17 (< OR =4); TROPONIN I < 0.02 NG/ML (< 0.10)
[2018-02-19 03:44] LABS: LACTIC ACID SEPSIS PROTOCOL > 15.0 MMOL/L (0.4-2.0)
[2018-02-19 03:53] LABS: PHOSPHORUS LEVEL 5.7 MG/DL (2.5-4.9)
== END 2018-02-19 05:25 | disposition expired ==
LOC: M ED 01:47
DX: I46.9 Cardiac arrest, cause unspecified (principal); R00.0 Tachycardia, unspecified; R10.84 Generalized abdominal pain; N18.6 End stage renal disease; Z99.2 Dependence on renal dialysis; I50.9 Heart failure, unspecified; G47.33 Obstructive sleep apnea (adult) (pediatric); Z86.718 Personal history of other venous thrombosis and embolism
CPT/HCPCS: J1265